=== PATIENT | female | born 1945 | race Caucasian/White ===

== ENCOUNTER 2016-10-21 10:17 | Day surgery (SDC) | payer MEDICARE, BC ==
[~2016-10-21 10:17] MED LIST: Acetaminophen TAB* 325 MG PO PRN; Buffered Lidocaine 1% SYR 3ML* 3 ML/SYR SYRINGE INTRADERM ONE
[2016-10-21] MEDS ORDERED: Midazolam* 1 MG/ML 2 ML VIAL (2 MG) ONE (13:17)
[2016-10-21 14:14] VITALS: BP 128/69
--- NOTE | 2016-10-22 04:32 | OP ---
DATE OF OPERATION: 10/21/16 - [facility] DATE OF : 43 SURGEON: Benoit Perea MD PREOPERATIVE DIAGNOSIS: Cataract, right eye. POSTOPERATIVE DIAGNOSIS: Cataract, right eye. OPERATIVE PROCEDURE: Phacoemulsification, right eye with IOL DESCRIPTION OF PROCEDURE: The patient was brought to the operating room after being given 1/2% Alcaine with epinephrine drops in the preoperative area. The eye was prepped and draped in the usual sterile fashion. Sterile drape and eyelid speculum were placed. Again, topical 1/2% Alcaine with epinephrine was given. A paracentesis incision was made at the 9 o'clock position with the No.75 blade. Clear cornea incision 2.2 x 2.2-mm was created at the 12 o'clock position starting at the anterior limbus using the 2.2-mm keratome. The anterior chamber was irrigated with 0.4 mL of 1% non-preservative intracameral lidocaine and filled with DisCoVisc. A capsulorrhexis was completed using the cystotome and the Utrata forceps. Hydrodissection was performed with balanced salt solution. The lens nucleus was removed with the Phacoemulsification handpiece without incident. Cortex was removed with the irrigation-aspiration handpiece. The capsular bag was re-inflated using DisCoVisc and an SN60WF 18.5 implant was inserted with the shooter. A Malyugin ring was used to dilate the pupil prior to capsulorrhexis and removed after insertion of the lens. Indication for complex cataract surgery, iris abnormalities requiring pupil dilation device. The irrigation-aspiration handpiece was used to remove all residual DisCoVisc. The eye was refilled with balanced salt solution and the wound checked and found to be watertight. Topical Maxitrol drops were given. [id number]/[facility] #: [id number] [facility]
[2016-10-22] MEDS ORDERED: Povidone Iodine 5% OPTH* 30 ML BTL ONE (14:30)
[2016-10-22] MEDS ORDERED: Neomycin/Polymy/Dex OPTH.SUSP* MAXITROL 0.1% 5 ML ONE (14:30)
[2016-10-22] MEDS ORDERED: Phenylephrine 2.5% OPTH.SOL* 2 ML BTL ONE (14:30)
[2016-10-22] MEDS ORDERED: Lidocaine 2% EPI 1:200000 MPF* 20 ML VIAL ONE (14:30)
[2016-10-22] MEDS ORDERED: Cyclopentolate 1% OPTH.SOL* 2 ML BTL ONE (14:30)
[2016-10-22] MEDS ORDERED: acetaZOLAMIDE TAB* 250 MG ONE (14:30)
[2016-10-22] MEDS ORDERED: Flurbiprofen 0.03% OPTH.SOL* 2.5 ML BTL ONE (14:30)
[2016-10-22] MEDS ORDERED: Proparacaine 0.5% OPHTH.SOL* 15 ML BTL ONE (14:30)
[2016-10-22] MEDS ORDERED: Lidocaine 1% MPF* 2 ML VIAL ONE (14:30)
== END 2016-10-21 14:12 | disposition home or self-care (01) ==
LOC: OREAST 10:17
PROVIDERS: ATTEND Specialist
DX: H25.811 Combined forms of age-related cataract, right eye (principal); H35.373 Puckering of macula, bilateral; M06.9 Rheumatoid arthritis, unspecified; Z79.899 Other long term (current) drug therapy; I10 Essential (primary) hypertension
CPT/HCPCS: A9270-GY; J2250; V2632

== ENCOUNTER 2016-10-28 09:38 | Day surgery (SDC) | payer MEDICARE, BC ==
[~2016-10-28 09:38] MED LIST changes: -Acetaminophen TAB* 325 MG PO PRN; +Cyclopentolate 1% OPTH.SOL* 2 ML BTL ONE; +Flurbiprofen 0.03% OPTH.SOL* 2.5 ML BTL ONE; +Lidocaine 1% MPF* 2 ML VIAL ONE; +Lidocaine 2% EPI 1:200000 MPF* 20 ML VIAL ONE; +Neomycin/Polymy/Dex OPTH.SUSP* MAXITROL 0.1% 5 ML ONE; +Phenylephrine 2.5% OPTH.SOL* 2 ML BTL ONE; +Povidone Iodine 5% OPTH* 30 ML BTL ONE; +Proparacaine 0.5% OPHTH.SOL* 15 ML BTL ONE; +acetaZOLAMIDE TAB* 250 MG ONE
[2016-10-28] MEDS ORDERED: Propofol* 10 MG/ML 20 ML BTL IV PUSH ONE (12:36)
[2016-10-28 13:25] VITALS: BP 123/78
--- NOTE | 2016-10-28 15:17 | OP ---
DATE OF OPERATION: 10/28/2016 - [facility] DATE OF : 1945. SURGEON: Benoit Perea M.D. PREOPERATIVE DIAGNOSIS: Cataract left eye. POSTOPERATIVE DIAGNOSIS: Cataract left eye. OPERATIVE PROCEDURE: Phacoemulsification left eye with IOL. DESCRIPTIO OF PROCEDURE: The patient was brought to the operating room after being given 1/2% Alcaine with epinephrine drops in the preoperative area. The eye was prepped and draped in the usual sterile fashion. Sterile drape and eyelid speculum were placed. Again, topical 1/2% Alcaine with epinephrine was given. A paracentesis incision was made at the 3 o'clock position with the No.75 blade. Clear cornea incision 2.2 x 2.2-mm was created at the 6 o'clock position starting at the anterior limbus using the 2.2-mm keratome. The anterior chamber was irrigated with 0.4 mL of 1% non-preservative intracameral lidocaine and filled with DisCoVisc. A capsulorrhexis was completed using the cystotome and the Utrata forceps. Hydrodissection was performed with balanced salt solution. The lens nucleus was removed with the Phacoemulsification handpiece without incident. Cortex was removed with the irrigation-aspiration handpiece. The capsular bag was re-inflated using DisCoVisc and an SN60WF 18 implant was inserted with the shooter. Of note, the patient's pupil dilator was only about 3 mm. A Malyugin ring was used to dilate the pupil prior to capsulorrhexis and removed after insertion of the lens. The irrigation- aspiration handpiece was used to remove all residual DisCoVisc. The eye was refilled with balanced salt solution and the wound checked and found to be watertight. Topical Maxitrol drops were given. Indication for complex cataract surgery: Iris abnormalities requiring pupil dilation device. [id number]/[facility] #: [id number] [facility]ITALMor[facility]
== END 2016-10-28 13:11 | disposition home or self-care (01) ==
LOC: OREAST 09:38
PROVIDERS: ATTEND Specialist
DX: H25.812 Combined forms of age-related cataract, left eye (principal); H35.373 Puckering of macula, bilateral; M06.9 Rheumatoid arthritis, unspecified; Z79.899 Other long term (current) drug therapy; I10 Essential (primary) hypertension; E03.9 Hypothyroidism, unspecified
CPT/HCPCS: A9270-GY; J2704; V2632

== ENCOUNTER 2018-03-07 11:45 | Emergency (ER) | payer MEDICARE, BC ==
--- NOTE | 2018-03-07 11:48 | UC ---
Back Pain HPI - HPI Summary HPI Summary: 72 yo female presents with low back pain for 5 days. She tells me that 5 days ago she went to stand up from a seated position and felt a pull in her lower back. The next day the pain was worse so she saw her PCP who gave her an injection of Toradol and rx for tylenol. She felt good that same day, but the next day her pain returned and has persisted through today. Denies fever, chills , SOB, chest pain, abdominal pain, n/v/d/c, dysuria, hematuria, numbness, tingling, saddle anesthesia, or loss of bowel/bladder control. - History of Current Complaint Stated Complaint: LOWER BACK PAIN Time Seen by Provider: 03/07/18 11:48 Hx Obtained From: Patient Onset/Duration: Sudden Onset Timing: Constant Severity Initially: Severe Severity Currently: Severe Pain Intensity: 9 Pain Scale Used: 0-10 Numeric - Allergies/Home Medications Allergies/Adverse Reactions: Allergies Allergy/AdvReac Type Severity Reaction Status Date / Time hydrocodone Allergy Itching Verified 03/07/18 12:13 Sulfa (Sulfonamide Allergy itch Verified 03/07/18 12:13 Antibiotics) tramadol Allergy itch Verified 03/07/18 12:13 iv contrast Allergy itch Uncoded 03/07/18 12:13 PMH/Surg Hx/FS Hx/Imm Hx - Additional Past Medical History Additional PMH: Rheumatoid Arthritis Endocrine History: Hypothyroidism Psychological History: Anxiety, Depression - Surgical History Surgical History: Yes Surgery Procedure, Year, and Place: HYSTERECTOMY -. BILAT hand surgery. tonsillectomy as child - Family History Known Family History: Positive: Cardiac Disease, Hypertension - Social History Occupation: Retired Lives: With Family Alcohol Use: Occasionally Alcohol Amount: qod Substance Use Type: None Smoking Status (MU): Never Smoked Tobacco Have You Smoked in the Last Year: No Review of Systems Constitutional: Negative Skin: Negative Respiratory: Negative Cardiovascular: Negative Gastrointestinal: Negative Genitourinary: Negative Neurovascular: Negative Musculoskeletal: Other: - LBP Neurological: Negative Psychological: Negative All Other Systems Reviewed And Are Negative: Yes Physical Exam - Summary Physical Exam Summary: GENERAL: NAD. WDWN. No pain distress. SKIN: No rashes, sores, lesions, or open wounds. NECK: Supple. FROM. Nontender. No lymphadenopathy. CHEST: No accessory muscle use. Breathing comfortably and in no distress. CV: Pulses intact. Brisk cap refill. MSK: TTP over L1, L2, and L3 vertebrae. Pain with flexion and extension of spine. Negative SLR b/l. Strength 5/5 and symmetric B/L LEs including dorsiflexion and plantar flexion. FROM B/L LEs. No edema. NEURO: Alert. CN II-XII grossly intact. Sensations intact B/L LEs L3-S1. PSYCH: Age appropriate behavior. Triage Information Reviewed: Yes Vital Signs: Vital Signs: Temp Pulse Resp BP Pulse Ox 98.4 F 86 16 134/75 98 03/07/18 11:53 03/07/18 11:53 03/07/18 11:53 03/07/18 11:53 03/07/18 11:53 Vital Signs Reviewed: Yes Back Pain Course/Dx - Course Course Of Treatment: XR: IMPRESSION: #. L1 predominant anterior column moderate compression fracture is new compared with the. September 30, 2015 radiographs. Acute or subacute fracture should be considered given. presence of trabecular impaction and new onset pain. #. Multilevel degenerative spondylosis and facet joint osteoarthritis without significant. interval change. #. Predisposing osteopenia documented on October 14, 2016 DEXA scan. 30mg of Toradol IM given in clinic. Rx for lidocaine patch and continue with tylenol. Referral to neurosurgery for further evaluation and treatment. - Differential Dx/Diagnosis Provider Diagnoses: L1 compression fracture Discharge - Sign-Out/Discharge Documenting (check all that apply): Patient Departure - Discharge Plan Condition: Stable Disposition: HOME Prescriptions: Lidocaine PATCH 5%* [Lidoderm 5% Patch*] 1 patch TRANSDERM DAILY PRN #1 box PRN Reason: Pain Patient Education Materials: Vertebral Compression Fracture (ED) Referrals: Annabel Garcia MD [Primary Care Provider] - Soni Cook MD [Medical Doctor] - As Soon As Possible Additional Instructions: If you develop a fever, shortness of breath, chest pain, new or worsening symptoms - please call your PCP or go to the ED. 1) May continue to take tylenol for pain 2) Please call Neurosurgery at the number below to schedule a follow up appointment as soon as possible - Billing Disposition and Condition Condition: STABLE Disposition: Home
[2018-03-07 11:55] VITALS: BP 134/75
--- OUTSIDE RECORDS SUMMARY | 2018-03-07 11:55 | XMS REPORT ---
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 Active Onset: 01/07/2012 Depressive disorder Sharri Mcdonough M.D. Active Onset: 01/07/2012 Allergic condition Sharri Mcdonough M.D. Active Onset: 12/27/2012 Hypothyroidism Annabel Garcia M.D. Active Onset: 06/17/2016 Closed fracture of surgical neck Edinson Navarrete M.D. 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 Active fracture, l shoulder, init Onset: 06/17/2016 Other specified depressive Edinson Navarrete M.D. Active episodes Onset: 06/17/2016 Essential hypertension Edinson Navarrete M.D. Active Onset: 01/07/2012 Hyperlipidemia screening Sharri Mcdonough M.D. Inactive Inactive: 06/17/2016 Onset: 12/27/2012 Headache Annabel Garcia M.D. Inactive Inactive: 06/17/2016 Onset: 12/27/2012 Insomnia Annabel Garcia M.D. Inactive Inactive: 06/17/2016 Onset: 05/01/2013 Abdominal pain Annabel Garcia M.D. 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 Inactive mood Inactive: 06/17/2016 Family History Date Family Member(s) Problem(s) Comments General No fam history DM, CAD, no lung, colon cancer. Father due to Congestive Heart () - age 78 Failure Mother due to Breast Cancer () - age 72. Number of Children None First Sister Lynne. good health. First Sister gastroparesis. Social History Type Date Description Comments Education Highest level of education completed is a master's degree in Social Work Marital Status Patient is Living Situation Lives with spouse Diet Diet is healthy and well balanced Sleep Typically sleeps 8 hours a night. 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 Cigarette Use Never Smoked Cigarettes ETOH Use Some 4-5 drinks over the week Recreational Drug Use Denies Drug Use Smoking Patient has never smoked Daily Caffeine Consumes on average 1 cup of coffee per day Exercise Type/Frequency Exercises Current regularly--strength training at the [employer]. volunteers at [employer] - very active there shuffling books around. Allergies, Adverse Reactions, Alerts Date Description Reaction Status Severity Comments 01/30/2011 Sulfa Drugs Nausea and Vomiting active 07/21/2012 Hydrocodone active Hives/Itching 07/21/2012 IV Contrast active Hives 07/21/2012 Morphine active Itching Medications Medication Date Status Form Strength Qnty SIG Indications Ordering Provider Lorazepam 03/05 Active Tablets 0.5mg 30tabs 1/2 to 1 G47.09 Ofelia /2018 by mouth Jourdan, bid prn CHARGE POSTER spasm Acetaminophen 03/05 Active Tablets 500mg 90tabs 1-2 by Ofelia Extra Strength /2017 mouth Jourdan, three CHARGE POSTER times daily as needed for pain Irbesartan 11/03 Active Tablets 150mg 180tabs 1 by mouth I10 Annabel Lanier twice Radha daily MJulienDJulien Trazodone HCL 12/27 Active Tablets 50mg 270tabs take one G47.00 Alvino T. /2012 to three Midura, tablets by Thee mouth at bedtime Synthroid 08/03 Active Tablets 50mcg 90tabs 1 by mouth Annabel Lanier every day Thee Garcia Folic Acid 10/16 Active 1mg 30units 1 qd Edinson F. Thee Navarrete Nasacort Aq 08/09 Active 3units 2 sprays q Edinson FJulien nostril qd Thee Navarrete Methotrexate 02/21 Active 2.5mg 0units 6 tabs Edinson FJulien once Rosalba weekly Thee Plaquenil 02/21 Active 200mg 60units 1 po qd Edinson F. Thee Navarrete Pristiq Active Tablets 50mg 90tabs take one F32.9 Benoit J. /0000 ER 24HR tablet by ortega Potter M.D. every day Trazodone HCL 02/12 Hx Tablets 50mg 30tabs 1-3 tablet Alvino T. at bedtime [facility], - as needed M.DJulien 02/26 for sleep /2017 Robitussin 12 12/12 Hx Suer 30mg/5ML 89ml 5mL po q R05 Ofelia Hour Cough /2016 12 hrs prn Jourdan, Relief - coughing CHARGE POSTER 02/26 Please Freeze 05/27 Hx until Annabel Lanier Membership further Radha, Of Today, - notice. M.D. 05/27/1606/17 fitness fax#[phone] Lorazepam 11/03 Hx Tablets 0.5mg 30tabs 1/2 to 1 G47.09 Annabel Lanier by mouth Radha, - at at M.D. 04/20 bedtime Irbesartan 09/19 Hx Tablets 75mg 90tabs 1 by mouth I10 Annabel Lanier every day Radha Samira Kingston 11/03 Isometheptene/ 12/27 Hx Capsules 65-325-10 60caps 1-2 po at 784.0 Annabel L. Dichloralphena 0mg beginning Radha zone/Acetamino - of M.DJulien phen 05/10 headache Bloodwork 03/31 Hx TSH Sharri Angulo on/around Sharonda, - May M.D. 12/26, 2011 Synthroid 03/30 Hx Tablets 25mcg 30tabs 1 tab po Annabel L. qam on Radha, - empty M.D. 08/03 Midrin 05/05 Hx Capsules 30caps 1-2 caps Ofelia po at juan carlos Billy, - onset of M.D. 05/10 Calcium-Vitami 12/07 Hx Tablets 500-125 120tabs 2 po qd Edinson F. n D Rosalba - M.DJulien 02/26 Trazodone HCL 10/06 Hx Tabs 50mg 6tabs take one Annabel LJulien tablet by Radha, - mouth M.DJulien 05/01 daily at bedtime Rozerom 06/24 Hx 8mg Samples 1 PO AT hs Ofelia prn juan carlos Billy - Thee 12/07 Didronel 06/23 Hx Tablets as dir [facility] 12/26 Of Ambien 06/23 Hx Tablets 10mg 30tabs 1/2 To 1 Tab po qhs juan carlos Billy, - prn sleep M.DJulien 12/07 Flunisolide, 08/01 Hx 0.025 1Can as Rizwan SJulien Nasal directed Thee Del Rosario - 03/24 Prednisone 02/21 Hx 2mg 100units 1 PO qd [facility] 05[facility]10 [facility] [place] Trazadone 02/21 Hx 50mg 30units 1 q hs Ofelia juan carlos Billy - Thee 12/07 Midrin 02/21 Hx 30units 2 at first sign of juan carlos Billy, - headache M.D. 05/05 Ketoralac 02/21 Hx 0units Family /2002 [facility] 06/23 [facility] [place] /2005 Nasalide 02/21 Hx 1units 2 sprays Rizwan S. /2002 each Thee Del Rosario - nostril 08/09 bid Prozac 02/21 Hx Caps 20mg 75caps Take 2 Ofelia /2002 Caps juan carlos Billy, - Alternatin M.D. 01/30 g 3 Caps /2010 Every Other Day Alendronate Hx Tablets 70mg 12tabs 1 po qweek Edinson F. Sodium /0000 Shallish, - M.D. 10/05 Prednisone Hx Tablets 1mg 1MG One Edinson F. /0000 Day 2MG Shallish, - The Next M.D. Ketorolac Hx Tablets 10mg 1 PO Every Unknown Tromethamine /0000 6 HRS - 04/20 Ibuprofen Hx Tablets 200mg 600 mg Edinson F. /0000 daily for Shallish, - pain M.D. 02/26 Medications Administered in Office Medication Date Status Form Strength Qnty SIG Indications Ordering Provider Injection 03/05/ Administered Injection Ofelia Subcutaneous Or 2017 Jourdan, Intramuscular CHARGE POSTER H1N1 MDCR 09/23/ Administered Injection Ofelia vaccine any 2009 christina Nolasco M.D. Immunizations CPT Code Status Date Vaccine Lot # [id number] Given 04/21/2016 High-Dose, Influenza Virus Vacccine-fluzone 65 and [id number] older [id number] Given 05/14/2015 Influenza Vac, Quadrivalent, Slit Virus, Im [id number] 83474 Given 11/05/2014 Tdap Tetanus, W Pertussis [id number] 54101 Given 11/05/2014 Pneumococcal Conjugate Vacc-13 [id number] Q2038 Given 05/01/2013 Split Influenza Medicare: Fluzone [id number] 93916 Given 05/01/2013 Pneumococcal Immunization [id number] 91017 Given 05/22/2012 DO Not Use Split Influenza Virus Vaccine [id number] Given 05/13/2011 Split Influenza Medicare: Fluzone [id number] 44019 Given 12/17/2010 Zostivax [id number] 98664 Given 05/02/2009 DO Not Use Split Influenza Virus Vaccine 45581 Given 05/02/2009 DO Not Use Split Influenza Virus Vaccine [id number] 24306 Given 06/28/2007 DO Not Use Split Influenza Virus Vaccine 85335 Given 06/29/2006 DO Not Use Split Influenza Virus Vaccine 67385 Given 07/28/2004 DO Not Use Split Influenza Virus Vaccine Vital Signs Date Vital Result Comment 03/05/2018 BP Systolic 148 mmHg BP Diastolic 66 mmHg Heart Rate 72 /min Body Temperature 97.2 F Respiratory Rate 18 /min Height 63.5 inches 5'3.50" measured 11/05/14 Weight 147.12 lb BMI (Body Mass Index) 25.7 kg/m2 12/12/2016 BP Systolic 140 mmHg BP Diastolic 82 mmHg Heart Rate 84 /min Body Temperature 100.7 F Respiratory Rate 16 /min Height 63.5 inches 5'3.50" measured 11/05/14 Weight 142.25 lb BMI (Body Mass Index) 24.8 kg/m2 10/05/2016 BP Systolic 128 mmHg BP Diastolic 80 mmHg Heart Rate 80 /min Body Temperature 97.9 F Respiratory Rate 16 /min Height 63.5 inches 5'3.50" measured 11/05/14 Weight 144.00 lb BMI (Body Mass Index) 25.1 kg/m2 06/17/2016 BP Systolic 140 mmHg BP Diastolic 70 mmHg Heart Rate 76 /min Body Temperature 98.6 F Respiratory Rate 16 /min Height 63.5 inches 5'3.50" measured 11/05/14 Weight 149.12 lb BMI (Body Mass Index) 26.0 kg/m2 04/21/2016 BP Systolic 134 mmHg BP Diastolic 74 mmHg Heart Rate 84 /min Body Temperature 100.0 F forehead, ear 99.5 Height 63.5 inches 5'3.50" measured 11/05/14 Weight 149.12 lb BMI (Body Mass Index) 26.0 kg/m2 11/04/2015 BP Systolic 140 mmHg BP Diastolic 80 mmHg Heart Rate 80 /min Body Temperature 97.9 F Respiratory Rate 16 /min Height 63.5 inches 5'3.50" measured 11/05/14 Weight 149.00 lb BMI (Body Mass Index) 26.0 kg/m2 10/08/2015 BP Systolic 130 mmHg BP Diastolic 80 mmHg Heart Rate 80 /min Body Temperature 98.1 F Respiratory Rate 18 /min Height 63.5 inches 5'3.50" measured 11/05/14 Weight 151.00 lb BMI (Body Mass Index) 26.3 kg/m2 09/19/2015 BP Systolic 130 mmHg BP Diastolic 80 mmHg Heart Rate 80 /min Body Temperature 97.8 F Respiratory Rate 18 /min Height 63.5 inches 5'3.50" measured 11/05/14 Weight 151.00 lb BMI (Body Mass Index) 26.3 kg/m2 01/18/2015 BP Systolic 188 mmHg BP Diastolic 110 mmHg Heart Rate 80 /min Body Temperature 98.1 F Height 63.5 inches 5'3.50" measured 11/05/14 Weight 148.50 lb BMI (Body Mass Index) 25.9 kg/m2 11/05/2014 BP Systolic 156 mmHg BP Diastolic 80 mmHg Heart Rate 96 /min Body Temperature 99.4 F Respiratory Rate 16 /min Height 63.5 inches 5'3.50" measured 11/05/14 Weight 144.50 lb BMI (Body Mass Index) 25.2 kg/m2 05/01/2013 BP Systolic 146 mmHg BP Diastolic 80 mmHg Heart Rate 90 /min Body Temperature 99.7 F Respiratory Rate 16 /min Height 63.25 inches 5'3.25" measured Weight 148.12 lb BMI (Body Mass Index) 26.0 kg/m2 12/27/2012 BP Systolic 130 mmHg BP Diastolic 90 mmHg Heart Rate 90 /min Body Temperature 98.6 F Height 64 inches 5'4" Measured Weight 153.00 lb BMI (Body Mass Index) 26.3 kg/m2 07/21/2012 BP Systolic 120 mmHg BP Diastolic 80 mmHg Heart Rate 88 /min Body Temperature 98.3 F Height 64 inches 5'4" Measured Weight 157.00 lb BMI (Body Mass Index) 26.9 kg/m2 01/07/2012 BP Systolic 118 mmHg BP Diastolic 76 mmHg Heart Rate 86 /min Body Temperature 99.6 F Height 64 inches 5'4" Measured Weight 156.00 lb BMI (Body Mass Index) 26.8 kg/m2 01/30/2011 BP Systolic 122 mmHg BP Diastolic 74 mmHg Heart Rate 84 /min Body Temperature 98.4 F Height 64 inches 5'4" Measured Weight 156.00 lb BMI (Body Mass Index) 26.8 kg/m2 12/07/2008 BP Systolic 122 mmHg BP Diastolic 82 mmHg Heart Rate 88 /min Height 64 inches 5'4" Measured Weight 157.00 lb BMI (Body Mass Index) 26.9 kg/m2 03/24/2007 BP Systolic 130 mmHg BP Diastolic 70 mmHg Body Temperature 99.2 F Height 64 inches 5'4" Measured Weight 150.00 lb BMI (Body Mass Index) 25.7 kg/m2 06/23/2006 BP Systolic 100 mmHg BP Diastolic 54 mmHg Heart Rate 76 /min Height 64 inches 5'4" Measured Weight 152.00 lb BMI (Body Mass Index) 26.1 kg/m2 07/23/2005 BP Systolic 124 mmHg BP Diastolic 70 mmHg Heart Rate 68 /min Height 64 inches 5'4" Measured Weight 151.00 lb BMI (Body Mass Index) 25.9 kg/m2 02/09/2005 BP Systolic 106 mmHg BP Diastolic 64 mmHg Heart Rate 72 /min Height 64 inches 5'4" Measured Weight 149.00 lb BMI (Body Mass Index) 25.6 kg/m2 10/16/2004 BP Systolic 130 mmHg BP Diastolic 88 mmHg Body Temperature 98.0 F Height 64 inches 5'4" Measured 07/28/2004 BP Systolic 104 mmHg BP Diastolic 70 mmHg Heart Rate 76 /min Body Temperature 98.3 F Height 64 inches 5'4" Measured Weight 149.00 lb BMI (Body Mass Index) 25.6 kg/m2 03/24/2004 BP Systolic 102 mmHg BP Diastolic 60 mmHg Heart Rate 68 /min Height 64 inches 5'4" Measured Weight 148.00 lb BMI (Body Mass Index) 25.4 kg/m2 11/14/2003 BP Systolic 104 mmHg BP Diastolic 66 mmHg Heart Rate 72 /min Height 64 inches 5'4" Measured Weight 149.00 lb BMI (Body Mass Index) 25.6 kg/m2 02/21/2003 BP Systolic 98 mmHg BP Diastolic 72 mmHg Heart Rate 68 /min Height 64 inches 5'4" Measured Weight 142.00 lb BMI (Body Mass Index) 24.4 kg/m2 Results Test Date Test Result H/L Range Note Comp Metabolic Panel 02/15/2018 Sodium 137 mmol/L 135-145 Potassium 4.7 mmol/L 3.5-5.0 Chloride 101 mmol/L 101-111 Co2 Carbon Dioxide 28 mmol/L 22-32 Anion Gap 8 mmol/L 2-11 Glucose 134 mg/dL High 70-100 Blood Urea Nitrogen 19 mg/dL 6-24 Creatinine 0.99 mg/dL High 0.51-0.95 BUN/Creatinine Ratio 19.2 8-20 Calcium 10.2 mg/dL 8.6-10.3 Total Protein 6.5 g/dL 6.4-8.9 Albumin 3.9 g/dL 3.2-5.2 Globulin 2.6 g/dL 2-4 Albumin/Globulin Ratio 1.5 1-3 Total Bilirubin 1.00 mg/dL 0.2-1.0 Alkaline Phosphatase 46 U/L 34-104 Alt 22 U/L 7-52 Ast 39 U/L 13-39 Egfr Non- 55.0 >60 Egfr 66.5 >60 1 Laboratory test finding 02/15/2018 C Reactive Protein 13.09 mg/L High < 8.01 2 CBC Auto Diff 02/15/2018 White Blood Count 5.2 10^3/uL 3.5-10.8 Red Blood Count 3.28 10^6/uL Low 4.00-5.40 Hemoglobin 11.9 g/dL Low 12.0-16.0 Hematocrit 35 % 35-47 Mean Corpuscular Volume 107 fL High 80-97 3 Mean Corpuscular Hemoglobin 36 pg High 27-31 Mean Corpuscular HGB Conc 34 g/dL 31-36 Red Cell Distribution Width 15 % 10.5-15 Platelet Count 279 10^3/uL 150-450 Mean Platelet Volume 7.8 um3 7.4-10.4 Abs Neutrophils 3.7 10^3/uL 1.5-7.7 Abs Lymphocytes 0.8 10^3/uL Low 1.0-4.8 Abs Monocytes 0.5 10^3/uL 0-0.8 Abs Eosinophils 0.3 10^3/uL 0-0.6 Abs Basophils 0 10^3/uL 0-0.2 Abs Nucleated RBC 0 10^3/uL Granulocyte % 70.3 % 38-83 Lymphocyte % 15.0 % Low 25-47 Monocyte % 8.8 % High 0-7 Eosinophil % 5.4 % 0-6 Basophil % 0.5 % 0-2 Nucleated Red Blood Cells % 0 Laboratory test finding 02/15/2018 Erythrocyte Sed Rate 23 mm/Hr 0-40 4 Laboratory test finding 11/17/2017 [facility] [place] Test See Attached Laboratory test finding 11/13/2017 Erythrocyte Sed Rate 18 mm/Hr 0-40 Comp Metabolic Panel 11/13/2017 Sodium 133 mmol/L 133-145 Potassium 4.5 mmol/L 3.5-5.0 Chloride 99 mmol/L Low 101-111 Co2 Carbon Dioxide 28 mmol/L 22-32 Anion Gap 6 mmol/L 2-11 Glucose 160 mg/dL High 70-100 Blood Urea Nitrogen 18 mg/dL 6-24 Creatinine 1.11 mg/dL High 0.51-0.95 BUN/Creatinine Ratio 16.2 8-20 Calcium 9.8 mg/dL 8.6-10.3 Total Protein 6.3 g/dL Low 6.4-8.9 Albumin 3.9 g/dL 3.2-5.2 Globulin 2.4 g/dL 2-4 Albumin/Globulin Ratio 1.6 1-3 Total Bilirubin 1.00 mg/dL 0.2-1.0 Alkaline Phosphatase 50 U/L 34-104 Alt 20 U/L 7-52 Ast 41 U/L High 13-39 Egfr Non- 48.2 >60 Egfr 62.0 >60 5 CBC Auto Diff 11/13/2017 White Blood Count 6.1 10^3/uL 3.5-10.8 Red Blood Count 3.28 10^6/uL Low 4.0-5.4 Hemoglobin 11.8 g/dL Low 12.0-16.0 Hematocrit 35 % 35-47 Mean Corpuscular Volume 106 fL High 80-97 6 Mean Corpuscular Hemoglobin 36 pg High 27-31 Mean Corpuscular HGB Conc 34 g/dL 31-36 Red Cell Distribution Width 14 % 10.5-15 Platelet Count 265 10^3/uL 150-450 Mean Platelet Volume 8.2 um3 7.4-10.4 Abs Neutrophils 4.5 10^3/uL 1.5-7.7 Abs Lymphocytes 1.0 10^3/uL 1.0-4.8 Abs Monocytes 0.6 10^3/uL 0-0.8 Abs Eosinophils 0 10^3/uL 0-0.6 Abs Basophils 0 10^3/uL 0-0.2 Abs Nucleated RBC 0 10^3/uL Granulocyte % 73.3 % 38-83 Lymphocyte % 15.9 % Low 25-47 Monocyte % 10.5 % High 0-7 Eosinophil % 0 % 0-6 Basophil % 0.3 % 0-2 Nucleated Red Blood Cells % 0 Laboratory test finding 11/13/2017 C Reactive Protein 7.94 mg/L High < 5.00 7 Laboratory test finding 07/13/2017 TSH (Thyroid Stim 5.27 mcIU/mL 0.34- 5.60 Horm) Free T4 (Free Thyroxine) 0.98 ng/dL 0.61-1.12 Influenza A&B-fma 12/12/2016 Influenza A neg Influenza B neg Laboratory test finding 07/29/2016 Erythrocyte Sed Rate 29 mm/Hr 0-40 8 CBC Auto Diff 07/29/2016 White Blood Count 7.1 10^3/uL 3.5-10.8 Red Blood Count 3.19 10^6/uL Low 4.0-5.4 Hemoglobin 11.2 g/dL Low 12.0-16.0 Hematocrit 34 % Low 35-47 Mean Corpuscular Volume 106 fL High 80-97 9 Mean Corpuscular Hemoglobin 35 pg High 27-31 Mean Corpuscular HGB Conc 33 g/dL 31-36 Red Cell Distribution Width 17 % High 10.5-15 Platelet Count 275 10^3/uL 150-450 Mean Platelet Volume 8 um3 7.4-10.4 Abs Neutrophils 5.0 10^3/uL 1.5-7.7 Abs Lymphocytes 1.4 10^3/uL 1.0-4.8 Abs Monocytes 0.7 10^3/uL 0-0.8 Abs Eosinophils 0 10^3/uL 0-0.6 Abs Basophils 0 10^3/uL 0-0.2 Abs Nucleated RBC 0 10^3/uL Granulocyte % 70.0 % 38-83 Lymphocyte % 19.6 % Low 25-47 Monocyte % 9.7 % High 1-9 Eosinophil % 0 % 0-6 Basophil % 0.7 % 0-2 Nucleated Red Blood Cells % 0.1 Laboratory test finding 07/29/2016 C Reactive Protein 6.12 mg/L High < 5.00 10 Vitamin D Total 25(Oh) 46.7 ng/mL 30-50 11 Comp Metabolic Panel 07/29/2016 Sodium 137 mmol/L 133-145 Potassium 4.3 mmol/L 3.5-5.0 Chloride 98 mmol/L Low 101-111 Co2 Carbon Dioxide 29 mmol/L 22-32 Anion Gap 10 mmol/L 2-11 Glucose 88 mg/dL 70-100 Blood Urea Nitrogen 13 mg/dL 6-24 Creatinine 1.00 mg/dL High 0.51-0.95 BUN/Creatinine Ratio 13.0 8-20 Calcium 9.6 mg/dL 8.6-10.3 Total Protein 6.3 g/dL Low 6.4-8.9 Albumin 3.7 g/dL 3.2-5.2 Globulin 2.6 g/dL 2-4 Albumin/Globulin Ratio 1.4 1-3 Total Bilirubin 0.50 mg/dL 0.2-1.0 Alkaline Phosphatase 55 U/L 34-104 Alt 17 U/L 7-52 Ast 33 U/L 13-39 Egfr Non- 54.5 >60 Egfr 70.1 >60 12 Laboratory test 07/27/2016 Hemoccult-Ict (a) negative finding Laboratory test 06/23/2016 Cancellous Chips 5cc SEE RESULTS [facility] 13, 14 finding <SEE NOTE> DBM Putty Orthoblast II 5cc SEE RESULTS [facility] <SEE NOTE> 13, 15 Comprehensive Metabolic Prof 06/17/2016 Sodium 138 mEq/L 134-149 Potassium 4.9 mEq/L 3.6-5.5 Chloride 97 mEq/L 94-112 Carbon Dioxide 25 mEq/L 21-32 Glucose 60 mg/dL Low 70-105 16 BUN 7 mg/dL 6-26 Creatinine 0.8 mg/dL 0.6-1.4 BUN/Creat Ratio 8.8 CALC 8.0-36.0 Calcium 9.1 mg/dL 8.6-10.2 Total Protein 6.3 g/dL Low 6.4-8.3 17 Albumin 3.8 g/dL 3.8-5.5 Globulin 2.5 g/dL 2.0-4.8 A/G Ratio 1.5 CALC 0.6-2.3 Alk. Phosphatase 65 U/L 30-110 Alt (SGPT) 39 U/L High 7-35 18 Ast (Sgot) 77 U/L High 5-34 19 Total Bilirubin 0.6 mg/dL 0.2-1.3 GFR Non- >60 ml/min/1.73m^ >=60 GFR >60 ml/min/1.73m^ >=60 CBC Electronic (Fma) 06/17/2016 WBC 7.3 3.6-9.6 RBC 3.24 Low 3.90-5.70 20 Hemoglobin (Fma/CMC/CTX) 11.3 g/dL Low 12.1 - 17.2 Hematocrit (Fma/CMC/CTX) 33.5 % Low 36.1 - 50.3 Platelets 283 10^3/ul 150-400 Lymph% 12.5 % Low 17.0-48.0 Mixed% 4.4 Neutrophils % 83.1 Mean Corpuscular Vol 103 High 82.2-97.4 Mean Corpuscular Hemoglobin 35.0 High 27.6-33.3 Mean Corpuscular Hemo Concen 33.8 32.0-36.0 RDW 15.2 High 11.6-13.7 Mean Platelet Volume 6.8 5.5-11.0 Prothrombin Time (PT) 06/17/2016 Inr 1.0 21, 22 Prothrombin Time 10.7 seconds 9.6-11.5 21 PTT, Activated 06/17/2016 aPTT 26.5 seconds 25.0-31.3 21 Laboratory test finding 04/21/2016 TSH 3.41 mIU/L 0.50-6.00 Free T4 1.01 ng/dL 0.75-1.54 Complete Blood Count 04/21/2016 WBC 6.6 x10^3/UL 3.6-9.6 RBC 3.56 x10^6/UL Low 3.90-5.70 HGB 12.6 g/dL 12.1-17.2 HCT 37 % 36-50 MCV 105.0 fL High 82.2-97.4 23 MCH 35.4 pg High 27.6-33.3 24 MCHC 33.8 g/dL 33.0-35.5 RDW 14.7 % High 11.6-13.7 PLT 300 x10^3/UL 150-400 MPV 7.0 fL Low 7.4-10.4 Gran # 5.2 x10^3/UL 1.5-7.2 Lymph# 1.0 x10^3/UL 0.7-4.9 [place]# 0.4 x10^3/UL 0.1-0.9 Gran % 78.1 % High 42.2-75.2 Lymph % 15.2 % Low 20.5-51.1 [place]% 6.7 % 1.7-9.3 Comprehensive Metabolic Prof 04/21/2016 Sodium 141 mEq/L 134-149 Potassium 5.3 mEq/L 3.6-5.5 Chloride 100 mEq/L 94-112 Carbon Dioxide 28 mEq/L 21-32 Glucose 86 mg/dL 70-105 BUN 13 mg/dL 6-26 Creatinine 0.8 mg/dL 0.6-1.4 BUN/Creat Ratio 16.3 CALC 8.0-36.0 Calcium 10.1 mg/dL 8.6-10.2 Total Protein 6.8 g/dL 6.4-8.3 Albumin 4.3 g/dL 3.8-5.5 Globulin 2.5 g/dL 2.0-4.8 A/G Ratio 1.7 CALC 0.6-2.3 Alk. Phosphatase 54 U/L 30-110 Alt (SGPT) 30 U/L 7-35 Ast (Sgot) 54 U/L High 5-34 Total Bilirubin 0.5 mg/dL 0.2-1.3 GFR Non- >60 ml/min/1.73m^ >=60 GFR >60 ml/min/1.73m^ >=60 Basic Metabolic Profile 10/08/2015 Sodium 134 mEq/L 134-149 Potassium 4.9 mEq/L 3.6-5.5 Chloride 96 mEq/L 94-112 Carbon Dioxide 29 mEq/L 21-32 Glucose 103 mg/dL 70-105 BUN 18 mg/dL 6-26 Creatinine 0.9 mg/dL 0.6-1.4 BUN/Creat Ratio 20.0 CALC 8.0-36.0 Calcium 9.9 mg/dL 8.6-10.2 GFR Non- >60 ml/min/1.73m^ >=60 GFR >60 ml/min/1.73m^ >=60 Creatinine 09/12/2015 Creatinine 0.81 mg/dL 0.51-0.95 Egfr Non- 69.7 >60 Egfr 89.6 >60 25 Laboratory test finding 09/12/2015 Albumin 4.0 g/dL 3.2-5.2 Ast 27 U/L 13-39 CBC Auto Diff 09/12/2015 White Blood Count 5.3 10^3/uL 3.5-10.8 Red Blood Count 3.86 10^6/uL Low 4.0-5.4 Hemoglobin 13.0 g/dL 12.0-16.0 Hematocrit 40 % 35-47 Mean Corpuscular Volume 104 fL High 80-97 Mean Corpuscular Hemoglobin 34 pg High 27-31 Mean Corpuscular HGB Conc 32 g/dL 31-36 Red Cell Distribution Width 15 % 10.5-15 Platelet Count 247 10^3/uL 150-450 Mean Platelet Volume 9 um3 7.4-10.4 Abs Neutrophils 3.4 10^3/uL 1.5-7.7 Abs Lymphocytes 1.1 10^3/uL 1.0-4.8 Abs Monocytes 0.7 10^3/uL 0-0.8 Abs Eosinophils 0.1 10^3/uL 0-0.6 Abs Basophils 0 10^3/uL 0-0.2 Abs Nucleated RBC 0 10^3/uL Granulocyte % 64.3 % 38-83 Lymphocyte % 21.2 % Low 25-47 Monocyte % 12.5 % High 1-9 Eosinophil % 1.3 % 0-6 Basophil % 0.7 % 0-2 Nucleated Red Blood Cells % 0.1 Laboratory test finding 09/12/2015 Erythrocyte Sed Rate 12 mm/Hr 0-40 Laboratory test finding 05/14/2015 TSH 4.16 mIU/L 0.50-6.00 Free T4 1.02 ng/dL 0.75-1.54 Creatinine 03/19/2015 Creatinine 1.01 mg/dL High 0.51-0.95 Egfr Non- 54.0 >60 Egfr 69.5 >60 26 Laboratory test finding 03/19/2015 Albumin 4.2 g/dL 3.2-5.2 Ast 29 U/L 13-39 CBC Auto Diff 03/19/2015 White Blood Count 7.8 10^3/uL 4.8-10.8 Red Blood Count 3.81 10^6/uL Low 4.0-5.4 Hemoglobin 13.0 g/dL 12.0-16.0 Hematocrit 40 % 35-47 Mean Corpuscular Volume 106 fL High 80-97 Mean Corpuscular Hemoglobin 34 pg High 27-31 Mean Corpuscular HGB Conc 32 g/dL 31-36 Red Cell Distribution Width 15 % 10.5-15 Platelet Count 274 10^3/uL 150-450 Mean Platelet Volume 9 um3 7.4-10.4 Abs Neutrophils 6.1 10^3/uL 1.5-7.7 Abs Lymphocytes 0.9 10^3/uL Low 1.0-4.8 Abs Monocytes 0.6 10^3/uL 0-0.8 Abs Eosinophils 0.1 10^3/uL 0-0.6 Abs Basophils 0.1 10^3/uL 0-0.2 Abs Nucleated RBC 0 10^3/uL Granulocyte % 77.7 % 38-83 Lymphocyte % 12.1 % Low 25-47 Monocyte % 7.4 % 1-9 Eosinophil % 0.9 % 0-6 Basophil % 1.9 % 0-2 Nucleated Red Blood Cells % 0 Laboratory test finding 03/19/2015 Erythrocyte Sed Rate 13 mm/Hr 0-40 Laboratory test finding 01/18/2015 TSH 6.63 mIU/L High 0.50-6.00 27 Ua - Non Micro ([facility]ma) 11/05/2014 Appearance clear Color yellow Glucose, Urine (Fma/CMC/CTX) - Bilirubin - Ketones - SP Grav >=1.030 Blood - PH 6.0 Protein - Urobil 0.2 Nitrite - Leukocytes (Fma/CMC/[facility]) - Comp Metabolic-[facility] 09/13/2014 Sodium 138 mmol/L 133-145 28 Potassium 3.5 mmol/L 3.5-5.0 28 Chloride 103 mmol/L 101-111 28 Co2 Carbon Dioxide 30 mmol/L 22-32 28 Anion Gap 5 mmol/L 2-11 28 Glucose 86 mg/dL 70-100 28 Blood Urea Nitrogen 14 mg/dL 6-24 28 Creatinine 0.99 mg/dL High 0.51-0.95 28 BUN/Creatinine Ratio 14.1 8-20 28 Calcium 9.3 mg/dL 8.6-10.3 28 Total Protein 6.7 g/dL 6.4-8.9 28 Albumin 3.9 g/dL 3.2-5.2 28 Globulin 2.8 g/dL 2-4 28 Albumin/Globulin Ratio 1.4 1-3 28 Total Bilirubin 0.70 mg/dL 0.2-1.0 28 Alkaline Phosphatase 52 U/L 34-104 28 Alt 13 U/L 7-52 28 Ast 21 U/L 13-39 28 Egfr Non- 55.5 >60 28 Egfr 71.3 >60 28, 29 Lipid Panel-[facility] 09/13/2014 Triglycerides 103 mg/dL 28, 30 Cholesterol 222 mg/dL 28, 31 HDL Cholesterol 105.6 mg/dL 28, 32 LDL Cholesterol 96 mg/dL 28, 33 Laboratory test finding 09/13/2014 Free T4 0.88 ng/mL 0.61-1.12 28, 34 Vitamin D, 25-Hydroxy 09/13/2014 25-Hydroxy Vitamin <4.0 ng/mL 28 (CTX,CMC D2 25-Hydroxy Vitamin D3 52 ng/mL 28 25-Hydroxy Vitamin D Total 52 ng/mL 28, 35 Laboratory test 09/13/2014 TSH (Thyroid 12.17 IU/mL High 0.34-5.60 28, 36 finding Stimulating Horm) CBC Auto Diff 09/13/2014 White Blood Count 5.0 10^3/uL 4.8-10.8 Red Blood Count 4.12 10^6/uL 4.0-5.4 Hemoglobin 13.5 g/dL 12.0-16.0 Hematocrit 42 % 35-47 Mean Corpuscular Volume 101 fL High 80-97 Mean Corpuscular Hemoglobin 33 pg High 27-31 Mean Corpuscular HGB Conc 32 g/dL 31-36 Red Cell Distribution Width 16 % High 10.5-15 Platelet Count 260 10^3/uL 150-450 Mean Platelet Volume 9 um3 7.4-10.4 Abs Neutrophils 2.8 10^3/uL 1.5-7.7 Abs Lymphocytes 1.5 10^3/uL 1.0-4.8 Abs Monocytes 0.5 10^3/uL 0-0.8 Abs Eosinophils 0.2 10^3/uL 0-0.6 Abs Basophils 0 10^3/uL 0-0.2 Abs Nucleated RBC 0.01 10^3/uL Granulocyte % 55.7 % 38-83 Lymphocyte % 29.4 % 25-47 Monocyte % 9.5 % High 1-9 Eosinophil % 4.6 % 0-6 Basophil % 0.8 % 0-2 Nucleated Red Blood Cells % 0.1 Laboratory test finding 09/13/2014 Erythrocyte Sed Rate 17 mm/Hr 0-40 Laboratory test finding 03/12/2014 Blood Urea Nitrogen 12 mg/dL 6-24 Creatinine 03/12/2014 Creatinine 0.96 mg/dL High 0.51-0.95 Egfr Non- 57.6 >60 Egfr 74.1 >60 37 Laboratory test finding 03/12/2014 Albumin 4.0 g/dL 3.2-5.2 Ast 25 U/L 13-39 CBC Auto Diff 03/12/2014 White Blood Count 7.1 10^3/uL 4.8-10.8 Red Blood Count 3.77 10^6/uL Low 4.0-5.4 Hemoglobin 13.0 g/dL 12.0-16.0 Hematocrit 38 % 35-47 Mean Corpuscular Volume 101 fL High 80-97 Mean Corpuscular Hemoglobin 34 pg High 27-31 Mean Corpuscular HGB Conc 34 g/dL 31-36 Red Cell Distribution Width 15 % 10.5-15 Platelet Count 288 10^3/uL 150-450 Mean Platelet Volume 8 um3 7.4-10.4 Abs Neutrophils 5.2 10^3/uL 1.5-7.7 Abs Lymphocytes 1.1 10^3/uL 1.0-4.8 Abs Monocytes 0.6 10^3/uL 0-0.8 Abs Eosinophils 0.1 10^3/uL 0-0.6 Abs Basophils 0 10^3/uL 0-0.2 Abs Nucleated RBC 0 10^3/uL Granulocyte % 72.9 % 38-83 Lymphocyte % 15.8 % Low 25-47 Monocyte % 8.6 % 1-9 Eosinophil % 2.1 % 0-6 Basophil % 0.6 % 0-2 Nucleated Red Blood Cells % 0 Laboratory test finding 03/12/2014 Erythrocyte Sed Rate 10 mm/Hr 0-40 Creatinine 09/26/2013 Creatinine 1.00 mg/dL 0.50-1.40 Egfr Non- 55.0 >60 Egfr 70.7 >60 38 Laboratory test finding 09/26/2013 Albumin 3.6 g/dL 3.2-5.2 Ast 25 U/L 12-42 CBC Auto Diff 09/26/2013 White Blood Count 5.4 10^3/uL 4.8-10.8 Red Blood Count 3.76 10^6/uL Low 4.0-5.4 Hemoglobin 12.6 g/dL 12.0-16.0 Hematocrit 38 % 35-47 Mean Corpuscular Volume 101 fL High 80-97 Mean Corpuscular Hemoglobin 34 pg High 27-31 Mean Corpuscular HGB Conc 33 g/dL 31-36 Red Cell Distribution Width 15 % 10.5-15 Platelet Count 280 10^3/uL 150-450 Mean Platelet Volume 8 um3 7.4-10.4 Abs Neutrophils 3.4 10^3/uL 1.5-7.7 Abs Lymphocytes 1.2 10^3/uL 1.0-4.8 Abs Monocytes 0.6 10^3/uL 0-0.8 Abs Eosinophils 0.1 10^3/uL 0-0.6 Abs Basophils 0 10^3/uL 0-0.2 Abs Nucleated RBC 0 10^3/uL Granulocyte % 64.1 % 38-83 Lymphocyte % 21.7 % Low 25-47 Monocyte % 11.6 % High 1-9 Eosinophil % 2.2 % 0-6 Basophil % 0.4 % 0-2 Nucleated Red Blood Cells % 0.1 Laboratory test finding 09/26/2013 Erythrocyte Sed Rate 14 mm/Hr 0-40 Liver Function Panel 07/19/2013 Total Protein 5.6 g/dL Low 6.2-8.1 Albumin 3.6 g/dL 3.2-5.2 Globulin 2.0 g/dL 2-4 Albumin/Globulin Ratio 1.8 1-3 Total Bilirubin 0.8 mg/dL 0.4-1.5 Direct Bilirubin 0.1 mg/dL 0.1-0.5 Indirect Bilirubin 0.7 mg/dL 0.3-1.0 Alkaline Phosphatase 57 U/L 30-110 Alt 19 U/L 14-54 Ast 30 U/L 12-42 Basic Metabolic Profile 05/01/2013 BUN 15 mg/dL 6-26 Calcium 9.9 mg/dL 8.6-10.2 Chloride 101 mEq/L 94-112 Creatinine 1.2 mg/dL 0.6-1.4 Carbon Dioxide 28 mEq/L 21-32 Glucose 134 mg/dL High 70-105 Sodium 137 mEq/L 134-149 Potassium 4.7 mEq/L 3.6-5.5 BUN/Creat Ratio 12.8 Calc 8.0-36.0 Laboratory test finding 05/01/2013 TSH 4.44 mIU/L 0.50-6.00 Celiac Disease Comp PNL 05/01/2013 Deamidated Gliadin Abs, 9 units 0-19 39 IgA Deamidated Gliadin Abs, IgG 3 units 0-19 40 t-Transglutaminase (tTG) IgA <2 U/mL 0-3 41 t-Transglutaminase (tTG) IgG <2 U/mL 0-5 42 Endomysial Antibody IgA Negative Negative Immunoglobulin A, Qn, Serum 260 mg/dL 91-414 Laboratory test finding 05/01/2013 Hemoglobin A1c ([facility] [place]CX[place] 5.3 % 4.1- 5.7 Ua - Non Micro (a) 05/01/2013 Appearance CLEAR Color YELLOW Glucose NEG Bilirubin NEG Ketones NEG SP Grav 1.020 Blood NEG PH 6.5 Protein NEG Urobil 0.2 Nitrite NEG Leukocytes (a/[facility] [place]/[facility]) NEG Liver Function Panel 03/02/2013 Total Protein 5.9 g/dL Low 6.2-8.1 Albumin 3.3 g/dL 3.2-5.2 Globulin 2.6 g/dL 2-4 Albumin/Globulin Ratio 1.3 1-3 Total Bilirubin 1.1 mg/dL 0.4-1.5 Direct Bilirubin 0.1 mg/dL 0.1-0.5 Indirect Bilirubin 1.0 mg/dL 0.3-1.0 Alkaline Phosphatase 53 U/L 30-110 Alt 20 U/L 14-54 Ast 31 U/L 12-42 Laboratory test finding 03/02/2013 Blood Urea Nitrogen 10 mg/dL 6-24 Creatinine 03/02/2013 Creatinine 1.00 mg/dL 0.50-1.40 Egfr Non- 55.1 >60 Egfr 70.9 >60 43 CBC Auto Diff 03/02/2013 White Blood Count 5.4 10^3/uL 4.8-10.8 Red Blood Count 3.62 10^6/uL Low 4.0-5.4 Hemoglobin 12.0 g/dL 12.0-16.0 Hematocrit 37 % 35-47 Mean Corpuscular Volume 103 fL High 80-97 Mean Corpuscular Hemoglobin 33 pg High 27-31 Mean Corpuscular HGB Conc 32 g/dL 31-36 Red Cell Distribution Width 16 % High 10.5-15 Platelet Count 229 10^3/uL 150-450 Mean Platelet Volume 9 um3 7.4-10.4 Abs Neutrophils 3.6 10^3/uL 1.5-7.7 Abs Lymphocytes 1.1 10^3/uL 1.0-4.8 Abs Monocytes 0.5 10^3/uL 0-0.8 Abs Eosinophils 0.1 10^3/uL 0-0.6 Abs Basophils 0 10^3/uL 0-0.2 Abs Nucleated RBC 0 10^3/uL Granulocyte % 66.7 % 38-83 Lymphocyte % 21.3 % Low 25-47 Monocyte % 9.5 % High 1-9 Eosinophil % 1.9 % 0-6 Basophil % 0.6 % 0-2 Nucleated Red Blood Cells % 0.1 Laboratory test finding 03/02/2013 Erythrocyte Sed Rate 12 mm/Hr 0-40 Laboratory test finding 12/01/2012 [facility] [place] Test ft4,tsh Laboratory test finding 08/31/2012 Albumin 3.8 g/dL 3.2-5.2 Ast 31 U/L 12-42 Creatinine 0.80 mg/dL 0.50-1.40 CBC Auto Diff 08/31/2012 White Blood Count 7.1 10^3/uL 4.8-10.8 Red Blood Count 3.70 10^6/uL Low 4.0-5.4 Hemoglobin 12.7 g/dL 12.0-16.0 Hematocrit 38 % 35-47 Mean Corpuscular Volume 103 fL High 80-97 44 Mean Corpuscular Hemoglobin 34 pg High 27-31 Mean Corpuscular HGB Conc 33 g/dL 31-36 Red Cell Distribution Width 16 % High 10.5-15 Platelet Count 277 10^3/uL 150-450 Mean Platelet Volume 9 um3 7.4-10.4 Abs Neutrophils 5.6 10^3/uL 1.5-7.7 Abs Lymphocytes 0.8 10^3/uL Low 1.0-4.8 Abs Monocytes 0.6 10^3/uL 0-0.8 Abs Eosinophils 0 10^3/uL 0-0.6 Abs Basophils 0 10^3/uL 0-0.2 Abs Nucleated RBC 0 10^3/uL Granulocyte % 79.8 % 38-83 Lymphocyte % 10.7 % Low 25-47 Monocyte % 8.6 % 1-9 Eosinophil % 0.4 % 0-6 Basophil % 0.5 % 0-2 Nucleated Red Blood Cells % 0 Laboratory test finding 08/31/2012 Erythrocyte Sed Rate 25 mm/Hr 0-40 CBC Auto Diff 07/18/2012 White Blood Count 8.0 10^3/uL 4.8-10.8 Red Blood Count 3.61 10^6/uL Low 4.0-5.4 Hemoglobin 12.1 g/dL 12.0-16.0 Hematocrit 37 % 35-47 Mean Corpuscular Volume 102 fL High 80-97 Mean Corpuscular Hemoglobin 33 pg High 27-31 Mean Corpuscular HGB Conc 33 g/dL 31-36 Red Cell Distribution Width 16 % High 10.5-15 Platelet Count 244 10^3/uL 150-450 Mean Platelet Volume 8 um3 7.4-10.4 Abs Neutrophils 6.2 10^3/uL 1.5-7.7 Abs Lymphocytes 0.9 10^3/uL Low 1.0-4.8 Abs Monocytes 0.7 10^3/uL 0-0.8 Abs Eosinophils 0 10^3/uL 0-0.6 Abs Basophils 0.2 10^3/uL 0-0.2 Abs Nucleated RBC 0 10^3/uL Granulocyte % 77.6 % 38-83 Lymphocyte % 11.5 % Low 25-47 Monocyte % 8.9 % 1-9 Eosinophil % 0 % 0-6 Basophil % 2.0 % 0-2 Nucleated Red Blood Cells % 0 Inr/Protime 07/18/2012 Inr 0.87 0.82-1.17 45 Comp Metabolic Panel 07/18/2012 Sodium 140 mmol/L 133-145 Potassium 4.0 mmol/L 3.5-5.0 Chloride 103 mmol/L 101-111 Co2 Carbon Dioxide 26.0 mmol/L 22-32 Anion Gap 11.0 mmol/L 2-11 Glucose 83 mg/dL 70-100 Blood Urea Nitrogen 9 mg/dL 6-24 Creatinine 0.60 mg/dL 0.50-1.40 BUN/Creatinine Ratio 15.0 8-20 Calcium 8.8 mg/dL 8.1-9.9 Total Protein 6.7 GM/DL 6.2-8.1 Albumin 3.7 GM/DL 3.2-5.2 Globulin 3.0 GM/DL 2-4 Albumin/Globulin Ratio 1.2 1-3 Total Bilirubin 0.7 mg/dL 0.1-1.0 46 Alkaline Phosphatase 68 U/L 30-110 Alt 20 U/L 14-54 Ast 29 U/L 12-42 Egfr Non- 99.4 >60 Egfr 127.9 >60 47 Laboratory test finding 07/18/2012 Lipase 25 U/L 22-51 48 Creatine Kinase 113 U/L 0-200 49 CKMB 07/18/2012 CKMB In NG/ML 2.4 NG/ML 0.3-4.0 CKMB % 2.0 % 0-9 50 Laboratory test finding 07/18/2012 Troponin I 0 ng/mL 0-0.06 51 Urinalysis 07/18/2012 Urine Color [place] Urine Appearance Clear Urine Specific [place] 1.023 1.010-1.030 Urine Esterase Negative Negative Urine Nitrate Negative Negative Urine Urobilinogen Negative Negative Urine Protein 1+ Negative Urine pH 6.0 5-9 Urine Blood Negative Negative Urine Ketones 1+ Negative Urine Bilirubin Negative Negative Urine Glucose Negative Negative Urine Microscopic 07/18/2012 Urine WBC 1+ (<10 /hpf) None Seen Urine RBC None Seen None Seen Urine Epithelial Cells 1+ Squamous /hpf None Seen Bacteria Urine 1+ None Seen [facility] Laboratory test finding 03/21/2012 T3 Total 0.81 NG/ML 0.5-1.7 Thyroxine Free 0.61 ng/dL 0.61-1.24 Comp Metabolic Panel 03/02/2012 Sodium 139 mmol/L 135-145 28 Potassium 4.3 mmol/L 3.5-5.0 28 Chloride 101 mmol/L 101-111 28 Co2 (Carbon Dioxide) 29.0 mmol/L 22-32 28 Anion Gap 9.0 mmol/L 2-11 28, 52 Glucose 96 mg/dL 70-100 28 BUN 11 mg/dL 6-24 28 Creatinine 0.9 mg/dL 0.50-1.40 28 One Over Creatinine 1.11 28 BUN/Creatinine Ratio 12.2 8-20 28 Calcium 9.6 mg/dL 8.1-9.9 28 Total Protein 6.1 GM/DL Low 6.2-8.1 28 Albumin 3.6 GM/DL 3.2-5.2 28 Globulin 2.5 GM/DL 2-4 28 Albumin/Globulin Ratio 1.4 1-3 28 Bilirubin Total 1.0 mg/dL 0.4-1.5 28, 53 Alkaline Phosphatase 57 U/L 30-110 28 Alt (SGPT) 21 U/L 14-54 28 Ast (Sgot) 31 U/L 12-42 28 eGFR Non- 62.5 > 60 28 eGFR 80.3 > 60 28, 54 Lipid Profile (Trig/Chol/HDL) 03/02/2012 Triglyceride 50 mg/dL 40-200 28 Cholesterol 242 mg/dL High Less Than 200 28, 55 High Density Lipoprotein 143 mg/dL High 40-60 28, 56 Cholesterol/HDL Ratio 1.69 AVERAGE 1-4.44 28 Low Density Lipoprotein 89 mg/dL Less Than 100 28, 57 Laboratory test finding 03/02/2012 TSH 14.73 MIU/ML High 0.34-5.60 28 Laboratory test finding 02/03/2011 Albumin 3.5 GM/DL 3.2-5.2 Alt (SGPT) 18 U/L 14-54 Ast (Sgot) 24 U/L 12- CBC Auto Diff 02/03/2011 White Blood Count 6.7 CUMM 4.8-10.8 Red Cell Count 3.74 CUMM Low 4.2-5.4 Hemoglobin 12.5 g/dL 12.0-16.0 Hematocrit 38 % 35-47 Mean Corpuscular Volume 102 um3 High 79-97 Mean Corpuscular Hemoglob 34 pg High 27-31 Mean Corpuscular HGB Cone 33 g/dL 32-36 Redcell Distribution WDTH 15 % 10.5-15 Platelet Count 254 CUMM 150-450 Mean Platelet Volume 8.4 um3 7.4-10.4 Gran % 75.0 % 38-83 Lymph % 15.4 % Low 25-47 Mononuclear % 9.2 % High 1-9 Eosinophil % 0 % 0-6 Basophil % 0.4 % 0-2 Abs Lymphs 1.0 1.0-4.8 Abs Mononuclear 0.6 0-0.8 Absolute Neutrophil Count 5.0 1.5-7.7 Abs Eosinophils 0 0-0.6 Abs Basophils 0 0-0.2 58 Laboratory test finding 02/03/2011 Erythrocyte Sed Rate 4 MM/HR 0-40 Laboratory test finding 08/13/2010 Ast (Sgot) 29 U/L 12- CBC With Electronic Diff 08/13/2010 White Blood Count 9.2 CUMM 4.8-10.8 Red Cell Count 4.05 CUMM Low 4.2-5.4 Hemoglobin 13.5 g/dL 12.0-16.0 Hematocrit 40 % 35-47 Mean Corpuscular Volume 98 um3 High 79-97 Mean Corpuscular Hemoglob 33 pg High 27-31 Mean Corpuscular HGB Cone 34 g/dL 32-36 Redcell Distribution WDTH 15 % 10.5-15 Platelet Count 301 CUMM 150-450 Mean Platelet Volume 6.4 um3 Low 7.4-10.4 59 Manual Differential 08/13/2010 Polysegmented Neutrophil 77 % 38-83 Band Neutrophil 2 % 0-8 Lymphocyte 11 % Low 25-47 Monocyte 4 % 0-13 Eosinophil 5 % 0-6 Basophil 1 % 0-2 Absolute Neutrophil Count 7.2 Manual Diff Comments (SEE NOTE) 60 Anisocytosis SLIGHT Laboratory test finding 08/13/2010 Erythrocyte Sed Rate 18 MM/HR 0-40 Creatinine 02/19/2009 Creatinine 0.90 mg/dL 0.50-1.40 One Over Creatinine 1.10 Laboratory test finding 02/19/2009 Albumin 3.8 GM/DL 3.2-5.2 Ast (Sgot) 27 U/L 12-42 CBC With Electronic Diff 02/19/2009 White Blood Count 6.0 CUMM 4.8-10.8 Red Cell Count 4.01 CUMM Low 4.2-5.4 Hemoglobin 13.3 g/dL 12.0-16.0 Hematocrit 40 % 35-47 Mean Corpuscular Volume 100 um3 High 79-97 Mean Corpuscular Hemoglob 33 pg High 27-31 Mean Corpuscular HGB Cone 33 g/dL 32-36 Redcell Distribution WDTH 15 % 10.5-15 Platelet Count 368 CUMM 150-450 Mean Platelet Volume 7.8 um3 7.4-10.4 Gran % 70.6 % 38-83 Lymph % 16.7 % Low 25-47 Mononuclear % 12.0 % High 1-9 Eosinophil % 0.3 % 0-6 Basophil % 0.4 % 0-2 Abs Lymphs 1.0 1.0-4.8 Abs Mononuclear 0.7 0-0.8 Absolute Neutrophil Count 4.3 1.5-7.7 Abs Eosinophils 0 0-0.6 Abs Basophils 0 0-0.2 61 Laboratory test 02/19/2009 Erythrocyte Sed Rate 21 MM/HR 0-30 finding Laboratory test 11/07/2008 Misc-[facility] ALB,AST;CREAT; See Image finding Report Creatinine 08/14/2008 Creatinine 1.00 mg/dL 0.50-1.40 One Over Creatinine 1.00 Laboratory test finding 08/14/2008 Albumin 3.8 GM/DL 3.2-5.2 Ast (Sgot) 23 U/L 12-42 CBC With Electronic Diff 08/14/2008 White Blood Count 6.5 CUMM 4.8-10.8 Red Cell Count 3.93 CUMM Low 4.2-5.4 Hemoglobin 12.9 g/dL 12.0-16.0 Hematocrit 38 % 35-47 Mean Corpuscular Volume 96 um3 79-97 Mean Corpuscular Hemoglob 33 pg High 27-31 Mean Corpuscular HGB Cone 34 g/dL 32-36 Redcell Distribution WDTH 15 % 10.5-15 Platelet Count 325 CUMM 150-450 Mean Platelet Volume 8.1 um3 7.4-10.4 Gran % 74.4 % 38-83 Lymph % 16.9 % Low 25-47 Mononuclear % 7.4 % 1-9 Eosinophil % 0.9 % 0-6 Basophil % 0.4 % 0-2 Abs Lymphs 1.1 1.0-4.8 Abs Mononuclear 0.5 0-0.8 Absolute Neutrophil Count 4.8 1.5-7.7 Abs Eosinophils 0.1 0-0.6 Abs Basophils 0 0-0.2 62 Laboratory test 08/14/2008 Erythrocyte Sed Rate 13 MM/HR 0-30 finding Laboratory test 05/14/2008 [facility] [place]B;AST;CREA;C See Image finding BC; Report Creatinine 02/10/2008 Creatinine 1.2 mg/dL 0.5-1.4 63 One Over Creatinine 0.83 63 Laboratory test finding 02/10/2008 Albumin 3.9 GM/DL 3.2-5.2 63 Ast (Sgot) 22 U/L 12-42 63 CBC With Manual Diff 02/10/2008 White Blood Count 5.8 CUMM 4.8-10.8 63 Red Cell Count 4.09 CUMM Low 4.2-5.4 63 Hemoglobin 13.4 g/dL 12.0-16.0 63 Hematocrit 39 % 35-47 63 Mean Corpuscular Volume 96 um3 79-97 63 Mean Corpuscular Hemoglob 33 pg High 27-31 63 Mean Corpuscular HGB Cone 34 g/dL 32-36 63 Redcell Distribution WDTH 14 % 10.5-15 63 Platelet Count 327 CUMM 150-450 63 Mean Platelet Volume 8.7 um3 7.4-10.4 63 Polysegmented Neutrophil 69 % 38-83 63 Band Neutrophil 4 % 0-8 63 Lymphocyte 14 % 5-47 63 Monocyte 10 % 0-13 63 Eosenophil 3 % 0-6 63 Absolute Neutrophil Count 4.2 63 Anisocytosis SLIGHT 63 Laboratory test 02/10/2008 Erythrocyte Sed Rate 7 MM/HR 0-30 63 finding Laboratory test 11/07/2007 Misc ALB;AST;CREAT; See Image finding ESR; Report Ua - Micro (a) 03/24/2007 Appearance CLEAR Color YELLOW Glucose NEG Bilirubin NEG Ketones TRACE SP Grav >=1.030 Blood NEG PH 5.0 Protein SSA NEG Urobil 0.2 Nitrite NEG Leukocytes (Fma/CMC/[facility]) NEG Hyaline - /Lpf Granular - /Lpf WBC (Fma,[facility]) 3-5 RBC 0-1 Mucus MOD AMT /Lpf Epith FEW /Lpf Bacteria TR /Hpf Amorphous - /Lpf Crystals, Fluid (Fma/CMC/CTX) - Z#Comments - Laboratory test finding 08/26/2006 [facility] [place] CLOTEST See Image Report Comp Stat 08/25/2006 One Over Creatinine 1.11 64 Anion Gap 10.0 mmol/L 2-11 64, 65 Albumin/Globulin Ratio 1.5 1-3 64 Albumin 3.9 GM/DL 3.2-5.2 64 Alkaline Phosphatase 60 U/L 30-110 64 Alt (SGPT) 17 U/L 14-54 64 Ast (Sgot) 30 U/L 12-42 64 BUN 12 mg/dL 6-24 64 Calcium 9.4 mg/dL 8.7-10.2 64 Chloride 100 mmol/L Low 101-111 64 Co2 (Carbon Dioxide) 27.0 mmol/L 22-32 64 Globulin 2.6 GM/DL 2-4 64 Glucose 107 mg/dL High 70-105 64 Potassium 3.5 mmol/L 3.5-5.0 64 Sodium 137 mmol/L 135-145 64 Bilirubin Total 0.9 mg/dL 0.4-1.5 64 Total Protein 6.5 GM/DL 6.2-8.1 64 BUN/Creatinine Ratio 13.3 8-20 64 Creatinine 0.9 mg/dL 0.5-1.4 64 Urinalysis Stat 08/25/2006 Ua Color YELLOW 64 Appearance-Urine CLEAR 64 Bilirubin-Ur NEGATIVE Negative 64 Blood-Urine NEGATIVE Negative 64 Esterase-Urine NEGATIVE Negative 64 Glucose-Urine NEGATIVE Negative 64 Ketones-Urine 1+ Negative 64 Nitrite NEGATIVE Negative 64 PH-Urine 6.5 5-9 64 Protein-Urine NEGATIVE Negative 64 [id number] NEGATIVE Negative 64 Specific [place]-Ur 1.015 1.010-1.030 64 CBC With Manual Diff Stat 08/25/2006 White Blood Count 8.2 CUMM 4.8-10.8 64 Absolute Neutrophil Count 7.1 64 Anisocytosis 1+ 64 Band Neutrophil 10 % High 0-8 64 Hematocrit 40 % 35-47 64 Hemoglobin 13.4 g/dL 12.0-16.0 64 Eosenophil 3 % 0-6 64 Lymphocyte 8 % 5-47 64 Mean Corpuscular HGB Cone 34 g/dL 32-36 64 Mean Corpuscular Hemoglob 32 pg High 27-31 64 Mean Corpuscular Volume 96 um3 79-97 64 Monocyte 2 % 0-13 64 Mean Platelet Volume 8.1 um3 7.4-10.4 64 Ovalocytes 1+ 64 Platelet Count 291 CUMM 150-450 64 Polychromasia 1+ 64 Polysegmented Neutrophil 77 % 38-83 64 Red Cell Count 4.14 CUMM Low 4.2-5.4 64 Redcell Distribution WDTH 15 % 10.5-15 64 Stomatocytes FEW 64 Laboratory test finding 08/25/2006 Lipase 27 U/L 22-51 64 Blood Culture NG5 64, 66 Comp Metabolic Panel 08/10/2006 One Over Creatinine 1.11 67 Anion Gap 4.0 mmol/L 2-11 67, 68 Albumin/Globulin Ratio 1.7 1-3 67 Albumin 3.7 GM/DL 3.2-5.2 67 Alkaline Phosphatase 52 U/L 30-110 67 Alt (SGPT) 15 U/L 14-54 67 Ast (Sgot) 22 U/L 12-42 67 BUN 12 mg/dL 6-24 67 Calcium 9.7 mg/dL 8.7-10.2 67 Chloride 107 mmol/L 101-111 67 Co2 (Carbon Dioxide) 30.0 mmol/L 22-32 67 Globulin 2.2 GM/DL 2-4 67 Glucose 93 mg/dL 70-105 67 Potassium 4.5 mmol/L 3.5-5.0 67 Sodium 141 mmol/L 135-145 67 Bilirubin Total 0.6 mg/dL 0.4-1.5 67 Total Protein 5.9 GM/DL Low 6.2-8.1 67 BUN/Creatinine Ratio 13.3 8-20 67 Creatinine 0.9 mg/dL 0.5-1.4 67 CBC With Manual Diff 08/10/2006 White Blood Count 4.8 CUMM 4.8-10.8 67 Absolute Neutrophil Count 3.5 67 Anisocytosis 1+ 67 Band Neutrophil 2 % 0-8 67 Hematocrit 38 % 35-47 67 Hemoglobin 12.5 g/dL 12.0-16.0 67 Eosenophil 3 % 0-6 67 Lymphocyte 18 % 5-47 67 Macrocytosis SLIGHT 67 Mean Corpuscular HGB Cone 33 g/dL 32-36 67 Mean Corpuscular Hemoglob 33 pg High 27-31 67 Mean Corpuscular Volume 99 um3 High 79-97 67 Monocyte 6 % 0-13 67 Mean Platelet Volume 8.2 um3 7.4-10.4 67 Platelet Count 282 CUMM 150-450 67 Polysegmented Neutrophil 71 % 38-83 67 Red Cell Count 3.80 CUMM Low 4.2-5.4 67 Redcell Distribution WDTH 15 % 10.5-15 67 Lipid Profile 08/10/2006 Cholesterol/HDL Ratio 2.14 AVERAGE 1-4.44 67 (Trig/Chol/HDL) Cholesterol 220 mg/dL High Less Than 200 67, 69 Triglyceride 62 mg/dL 40-200 67 High Density Lipoprotein 103 mg/dL High 40-60 67, 70 Low Density Lipoprotein 105 mg/dL High Less Than 100 67, 71 Laboratory test 08/10/2006 TSH 6.10 MIU/ML High 0.34-5.60 67 finding Laboratory test 08/10/2006 Erythrocyte Sed 7 MM/HR 0-30 67 finding Rate Laboratory test 05/03/2006 [facility] [place] CBC;ALB;AST;C See Image Report finding RE;ESR Laboratory test 11/02/2005 [facility] [place] CBC;ESR See Image Report finding ALB;AST;CRE CBC Electronic 07/23/2005 WBC 5.5 3.6-9.6 (Fma) Lymphocytes 18.1 % Low 20.5 - 51.1 Monocytes 8.7 % 1.7-9.3 Granulocytes 73.2 % 42.2 - 75.2 Lymphocytes 1.0 10^3/uL 0.7 - 4.9 Monocytes 0.5 10^3/uL 0.1 - 0.9 Granulocytes 4.0 10^3/uL 1.5 - 7.2 RBC 3.77 Low 3.90-5.70 Hemoglobin (Fma/CMC/CTX) 12.4 g/dL 12.1 - 17.2 Hematocrit (Fma/CMC/CTX) 36.1 % 36.1 - 50.3 Mean Corpuscular Vol 95.8 82.2-97.4 Mean Corpuscular Hemaglobin 32.9 27.6-33.3 Mean Corpuscular Hemo Concen 34.3 33.0-36.0 RDW 13.7 11.6-13.7 Platelets 263. 10^3/ul 150-400 Mean Platelet Volume 8.4 7.4-10.4 Laboratory test finding 07/23/2005 Sed Rate (a/CMC/[facility]) 8mm Ua - Non Micro (a New) 07/23/2005 Appearance CLEAR Color LT YELLOW Glucose NEG Bilirubin NEG Ketones NEG SP Grav 1.020 Blood NEG PH 6.0 Protein NEG Urobil 0.2 Nitrite NEG Leukocytes NEG Comp Metabolic (a) 07/23/2005 Glucose, Serum (a/CMC/CTX) 93 mg/dL 70- 105 Female BUN (a/CMC/[facility]) 16 mg/dL 6-26 Creatinine, Serum 1.0 mg/dL 0.6-1.4 BUN/Creatinin Ratio 17.1 8.0-36 Sodium 144 134-149 Potassium 4.4 3.6-5.5 Chloride 105 mEq/L 94-112 Co2 28 21-32 Calcium (Fma/CMC/[facility]rex) 9.6 mg/dL 8.6-10.2 Total Protein 6.6 g/dL 6.3-8.1 Albumin (a/CMCC/Centrex) 4.1 3.8-5.5 Globulin 2.5 2.0-4.8 A/G Ratio (A/G Ratio) 1.7 0.6-2.2 Alkaline Phosphatase (F/C/CTX) 69 U/L 30-110 Alt (Sgot) Female (Fma,CX,CMC) 12 7-35 Ast Sgot 16 U/L 5-34 Bilirubin, Total 0.4 mg/dL 0.2-1.3 Laboratory test 05/04/2005 [facility] [place] CBC;ALB;AST;CREAT See Image Report finding Laboratory test 02/09/2005 Sed Rate 17 MM finding (Fma/CMC/Centr ex) CBC Electronic (a) 02/09/2005 WBC 6.1 3.6-9.6 Lymphocytes 36.1 % 20.5 - 51.1 Monocytes 9.2 % 1.7-9.3 Granulocytes 54.7 % 42.2 - 75.2 Lymphocytes 2.2 10^3/uL 0.7 - 4.9 Monocytes 0.6 10^3/uL 0.1 - 0.9 Granulocytes 3.3 10^3/uL 1.5 - 7.2 RBC 3.81 Low 3.90-5.70 Hemoglobin (Fma/CMC/CTX) 12.2 g/dL 12.1 - 17.2 Hematocrit (Fma/CMC/CTX) 37.0 % 36.1 - 50.3 Mean Corpuscular Vol 97.1 82.2-97.4 Mean Corpuscular Hemaglobin 32.1 27.6-33.3 Mean Corpuscular Hemo Concen 33.1 33.0-36.0 RDW 14.0 High 11.6-13.7 Platelets 262. 10^3/ul 150-400 Mean Platelet Volume 7.6 7.4-10.4 Comp Metabolic (a) 02/09/2005 Glucose, Serum 137 mg/dL High 70-105 Female (Fma/CMC/CTX) BUN (Fma/CMC/Centrex) 14 mg/dL 6-26 Creatinine, Serum 0.9 mg/dL 0.6-1.4 BUN/Creatinin Ratio 16.3 8.0-36 Sodium 140 134-149 Potassium 4.5 3.6-5.5 Chloride 100 mEq/L 94-112 Co2 28 21-32 Calcium (Fma/CMC/[facility]) 9.7 mg/dL 8.6-10.2 Total Protein 6.6 g/dL 6.3-8.1 Albumin (Fma/CMCC/[facility]) 4.1 3.8-5.5 Globulin 2.5 2.0-4.8 A/G Ratio (A/G Ratio) 1.7 0.6-2.2 Alkaline Phosphatase (F/C/CTX) 79 U/L 22-95 Alt (SGPT) ([facility] [place] 22 7-35 Ast (Sgot) ([facility] [place]) 19 U/mL 5-34 Bilirubin, Total 0.6 mg/dL 0.2-1.3 Laboratory test finding 10/16/2004 Throat Culture NEGATIVE @ 48HRS Ua - Non Micro ([facility]) 07/28/2004 Appearance CLEAR Color YELLOW Glucose NEG Bilirubin NEG Ketones NEG SP Grav >=1.030 Blood NEG PH 5.5 Protein SSA NEG Urobil 0.2 Nitrite NEG Leukocytes NEG Comp Metabolic ([facility]) 07/28/2004 Glucose, Serum ([facility] [place]CTX) 82 mg/dL 70- 118 Female BUN ([facility] [place]) 10 mg/dL 6-26 Creatinine, Serum 0.9 mg/dL 0.6-1.4 BUN/Creatinin Ratio 10.4 8.0-36 Sodium 140 134-149 Potassium 4.5 3.6-5.5 Chloride 100 mEq/L 94-112 Co2 30 21-32 Calcium ([facility] [place]) 9.5 mg/dL 8.6-10.2 Total Protein 6.6 g/dL 6.3-8.1 Albumin ([facility] [place]) 4.0 3.8-5.5 Globulin 2.6 2.0-4.8 A/G Ratio (A/G Ratio) 1.6 0.6-2.2 Alkaline Phosphatase (F/C/CTX) 75 U/L 30-110 Alt (SGPT) 14 7-35 Ast (Sgot) ([facility] [place]) 18 U/mL 5-34 Bilirubin, Total 0.5 mg/dL 0.2-1.3 CBC Electronic ([facility]) 07/28/2004 WBC 6.5 3.6-9.6 Lymphocytes 23.1 % 20.5 - 51.1 Monocytes 4.5 % 1.7-9.3 Granulocytes 72.4 % 42.2 - 75.2 Lymphocytes 1.5 10^3/uL 0.7 - 4.9 Monocytes 0.3 10^3/uL 0.1 - 0.9 Granulocytes 4.7 10^3/uL 1.5 - 7.2 RBC 4.11 3.90-5.70 Hemoglobin (Fma/CMC/CTX) 13.3 g/dL 12.1 - 17.2 Hematocrit (Fma/CMC/CTX) 39.4 % 36.1 - 50.3 Mean Corpuscular Vol 95.8 82.2-97.4 Mean Corpuscular Hemaglobin 32.3 27.6-33.3 Mean Corpuscular Hemo Concen 33.7 33.0-35.5 RDW 14.3 High 11.6-13.7 Platelets 316. 10^3/ul 150-400 Mean Platelet Volume 7.4 7.4-10.4 Laboratory test finding 07/28/2004 Sed Rate (a/CMC/[facility]) 15MM CBC Electronic ([facility] [place] 04/21/2004 WBC 5.2 CUMM 4.8-10.8 RBC 3.98 CUMM Low 4.2-5.4 Hemoglobin (Fma/CMC/CTX) 13.0 g/dL 12.0-16.0 Hematocrit (Fma/CMC/CTX) 39 % 35-47 Mean Corpuscular Vol 97 UM3 79-97 Mean Corpuscular Hemaglobin 33 pg High 27-31 Mean Corpuscular Hemo Concen 34 g/dL 32-36 RDW 14 10.5-15 Platelets 307 CUMM 150-450 Mean Platelet Volume 7.7 7.4-10.4 Granulocytes 67.2 % 38-83 Lymphocytes 20.3 % 20-45 Monocytes 12.0 % High 1-9 Eosinophil 0.3 0-6 Basophil% 0.2 0-2 Abs Lymphs 1.0 1.0-4.8 Abs Mononuclear 0.6 0-0.8 Abs Grans 3.5 1.5-7.7 Abs Eosinophils 0 0-0.6 Abs Basophils 0 0-0.2 Laboratory test 10/22/2003 Comments CBC;ESR;ALBUMIN; Ast;Creatinine finding Comp Metabolic ([facility]) 07/31/2003 Glucose, Serum 103 mg/dL 70-118 (Fma/CMC/CTX) BUN (a/[facility]) 14 mg/dL 6-26 Creatinine (a/[facility]) 0.7 mg/dL 0.6-1.4 BUN/Creatinin Ratio 20.5 8.0-36 Sodium 146 134-149 Potassium 4.7 3.6-5.5 Chloride 110 mEq/L 94-112 Co2 32 21-32 Calcium (a/[facility]) 9.7 mg/dL 8.6-10.0 Total Protein 6.3 g/dL 6.3-8.1 Albumin (a/[facility]) 4.0 3.8-5.5 Globulin 2.3 2.0-4.8 A/G Ratio (a/[facility]) 1.7 0.6-2.2 Alkaline Phosphatase (F/C/CTX) 64 U/L 30-110 Alt (SGPT) (a/[facility]) 14 10-40 Ast (Sgot) (a/[facility]) 20 U/mL 5-34 Bilirubin, Total 0.5 mg/dL 0.2-1.3 Lipid Profile ([facility]) 07/31/2003 Cholesterol ([facility]) 202 mg/dL High 120-200 72 Triglyceride 68 mg/dL 30-200 73 HDL-Chol 116 High 30-85 LDL, Calculated ([facility]) 72 CALC 0-129 VLDL 14 0-50 HDL Risk Factor ([facility]) 1.7 CALC Low 4.2-7.0 Laboratory test finding 07/31/2003 TSH ([facility]) 5.98 uIU/ml 0.5- 6.0 CBC W/ Manual Dif ([facility]) 07/31/2003 WBC 4.8 3.6-9.6 RBC 4.06 3.90-5.70 Hemoglobin (a/[facility]) 13.0 g/dL 12.1 - 17.2 Hematocrit (a/[facility]) 39.3 % 36.1 - 50.3 Mean Corpuscular Vol 96.8 82.2-97.4 Mean Corpuscular Hemaglobin 32.0 27.6-33.3 Mean Corpuscular Hemo Concen 33.0 33.0-35.5 RDW 14.4 High 11.6-13.7 Platelets 263 10^3/ul 150-400 Mean Platelet Volume 7.2 Low 7.4-10.4 Neutrophils 48 Band 4 Lymph From [facility] 36 Monocytes 3 % 1.7-9.3 Eosinophils 9 Basophils -- Metamyelocytes -- Myelocytes -- Promyelocyte -- Blast -- Atypical Lymph -- NRBC -- Morphology ([facility]) -- Comments -- Laboratory test finding 07/31/2003 Sed Rate ([facility]) 6MM Ovalo FEW Anisocytosis SLT Ua - Non Micro ([facility]) 02/21/2003 Appearance CLEAR LT YELLOW Glucose NEGATIVE Bilirubin NEGATIVE Ketones NEGATIVE SP Grav >=1.030 Blood NEGATIVE PH 6.5 Protein NEGATIVE Urobil 0.2 Nitrite NEGATIVE Leukocytes NEGATIVE 1 Because ethnic data is not always readily available, this report includes an eGFR for both -Americans and non- Americans. The National Kidney Disease Education Program (NKDEP) does not endorse the use of the MDRD equation for patients that are not between the ages of 18 and 70, are , have extremes of body size, muscle mass, or nutritional status, or are non- or non-. According to the National Kidney Foundation, irrespective of diagnosis, the stage of the disease is based on the level of kidney function: Stage Description GFR(mL/min/1.73 m(2)) 1 Kidney damage with normal or decreased GFR 90 2 Kidney damage with mild decrease in GFR 60-89 3 Moderate decrease in GFR 30-59 4 Severe decrease in GFR 15-29 5 Kidney failure <15 (or dialysis) 2 Please check labs 2 days before follow up 3 Consistent with Previous Results Reported on 11/13/17 4 Please check labs 2 days before follow up 5 Because ethnic data is not always readily available, this report includes an eGFR for both -Americans and non- Americans. The National Kidney Disease Education Program (NKDEP) does not endorse the use of the MDRD equation for patients that are not between the ages of 18 and 70, are , have extremes of body size, muscle mass, or nutritional status, or are non- or non-. According to the National Kidney Foundation, irrespective of diagnosis, the stage of the disease is based on the level of kidney function: Stage Description GFR(mL/min/1.73 m(2)) 1 Kidney damage with normal or decreased GFR 90 2 Kidney damage with mild decrease in GFR 60-89 3 Moderate decrease in GFR 30-59 4 Severe decrease in GFR 15-29 5 Kidney failure <15 (or dialysis) 6 Consistent with Previous Results Reported on 08/12/17 7 Acute inflammation: >10.00 8 standing orders q 6 weeks 9 Adult MCV greater than 105 fl incubated 1/2 hr at 37c without significant change. 10 Acute inflammation: >10.00 11 standing orders q 3 mo 12 Because ethnic data is not always readily available, this report includes an eGFR for both -Americans and non- Americans. The National Kidney Disease Education Program (NKDEP) does not endorse the use of the MDRD equation for patients that are not between the ages of 18 and 70, are , have extremes of body size, muscle mass, or nutritional status, or are non- or non-. According to the National Kidney Foundation, irrespective of diagnosis, the stage of the disease is based on the level of kidney function: Stage Description GFR(mL/min/1.73 m(2)) 1 Kidney damage with normal or decreased GFR 90 2 Kidney damage with mild decrease in GFR 60-89 3 Moderate decrease in GFR 30-59 4 Severe decrease in GFR 15-29 5 Kidney failure <15 (or dialysis) 13 3-PART FRACTURE OF SURGICAL NECK OF LEFT HUMERUS, 14 SEE RESULTS BELOW [id number] CANC CHIPS 5CC TRANSFUSED 06/24/16 1222 [id number] CANC CHIPS 5CC TRANSFUSED 06/24/16 1222 [id number] CANC CHIPS 5CC TRANSFUSED 06/24/16 1222 15 SEE RESULTS BELOW [id number] DBM PUTTY 5CC TRANSFUSED 06/24/16 1222 16 RESULTS VERIFIED BY REPEAT ANALYSIS 17 consistent w/ previous results 18 RESULTS VERIFIED BY REPEAT ANALYSIS 19 RESULTS VERIFIED BY REPEAT ANALYSIS 20 results rechecked 21 2 light blue tops both YVROSE LED TO THE LINE 22 INTERNATIONAL NORMALIZED RATIO(INR) INDICATIONS INR RANGE PATIENTS NOT ON ANTICOAGULANT THERAPY * DEEP VENOUS THROMBOSIS 2.0-3.0 PULMONARY EMBOLISM 2.0-3.0 ATRIAL FIBRILLATION 2.0-3.0 PROPHYLAXIS: 2.0-3.0 HIGH-RISK SURGERY TISSUE HEART VALVES ATRIAL FIBRILLATION ACUTE MYOCARDIAL INFARCTION VALVULAR HEART DISEASE MECHANICAL PROSTHETIC VALVE 2.5-3.5 * USE OF INR VALUES SHOULD BE LIMITED TO PATIENTS WHO ARE ON STABLE ORAL ANTICOAGULANT THERAPY. AN INR ABOVE 5.0-5.5 APPEARS TO BE ASSOCIATED WITH AN UNACCEPTABLY HIGH RISK OF BLEEDING. 23 RESULTS VERIFIED BY REPEAT ANALYSIS 24 RESULTS VERIFIED BY REPEAT ANALYSIS 25 Because ethnic data is not always readily available, this report includes an eGFR for both -Americans and non- Americans. The National Kidney Disease Education Program (NKDEP) does not endorse the use of the MDRD equation for patients that are not between the ages of 18 and 70, are , have extremes of body size, muscle mass, or nutritional status, or are non- or non-. According to the National Kidney Foundation, irrespective of diagnosis, the stage of the disease is based on the level of kidney function: Stage Description GFR(mL/min/1.73 m(2)) 1 Kidney damage with normal or decreased GFR 90 2 Kidney damage with mild decrease in GFR 60-89 3 Moderate decrease in GFR 30-59 4 Severe decrease in GFR 15-29 5 Kidney failure <15 (or dialysis) 26 Because ethnic data is not always readily available, this report includes an eGFR for both -Americans and non- Americans. The National Kidney Disease Education Program (NKDEP) does not endorse the use of the MDRD equation for patients that are not between the ages of 18 and 70, are , have extremes of body size, muscle mass, or nutritional status, or are non- or non-. According to the National Kidney Foundation, irrespective of diagnosis, the stage of the disease is based on the level of kidney function: Stage Description GFR(mL/min/1.73 m(2)) 1 Kidney damage with normal or decreased GFR 90 2 Kidney damage with mild decrease in GFR 60-89 3 Moderate decrease in GFR 30-59 4 Severe decrease in GFR 15-29 5 Kidney failure <15 (or dialysis) 27 RESULTS VERIFIED BY REPEAT ANALYSIS 28 FASTING 29 Because ethnic data is not always readily available, this report includes an eGFR for both -Americans and non- Americans. The National Kidney Disease Education Program (NKDEP) does not endorse the use of the MDRD equation for patients that are not between the ages of 18 and 70, are , have extremes of body size, muscle mass, or nutritional status, or are non- or non-. According to the National Kidney Foundation, irrespective of diagnosis, the stage of the disease is based on the level of kidney function: Stage Description GFR(mL/min/1.73 m(2)) 1 Kidney damage with normal or decreased GFR 90 2 Kidney damage with mild decrease in GFR 60-89 3 Moderate decrease in GFR 30-59 4 Severe decrease in GFR 15-29 5 Kidney failure <15 (or dialysis) 30 Desirable <150 Borderline high 150-199 High 200-499 Very High >500 31 Desirable <200 Borderline high 200-239 High >239 32 Low <40 Desirable: 40-60 High: >60 33 Desirable <100 Near Optimal 100-129 Borderline high 130-159 High 160-189 Very High >189 34 FASTING 35 Interpretation: 51-80 ng/mL (increased risk of hypercalciuria) REFERENCE VALUE 25-HYDROXY D TOTAL (D2+D3) Optimum levels in the healthy population are 20-50, patients with bone disease may benefit from higher levels within this range. Test Performed by: [address] [address] Operating Table Assembler: Stevie Levy M.D. 36 FASTING 37 Because ethnic data is not always readily available, this report includes an eGFR for both -Americans and non- Americans. The National Kidney Disease Education Program (NKDEP) does not endorse the use of the MDRD equation for patients that are not between the ages of 18 and 70, are , have extremes of body size, muscle mass, or nutritional status, or are non- or non-. According to the National Kidney Foundation, irrespective of diagnosis, the stage of the disease is based on the level of kidney function: Stage Description GFR(mL/min/1.73 m(2)) 1 Kidney damage with normal or decreased GFR 90 2 Kidney damage with mild decrease in GFR 60-89 3 Moderate decrease in GFR 30-59 4 Severe decrease in GFR 15-29 5 Kidney failure <15 (or dialysis) 38 Because ethnic data is not always readily available, this report includes an eGFR for both -Americans and non- Americans. The National Kidney Disease Education Program (NKDEP) does not endorse the use of the MDRD equation for patients that are not between the ages of 18 and 70, are , have extremes of body size, muscle mass, or nutritional status, or are non- or non-. According to the National Kidney Foundation, irrespective of diagnosis, the stage of the disease is based on the level of kidney function: Stage Description GFR(mL/min/1.73 m(2)) 1 Kidney damage with normal or decreased GFR 90 2 Kidney damage with mild decrease in GFR 60-89 3 Moderate decrease in GFR 30-59 4 Severe decrease in GFR 15-29 5 Kidney failure <15 (or dialysis) 39 Negative 0 - 19 Weak Positive 20 - 30 Moderate to Strong Positive >30 40 Negative 0 - 19 Weak Positive 20 - 30 Moderate to Strong Positive >30 41 Negative 0 - 3 Weak Positive 4 - 10 Positive >10 Tissue Transglutaminase (tTG) has been identified as the endomysial antigen. Studies have demonstr- ated that endomysial IgA antibodies have over 99% specificity for gluten sensitive enteropathy. 42 Negative 0 - 5 Weak Positive 6 - 9 Positive >9 43 Because ethnic data is not always readily available, this report includes an eGFR for both -Americans and non- Americans. The National Kidney Disease Education Program (NKDEP) does not endorse the use of the MDRD equation for patients that are not between the ages of 18 and 70, are , have extremes of body size, muscle mass, or nutritional status, or are non- or non-. According to the National Kidney Foundation, irrespective of diagnosis, the stage of the disease is based on the level of kidney function: Stage Description GFR(mL/min/1.73 m(2)) 1 Kidney damage with normal or decreased GFR 90 2 Kidney damage with mild decrease in GFR 60-89 3 Moderate decrease in GFR 30-59 4 Severe decrease in GFR 15-29 5 Kidney failure <15 (or dialysis) 44 Consistent with previous results. 45 The INR(International Normalized Ratio) was adopted by the World Health Organization (WHO) in 1983 as a standardized system of reporting PT (Prothrombin Time). The Centers for Disease Control (CDC) states that reporting of PT results in INR only is the preferred method. Recommended INR for Patients on Oral Anticoagulants Prophylaxis 2.0 - 3.0 Treatment of thrombosis 2.0 - 3.0 Prevention of embolism 2.0 - 3.0 Prevention of embolism from prosthetic heart valves 2.5 - 3.5 46 A metabolite of Naproxen, O-desmethylnaproxen, has been shown to interfere with the Jendrassik-Brook[place] method for measuring total bilirubin. Samples from patients who have taken Naproxen have shown spurious elevation in total bilirubin levels. 47 Because ethnic data is not always readily available, this report includes an eGFR for both -Americans and non- Americans. The National Kidney Disease Education Program (NKDEP) does not endorse the use of the MDRD equation for patients that are not between the ages of 18 and 70, are , have extremes of body size, muscle mass, or nutritional status, or are non- or non-. According to the National Kidney Foundation, irrespective of diagnosis, the stage of the disease is based on the level of kidney function: Stage Description GFR(mL/min/1.73 m(2)) 1 Kidney damage with normal or decreased GFR 90 2 Kidney damage with mild decrease in GFR 60-89 3 Moderate decrease in GFR 30-59 4 Severe decrease in GFR 15-29 5 Kidney failure <15 (or dialysis) 48 Comment: b Comment: d Comment: c Comment: s 49 Comment: b Comment: d Comment: c Comment: s 50 Interpretation %CK-MB; < 5% Not supportive of diagnosis of CT 5 - <10% Indeterminate; suggest serial studies 10% or > Consistent with diagnosis of CT 51 Reference Range and Interpretation: TnI (ng/ml) Interpretation Less Than 0.06 ng/mL Not supportive of diagnosis of CT 0.06 - 0.50 ng/ml Indeterminate: suggest serial studies if clinically indicated. Greater than 0.5 ng/mL Consistent with diagnosis of CT 52 Anion gap measurement may be of limited value in the presence of any alkalosis, especially in a combined acid base disorder. . 53 A metabolite of Naproxen, O-desmethylnaproxen, has been shown to interfere with the Jendrassik-Janice method for measuring total bilirubin. Samples from patients who have taken Naproxen have shown spurious elevation in total bilirubin levels. 54 Because ethnic data is not always readily available, this report includes an eGFR for both -Americans and non- Americans. The National Kidney Disease Education Program (NKDEP) does not endorse the use of the MDRD equation for patients that are not between the ages of 18 and 70, are , have extremes of body size, muscle mass, or nutritional status, or are non- or non-. According to the National Kidney Foundation, irrespective of diagnosis, the stage of the disease is based on the level of kidney function: Stage Description GFR(mL/min/1.73 m(2)) 1 Kidney damage with normal or decreased GFR 90 2 Kidney damage with mild decrease in GFR 60-89 3 Moderate decrease in GFR 30-59 4 Severe decrease in GFR 15-29 5 Kidney failure <15 (or dialysis) 55 CHOLESTEROL INTERPRETATION: Desirable: Less than 200 MG/DL Borderline-High Risk: 200-239 MG/DL High-Risk: 240 MG/DL and over 56 HDL INTERPRETATION: Undesirable: High Risk: Less than 40 MG/DL Desirable: Low Risk: Greater than 60 MG/DL 57 LDL INTERPRETATION: Low Risk Optimal Level: LDL Less than 100 MG/DL Near or Above Optimal: LDL 100-129 MG/DL Borderline High Risk: LDL 130-159 MG/DL High Risk: LDL 160-189 MG/DL Very High Risk: LDL Greater than 189 MG/DL 58 Lymphopenia % 59 Neutrophilia % Lymphopenia % 60 OCCASIONAL PLATELET CLUMP 61 Lymphopenia % 62 Lymphopenia % 63 FAX RESULTS TO NICOLLE HARPER AT FAX NUMBER [phone] 64 IS PATIENT A DIABETIC? N COMMENTS? RIGHT A/C VEIN IS PATIENT A DIABETIC? N IS PATIENT A DIABETIC? N COMMENTS? RIGHT A/C VEIN IS PATIENT A DIABETIC? N IS PATIENT A DIABETIC? N COMMENTS? RIGHT A/C VEIN IS PATIENT A DIABETIC? N IS PATIENT A DIABETIC? N COMMENTS? RIGHT A/C VEIN IS PATIENT A DIABETIC? N 65 Anion gap measurement may be of limited value in the presence of any alkalosis, especially in a combined acid base disorder. . 66 NO GROWTH AFTER 5 DAYS 67 FASTING 68 Anion gap measurement may be of limited value in the presence of any alkalosis, especially in a combined acid base disorder. . 69 Classification: Borderline High . 70 Classification: High . 71 CALCULATED LDL APPROXIMATES THE VALUE OF A DIRECT LDL MEASUREMENT. Classification: Near or above optimal . 72 RESULT VERIFIED BY REPEAT ANALYSIS 73 RESULT VERIFIED BY REPEAT ANALYSIS Procedures Date CPT Code Description Status Comment 03/05/2018 [id number] Injection Subcutaneous Or Completed Intramuscular 12/14/2017 Mammogram Completed 12/11/2016 Mammogram Completed 06/17/2016 [id number] Electrocardiogram Complete Completed 11/13/2015 Mammogram Completed 01/21/2015 Bone Mineral Density Test Completed Osteoporosis 10/29/2014 Mammogram Completed 10/27/2013 Mammogram Completed 04/21/[address] Gerry lindsey study 07/13/2012 Mammogram Completed 06/17/2011 Mammogram Completed 05/15/2010 Mammogram Completed 03/29/2009 Mammogram Completed 03/15/2008 Mammogram Completed 03/11/2007 Mammogram Completed 02/11/2006 Mammogram Completed 04/09/2003 Colonoscopy Completed 02/21/2003 55584 Electrocardiogram Complete Completed Encounters Type Date Location Provider CPT E/M Dx Office Visit 12/12/2016 12:00p Main Office JULIENNE Bucio 42553 J06.9 R05 R50.9 R11.10 Office Visit 06/17/2016 1:40p [facility] Office Edinson Navarrete M.D. 27855 E03.9 M05.79 I10 F32.89 M80.012A S42.232A Office Visit 04/21/2016 2:00p [facility] Annabel Garcia M.D. 68808 Z00.00 I10 E03.9 F43.21 M05.79 Z23 Office Visit 11/04/2015 3:20p Main Office Annabel Garcia M.D. 20766 I10 G47.09 Office Visit 10/08/2015 1:45p [facility] JULIENNE Bucio 12131 M54.5 I10 Office Visit 09/19/2015 10:40a [facility] Annabel Garcia M.D. 84482 I10 Z12.31 Office Visit 01/18/2015 11:20a Main Office Annabel Garcia M.D. 08729 796.2 244.9 Office Visit 11/05/2014 5:00p [facility] Office Annabel Garcia M.D. 72658 V70.0 714.0 244.9 796.2 V06.1 v06.5 v03.82 v70.0 Office Visit 05/10/2014 11:15a [facility] STEPHON AllenP 42985 780.52 311 Office Visit 05/01/2013 5:00p Main Office Annabel Garcia M.D. 77909 V70.0 780.52 311 714.0 244.9 789.00 v04.81 v03.82 V58.69 Office Visit 12/27/2012 3:40p Main Office Annabel Garcia M.D. 07661 244.9 784.0 780.52 Office Visit 07/21/2012 10:50a [facility] Annabel Garcia M.D. 97489 807.01 V70.0 Office Visit 01/07/2012 2:40p Main Office Sharri Mcdonough M.D. 34428 714.0 311 995.3 V77.91 Office Visit 01/30/2011 1:00p [facility] Ofelia Nolasco, 68481 995.3 M.D. 714.0 Office Visit 12/07/2008 3:20p [facility] Ofelia Nolasco, 69260 714.0 M.D. 311 Office Visit 03/24/2007 9:00a [facility] Office Ofelia Nolasco, 57329 789.09 M.D. Office Visit 06/23/2006 4:20p [facility] Ofelia Nolasco, 50596 780.79 M.D. 714.0 311 Office Visit 07/23/2005 3:20p [facility] Ofelia Nolasco, 60742 V70.0 M.D. 714.0 V58.69 Office Visit 10/16/2004 9:30a [facility] STEPHON AllenP 24664 465.9 462 Office Visit 07/28/2004 3:20p [facility] Ofelia Nolasco, 43160 714.0 M.D. 311 V58.69 V70.0 V04.81 Office Visit 03/24/2004 4:20p [facility] Office Ofelia Nolasco, 94530 784.0 M.D. 714.0 Office Visit 11/14/2003 4:20p [facility] Office Rizwan Del Rosairo M.D. 63082 733.00 311 714.0 Office Visit 02/21/2003 3:20p [facility] Office Rizwan Del Rosario M.D. 51359 714.0 784.0 733.00 V17.4 Plan of Care Future Appointment(s):03/23/2018 2:00 pm - Annabel Garcia M.D. 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 Yes No Are there Barriers to Adherence? Yes No Has the patient been asked about herbal supplements and therapies, and OTC meds? Yes No
--- OUTSIDE RECORDS SUMMARY | 2018-03-07 11:55 | XMS REPORT ---
:1945 External Reference #:[id number] Author Organization [employer] Address [address] [place] [address] [place] [address] Phone [phone] Care Team Providers Name Role Phone Annabel Garcia MD Primary Care Physician Unavailable Payers Type Date Identification Numbers Payment Provider Subscriber Medicare Primary Effective: Policy Number: [id number] Medicare Deidra Fink 2009 PayID: [id number] [address] [place] [address] [facility] Part B Effective: 2014 Policy Number: [id number] BS [employer]ets Deidra Fink PayID: [id number] [address] [address] [place] [address] Problems Description No Information Family History Date Family Member(s) Problem(s) Comments General Arthritis General M had osteoporosis and arthritis General Cancer Social History Type Date Description Comments Lives With Occupation Retired Cigarette Use Never Smoked Cigarettes ETOH Use Denies alcohol use Smoking Patient has never smoked Recreational Drug Use Denies Drug Use Daily Caffeine Consumes on average 1 cup of regular coffee per day Exercise Type/Frequency Exercises regularly Allergies, Adverse Reactions, Alerts Date Description Reaction Status Severity Comments 12/17/2015 Oxycodone itching active 12/17/2015 Morphine itching active 12/17/2015 Contrast Dye Urticaria active Moderate to Severe 12/17/2015 Sulfa Antibiotics gi upset active Medications Medication Date Status Form Strength Qnty SIG Indications Ordering Provider Methotrexate 06/16/20 Active Tablets 2.5mg 72tabs 6 tbs by Z79.899 Zsofia 16 mouth 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 DISH every week M05.79 Ibuprofen 06/11/2016 Active Tablets 600mg 60tabs 1 tab by S42.232A Kaleb mouth every F 8 hours as Melania, needed for MD pain Thumb 12/17/2015 Active Misc 1units use nightly M05.79 Benoit Splint/Right to help with Josue Preciado M.D. on Hydroxychloroqui Active Tablets 200mg 180tabs Take one M05.79 Benoit ne Sulfate capsule/tabl Ozzy et daily by Thee mouth Z79.899 Folic Acid Active Tablets 1mg 90tabs 1 by mouth Benoit every day Thee Preciado Pristiq Active Tablets ER 50mg 1 by mouth Unknown 24HR every morning Nasacort Allergy Active Aerosol 55mcg/ 1 spray both Unknown 24HR Act nares once daily Trazodone HCL Active Tablets 50mg 3 tablets at Unknown bedtime as needed Levothyroxine Active Tablets 50mcg 1 by mouth Unknown Sodium every day Irbesartan Active Tablets 75mg take 2 tablet Unknown every morning Viactiv Active Chewtabs once a day Unknown Multi-Vitamin Prednisone 04/05/2017 - Hx Tablets 10mg 42tabs take 4 tabs by Benoit 05/13/2017 mouth daily Ozzy, for 2 days M.DJulien then 3 tabs daily for 2 days then 2 tabs for 2 days then 1 tab for 2 days then d/c Prednisone 09/18/2016 - Hx Tablets 2.5mg 1 tab by mouth M0 Zsofia 12/04/2016 every other 5. 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 [employer] alternating by 2 tabs Reduce dose as discussed Z79.52 Dilaudid 06/26/2016 - Hx Tablets 2mg 60tabs 1-2 tabs by Kaleb Meek 09/18/2016 mouth every MD Melania 4 hours as needed Hydrocodone-Buck 06/24/2016 - Hx Tablets 5-325mg 60tabs 1 tab by Kaleb Meek taminophen 08/14/2017 mouth four MD Melania times a day as needed pain Aspirin 06/24/2016 - Hx Tablets 325mg 14tabs take 1 by Kaleb Meek 09/18/2016 mouth once MD Melania a day for two weeks Keflex 06/24/2016 - Hx Capsules 500mg 28caps 1 by mouth Kaleb Meek 09/18/2016 4 times a MD Melania day for 7 days Ibuprofen 06/11/2016 - Hx Tablets 600mg 60tabs 1 tab po Kaleb Meek 09/18/2016 every 8 MD Melania hours as needed for pain Prednisone - Hx Tablets 1mg 180tabs 1 by mouth M05. Zsofia 09/18/2016 twice a day 78 JULIENNE Moser Z79.52 Methotrexate - Hx Tablets 2.5mg 3tabs 4 tbs by Zsofia 06/16/2016 mouth JULIENNE Moser every week Alendronate - Hx Tablets 70mg 12tabs 1 by mouth M81. Benoit Sodium 07/20/2016 weekly 0 Thee Preciado Calcium + D3 - Hx Tablets 600-200mg 1 by mouth Unknown 09/18/2016 -Unit every day Vitamin D3 - Hx Capsules 2000Unit 1 by mouth Unknown 04/17/2017 every day Immunizations CPT Code Status Date Vaccine Reaction Lot # 63385 Given 05/18/2017 Influenza Virus Vaccine, no immeidate reaction [id number] Quadrivalent, Split, noted Preservative Free 75091 Given 11/05/2014 Pneumococcal Conjugate Vaccine 13 Valent For Intramuscular Use 82554 Given 05/01/2013 Pneumonia Vaccine 07120 Given 12/17/2010 Zoster (Zostavax) Vital Signs Date Vital Result Comment 02/17/2018 Height 64.25 inches 5'4.25" Weight 140.00 lb Heart Rate 90 /min BP Systolic Sitting 121 mmHg BP Diastolic Sitting 71 mmHg Respiratory Rate 14 /min Pain Level 1 BMI (Body Mass Index) 23.8 kg/m2 11/17/2017 Height 64.25 inches 5'4.25" Weight 142.12 lb Heart Rate 84 /min BP Systolic Sitting 148 mmHg BP Diastolic Sitting 78 mmHg Respiratory Rate 14 /min Body Temperature 98.8 F Pain Level 1 BMI (Body Mass Index) 24.2 kg/m2 08/18/2017 Height 64.25 inches 5'4.25" Weight 141.12 lb Heart Rate 84 /min BP Systolic Sitting 130 mmHg BP Diastolic Sitting 80 mmHg Respiratory Rate 14 /min Pain Level 1 BMI (Body Mass Index) 24.0 kg/m2 05/18/2017 Height 64.25 inches 5'4.25" Weight 142.00 lb w/ shoes Heart Rate 96 /min reg BP Systolic Sitting 116 mmHg Rue, reg cuff BP Diastolic Sitting 64 mmHg Rue, reg cuff Respiratory Rate 16 /min Pain Level 0 BMI (Body Mass Index) 24.2 kg/m2 04/06/2017 Height 64.25 inches 5'4.25" Weight 140.38 lb Heart Rate 80 /min BP Systolic Sitting 130 mmHg BP Diastolic Sitting 70 mmHg Respiratory Rate 14 /min Pain Level 4 BMI (Body Mass Index) 23.9 kg/m2 03/04/2017 Height 64.25 inches 5'4.25" Weight 140.00 lb Heart Rate 106 /min BP Systolic Sitting 135 mmHg BP Diastolic Sitting 70 mmHg Body Temperature 98.0 F Pain Level 1 BMI (Body Mass Index) 23.8 kg/m2 03/03/2017 Height 64.25 inches 5'4.25" Weight 142.00 lb Heart Rate 101 /min Respiratory Rate 15 /min Pain Level 2 BMI (Body Mass Index) 24.2 kg/m2 12/04/2016 Height 64.25 inches 5'4.25" Weight 142.25 lb Heart Rate 97 /min BP Systolic Sitting 146 mmHg BP Diastolic Sitting 81 mmHg Respiratory Rate 14 /min Pain Level 1 BMI (Body Mass Index) 24.2 kg/m2 10/15/2016 Height 64.25 inches 5'4.25" Weight 144.00 lb Heart Rate 96 /min BP Systolic 125 mmHg BP Diastolic 77 mmHg Pain Level 1 BMI (Body Mass Index) 24.5 kg/m2 09/18/2016 Height 64.25 inches 5'4.25" Weight 144.00 lb Heart Rate 84 /min BP Systolic Sitting 130 mmHg BP Diastolic Sitting 80 mmHg Respiratory Rate 14 /min Pain Level 1 BMI (Body Mass Index) 24.5 kg/m2 09/01/2016 Height 64.25 inches 5'4.25" Weight 148.00 lb Respiratory Rate 17 /min Pain Level 0 BMI (Body Mass Index) 25.2 kg/m2 08/04/2016 Height 64.25 inches 5'4.25" Weight 148.00 lb Respiratory Rate 18 /min Pain Level 2 BMI (Body Mass Index) 25.2 kg/m2 07/21/2016 Height 64.25 inches 5'4.25" Weight 148.00 lb Pain Level 1 BMI (Body Mass Index) 25.2 kg/m2 07/07/2016 Height 64.25 inches 5'4.25" Weight 148.00 lb Pain Level 2 BMI (Body Mass Index) 25.2 kg/m2 06/16/2016 Height 64.25 inches 5'4.25" Patient stated Weight 148.00 lb Patient stated Heart Rate 104 /min BP Systolic Sitting 120 mmHg BP Diastolic Sitting 70 mmHg Body Temperature 98.2 F Pain Level 2 BMI (Body Mass Index) 25.2 kg/m2 06/11/2016 Height 64.25 inches 5'4.25" Weight 152.00 lb Pain Level 3 BMI (Body Mass Index) 25.9 kg/m2 06/04/2016 Height 64.25 inches 5'4.25" Weight 152.00 lb Pain Level 6 BMI (Body Mass Index) 25.9 kg/m2 05/28/2016 Height 64.25 inches 5'4.25" Weight 152.00 lb Pain Level 10 BMI (Body Mass Index) 25.9 kg/m2 03/17/2016 Height 63.5 inches 5'3.50" Weight 150.12 lb Heart Rate 90 /min BP Systolic Sitting 110 mmHg BP Diastolic Sitting 64 mmHg Respiratory Rate 14 /min Body Temperature 99.0 F Pain Level 1 BMI (Body Mass Index) 26.2 kg/m2 12/17/2015 Height 63.5 inches 5'3.50" Weight 149.00 lb Heart Rate 80 /min BP Systolic Sitting 148 mmHg BP Diastolic Sitting 80 mmHg Pain Level 2 BMI (Body Mass Index) 26.0 kg/m2 Results Test Date Test Result H/L Range Note Laboratory test finding 02/15/2018 Erythrocyte Sed Rate 23 mm/Hr 0-40 1 C Reactive Protein 13.09 mg/L High <8.01 2 CBC Auto Diff 02/15/2018 White Blood [...] 0-2 Nucleated Red Blood Cells % 0 Comp Metabolic Panel 02/15/2018 Sodium 137 mmol/L [...] Egfr Non- 55.0 >60 Egfr 66.5 >60 4 Laboratory test finding 02/15/2018 Erythrocyte Sed Rate 23 mm/Hr 0-40 5 C Reactive Protein 13.09 mg/L High <8.01 6 CBC Auto Diff 02/15/2018 White Blood Count 5.2 10^3/uL 3.5-10.8 Red Blood Count 3.28 10^6/uL Low 4.00-5.40 Hemoglobin 11.9 g/dL Low 12.0-16.0 Hematocrit 35 % 35-47 Mean Corpuscular Volume 107 fL High 80-97 7 Mean Corpuscular Hemoglobin 36 pg High 27-31 [...] 0-2 Nucleated Red Blood Cells % 0 Comp Metabolic Panel 02/15/2018 Sodium 137 mmol/L [...] Egfr Non- 55.0 >60 Egfr 66.5 >60 8 Laboratory test finding 11/13/2017 Erythrocyte Sed Rate 18 mm/Hr 0-40 C Reactive Protein 7.94 mg/L High < 5.00 9 CBC Auto Diff 11/13/2017 White Blood Count 6.1 10^3/uL 3.5-10.8 Red Blood Count 3.28 10^6/uL Low 4.0-5.4 Hemoglobin 11.8 g/dL Low 12.0-16.0 Hematocrit 35 % 35-47 Mean Corpuscular Volume 106 fL High 80-97 10 Mean Corpuscular Hemoglobin 36 pg High 27-31 [...] 0-2 Nucleated Red Blood Cells % 0 Comp Metabolic Panel 11/13/2017 Sodium 133 mmol/L [...] Egfr Non- 48.2 >60 Egfr 62.0 >60 11 Laboratory test finding 08/12/2017 Vitamin D, 1,25 Dihydroxy 21 pg/mL 18- 78 12 Comp Metabolic Panel 08/12/2017 Sodium 134 mmol/L 133-145 Potassium 5.0 mmol/L 3.5-5.0 Chloride 99 mmol/L Low 101-111 Co2 Carbon Dioxide 29 mmol/L 22-32 Anion Gap 6 mmol/L 2-11 Glucose 89 mg/dL 70-100 Blood Urea Nitrogen 20 mg/dL 6-24 Creatinine 1.02 mg/dL High 0.51-0.95 BUN/Creatinine Ratio 19.6 8-20 Calcium 9.9 mg/dL 8.6-10.3 Total Protein 6.7 g/dL 6.4-8.9 Albumin 4.0 g/dL 3.2-5.2 Globulin 2.7 g/dL 2-4 Albumin/Globulin Ratio 1.5 1-3 Total Bilirubin 0.80 mg/dL 0.2-1.0 Alkaline Phosphatase 57 U/L 34-104 Alt 20 U/L 7-52 Ast 36 U/L 13-39 Egfr Non- 53.1 >60 Egfr 68.3 >60 13 CBC Auto Diff 08/12/2017 White Blood Count 6.5 10^3/uL 3.5-10.8 Red Blood Count 3.26 10^6/uL Low 4.0-5.4 Hemoglobin 11.8 g/dL Low 12.0-16.0 Hematocrit 35 % 35-47 Mean Corpuscular Volume 106 fL High 80-97 14 Mean Corpuscular Hemoglobin 36 pg High 27-31 Mean Corpuscular HGB Conc 34 g/dL 31-36 Red Cell Distribution Width 15 % 10.5-15 Platelet Count 275 10^3/uL 150-450 Mean Platelet Volume 9 um3 7.4-10.4 Abs Neutrophils 4.8 10^3/uL 1.5-7.7 Abs Lymphocytes 1.2 10^3/uL 1.0-4.8 Abs Monocytes 0.5 10^3/uL 0-0.8 Abs Eosinophils 0 10^3/uL 0-0.6 Abs Basophils 0 10^3/uL 0-0.2 Abs Nucleated RBC 0 10^3/uL Granulocyte % 74.1 % 38-83 Lymphocyte % 17.9 % Low 25-47 Monocyte % 7.6 % 1-9 Eosinophil % 0 % 0-6 Basophil % 0.4 % 0-2 Nucleated Red Blood Cells % 0 Laboratory test finding 08/12/2017 Erythrocyte Sed Rate 29 mm/Hr 0-40 C Reactive Protein 20.03 mg/L High < 5.00 15 CMP Panel 05/15/2017 Sodium 135 mmol/L 133-145 Potassium 4.8 mmol/L 3.5-5.0 Chloride 101 mmol/L 101-111 Co2 Carbon Dioxide 28 mmol/L 22-32 Anion Gap 6 mmol/L 2-11 Glucose 141 mg/dL High 70-100 Blood Urea Nitrogen 15 mg/dL 6-24 Creatinine 1.00 mg/dL High 0.51-0.95 BUN/Creatinine Ratio 15.0 8-20 Calcium 9.9 mg/dL 8.6-10.3 Total Protein 6.3 g/dL Low 6.4-8.9 Albumin 3.6 g/dL 3.2-5.2 Globulin 2.7 g/dL 2-4 Albumin/Globulin Ratio 1.3 1-3 Total Bilirubin 0.70 mg/dL 0.2-1.0 Alkaline Phosphatase 52 U/L 34-104 Alt 14 U/L 7-52 Ast 29 U/L 13-39 Egfr Non- 54.3 >60 Egfr 69.9 >60 16 Laboratory test finding 05/15/2017 C Reactive Protein 10.76 mg/L High < 5.00 17 CBC W/Auto Diff 05/15/2017 White Blood Count 5.7 10^3/uL 3.5-10.8 Red Blood Count 3.28 10^6/uL Low 4.0-5.4 Hemoglobin 11.5 g/dL Low 12.0-16.0 Hematocrit 34 % Low 35-47 Mean Corpuscular Volume 105 fL High 80-97 Mean Corpuscular Hemoglobin 35 pg High 27-31 Mean Corpuscular HGB Conc 34 g/dL 31-36 Red Cell Distribution Width 15 % 10.5-15 Platelet Count 268 10^3/uL 150-450 Mean Platelet Volume 9 um3 7.4-10.4 Abs Neutrophils 3.9 10^3/uL 1.5-7.7 Abs Lymphocytes 1.1 10^3/uL 1.0-4.8 Abs Monocytes 0.6 10^3/uL 0-0.8 Abs Eosinophils 0 10^3/uL 0-0.6 Abs Basophils 0 10^3/uL 0-0.2 Abs Nucleated RBC 0 10^3/uL Granulocyte % 69.7 % 38-83 Lymphocyte % 18.9 % Low 25-47 Monocyte % 11.0 % High 1-9 Eosinophil % 0 % 0-6 Basophil % 0.4 % 0-2 Nucleated Red Blood Cells % 0 Laboratory test finding 05/15/2017 Erythrocyte Sed Rate 29 mm/Hr 0-40 Quantiferon Gold TB 05/15/2017 M tuberculosis by Negative Negative 18 Quantiferon TB Ag minus Nil Result 0.01 IU/mL TB Mitogen minus Nil Result > 10.00 IU/mL TB Nil Result 0.02 IU/mL 19 CBC W/Auto Diff 02/26/2017 White Blood Count 5.7 10^3/uL 3.5-10.8 Red Blood Count 3.21 10^6/uL Low 4.0-5.4 Hemoglobin 11.5 g/dL Low 12.0-16.0 Hematocrit 34 % Low 35-47 Mean Corpuscular Volume 107 fL High 80-97 Mean Corpuscular Hemoglobin 36 pg High 27-31 Mean Corpuscular HGB Conc 34 g/dL 31-36 Red Cell Distribution Width 16 % High 10.5-15 Platelet Count 222 10^3/uL 150-450 Mean Platelet Volume 9 um3 7.4-10.4 Abs Neutrophils 3.9 10^3/uL 1.5-7.7 Abs Lymphocytes 0.9 10^3/uL Low 1.0-4.8 Abs Monocytes 0.8 10^3/uL 0-0.8 Abs Eosinophils 0 10^3/uL 0-0.6 Abs Basophils 0 10^3/uL 0-0.2 Abs Nucleated RBC 0 10^3/uL Granulocyte % 69.1 % 38-83 Lymphocyte % 16.6 % Low 25-47 Monocyte % 13.8 % High 1-9 Eosinophil % 0 % 0-6 Basophil % 0.5 % 0-2 Nucleated Red Blood Cells % 0.1 CMP Panel 02/26/2017 Sodium 137 mmol/L 133-145 Potassium 5.1 mmol/L High 3.5-5.0 Chloride 101 mmol/L 101-111 Co2 Carbon Dioxide 28 mmol/L 22-32 Anion Gap 8 mmol/L 2-11 Glucose 102 mg/dL High 70-100 Blood Urea Nitrogen 20 mg/dL 6-24 Creatinine 1.11 mg/dL High 0.51-0.95 BUN/Creatinine Ratio 18.0 8-20 Calcium 10.2 mg/dL 8.6-10.3 Total Protein 6.5 g/dL 6.4-8.9 Albumin 3.8 g/dL 3.2-5.2 Globulin 2.7 g/dL 2-4 Albumin/Globulin Ratio 1.4 1-3 Total Bilirubin 0.90 mg/dL 0.2-1.0 Alkaline Phosphatase 47 U/L 34-104 Alt 19 U/L 7-52 Ast 39 U/L 13-39 Egfr Non- 48.3 >60 Egfr 62.1 >60 20 Laboratory test finding 02/26/2017 Erythrocyte Sed Rate 30 mm/Hr 0-40 C Reactive Protein 12.15 mg/L High < 5.00 21 Laboratory test finding 02/26/2017 Vitamin D Total 25(Oh) 63.0 ng/mL High 30-50 Laboratory test finding 12/01/2016 Vitamin D Total 25(Oh) 66.3 ng/mL High 30-50 CBC Auto Diff 12/01/2016 White Blood Count 5.3 10^3/uL 3.5-10.8 Red Blood Count 3.28 10^6/uL Low 4.0-5.4 Hemoglobin 11.2 g/dL Low 12.0-16.0 Hematocrit 34 % Low 35-47 Mean Corpuscular Volume 103 fL High 80-97 Mean Corpuscular Hemoglobin 34 pg High 27-31 Mean Corpuscular HGB Conc 33 g/dL 31-36 Red Cell Distribution Width 15 % 10.5-15 Platelet Count 219 10^3/uL 150-450 Mean Platelet Volume 9 um3 7.4-10.4 Abs Neutrophils 4.0 10^3/uL 1.5-7.7 Abs Lymphocytes 0.9 10^3/uL Low 1.0-4.8 Abs Monocytes 0.4 10^3/uL 0-0.8 Abs Eosinophils 0 10^3/uL 0-0.6 Abs Basophils 0 10^3/uL 0-0.2 Abs Nucleated RBC 0 10^3/uL Granulocyte % 75.3 % 38-83 Lymphocyte % 17.0 % Low 25-47 Monocyte % 7.2 % 1-9 Eosinophil % 0 % 0-6 Basophil % 0.5 % 0-2 Nucleated Red Blood Cells % 0 Laboratory test finding 12/01/2016 Erythrocyte Sed Rate 28 mm/Hr 0-40 Comp Metabolic Panel 12/01/2016 Sodium 136 mmol/L 133-145 Potassium 4.3 mmol/L 3.5-5.0 Chloride 100 mmol/L Low 101-111 Co2 Carbon Dioxide 28 mmol/L 22-32 Anion Gap 8 mmol/L 2-11 Glucose 112 mg/dL High 70-100 Blood Urea Nitrogen 15 mg/dL 6-24 Creatinine 0.92 mg/dL 0.51-0.95 BUN/Creatinine Ratio 16.3 8-20 Calcium 9.8 mg/dL 8.6-10.3 Total Protein 6.3 g/dL Low 6.4-8.9 Albumin 3.7 g/dL 3.2-5.2 Globulin 2.6 g/dL 2-4 Albumin/Globulin Ratio 1.4 1-3 Total Bilirubin 0.70 mg/dL 0.2-1.0 Alkaline Phosphatase 51 U/L 34-104 Alt 23 U/L 7-52 Ast 53 U/L High 13-39 Egfr Non- 60.0 >60 Egfr 77.2 >60 22 Laboratory test finding 12/01/2016 C Reactive Protein 5.87 mg/L High < 5.00 23 Comp Metabolic Panel 09/16/2016 Sodium 136 mmol/L 133-145 Potassium 5.6 mmol/L High 3.5-5.0 Chloride 101 mmol/L 101-111 Co2 Carbon Dioxide 30 mmol/L 22-32 Anion Gap 5 mmol/L 2-11 Glucose 129 mg/dL High 70-100 Blood Urea Nitrogen 16 mg/dL 6-24 Creatinine 1.03 mg/dL High 0.51-0.95 BUN/Creatinine Ratio 15.5 8-20 Calcium 9.9 mg/dL 8.6-10.3 Total Protein 6.5 g/dL 6.4-8.9 Albumin 3.8 g/dL 3.2-5.2 Globulin 2.7 g/dL 2-4 Albumin/Globulin Ratio 1.4 1-3 Total Bilirubin 0.60 mg/dL 0.2-1.0 Alkaline Phosphatase 53 U/L 34-104 Alt 16 U/L 7-52 Ast 32 U/L 13-39 Egfr Non- 52.7 >60 Egfr 67.7 >60 24 Laboratory test finding 09/16/2016 C Reactive Protein 5.64 mg/L High < 5.00 25 CBC Auto Diff 09/16/2016 White Blood Count 7.8 10^3/uL 3.5-10.8 Red Blood Count 3.50 10^6/uL Low 4.0-5.4 Hemoglobin 12.1 g/dL 12.0-16.0 Hematocrit 37 % 35-47 Mean Corpuscular Volume 105 fL High 80-97 26 Mean Corpuscular Hemoglobin 35 pg High 27-31 Mean Corpuscular HGB Conc 33 g/dL 31-36 Red Cell Distribution Width 15 % 10.5-15 Platelet Count 236 10^3/uL 150-450 Mean Platelet Volume 8 um3 7.4-10.4 Abs Neutrophils 6.1 10^3/uL 1.5-7.7 Abs Lymphocytes 0.9 10^3/uL Low 1.0-4.8 Abs Monocytes 0.8 10^3/uL 0-0.8 Abs Eosinophils 0 10^3/uL 0-0.6 Abs Basophils 0 10^3/uL 0-0.2 Abs Nucleated RBC 0 10^3/uL Granulocyte % 77.8 % 38-83 Lymphocyte % 11.6 % Low 25-47 Monocyte % 10.1 % High 1-9 Eosinophil % 0 % 0-6 Basophil % 0.5 % 0-2 Nucleated Red Blood Cells % 0 Laboratory test finding 09/16/2016 Erythrocyte Sed Rate 21 mm/Hr 0-40 Vitamin D Total 25(Oh) 57.1 ng/mL High 30-50 Laboratory test finding 07/29/2016 Vitamin D Total 25(Oh) 46.7 ng/mL 30- 50 27 CBC Auto Diff 07/29/2016 White Blood Count 7.1 10^3/uL 3.5-10.8 Red Blood Count 3.19 10^6/uL Low 4.0-5.4 Hemoglobin 11.2 g/dL Low 12.0-16.0 Hematocrit 34 % Low 35-47 Mean Corpuscular Volume 106 fL High 80-97 28 Mean Corpuscular Hemoglobin 35 pg High 27-31 [...] Cells % 0.1 Laboratory test finding 07/29/2016 Erythrocyte Sed Rate 29 mm/Hr 0-40 29 CBC Auto Diff 07/29/2016 White Blood Count 7.1 10^3/uL 3.5-10.8 Red Blood Count 3.19 10^6/uL Low 4.0-5.4 Hemoglobin 11.2 g/dL Low 12.0-16.0 Hematocrit 34 % Low 35-47 Mean Corpuscular Volume 106 fL High 80-97 30 Mean Corpuscular Hemoglobin 35 pg High 27-31 [...] 0-2 Nucleated Red Blood Cells % 0.1 Comp Metabolic Panel 07/29/2016 Sodium 137 mmol/L [...] Egfr Non- 54.5 >60 Egfr 70.1 >60 31 Laboratory test finding 07/29/2016 C Reactive Protein 6.12 mg/L High < 5.00 32 Erythrocyte Sed Rate 29 mm/Hr 0-40 33 Vitamin D Total 25(Oh) 46.7 ng/mL 30-50 34 Laboratory test finding 06/23/2016 Cancellous Chips 5cc SEE RESULTS [facility] 35, 36 <SEE NOTE> DBM Putty Orthoblast II 5cc SEE RESULTS [facility] <SEE NOTE> 35, 37 Laboratory test finding 06/11/2016 C Reactive Protein 11.86 mg/L High < 5.00 38 Erythrocyte Sed Rate 20 mm/Hr 0-40 39 CBC Auto Diff 06/11/2016 White Blood Count 6.5 10^3/uL 3.5-10.8 Red Blood Count 3.16 10^6/uL Low 4.0-5.4 Hemoglobin 11.0 g/dL Low 12.0-16.0 Hematocrit 33 % Low 35-47 Mean Corpuscular Volume 104 fL High 80-97 Mean Corpuscular Hemoglobin 35 pg High 27-31 Mean Corpuscular HGB Conc 33 g/dL 31-36 Red Cell Distribution Width 15 % 10.5-15 Platelet Count 315 10^3/uL 150-450 Mean Platelet Volume 8 um3 7.4-10.4 Abs Neutrophils 5.1 10^3/uL 1.5-7.7 Abs Lymphocytes 0.8 10^3/uL Low 1.0-4.8 Abs Monocytes 0.5 10^3/uL 0-0.8 Abs Eosinophils 0 10^3/uL 0-0.6 Abs Basophils 0 10^3/uL 0-0.2 Abs Nucleated RBC 0 10^3/uL Granulocyte % 79.0 % 38-83 Lymphocyte % 12.9 % Low 25-47 Monocyte % 7.5 % 1-9 Eosinophil % 0 % 0-6 Basophil % 0.6 % 0-2 Nucleated Red Blood Cells % 0 Comp Metabolic Panel 06/11/2016 Sodium 139 mmol/L 133-145 Potassium 4.3 mmol/L 3.5-5.0 Chloride 102 mmol/L 101-111 Co2 Carbon Dioxide 29 mmol/L 22-32 Anion Gap 8 mmol/L 2-11 Glucose 119 mg/dL High 70-100 Blood Urea Nitrogen 9 mg/dL 6-24 Creatinine 0.87 mg/dL 0.51-0.95 BUN/Creatinine Ratio 10.3 8-20 Calcium 9.7 mg/dL 8.6-10.3 Total Protein 6.0 g/dL Low 6.4-8.9 Albumin 3.7 g/dL 3.2-5.2 Globulin 2.3 g/dL 2-4 Albumin/Globulin Ratio 1.6 1-3 Total Bilirubin 0.40 mg/dL 0.2-1.0 Alkaline Phosphatase 54 U/L 34-104 Alt 26 U/L 7-52 Ast 38 U/L 13-39 Egfr Non- 64.0 >60 Egfr 82.3 >60 40 Comp Metabolic Panel 03/12/2016 Sodium 137 mmol/L 133-145 Potassium 4.4 mmol/L 3.5-5.0 Chloride 100 mmol/L Low 101-111 Co2 Carbon Dioxide 30 mmol/L 22-32 Anion Gap 7 mmol/L 2-11 Glucose 146 mg/dL High 70-100 Blood Urea Nitrogen 15 mg/dL 6-24 Creatinine 0.90 mg/dL 0.51-0.95 BUN/Creatinine Ratio 16.7 8-20 Calcium 9.5 mg/dL 8.6-10.3 Total Protein 6.1 g/dL Low 6.4-8.9 Albumin 3.7 g/dL 3.2-5.2 Globulin 2.4 g/dL 2-4 Albumin/Globulin Ratio 1.5 1-3 Total Bilirubin 0.80 mg/dL 0.2-1.0 Alkaline Phosphatase 51 U/L 34-104 Alt 27 U/L 7-52 Ast 39 U/L 13-39 Egfr Non- 61.7 >60 Egfr 79.4 >60 41 Laboratory test finding 03/12/2016 C Reactive Protein 9.40 mg/L High < 5.00 42 CBC Auto Diff 03/12/2016 White Blood Count 6.2 10^3/uL 3.5-10.8 Red Blood Count 3.66 10^6/uL Low 4.0-5.4 Hemoglobin 12.5 g/dL 12.0-16.0 Hematocrit 38 % 35-47 Mean Corpuscular Volume 104 fL High 80-97 Mean Corpuscular Hemoglobin 34 pg High 27-31 Mean Corpuscular HGB Conc 33 g/dL 31-36 Red Cell Distribution Width 15 % 10.5-15 Platelet Count 264 10^3/uL 150-450 Mean Platelet Volume 8 um3 7.4-10.4 Abs Neutrophils 4.3 10^3/uL 1.5-7.7 Abs Lymphocytes 1.3 10^3/uL 1.0-4.8 Abs Monocytes 0.5 10^3/uL 0-0.8 Abs Eosinophils 0.1 10^3/uL 0-0.6 Abs Basophils 0 10^3/uL 0-0.2 Abs Nucleated RBC 0 10^3/uL Granulocyte % 69.3 % 38-83 Lymphocyte % 20.4 % Low 25-47 Monocyte % 8.7 % 1-9 Eosinophil % 0.9 % 0-6 Basophil % 0.7 % 0-2 Nucleated Red Blood Cells % 0.1 Laboratory test finding 03/12/2016 Erythrocyte Sed Rate 16 mm/Hr 0-40 Laboratory test finding 12/19/2015 C Reactive Protein 8.80 mg/L High < 5.00 43 Erythrocyte Sed Rate 17 mm/Hr 0-40 44 CBC Auto Diff 12/19/2015 White Blood Count 5.5 10^3/uL 3.5-10.8 Red Blood Count 3.66 10^6/uL Low 4.0-5.4 Hemoglobin 12.5 g/dL 12.0-16.0 Hematocrit 38 % 35-47 Mean Corpuscular Volume 103 fL High 80-97 Mean Corpuscular Hemoglobin 34 pg High 27-31 Mean Corpuscular HGB Conc 33 g/dL 31-36 Red Cell Distribution Width 15 % 10.5-15 Platelet Count 255 10^3/uL 150-450 Mean Platelet Volume 9 um3 7.4-10.4 Abs Neutrophils 3.5 10^3/uL 1.5-7.7 Abs Lymphocytes 1.2 10^3/uL 1.0-4.8 Abs Monocytes 0.7 10^3/uL 0-0.8 Abs Eosinophils 0.1 10^3/uL 0-0.6 Abs Basophils 0 10^3/uL 0-0.2 Abs Nucleated RBC 0.01 10^3/uL Granulocyte % 64.3 % 38-83 Lymphocyte % 21.5 % Low 25-47 Monocyte % 12.1 % High 1-9 Eosinophil % 1.3 % 0-6 Basophil % 0.8 % 0-2 Nucleated Red Blood Cells % 0.1 Comp Metabolic Panel 12/19/2015 Sodium 133 mmol/L 133-145 Potassium 4.6 mmol/L 3.5-5.0 Chloride 97 mmol/L Low 101-111 Co2 Carbon Dioxide 28 mmol/L 22-32 Anion Gap 8 mmol/L 2-11 Glucose 133 mg/dL High 70-100 Blood Urea Nitrogen 13 mg/dL 6-24 Creatinine 0.98 mg/dL High 0.51-0.95 BUN/Creatinine Ratio 13.3 8-20 Calcium 9.8 mg/dL 8.6-10.3 Total Protein 6.7 g/dL 6.4-8.9 Albumin 4.0 g/dL 3.2-5.2 Globulin 2.7 g/dL 2-4 Albumin/Globulin Ratio 1.5 1-3 Total Bilirubin 0.90 mg/dL 0.2-1.0 Alkaline Phosphatase 59 U/L 34-104 Alt 18 U/L 7-52 Ast 25 U/L 13-39 Egfr Non- 55.9 >60 Egfr 71.9 >60 45 1 Please check labs 2 days before follow up 2 Please check labs 2 days before follow up 3 Consistent with Previous Results Reported on 11/13/17 4 Because ethnic data is not always readily [...] 15-29 5 Kidney failure <15 (or dialysis) 5 Please check labs 2 days before follow up 6 Please check labs 2 days before follow up 7 Consistent with Previous Results Reported on 11/13/17 8 Because ethnic data is not always readily [...] 15-29 5 Kidney failure <15 (or dialysis) 9 Acute inflammation: >10.00 10 Consistent with Previous Results Reported on 08/12/17 11 Because ethnic data is not always readily [...] 15-29 5 Kidney failure <15 (or dialysis) 12 ADDITIONAL INFORMATION This test was developed and its performance characteristics determined by [facility] in a manner consistent with CLIA requirements. This test has not been cleared or approved by the [place] Food and Drug Administration. Test Performed by: [facility] [address] [place] [address] 13 Because ethnic data is not always readily [...] 15-29 5 Kidney failure <15 (or dialysis) 14 Consistent with previous results on 05/15/17. 15 Acute inflammation: >10.00 16 Because ethnic data is not always readily [...] 15-29 5 Kidney failure <15 (or dialysis) 17 Acute inflammation: >10.00 18 No interferon-gamma response to M. tuberculosis antigens was detected. Infection with M. tuberculosis is unlikely. A negative result alone does not exclude infection with M. tuberculosis. For detailed information regarding test interpretation see: [email or web address]/test-catalog/ Clinical+and+Interpretive/94507 19 Test Performed by: [facility] - [address] [address] 20 Because ethnic data is not always readily [...] 15-29 5 Kidney failure <15 (or dialysis) 21 Acute inflammation: >10.00 22 Because ethnic data is not always readily [...] 15-29 5 Kidney failure <15 (or dialysis) 23 Acute inflammation: >10.00 24 Because ethnic data is not always readily [...] 15-29 5 Kidney failure <15 (or dialysis) 25 Acute inflammation: >10.00 26 Consistent with previous results on 07/29/16. 27 standing orders q 3 mo 28 Adult MCV greater than 105 fl incubated 1/2 hr at 37c without significant change. 29 standing orders q 6 weeks 30 Adult MCV greater than 105 fl incubated 1/2 hr at 37c without significant change. 31 Because ethnic data is not always readily [...] 15-29 5 Kidney failure <15 (or dialysis) 32 Acute inflammation: >10.00 33 standing orders q 6 weeks 34 standing orders q 3 mo 35 3-PART FRACTURE OF SURGICAL NECK OF LEFT HUMERUS, 36 SEE RESULTS BELOW [id number] CANC CHIPS 5CC TRANSFUSED 06/24/16 1222 [id number] CANC CHIPS 5CC TRANSFUSED 06/24/16 1222 [id number] CANC CHIPS 5CC TRANSFUSED 06/24/16 1222 37 SEE RESULTS BELOW [id number] DBM PUTTY 5CC TRANSFUSED 06/24/16 1222 38 Acute inflammation: >10.00 39 Please check labs 2 or 3 days before her next visit 40 Because ethnic data is not always readily [...] 15-29 5 Kidney failure <15 (or dialysis) 41 Because ethnic data is not always readily [...] 15-29 5 Kidney failure <15 (or dialysis) 42 Acute inflammation: >10.00 43 Acute inflammation: >10.00 44 Please check today and also 2 days prior to her next appointment 45 Because ethnic data is not always readily [...] 15-29 5 Kidney failure <15 (or dialysis) Procedures Date CPT Code Description Status Comment 03/10/2017 67476 ECHO Transthoracic, Real-Time Completed 2D With Doppler And Color Flow 10/14/2016 Bone Mineral Density Test Completed 09/23/2016 Diabetic Retinal Eye Exam Completed Document: 09/23/16 - Consult Ophthalmology-[place] 06/24/2016 52491 Open TX Proximal Humeral FX Completed Incl Fixation When Performed 06/24/2016 69159 Open TX Proximal Humeral FX Completed Incl Fixation When Performed 05/28/2016 48377 Closed trtmt prox humeral fx Completed 01/29/2015 Bone Mineral Density Test Completed Encounters Type Date Location Provider CPT E/M Dx Office Visit 11/17/2017 [facility] Benoit Preciado M.D. 74791 M05.79 1:40p Of Jing M85.89 Z79.899 E67.3 Office Visit 08/18/2017 1:20p [facility] Benoit Preciado 90866 M05.79 Of Jing M.DJulien M85.89 Z79.899 E67.3 Office Visit 05/18/2017 1:40p [facility] Benoit Preciado 74848 M05.79 Of Jing Garcia.DJulien M85.89 Z79.899 Z23 Office Visit 04/06/2017 2:00p [facility] Benoit Preciado 20461 M05.79 Of Jing Garcia.DJulien M85.89 Z79.899 E67.3 Office Visit 03/04/2017 2:00p [facility] Benoit Preciado 64028 M05.79 Of Jing [place] M85.89 Z79.899 E67.3 R01.1 Office Visit 03/03/2017 2:00p [facility] Of Kaleb Meek 62191 S42.232D Ryland Velázquez MD Office Visit 12/04/2016 2:00p [facility] Polly Moser [address] [facility] MANAGER DISH M85.89 E67.3 R79.89 Z79.899 Office Visit 10/15/2016 1:15p [facility] Kaleb Meek 74229 S42.232D Of Ryland Velázquez MD S42.232K Office Visit 09/18/2016 1:00p Rhe[facility]ology Services JULIENNE Hudson [address] [facility] M85.9 Z79.52 Z79.899 S42.232D Office Visit 06/16/2016 2:00p [facility] Services JULIENNE Hudson [address] [facility] S42.232A M81.0 Z79.899 Z79.52 Office Visit 03/17/2016 3:00p [facility] Services Benoit Preciado [address] [facility] M.D. Z79.899 M81.0 Office Visit 12/17/2015 3:00p [facility] Benoit Preciado [address] [facility] M.D. Z79.899 M81.0 M65.4 Plan of Care Future Appointment(s):05/24/2018 1:00 pm - Benoit Preciado M.D. at [facility]02/17/2018 - Benoit Preciado M.D.M05.79 Rheu arthritis w rheu factor mult site w/o org/sys arzaykT52.89 Oth disrd of bone density and structure, multiple qoaynT30.899 Other mcc (current) drug therapyFollow up :Follow up in 3 months or sooner if needed with Zsofia or me
[2018-03-07] MEDS ORDERED: Ketorolac INJ* 30 MG/ML 1 ML VIAL IM ONE (12:10)
--- NOTE | 2018-03-07 13:07 | RAD ---
Indication: 5 days low back pain. Degenerative disc disease. Comparison: July 18, 2012 CT and September 30, 2015 radiographs. Technique: AP, lateral, and oblique views lumbar sacral spine. Report: Predominant anterior column compression fracture at L1 with approximate 50% loss of height at the anterior margin. Associated trabecular impaction. No additional lumbar sacral spine fractures evident. Negative for spondylolysis at any level. Minimal degenerative grade 1 L2-L3 retrolisthesis. Multilevel degenerative spondylosis and facet joint osteoarthritis. Severe L2-L3, moderate L4-L5, and moderate L5-S1 disc space narrowing. Associated reactive endplate sclerosis at L2-L3. Facet joint osteoarthritis is most prominent at L2-L3. Unremarkable paraspinal soft tissue contours. IMPRESSION: #. L1 predominant anterior column moderate compression fracture is new compared with the September 30, 2015 radiographs. Acute or subacute fracture should be considered given presence of trabecular impaction and new onset pain. #. Multilevel degenerative spondylosis and facet joint osteoarthritis without significant interval change. #. Predisposing osteopenia documented on October 14, 2016 DEXA scan.
== END 2018-03-07 13:30 | disposition home or self-care (01) ==
LOC: UCEAST 11:45
DX: S32.010A Wedge compression fracture of first lumbar vertebra, initial encounter for closed fracture (principal); X58.XXXA Exposure to other specified factors, initial encounter; Y93.89 Activity, other specified; Y92.9 Unspecified place or not applicable; M06.9 Rheumatoid arthritis, unspecified; E03.9 Hypothyroidism, unspecified; F41.9 Anxiety disorder, unspecified; F32.9 Major depressive disorder, single episode, unspecified; Z90.710 Acquired absence of both cervix and uterus; Z88.5 Allergy status to narcotic agent; Z88.2 Allergy status to sulfonamides; Z91.041 Radiographic dye allergy status; Z82.49 Family history of ischemic heart disease and other diseases of the circulatory system
CPT/HCPCS: 72110; 81003; 96372; 99212; G0463; J1885

== ENCOUNTER 2018-03-09 11:30 | Emergency (ER) | payer MEDICARE, BC ==
--- OUTSIDE RECORDS SUMMARY | 2018-03-09 12:07 | XMS REPORT ---
:1945 External Reference #:[id number] Author Organization [employer] Address [address] [address] [place] [address] Phone [phone] Care Team Providers Name Role Phone Annabel Garcia MD Primary Care Physician Unavailable Payers Type Date Identification Numbers Payment Provider Subscriber Medicare Primary Effective: Policy Number: [id number] Medicare Deidra Fink 2009 PayID: [id number] [address] [place] [address] [facility] Part B Effective: 2014 Policy Number: [id number] BS Facets Deidra Fink PayID: [id number] [address] [address] [place] [address] Problems Description No Information Family History Date [...] tbs by Z79.899 Zsofia 16 mouth Ehsan, [employer] SAL[employer] every week M05.79 Ibuprofen 06/11/2016 Active Tablets 600mg 60tabs 1 tab by S42.232A Kaleb mouth every F 8 hours as Melania, needed for MD pain Thumb 12/17/2015 Active Misc 1units use nightly M05.79 Benoit Splint/Right to help with Josue Preciado immobilghazala [place] on Hydroxychloroqui Active Tablets 200mg 180tabs Take [...] Active Chewtabs once a day Unknown Multi-Vitamin Lidocaine Active Patches 5% Apply 1 Patch Unknown To The Affected Area Once Daily as Needed For Pain,... Lorazepam Active Tablets 0.5mg take 1/2-1 Unknown tablet by mouth twice a day as Needed For Spasm maximum ninoska Ra Acetaminophen Active Tablets 500mg take 1-2 Unknown Extra Strength tablets by mouth three times a day as Needed For Pain Prednisone 04/05/2017 - Hx Tablets 10mg 42tabs take 4 tabs by Benoit 05/13/2017 mouth daily Ozzy, for 2 days M.D. then 3 tabs daily for 2 days then 2 tabs for 2 days then 1 tab for 2 days then d/c Prednisone 09/18/2016 - Hx Tablets 2.5mg 1 tab by mouth M0 Zsofia 12/04/2016 every other 5. Ehsan, [employer] alternating by 2 tabs Reduce dose as [...] Code Status Date Vaccine Reaction Lot # 11040 Given 05/18/2017 Influenza Virus Vaccine, no immeidate reaction [id number] Quadrivalent, Split, noted Preservative Free 03745 Given 11/05/2014 Pneumococcal Conjugate Vaccine 13 Valent For Intramuscular Use 64010 Given 05/01/2013 Pneumonia Vaccine 48270 Given 12/17/2010 Zoster (Zostavax) Vital Signs Date Vital Result Comment 03/08/2018 Height 64.25 inches 5'4.25" Weight 140.00 lb BP Systolic Sitting 160 mmHg BP Diastolic Sitting 80 mmHg Pain Level 9 BMI (Body Mass Index) 23.8 kg/m2 02/17/2018 Height 64.25 inches 5'4.25" Weight 140.00 [...] Protein 20.03 mg/L High < 5.00 15 Laboratory test finding 05/15/2017 Erythrocyte Sed Rate 29 mm/Hr 0-40 Quantiferon Gold TB 05/15/2017 M tuberculosis by Negative Negative 16 Quantiferon TB Ag minus Nil Result 0.01 IU/mL TB Mitogen minus Nil Result > 10.00 IU/mL TB Nil Result 0.02 IU/mL 17 CBC W/Auto Diff 05/15/2017 White Blood [...] Cells % 0 Laboratory test finding 05/15/2017 C Reactive Protein 10.76 mg/L High < 5.00 18 CMP Panel 05/15/2017 Sodium 135 mmol/L 133-145 [...] Egfr Non- 54.3 >60 Egfr 69.9 >60 19 CBC W/Auto Diff 02/26/2017 White Blood [...] finding 06/23/2016 Cancellous Chips 5cc SEE RESULTS [facility] 35, 36 <SEE NOTE> DBM Putty Orthoblast II 5cc SEE RESULTS [facility] <SEE NOTE> 35, 37 Laboratory test finding [...] 3 Consistent with Previous Results Reported on 3/24/18 4 Because ethnic data is not always [...] developed and its performance characteristics determined by [facility] in a manner consistent with CLIA requirements. This test has not been cleared or approved by the U.S. Food and Drug Administration. Test Performed by: [facility] OMsignal [facility] [address] [place] [address] 13 Because ethnic data is not always [...] on 05/15/17. 15 Acute inflammation: >10.00 16 No interferon-gamma response to M. tuberculosis antigens was detected. Infection with M. tuberculosis is unlikely. A negative result alone does not exclude infection with M. tuberculosis. For detailed information regarding test interpretation see: [email or web address]/test-catalog/ Clinical+and+Interpretive/16503 17 Test Performed by: [address] [address] 18 Acute inflammation: >10.00 19 Because ethnic data is not always readily [...] 15-29 5 Kidney failure <15 (or dialysis) 20 Because ethnic data is not always [...] OF LEFT HUMERUS, 36 SEE RESULTS BELOW [id number] CANC CHIPS 5CC TRANSFUSED 06/24/16 1222 [id number] CANC CHIPS 5CC TRANSFUSED 06/24/16 1222 [id number] CANC CHIPS 5CC TRANSFUSED 06/24/16 1222 37 SEE RESULTS BELOW [id number] DBM PUTTY 5CC TRANSFUSED 06/24/16 1222 38 [...] Date CPT Code Description Status Comment 03/10/2017 84795 ECHO Transthoracic, Real-Time Completed 2D With Doppler And Color Flow 10/14/2016 Bone Mineral Density Test Completed 09/23/2016 Diabetic Retinal Eye Exam Completed Document: 09/23/16 [facility] 14486 Open TX Proximal Humeral FX Completed Incl Fixation When Performed 06/24/2016 78661 Open TX Proximal Humeral FX Completed Incl Fixation When Performed 05/28/2016 42959 Closed trtmt prox humeral fx Completed 01/29/2015 Bone Mineral Density Test Completed Encounters Type Date Location Provider CPT E/M Dx Office Visit 02/17/2018 [facility] Benoit Preciado M.D. 92277 M05.79 2:00p Of Jing M85.89 Z79.899 Office Visit 11/17/2017 1:40p [facility] Benoit Preciado 46202 M05.79 Of Jing [place] M85.89 Z79.899 E67.3 Office Visit 08/18/2017 1:20p [facility] Benoit Preciado 20519 M05.79 Of Jing [place] M85.89 Z79.899 E67.3 Office Visit 05/18/2017 1:40p [facility] Benoit Preciado 01279 M05.79 Of Electrical Superintendent M.D. M85.89 Z79.899 Z23 Office Visit 04/06/2017 2:00p [facility] Benoit Preciado 97577 M05.79 Of Electrical Superintendent M.D. M85.89 Z79.899 E67.3 Office Visit 03/04/2017 2:00p [facility] Benoit Preciado 91205 M05.79 Of Electrical Superintendent M.D. M85.89 Z79.899 E67.3 R01.1 Office Visit 03/03/2017 2:00p [facility] 94979 S42.232D Ryland Velázquez MD Office Visit 12/04/2016 2:00p [facility]ology Services Polly Moser 28680 M05.79 Of Electrical Superintendent [employer] SAL[employer] M85.89 E67.3 R79.89 Z79.899 Office Visit 10/15/2016 1:15p [facility] Meek 16997 S42.232D Of Ryland Velázquez MD S42.232K Office Visit 09/18/2016 1:00p Rheumatology Services JULIENNE Hudson 69111 M05.79 Of Electrical Superintendent M85.9 Z79.52 Z79.899 S42.232D Office Visit 06/16/2016 2:00p [facility]ology Services JULIENNE Hudson 55535 M05.79 Of Electrical Superintendent S42.232A M81.0 Z79.899 Z79.52 Office Visit 03/17/2016 3:00p [facility] Services Benoit Preciado 11364 M05.79 Of Electrical Superintendent M.D. Z79.899 M81.0 Office Visit 12/17/2015 3:00p [facility] Benoit Preciado 28876 M05.79 Of Electrical Superintendent M.D. Z79.899 M81.0 M65.4 Plan of Care Future Appointment(s):04/04/2018 3:30 pm - Soni Cook MD at [facility]05/24/2018 1:00 pm - Benoit Preciado M.D. at [facility]03/09/2018 - AMARILIS Felton80.88xA Oth osteopor w current path fracture, vertebra(e), initNew Xrays:SP Lumbarsacral 4+ VWSFollow up:RV in 3-4 weeks
--- OUTSIDE RECORDS SUMMARY | 2018-03-09 12:08 | XMS REPORT ---
:1945 External Reference #:[id number] Author Organization [employer] Address [address] [place] [address] [place] [address] Phone [phone] Care Team Providers Name Role Phone Annabel Garcia MD Primary Care Physician Unavailable Payers Type Date Identification Numbers Payment Provider Subscriber Medicare Primary Effective: Policy Number: [id number] Medicare Deidra Fink 2009 PayID: [id number] [address] [place] [address] [facility] Part B Effective: 2014 Policy Number: [id number] BS Facets Deidra Fink PayID: [id number] [address] [address] [place] [address] Problems Description No Information Family History Date [...] tbs by Z79.899 Zsofia 16 mouth Ehsan, [employer] B[employer] MECHANIC every week M05.79 Ibuprofen 06/11/2016 Active Tablets [...] M0 Zsofia 12/04/2016 every other 5. Ehsan, [employer] MECHANIC alternating by 2 tabs Reduce dose as [...] Code Status Date Vaccine Reaction Lot # 73092 Given 05/18/2017 Influenza Virus Vaccine, no immeidate reaction [id number] Quadrivalent, Split, noted Preservative Free 27574 Given 11/05/2014 Pneumococcal Conjugate Vaccine 13 Valent For Intramuscular Use 33181 Given 05/01/2013 Pneumonia Vaccine 25249 Given 12/17/2010 Zoster (Zostavax) Vital Signs Date [...] Protein 20.03 mg/L High < 5.00 15 CBC W/Auto Diff 05/15/2017 White Blood Count [...] IU/mL TB Nil Result 0.02 IU/mL 17 Laboratory test finding 05/15/2017 C Reactive Protein [...] finding 06/23/2016 Cancellous Chips 5cc SEE RESULTS [facility] 35, 36 <SEE NOTE> DBM Putty Orthoblast II 5cc SEE RESULTS [facility] <SEE NOTE> 35, 37 Comp Metabolic Panel 06/11/2016 Sodium 139 mmol/L [...] Egfr Non- 64.0 >60 Egfr 82.3 >60 38 CBC Auto Diff 06/11/2016 White Blood Count [...] Blood Cells % 0 Laboratory test finding 06/11/2016 C Reactive Protein 11.86 mg/L High < 5.00 39 Erythrocyte Sed Rate 20 mm/Hr 0-40 40 Comp Metabolic Panel 03/12/2016 Sodium 137 [...] 03/12/2016 Erythrocyte Sed Rate 16 mm/Hr 0-40 Comp Metabolic Panel 12/19/2015 Sodium 133 mmol/L [...] Egfr Non- 55.9 >60 Egfr 71.9 >60 43 CBC Auto Diff 12/19/2015 White Blood Count [...] Blood Cells % 0.1 Laboratory test finding 12/19/2015 C Reactive Protein 8.80 mg/L High < 5.00 44 Erythrocyte Sed Rate 17 mm/Hr 0-40 45 1 Please check labs 2 days [...] developed and its performance characteristics determined by [facility] in a manner consistent with CLIA requirements. This test has not been cleared or approved by the U.S. Food and Drug Administration. Test Performed by: [facility] [address] [place] [address] 13 Because ethnic data is not always [...] For detailed information regarding test interpretation see: [email or web address]/test-[email or web address]/ Clinical+and+Interpretive/99791 17 Test Performed by: [address] [address] 18 Acute inflammation: >10.00 19 Because ethnic [...] OF LEFT HUMERUS, 36 SEE RESULTS BELOW [id number] CANC CHIPS 5CC TRANSFUSED 06/24/16 1222 [id number] CANC CHIPS 5CC TRANSFUSED 06/24/16 1222 [id number] CANC CHIPS 5CC TRANSFUSED 06/24/16 1222 37 SEE RESULTS BELOW [id number] DBM PUTTY 5CC TRANSFUSED 06/24/16 1222 38 Because ethnic data is not always [...] 5 Kidney failure <15 (or dialysis) 39 Acute inflammation: >10.00 40 Please check labs 2 or 3 days before her next visit 41 Because ethnic data is not always [...] (or dialysis) 42 Acute inflammation: >10.00 43 Because ethnic data is not always [...] 5 Kidney failure <15 (or dialysis) 44 Acute inflammation: >10.00 45 Please check today and also 2 days prior to her next appointment Procedures Date CPT Code Description Status Comment 03/10/2017 75267 ECHO Transthoracic, Real-Time Completed 2D With Doppler And Color Flow 10/14/2016 Bone Mineral Density Test Completed 09/23/2016 Diabetic Retinal Eye Exam Completed Document: 09/23/16 [facility] 60172 Open TX Proximal Humeral FX Completed Incl Fixation When Performed 06/24/2016 50477 Open TX Proximal Humeral FX Completed Incl Fixation When Performed 05/28/2016 42804 Closed trtmt prox humeral fx Completed 01/29/2015 Bone Mineral Density Test Completed Encounters Type Date Location Provider CPT E/M Dx Office Visit 02/17/2018 [facility] Services Benoit Preciado M.D. 06141 M05.79 2:00p Of Jing M85.89 Z79.899 Office Visit 11/17/2017 1:40p [facility] Benoit Preciado 88051 M05.79 Of Jing [place] M85.89 Z79.899 E67.3 Office Visit 08/18/2017 1:20p [facility] Benoit Preciado 43996 M05.79 Of Jing [place] M85.89 Z79.899 E67.3 Office Visit 05/18/2017 1:40p [facility] Services Benoit Preciado 58193 M05.79 Of Abrasive Worker M.D. M85.89 Z79.899 Z23 Office Visit 04/06/2017 2:00p [facility] Services Benoit Preciado 00243 M05.79 Of Abrasive Worker M.D. M85.89 Z79.899 E67.3 Office Visit 03/04/2017 2:00p [facility] Services Benoit Preciado 86913 M05.79 Of Abrasive Worker M.D. 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 Z79.899 M81.0 Office Visit 12/17/2015 3:00p [facility] Services Benoit Preciado 86101 M05.79 Of Abrasive Worker M.D. Z79.899 M81.0 M65.4 Plan of Care Future Appointment(s):03/09/2018 11:15 am - Soni Cook MD at [facility]05/24/2018 1:00 pm - Benoit Preciado M.D. at [facility]03/08/2018 - AMARILIS Felton05.79 Rheu arthritis w rheu factor mult site w/o org/sys involvFollow up:Rv in one day. TLSO brace. Patient may have letter to [employer] for membership [id number] Oth osteopor w current path fracture, vertebra(e), initNew Xrays:CT Spine Lumbar W/OSpine Thoracolumbar Standing
--- OUTSIDE RECORDS SUMMARY | 2018-03-09 12:08 | XMS REPORT ---
:1945 External Reference #:[id number] Author Organization [facility] Address [address] [place] [address] [place] [address] Phone [phone] Care Team Providers Name Role Phone Annabel Garcia MD Primary Care Physician Unavailable Payers Type Date Identification Numbers Payment Provider Subscriber Medicare Primary Effective: Policy Number: [id number] Medicare Deidra Fink 2009 PayID: [id number] [address] [place] [address] [facility] Part B Effective: 2014 Policy Number: [id number] BS Facets Deidra Fink PayID: [id number] [address] [address] [place] [address] Problems Description No Information Family History Date [...] tbs by Z79.899 Zsofia 16 mouth Ehsan, BARBER every week M05.79 Ibuprofen 06/11/2016 Active Tablets [...] M0 Zsofia 12/04/2016 every other 5. Ehsan, BARBER alternating by 2 tabs Reduce dose as [...] Code Status Date Vaccine Reaction Lot # 12610 Given 05/18/2017 Influenza Virus Vaccine, no immeidate reaction [id number] Quadrivalent, Split, noted Preservative Free 42157 Given 11/05/2014 Pneumococcal Conjugate Vaccine 13 Valent For Intramuscular Use 95684 Given 05/01/2013 Pneumonia Vaccine 73708 Given 12/17/2010 Zoster (Zostavax) Vital Signs Date [...] finding 06/23/2016 Cancellous Chips 5cc SEE RESULTS [facility] 35, 36 <SEE NOTE> DBM Putty Orthoblast II 5cc SEE RESULTS [facility] <SEE NOTE> 35, 37 Comp Metabolic [...] developed and its performance characteristics determined by [facility] in a manner consistent with CLIA requirements. This test has not been cleared or approved by the U.S. Food and Drug Administration. Test Performed by: [facility] [address] [place] [id number] 13 Because ethnic data is not always [...] For detailed information regarding test interpretation see: [email or web address] 17 Test Performed by: [address] [address] 18 Acute inflammation: >10.00 19 Because ethnic [...] OF LEFT HUMERUS, 36 SEE RESULTS BELOW [id number] CANC CHIPS 5CC TRANSFUSED 06/24/16 1222 [id number] CANC CHIPS 5CC TRANSFUSED 06/24/16 1222 [id number] CANC CHIPS 5CC TRANSFUSED 06/24/16 1222 37 SEE RESULTS BELOW [id number] DBM PUTTY 5CC TRANSFUSED 06/24/16 1222 38 [...] Date CPT Code Description Status Comment 03/10/2017 87573 ECHO Transthoracic, Real-Time Completed 2D With Doppler And Color Flow 10/14/2016 Bone Mineral Density Test Completed 09/23/2016 Diabetic Retinal Eye Exam Completed Document: 09/23/16 [facility] 06/24/2016 41269 Open TX Proximal Humeral FX Completed Incl Fixation When Performed 06/24/2016 61408 Open TX Proximal Humeral FX Completed Incl Fixation When Performed 05/28/2016 56411 Closed trtmt prox humeral fx Completed 01/29/2015 Bone Mineral Density Test Completed Encounters Type Date Location Provider CPT E/M Dx Office Visit 02/17/2018 [facility] Benoit Preciado M.D. 69215 M05.79 2:00p Of Jing M85.89 Z79.899 Office Visit 11/17/2017 1:40p [facility] Benoit Preciado 02117 M05.79 Of Jing [place] M85.89 Z79.899 E67.3 Office Visit 08/18/2017 1:20p [facility] Benoit Preciado 65389 M05.79 Of Jing [place] M85.89 Z79.899 E67.3 Office Visit 05/18/2017 1:40p [facility] Benoit Preciado 53292 M05.79 Of Pawn Shop Keeper M.D. M85.89 Z79.899 Z23 Office Visit 04/06/2017 2:00p [facility] Benoit Preciado 60153 M05.79 Of [employer] M.D. M85.89 Z79.899 E67.3 Office Visit 03/04/2017 2:00p [facility] Benoit Preciado 59678 M05.79 Of [employer]wn [employer] Keeper M.D. M85.89 Z79.899 E67.3 R01.1 Office Visit 03/03/2017 2:00p [facility] Of Kaleb Meek 21830 S42.232D Ryland Velázquez MD Office Visit 12/04/2016 2:00p [facility] Polly Moser 80228 M05.79 Of [employer]wn [employer]eeper BARBER M85.89 E67.3 R79.89 Z79.899 Office Visit 10/15/2016 1:15p [facility] Kaleb Meek 91165 S42.232D Of Ryland Velázquez MD S42.232K Office Visit 09/18/2016 1:00p [facility] JULIENNE Hudson 92918 M05.79 Of [employer]wn [employer]eeper M85.9 Z79.52 Z79.899 S42.232D Office Visit 06/16/2016 2:00p [facility] JULIENNE [place] 09839 M05.79 Of [employer]wn [employer] S42.232A M81.0 Z79.899 Z79.52 Office Visit 03/17/2016 3:00p [facility] Benoit Preciado 17718 M05.79 Of [employer]wn [employer]eeper M.D. Z79.899 M81.0 Office Visit 12/17/2015 3:00p [facility] Benoit Preciado 45153 M05.79 Of Pawn Shop Keeper M.D. Z79.899 M81.0 M65.4 Plan of Care Future Appointment(s):03/09/2018 11:15 am - Soni Cook MD at [facility]05/24/2018 1:00 pm - Benoit Preciado M.D. at [facility]03/08/2018 - AMARILIS Felton05.79 Rheu arthritis w rheu factor mult site w/o org/sys involvFollow up:Rv in one day. TLSO brace. Patient may have letter to [employer] for membership [id number] Oth osteopor w current path fracture, vertebra(e), initNew Xrays:CT Spine Lumbar W/OSpine Thoracolumbar Standing
[2018-03-09] MEDS ORDERED: HYDROcodone/ACETAMIN 5-325 MG* 1 TAB PO ONE (12:18)
[2018-03-09] MEDS ORDERED: diPHENhydraMINE PO* 25 MG PO ONE (12:19)
--- NOTE | 2018-03-09 12:34 | ED ---
Back Pain - HPI Summary HPI Summary: This patient is a 72 year old F [facility] by with a chief complaint of back pain since 6 days ago. Pt fell on the way to the bathroom, but does not know why she fell, and the fall was unwitnessed. PMHx Rheumatoid arthritis. She denies any pain radiation. Pt taking extra strength Tylenol and lidocaine patch. Pt can ambulate, but very slowly. Pt had CT at 0900 this AM, pt sent here by dr. Talamantes. PMHx broken back. PMHx broken shoulder. Allergic/adverse reaction to opiates, where pt gets pruritic. Pt would rather itch and get pain under control than stay away from narcotics. Pt denies breathing problems from allergic reaction. Pt refused a CT scan, all lab work this visit. - History of Current Complaint Chief Complaint: EDBackInjuryPain Stated Complaint: SEVERE LOWER BACK PAIN Time Seen by Provider: 03/09/18 12:07 Hx Obtained From: Patient Onset/Duration: Sudden Onset, Lasting Days, Still Present Onset/Duration: Started Days Ago Timing: Constant, Lasting Days Back Pain Location: Is Discrete @ - LOEWR BACK Severity Initially: Severe Severity Currently: Severe Pain Intensity: 8 Pain Scale Used: 0-10 Numeric Aggravating Symptom(s): Movement, Lifting, Bending, Walking Alleviating Symptom(s): Rest Associated Signs And Symptoms: Positive: Pain with Weight Bearing - Allergies/Home Medications Allergies/Adverse Reactions: Allergies Allergy/AdvReac Type Severity Reaction Status Date / Time hydrocodone Allergy Itching Verified 03/09/18 11:39 Sulfa (Sulfonamide Allergy itch Verified 03/09/18 11:39 Antibiotics) tramadol Allergy itch Verified 03/09/18 11:39 iv contrast Allergy itch Uncoded 03/09/18 11:39 PMH/Surg Hx/FS Hx/Imm Hx Endocrine/Hematology History: Reports: Hx Thyroid Disease - hypothyroid Denies: Hx Diabetes Cardiovascular History: Reports: Hx Hypertension Respiratory History: Denies: Hx Asthma, Hx Chronic Obstructive Pulmonary Disease (COPD) GI History: Denies: Hx Ulcer Musculoskeletal History: Reports: Hx Arthritis - RA, Hx Rheumatoid Arthritis, Other Musculoskeletal History - 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 BILAT hand surgery. tonsillectomy as child Hx Anesthesia Reactions: No Infectious Disease History: No Infectious Disease History: Denies: Hx Hepatitis, Hx Human Immunodeficiency Virus (HIV), Traveled Outside the US in Last 30 Days - Family History Known Family History: Positive: Cardiac Disease, Hypertension - Social History Alcohol Use: Occasionally Alcohol Amount: qod Substance Use Type: Reports: None Smoking Status (MU): Never Smoked Tobacco Have You Smoked in the Last Year: No Review of Systems Negative: Fever Positive: Arthralgia, Myalgia, Decreased ROM All Other Systems Reviewed And Are Negative: Yes Physical Exam - Summary Physical Exam Summary: Appearance: Well appearing, no pain distress Skin: warm, dry, reflects adequate perfusion Head/face: normal Eyes: EOMI, MAYI ENT: normal Neck: supple, non-tender Respiratory: CTA, breath sounds present Cardiovascular: RRR, pulses symmetrical Abdomen: non-tender, soft Bowel: present Musculoskeletal: normal, strength/ROM intact, spasm of the L-spine Neuro: normal, sensory motor intact, A&Ox3 Triage Information Reviewed: Yes Vital Signs On Initial Exam: Initial Vitals Temp Pulse Resp BP Pulse Ox 98.3 F 73 16 142/66 99 03/09/18 11:37 03/09/18 11:37 03/09/18 11:37 03/09/18 11:37 03/09/18 11:37 Vital Signs Reviewed: Yes Diagnostics - Vital Signs Vital Signs Temp Pulse Resp BP Pulse Ox 03/09/18 11:37 98.3 F 73 16 142/66 99 - Laboratory Lab Statement: Any lab studies that have been ordered have been reviewed, and results considered in the medical decision making process. Re-Evaluation - Re-Evaluation First Eval Re-Evaluation Time: 13:10 Change: Unchanged Comment: Pt wanted to be discharged as opposed to admitted, as her pain was not intense enough. Back Pain Course/Dx - Course Course Of Treatment: A 72-year-old F presents to the ED with a CC of back pain for 6 days. (+) broken back, fall (doesn't know why, unwitnessed), slow ambulation. (-) radiation. In the ED course, pt was given hydrocodone and benadryl. - Diagnoses Differential Diagnosis/HQI/PQRI: Positive: Fracture, Strain, Sprain Provider Diagnoses: Back pain, Fracture of first lumbar vertebra, Fracture of fourth lumbar vertebra Discharge - Sign-Out/Discharge Documenting (check all that apply): Patient Departure - discharge - Discharge Plan Condition: Stable Disposition: HOME Prescriptions: diphenhydrAMINE HCl [Benadryl Allergy 25 MG CAP] 25 mg PO TID #20 cap MDD 3 HYDROcodone/ACETAMIN 5-325 MG* [[place] 5-325 TAB*] 1 tab PO Q8H PRN #15 tab MDD 3 PRN Reason: Pain Ondansetron ODT TAB* [Zofran 4 MG Odt TAB*] 4 mg PO Q8H PRN #15 tab.odt MDD 3 PRN Reason: Nausea Patient Education Materials: Thoracolumbar Fracture (ED), Back Pain (ED) Referrals: Annabel Garcia MD [Primary Care Provider] - 3 Days Soni Cook MD [Medical Doctor] - 3 Days Additional Instructions: RETURN TO EMERGENCY DEPARTMENT FOR ANY NEW OR WORSENING SYMPTOMS. - Billing Disposition and Condition Condition: STABLE Disposition: Home
[2018-03-09] MEDS ORDERED: Ondansetron ODT TAB* 4 MG PO ONE (13:44)
[2018-03-09] MEDS ORDERED: Ondansetron ODT TAB* 4 MG ONE (13:46)
[2018-03-09 13:57] VITALS: BP 134/68
== END 2018-03-09 13:55 | disposition home or self-care (01) ==
LOC: ED 11:30
DX: M54.5 Low back pain (principal); S32.019A Unspecified fracture of first lumbar vertebra, initial encounter for closed fracture; S32.049A Unspecified fracture of fourth lumbar vertebra, initial encounter for closed fracture; W18.30XA Fall on same level, unspecified, initial encounter; Y93.89 Activity, other specified; Y92.009 Unspecified place in unspecified non-institutional (private) residence as the place of occurrence of the external cause; E03.9 Hypothyroidism, unspecified; I10 Essential (primary) hypertension; M06.9 Rheumatoid arthritis, unspecified; F32.9 Major depressive disorder, single episode, unspecified; Z90.710 Acquired absence of both cervix and uterus; Z88.5 Allergy status to narcotic agent; Z88.2 Allergy status to sulfonamides; Z91.041 Radiographic dye allergy status; Z82.49 Family history of ischemic heart disease and other diseases of the circulatory system; M80.88XA Other osteoporosis with current pathological fracture, vertebra(e), initial encounter for fracture; S32.018A Other fracture of first lumbar vertebra, initial encounter for closed fracture; S32.048A Other fracture of fourth lumbar vertebra, initial encounter for closed fracture; M85.88 Other specified disorders of bone density and structure, other site; M51.36 Other intervertebral disc degeneration, lumbar region; M47.896 Other spondylosis, lumbar region; X58.XXXA Exposure to other specified factors, initial encounter; Y92.9 Unspecified place or not applicable
CPT/HCPCS: 99282; A9270-GY

== ENCOUNTER 2018-05-01 08:25 | Observation (INO) | payer MEDICARE, BC ==
[2018-05-01] MEDS ORDERED: NS 0.9% 1000 ML* 1,000 ML IV ONE (08:55)
--- NOTE | 2018-05-01 08:56 | ED ---
Upper Extremity Pain - HPI Summary HPI Summary: Pt. is a 73y.o female who presents to the ER for for a left shoulder injury after a fall that occurred around 0100 today. Past medical history of hypertension, rheumatoid arthritis, depression, hypothyroidism. Patient's notes that patient has been having frequent falls over the last 2 years resulting in a compression fracture as well as a left shoulder fracture that required ORIF. Patient states she has issues with urinary incontinence and got up last night to go to the bathroom and fell. Patient is not sure why or how she fell. Pt. denies head injury or LOC. She denies having any chest pain, shortness breath, lightheadedness, dizziness. She denies recent illness, abdominal pain, urinary symptoms, vomiting, diarrhea, numbness, tingling, weakness. Patient was unable to get off the floor and laid on the floor until this morning when ambulance was called. Symptoms are moderate in severity. Pt. 's only complaint is left shoulder pain which is worse with moving. Patient takes hydrocodone at home for chronic pain which she took prior to arrival. - History of Current Complaint Chief Complaint: EDExtremityUpper Stated Complaint: FALL Time Seen by Provider: 05/01/18 08:46 Hx Obtained From: Patient, Family/Weed Cooking Operator - Allergies/Home Medications Allergies/Adverse Reactions: Allergies Allergy/AdvReac Type Severity Reaction Status Date / Time hydrocodone Allergy Itching Verified 05/01/18 11:54 Sulfa (Sulfonamide Allergy itch Verified 05/01/18 11:54 Antibiotics) tramadol Allergy itch Verified 05/01/18 11:54 iv contrast Allergy itch Uncoded 05/01/18 11:54 PMH/Surg Hx/FS Hx/Imm Hx Previously Healthy: Yes Endocrine/Hematology History: Reports: Hx Thyroid Disease - hypothyroid Denies: Hx Diabetes Cardiovascular History: Reports: Hx Hypertension Respiratory History: Denies: Hx Asthma, Hx Chronic Obstructive Pulmonary Disease (COPD) GI History: Denies: Hx Ulcer Musculoskeletal History: Reports: Hx Arthritis - RA, Hx Rheumatoid Arthritis, Other Musculoskeletal History - 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 BILAT hand surgery. tonsillectomy as child Hx Anesthesia Reactions: No Infectious Disease History: No Infectious Disease History: Denies: Hx Hepatitis, Hx Human Immunodeficiency Virus (HIV), Traveled Outside the [place] in Last 30 Days - Family History Known Family History: Positive: Cardiac Disease, Hypertension - Social History Occupation: Retired Lives: With Family Alcohol Use: Occasionally Alcohol Amount: qod Substance Use Type: Reports: None Smoking Status (MU): Never Smoked Tobacco Have You Smoked in the Last Year: No Review of Systems Constitutional: Negative Negative: Fever, Chills Eyes: Negative ENT: Negative Cardiovascular: Negative Negative: Palpitations, Chest Pain Respiratory: Negative Negative: Shortness Of Breath, Cough Gastrointestinal: Negative Negative: Abdominal Pain, Vomiting, Diarrhea, Nausea Genitourinary: Negative Negative: dysuria Positive: Other - left shoulder painL Skin: Negative Neurological: Negative Negative: Headache, Weakness, Paresthesia, Numbness, Syncope All Other Systems Reviewed And Are Negative: Yes Physical Exam Triage Information Reviewed: Yes Vital Signs On Initial Exam: Initial Vitals Temp Pulse Resp BP Pulse Ox 98.0 F 78 16 95/58 98 05/01/18 08:29 05/01/18 08:29 05/01/18 08:29 05/01/18 08:29 05/01/18 08:29 Vital Signs Reviewed: Yes Appearance: Positive: Well-Appearing - Pt. lying on bed, appearing in pain but nontoxic. present. Skin: Positive: Warm, Dry Head/Face: Positive: Normal Head/Face Inspection Eyes: Positive: Normal, EOMI Neck: Positive: Supple, Nontender Respiratory/Lung Sounds: Positive: Clear to Auscultation, Breath Sounds Present Cardiovascular: Positive: Normal, RRR Abdomen Description: Positive: Nontender, Soft Musculoskeletal: Positive: Other - No pain. 5/5 strength in bilateral upper and lower extremities. Obvious deformity noted to the left shoulder. Good palpable radial pulse. No breaks in the skin. Neurological: Positive: Normal, Alert, Oriented to Person Place, Time, CN Intact II-III, Unable to Assess Gait, Facial Symmetry, Speech Normal. Negative : Facial Droop, Slurred Speech, Pronator Drift Present Psychiatric: Positive: Affect/Mood Appropriate - Cameron Coma Scale Best Eye Response: 4 - Spontaneous Best Motor Response: 6 - Obeys Commands Best Verbal Response: 5 - Oriented Coma Scale Total: 15 Diagnostics - Vital Signs Vital Signs Temp Pulse Resp BP Pulse Ox 05/01/18 08:29 98.0 F 78 16 95/58 98 - Laboratory Result Diagrams: 05/01/18 09:21 05/01/18 09:21 Lab Statement: Any lab studies that have been ordered have been reviewed, and results considered in the medical decision making process. Course/Dx - Course Course Of Treatment: Patient presenting with left shoulder injury after a fall that occurred early this morning. He shouldn't is unsure why she fell. In the ER she denies chest pain, shortness of breath, headache. She has no other injuries or complaints other than left shoulder pain. Will obtain labs, urine, x-ray, EKG. Patient took hydrocodone prior to arrival for pain. Patient states that she usually takes Benadryl with hydrocodone because it makes her slightly itchy. Patient states she did not take it today and is requesting Benadryl. ECG done at 0908 shows a sinus rhythm of 72 bpm, right bundle branch block, no ST elevation or depression. EKG is change from prior tracing. CBC is unremarkable. CMP is unremarkable other than elevated troponin at 0.15. Patient denies chest pain. Shoulder xray per radiology: IMPRESSION: Comminuted fracture of the proximal diaphysis of the humerus with overriding. of the fracture fragments. There is lateral displacement approximately 1 shafts width. Chest x-ray is negative for acute findings, reading per radiology. She was given a full dose of aspirin. I spoke with on-call orthopedic surgery, Dr. Meek, who eyelid patient in the emergency department. He feels fracture can be managed conservatively with a breen brace. Hospitalist was consulted, Dr. Aleman, who has accepted patient for admission. Results discussed with patient and . - Diagnoses Differential Diagnosis/HQI/PQRI: Positive: Fracture (Closed), Laceration, Strain , Sprain Provider Diagnoses: Fall, Humeral fracture, Elevated troponin Discharge - Sign-Out/Discharge Documenting (check all that apply): Patient Departure - Discharge Plan Condition: Stable Disposition: ADMITTED TO [facility] - Billing Disposition and Condition Condition: STABLE Disposition: Admitted to [facility]
--- OUTSIDE RECORDS SUMMARY | 2018-05-01 09:24 | XMS REPORT ---
:1945 External Reference #:[id number] Author Organization [employer] Address [address] [facility] [place] [address] [place] [address] Phone [phone] Care Team Providers Name Role Phone Annabel Garcia MD Primary Care Physician Unavailable Payers Type Date Identification Numbers Payment Provider Subscriber Medicare Primary Effective: Policy Number: [id number] Medicare Deidra Fink 2009 PayID: [id number] [address] [place] [address] [facility] Part B Effective: 2014 Policy Number: [id number] [employer] Facets Deidra Fink PayID: [id number] [address] [address] [place] [address] Problems Description No Information Family History Date [...] Tablets 2.5mg 72tabs 6 tbs by Z79.899 Benoit Preciado M.D. every week M05.79 Ibuprofen 06/11/2016 Active Tablets [...] times a day as Needed For Pain Hydrocodone-Acet Active Tablets 5-325m take 1 tablet Unknown aminophen g by mouth three times a day maximum daily dose of 3 Prednisone 04/05/2017 - Hx Tablets 10mg 42tabs take 4 tabs by Benoit 05/13/2017 mouth daily Ozzy, for 2 days M.DJulien then 3 tabs daily for 2 days then 2 tabs for 2 days then 1 tab for 2 days then d/c Prednisone 09/18/2016 - Hx Tablets 2.5mg 1 tab by mouth M0 Zsofia 12/04/2016 every other 5. Ehsan, SUSTAINABILITY MANAGER alternating by 2 tabs Reduce dose as [...] Capsules 500mg 28caps 1 by mouth Kaleb 09/18/2016 4 times a MD Melania day for 7 days Ibuprofen 06/11/2016 - Hx Tablets 600mg 60tabs 1 tab po [facility] 09/18/2016 every 8 MD Melania hours as [...] Code Status Date Vaccine Reaction Lot # [id number] Given 05/18/2017 Influenza Virus Vaccine, no immeidate reaction [id number] Quadrivalent, Split, noted Preservative Free 61259 Given 11/05/2014 Pneumococcal Conjugate Vaccine 13 Valent For Intramuscular Use 82832 Given 05/01/2013 Pneumonia Vaccine 31130 Given 12/17/2010 Zoster (Zostavax) Vital Signs Date Vital Result Comment 04/11/2018 Height 64.25 inches 5'4.25" Weight 140.00 lb BP Systolic Sitting 158 mmHg BP Diastolic Sitting 68 mmHg Pain Level 6 BMI (Body Mass Index) 23.8 kg/m2 03/08/2018 Height 64.25 inches 5'4.25" Weight 140.00 [...] Non- 55.0 >60 Egfr 66.5 >60 1 CBC Auto Diff 02/15/2018 White Blood Count 5.2 10^3/uL 3.5-10.8 Red Blood Count 3.28 10^6/uL Low 4.00-5.40 Hemoglobin 11.9 g/dL Low 12.0-16.0 Hematocrit 35 % 35-47 Mean Corpuscular Volume 107 fL High 80-97 2 Mean Corpuscular Hemoglobin 36 pg High 27-31 [...] 02/15/2018 Erythrocyte Sed Rate 23 mm/Hr 0-40 3 C Reactive Protein 13.09 mg/L High <8.01 4 Comp Metabolic Panel 02/15/2018 Sodium 137 mmol/L [...] Egfr Non- 55.0 >60 Egfr 66.5 >60 5 CBC Auto Diff 02/15/2018 White Blood Count 5.2 10^3/uL 3.5-10.8 Red Blood Count 3.28 10^6/uL Low 4.00-5.40 Hemoglobin 11.9 g/dL Low 12.0-16.0 Hematocrit 35 % 35-47 Mean Corpuscular Volume 107 fL High 80-97 6 Mean Corpuscular Hemoglobin [...] 02/15/2018 Erythrocyte Sed Rate 23 mm/Hr 0-40 7 C Reactive Protein 13.09 mg/L High <8.01 8 Laboratory test finding 11/13/2017 Erythrocyte Sed [...] Protein 20.03 mg/L High < 5.00 15 Quantiferon Gold TB 05/15/2017 M tuberculosis by Quantiferon Negative Negative 16 TB Ag minus Nil Result 0.01 IU/mL TB Mitogen minus Nil Result > 10.00 IU/mL TB Nil Result 0.02 IU/mL 17 Laboratory test finding 05/15/2017 Erythrocyte Sed Rate 29 mm/Hr 0-40 CBC W/Auto Diff 05/15/2017 White Blood Count [...] finding 06/23/2016 Cancellous Chips 5cc SEE RESULTS BELO 35, 36 <SEE NOTE> DBM Putty Orthoblast II 5cc SEE RESULTS BELO <SEE NOTE> 35, 37 Laboratory test finding 06/11/2016 C Reactive Protein 11.86 mg/L High < 5.00 38 Erythrocyte Sed Rate 20 mm/Hr 0-40 39 Comp Metabolic Panel 06/11/2016 Sodium 139 mmol/L [...] Non- 64.0 >60 Egfr 82.3 >60 40 CBC Auto Diff 06/11/2016 White Blood Count [...] Blood Cells % 0 Laboratory test finding 03/12/2016 Erythrocyte Sed Rate 16 mm/Hr 0-40 CBC Auto Diff 03/12/2016 White Blood Count [...] Cells % 0.1 Laboratory test finding 03/12/2016 C Reactive Protein 9.40 mg/L High < 5.00 41 Comp Metabolic Panel 03/12/2016 Sodium 137 mmol/L [...] Egfr Non- 61.7 >60 Egfr 79.4 >60 42 Comp Metabolic Panel 12/19/2015 Sodium 133 mmol/L [...] Sed Rate 17 mm/Hr 0-40 45 1 Because ethnic data is not always [...] 5 Kidney failure <15 (or dialysis) 2 Consistent with Previous Results Reported on 11/13/17 3 Please check labs 2 days before follow up 4 Please check labs 2 days before [...] 6 Consistent with Previous Results Reported on 11/13/17 7 Please check labs 2 days before follow up 8 Please check labs 2 days before follow up 9 Acute inflammation: >10.00 10 Consistent with [...] developed and its performance characteristics determined by [facility] in a manner consistent with CLIA requirements. This test has not been cleared or approved by the U.S. Food and Drug Administration. Test Performed by: [facility] [address] [place] [address] 13 Because ethnic data is not always [...] For detailed information regarding test interpretation see: [email or web address] 17 Test Performed by: [address] [address] 18 Acute inflammation: >10.00 19 Because ethnic [...] OF LEFT HUMERUS, 36 SEE RESULTS BELOW [id number] CANC CHIPS 5CC TRANSFUSED 06/24/16 1222 [id number] CANC CHIPS 5CC TRANSFUSED 06/24/16 1222 [id number] CANC CHIPS 5CC TRANSFUSED 06/24/16 1222 37 SEE RESULTS BELOW [id number] DBM PUTTY 5CC TRANSFUSED 06/24/16 1222 38 [...] 5 Kidney failure <15 (or dialysis) 41 Acute inflammation: >10.00 42 Because ethnic data is not always readily [...] 15-29 5 Kidney failure <15 (or dialysis) 43 Because ethnic data is not always [...] Date CPT Code Description Status Comment 03/10/2017 54376 ECHO Transthoracic, Real-Time Completed 2D With Doppler And Color Flow 10/14/2016 Bone Mineral Density Test Completed 09/23/2016 Diabetic Retinal Eye Exam Completed Document: 09/23[facility]16 [facility] 42993 Open TX Proximal Humeral FX Completed Incl Fixation When Performed 06/24/2016 62606 Open TX Proximal Humeral FX Completed Incl Fixation When Performed 05/28/2016 44326 Closed trtmt prox humeral fx Completed 01/29/2015 Bone Mineral Density Test Completed Encounters Type Date Location Provider CPT E/M Dx Office Visit 03/09/2018 [facility] [address]87 M84.48xA 11:15a Of Jing Cook MD Office Visit 03/08/2018 [facility] 58959 M05.79 1:00p Of Jing Cook MD M84.48xA Office Visit 02/17/2018 2:00p [facility] Benoit Preciado 95990 M05.79 Of Shredding Specialist M.D. M85.89 Z79.899 Office Visit 11/17/2017 1:40p [facility] Benoit Preciado 95423 M05.79 Of Shredding Specialist M.D. M85.89 Z79.899 E67.3 Office Visit 08/18/2017 1:20p [facility] Benoit Preciado 14039 M05.79 Of Shredding Specialist M.D. M85.89 Z79.899 E67.3 Office Visit 05/18/2017 1:40p [facility] Benoit Preciado 27453 M05.79 Of Shredding Specialist M.D. M85.89 Z79.899 Z23 Office Visit 04/06/2017 2:00p [facility] Benoit Preciado 10825 M05.79 Of Shredding Specialist M.D. M85.89 Z79.899 E67.3 Office Visit 03/04/2017 2:00p [facility] Benoit Preciado 74653 M05.79 Of Shredding Specialist M.D. M85.89 Z79.899 E67.3 R01.1 Office Visit 03/03/2017 2:00p [facility] Of Kaleb Meek 17354 S42.232D Ryland Velázquez MD Office Visit 12/04/2016 2:00p [facility] Polly Moser 80604 M05.79 Of Shredding Specialist SUSTAINABILITY MANAGER M85.89 E67.3 R79.89 Z79.899 Office Visit 10/15/2016 1:15p [facility] Kaleb Meek 74769 S42.232D Of Ryland Velázquez MD S42.232K Office Visit 09/18/2016 1:00p [facility] JULIENNE Hudson 46640 M05.79 Of Shredding Specialist M85.9 Z79.52 Z79.899 S42.232D Office Visit 06/16/2016 2:00p [facility] JULIENNE [place] 03522 M05.79 Of Shredding Specialist S42.232A M81.0 Z79.899 Z79.52 Office Visit 03/17/2016 3:00p [facility] Benoit Preciado, 43081 M05.79 Of [facility] Thee Z79.899 M81.0 Office Visit 12/17/2015 3:00p [facility] Benoit Preciado, 51550 M05.79 Of [facility] Thee Z79.899 M81.0 M65.4 Plan of Care Future Appointment(s):06/13/2018 3:00 pm - Soni Cook MD at [facility]05/24/2018 1:00 pm - Benoit Preciado M.D. at [facility]04/11/2018 - Soni Cook, MDM84.48xA Pathological fracture, other site, init encntr for fractureFollow up:RV in 2 cuqdinX99.79 Rheu arthritis w rheu factor mult site w/o org/sys involv
[2018-05-01] MEDS ORDERED: diPHENhydraMINE IV* 50 MG/ML 1 ml VIAL (BENADRYL) ONE (09:38)
[2018-05-01] MEDS ORDERED: diPHENhydraMINE IV* 50 MG/ML 1 ml VIAL (BENADRYL) IV ONE (09:39)
[2018-05-01 09:46] LABS: ABS Basophils 0 10^3/ul (0-0.2); ABS Eosinophils 0 10^3/ul (0-0.6); ABS Lymphocytes 0.6 10^3/ul (1.0-4.8); ABS Monocytes 0.6 10^3/ul (0-0.8); ABS Neutrophils 10.1 10^3/ul (1.5-7.7); ABS Nucleated RBC 0 10^3/ul; Eosinophil % 0.1 % (0-6); Hematocrit 33 % (35-47); Hemoglobin 11.2 g/dl (12.0-16.0); Lymphocyte % 5.4 % (25-47); Mean Corpuscular HGB Conc 34 g/dl (31-36); Mean Corpuscular Hemoglobin 36 pg (27-31); Mean Corpuscular Volume 104 fL (80-97); Mean Platelet Volume 7.5 um3 (7.4-10.4); Nucleated Red Blood Cells % 0; Platelet Count 310 10^3/ul (150-450); Red Blood Count 3.15 10^6/ul (4.00-5.40); Red Cell Distribution Width 14 % (10.5-15); White Blood Count 11.4 10^3/ul (3.5-10.8)
[2018-05-01 09:58] LABS: EGFR Non-African American 58.9 (>60)
[2018-05-01] MEDS ORDERED: Aspirin 81 mg CHEW TAB* 81 MG TAB.CHEW PO ONE (10:16)
--- NOTE | 2018-05-01 10:30 | RAD ---
Indication: Fall, chest pain. Single frontal view of the chest performed at 0945 hours was reviewed. Comparison is made with previous exam dated July 18, 2012. No mediastinal shift is noted. Heart is of normal size and configuration. Lung marrufo appear clear. IMPRESSION: NO ACTIVE CARDIOPULMONARY DISEASE IS NOTED.
--- NOTE | 2018-05-01 10:31 | RAD ---
Indication: Left shoulder pain. 3 views of left shoulder demonstrates a comminuted fracture of the proximal humerus consistent with stress riser fracture. There is angulation and displacement noted.. IMPRESSION: Comminuted fracture of the proximal diaphysis of the humerus with overriding of the fracture fragments. There is lateral displacement approximately 1 shafts width.
[2018-05-01] MEDS ORDERED: HYDROcodone/ACETAMIN 5-325 MG* 1 TAB PO PRN (11:46)
--- NOTE | 2018-05-01 13:07 | CONSULT ---
Consult Consult: CC: Left arm HPI: Mrs. Mejía is a 73 yo female who is right hand dominant. She has undergone an ORIF of a left proximal humerus fracture with Dr. Velázquez in Jun 2016. She had done well, despite her osteoporosis and rheumatoid arthritis. Unfortunately, she has been having more falls and she did fall overnight, injuring the left arm. She is unsure if there was a loss of consciousness with the episode as well. X-ray taken revel a comminuted fx of the left humerus below the level of the proximal humerus plate. PE: Left arm: skin over the shoulder is intact with a well healed scar. SHe has swelling, but no echymosis (yet) or erythemia. Sensation laterally over the area corresponding to the axillary nerve is intact. Distally she has good sensation over the thenar eminance, FDWS and ular border of the hand. She has the RA deformity with windswept fingers ulnarly on the hand. She can fle and extend the fingers and can extend the wrist. X-rays: 4 views of the shoulder were obtained. t can be seen the proximal humerus fracture has healed well. She has fractured the humerus, beginning approx 2.5 cm proximal to the distal end of the plate with a long oblique displaced fracture which has some comminution. A: Left humerus fx P: Considering her osteoporosis and RA, conservative treatment to see if this can heal would be quite reasonable. Mrs. Fink also would like to avoid surgery if possible. She know there may be bone healing issues, but considering the fx is not transverse, this may heal in a Callejas brace. I am unsure if one can be obtained in the hospital, so a sling will be used for now. Tomorrow when OT and social work are in, an order will be placed and if the brace can be placed here in the hospital that would be great, but if not, an order will be sent to the flight attendant ramp so she can be fit with a brace on the way home from the hospital.
[2018-05-01] MEDS: HYDROcodone/ACETAMIN 5-325 MG* 1 TAB PO PRN (14:47)
[2018-05-01] MEDS: Heparin VIAL(*) 5000 UNITS/ML VIAL (FIVE THOUSAND) SUBCUT SCH ×2 (14:47→23:05)
[2018-05-01] MEDS: diPHENhydraMINE PO* 25 MG PO PRN (14:47)
[2018-05-01] MEDS: Metoprolol Tartrate TAB* 25 MG PO SCH ×2 (16:24→23:05)
--- NOTE | 2018-05-01 16:43 | HP ---
CC: Dr. Garcia * [facility] MEDICINE HISTORY AND PHYSICAL: DATE OF ADMISSION: 05/01/18 PRIMARY CARE PHYSICIAN: Dr. Garcia. ATTENDING PHYSICIAN: Dr. Danae Aleman * (dictation provided by Charlotte Luque NP) . CHIEF COMPLAINT: Left arm and back pain. HISTORY OF PRESENT ILLNESS: Ms. Fink is a 73-year-old female with a past medical history of left shoulder fracture with ORIF in 2016, rheumatoid arthritis, and recent falls when getting up in the middle of the night to use the bathroom to urinate, who presents today to the hospital after falling again in the bathroom. The patient states that she has fallen back in February under similar circumstances while using the bathroom in the middle of the night. At that time, she sustained compression fractures to her back. She also has a history of a left shoulder fracture related to a fall and underwent ORIF with Dr. Velázquez in 2015. Last night around 1 a.m., she got up to go to the bathroom when she fell onto the ground onto her left side. She had immediate pain in her left arm and back and called out to her . She requested a pillow and blanket as she wanted to allow her to sleep until 0730am when emergency medical services could be called to be brought to the hospital. The patient denies any loss of consciousness. She describes a purely mechanical fall. She has no other recent health complaints. She denies fever, chest pain, shortness of breath, cough, nausea, vomiting, diarrhea, abdominal pain. She denies any chest pain or shortness of breath during the time of her fall immediately preceding or thereafter. She has been less active since her compression fractures in February. She denies any pain or swelling in her calves. In the emergency room, Ms. Fink had a shoulder x-ray, which confirmed that she had indeed fractured the humerus of the left shoulder. Her workup was otherwise remarkable for an elevated troponin at 0.15 and new EKG changes showing right bundle branch block, left anterior fascicular block, and some T- wave inversions in V2 and V3. She continued to deny chest pain or shortness of breath. Her vitals were stable. PAST MEDICAL HISTORY: 1. Left shoulder fracture with ORIF [place] [address] Velázquez. 2. Rheumatoid arthritis, managed by Dr. Preciado. 3. Hypothyroidism. 4. Hypertension. 5. Cataract surgery. 6. History of macular pucker bilaterally, managed by Dr. Perea. 7. History of tonsillectomy. 8. History of bilateral hand surgeries. 9. History of total hysterectomy for uterine fibroids. 10. Osteopenia, previously on Fosamax. MEDICATIONS: 1. Desvenlafaxine 50 mg p.o. daily. 2. Hydrocodone/acetaminophen 5/325 one tab p.o. q.8 hours p.r.n. 3. Triamcinolone 2 sprays nasally daily. 4. Benadryl 25 mg p.o. t.i.d. for itching with hydrocodone. 5. Folic acid 1 mg p.o. daily. 6. Plaquenil 200 mg p.o. daily. 7. Irbesartan 150 mg p.o. daily. 8. Levothyroxine 50 mcg p.o. daily. 9. Methotrexate 2.5 mg 6 tabs p.o. weekly on Sundays. 10. Trazodone 50 mg p.o. at bedtime. ALLERGIES: SULFA, TRAMADOL, and IV CONTRAST, which all caused itching. FAMILY HISTORY: The patient reports her mother related to breast cancer at 71 and father of CHF at 79. SOCIAL HISTORY: No report of tobacco or drug use. She drinks 2 to 3 glasses of wine per week. She lives with her , Aldo, who is her healthcare proxy. REVIEW OF SYSTEMS: A 14-point review of systems was completed with Ms. Fink and all those not mentioned above were negative. PHYSICAL EXAMINATION GENERAL: Ms. Fink is lying in the bed. She is in no acute distress, with her , Aldo, at the bedside. VITAL SIGNS: Temperature 98.0, pulse rate 78, respiratory rate 16, O2 saturation 98% on room air, and blood pressure 95/58. LUNGS: Clear to auscultation bilaterally with no accessory muscle use and good aeration. HEART: S1, S2. No murmur, rub, or gallop and regular. ABDOMEN: Soft, nontender with bowel sounds positive x4. EXTREMITIES: No cyanosis or edema. The patient's left arm is in a sling that she put on today after her fall that she had from her fracture in 2016 on the same side. NEUROLOGIC: She is alert. She is oriented x3. She moves all extremities equally. There is no facial asymmetry or focal weakness. Extraocular movements are intact. SKIN: Intact. DIAGNOSTIC STUDIES/LAB DATA: WBC 11.4, hemoglobin 11.2, hematocrit 33, platelet count 310. Sodium 135, potassium 3.8, chloride 100, serum bicarbonate 22, BUN 20, creatinine 0.93, glucose 97. Troponin 0.15. Total creatine kinase 691. The chest x-ray is as follows: "No active cardiopulmonary disease is noted." EKG shows a heart rate of 70 with a new right bundle branch and left anterior fascicular block. There are also T-wave inversions in V2, V3 and these changes are new as compared to previous EKG from 2012. Shoulder x-ray shows a comminuted fracture of the proximal diaphysis of the humerus, which is displaced laterally. ASSESSMENT AND PLAN: Ms. Fink is a 73-year-old female with a past medical history of left shoulder fracture in 2016 with open reduction and internal fixation with Dr. Velázquez, as well as rheumatoid arthritis, hypothyroidism, and osteoporosis, who presents today to the hospital after falling again at home when getting up to urinate in the middle of the night, now with a second displaced humerus fracture on the left. In addition, the patient has new EKG changes and an elevated troponin. Our plans are for observation in the hospital for the followin. Elevated troponin with EKG changes. The patient states she has no chest pain or shortness of breath during the events of overnight or with her normal activity levels. She thinks that she had a transthoracic echocardiogram for suspicion of a heart murmur at the request of Dr. Preciado. The echo report from February 2017 shows an intact EF without significant wall motion or valvular abnormalities. The patient has no murmur on examination today. Plans will be for repeat troponins x2. She will have telemetry monitoring. She will continue with aspirin. She will have a transthoracic echocardiogram. Dr. King has also been consulted for cardiological evaluation in the event that the patient needs operative intervention for her shoulder. Other explanations for her abnormal EKG and troponin include a pulmonary embolism, though she is not tachycardic, hypoxic or otherwise symptomatic. Plan for d-dimer and if positive will check CTA chest. 2. Left shoulder fracture. Appreciate the consultation from Dr. Meek. At this point, he is hopeful that a Callejas brace will be able to heal the fracture without the need for surgical intervention. Physical Therapy may be able to provide that in-house or the patient will need to obtain that outpatient from [facility]. The patient will continue on hydrocodone at increased dose of 1 to 2 tabs p.o. q.4 hours for fracture and physical therapy has been ordered. 3. Rheumatoid arthritis. Plan to continue methotrexate, Plaquenil. The patient will continue to follow with Dr. Preciado. 4. Hypothyroidism. Continue levothyroxine. 5. Hypertension. Continue irbesartan. 6. Code status is full code. 7. DVT prophylaxis: Heparin subcu. 8. Disposition will be to the telemetry floor due to elevated troponin. Anticipate the patient will be discharged to home when medically stable. TIME SPENT: Approximately 60 minutes were spent on the admission of this patient, more than half the time spent with the patient at the bedside reviewing the events leading up to this hospitalization, performing the physical examination, and reviewing the plan of care. CHARLOTTE LUQUE NP [id number]/[facility] #: [id number] JOSH
[2018-05-01] MEDS: NS 0.9% 1000 ML* 1,000 ML IV SCH (18:09)
[2018-05-01 18:28] LABS: Urine Appearance Clear; Urine Blood Negative (Negative); Urine Color Yellow; Urine Ketones Negative (Negative); Urine Protein 1+(30 mg/dL) (Negative); Urine Red Blood Cell Absent (Absent); Urine Specific Gravity 1.023 (1.010-1.030); Urine Urobilinogen Negative (Negative); Urine White Blood Cell Absent (Absent)
--- NOTE | 2018-05-01 19:34 | CONS ---
CC: Dr. Annabel Garcia; Dr. Preciado * CARDIOLOGY CONSULTATION: DATE OF CONSULT: 05/01/18 REASON FOR CONSULT: Elevated troponins. CHIEF COMPLAINT: Fall and left shoulder pain. HISTORY OF PRESENT ILLNESS: Deidra Fink is a 73-year-old woman with no prior cardiac history. She does have a history of rheumatoid arthritis and hypothyroid disease. The patient was diagnosed with a compression fracture earlier this summer (L1 on 03/03/18) and she states that since that time, she has not been able to be active at all. Last night, the patient got up at 1:00 in the morning to go to the bathroom and fell and injured her shoulder. Initially, there were thoughts of surgical repair, but currently, the plan is nonsurgical. The patient is unsure why she fell. She denies losing consciousness, but also has no memory of what happened that led to the fall. The patient denies any preceding shoulder pain, chest, arm, neck or jaw pain. She denies orthopnea or PND. Currently, the patient's only complaint what she thinks is of her musculoskeletal and bony pain from the shoulder injury. PAST MEDICAL HISTORY: The patient has a past medical history of: 1. Rheumatoid arthritis, on steroids for many years, but off prednisone for 3 years. 2. Hypertension. 3. Hypothyroid. 4. Alcohol addiction, currently controlled. 5. Depression. 6. Compression fractures, lumbar spine as above. PAST SURGICAL HISTORY: Includes: 1. Hysterectomy. 2. Tonsillectomy in childhood. 3. Hand surgery for subluxation. MEDICATIONS: Current inpatient medications include: 1. Aspirin 81 mg a day. 2. Diphenhydramine p.r.n. 3. Folic acid 1 mg a day. 4. Subcutaneous heparin. 5. Tylenol with Codeine p.r.n. 6. Hydrochloroquine 200 mg a day. 7. Irbesartan 150 mg a day. 8. Levothyroxine 50 mcg a day. 9. Methotrexate 15 mg weekly. 10. Trazodone 50 mg q.h.s. ALLERGIES: Include HYDROCODONE, SULFA, TRAMADOL, and IV CONTRAST, all itching. FAMILY HISTORY: Significant in that father has a history of arthritis. Mother has a a history degenerative arthritis and cancer. SOCIAL HISTORY: The patient is retired, never smoked. Currently, no alcohol use. No recreational drug use. REVIEW OF SYSTEMS: As above. Denies any recent fevers, chills, sweats. No recent dizziness. She has fallen before. Recent inactivity due to her compression fracture. She denies swelling of the legs or pain in the legs. Her appetite has been okay. She denies hematuria or dysuria or change in bowel habits. Again, the patient denies orthopnea, PND, or anginal symptoms as above. All other 14-point review of systems is negative. PHYSICAL EXAM: The patient is 5 feet 2-1/2 inches, weighs 138 pounds with a BMI of 25. Blood pressure currently 95/58, pulse is 78 and regular, respiratory rate 16, she is afebrile, and oxygen saturation 98% on room air. General Appearance: Petite, elderly woman, lying on 2 pillows with the shoulder brace on, appears comfortable at rest, but does appear to have mild pain with any movement in the gurney. HEENT: Mucous membranes were moist. Neck: Without appreciable increasing JVP. Good carotid pulses without audible bruits. Breath sounds in the right lung were clear. I did not do this on the left lung to prevent pain. Coronary: S1 and S2 regular, 1 to 2/6 early peaking systolic murmur with respiratory variation in Erb's point. Abdomen: Active bowel sounds. Soft, nontender. No hepatosplenomegaly or masses. Lower extremities were free of edema and warm. She has marked subluxation of the hands consistent with rheumatoid arthritis. DIAGNOSTIC STUDIES/LAB DATA: Sodium 135, potassium 3.8, chloride 100, bicarb 22 , BUN 20, creatinine 0.93. AST 42, ALT 17. CPK #1 of 691, CPK #2 of 697. Troponin #1 of 0.15, troponin #2 of 0.16. Lipids from 05/01/18 showed total cholesterol 158, triglycerides 51, HDL cholesterol 76, and LDL cholesterol 72. White count 11.4, hemoglobin 11.2, hematocrit 33, mean cell volume 104, platelets 310. Chest x-ray from today showed no acute disease. Echocardiogram from 03/10/17 (obtained for a murmur) showed left mild left ventricular hypertrophy with an ejection fraction of 60% to 65%. Normal diastolic filling. Normal right ventricular function. Structurally normal valves with trace mitral, trace tricuspid, and trace pulmonic insufficiency. A 12-lead ECG today shows normal sinus rhythm at 72 beats per minute, with a right bundle branch block, and left anterior fascicular block. She has biphasic and inverted T-waves in the precordial leads V1 through V4, possible left ventricular hypertrophy. No EKGs are in Dr. Preciado's chart, but when this EKG is compared to an EKG at [facility] from June 2012, the right bundle branch block and left anterior fascicular block are new and she did meet criteria for left ventricular hypertrophy in 2012. The inverted T-waves are new as well. Shoulder x-rays today shows comminuted fracture of the proximal diaphysis of the humerus with overriding fracture fragments and lateral displacements. IMPRESSION AND PLAN: Mrs. Fink is a 73-year-old woman, who presented with a fall going to the bathroom at 1:00 in the morning and fractured her left shoulder. Mrs. Fink has elevated troponins and an EKG showing right bundle branch block and left anterior fascicular block that are new from 2012. She has abnormal T- waves that are new. Regarding the elevated troponins and elevation in CPKs, this could certainly be ischemic, but I think it is worth getting MB fractions on the CPKs as the muscle injury could be from the fracture as well and not cardiac. I think there is a differential of the troponins being elevated from a pulmonary embolus as she has been inactive with a compression fracture and would consider D- dimer or imaging studies to follow up on this possibility. Atherosclerotic risks would include many years using prednisone, the rheumatoid arthritis itself with chronic inflammation and her history of hypertension. For now, I would treat her as if she has a non-Q-wave myocardial infarction. Because she is on methotrexate with mildly elevated LFTs, I would not start high - dose statins, but you may want to consider starting low-dose Crestor 5 mg Wednesday, Wednesday, Wednesday. If her blood pressure improves, I would consider starting a low dose metoprolol, long-acting 25 mg a day. I concur with the heparin and a load of aspirin 81 mg a day could be started. I have added thyroid function studies to the blood in the labs to ensure that a hyperthyroid state is not contributing to the elevation in troponins. For her elevated white count and fall going to the bathroom, I would check a UA C and S, as with her age she could have an underlying tract infection. I would place her on telemetry as with her right bundle branch block and left anterior fascicular block, it is possible she is having intermittent higher degree blocks leading to her fall and I would consider an outpatient event monitor if there is nothing revealing while she in the hospital. I would consider decreasing her irbesartan to allow blood pressure room for initiation of a beta-tara and I get a followup echo to look at wall motion in the setting of mild elevation in troponins. In terms of imaging with her elevated troponins, this is going to be difficult as she has absolutely no angina, unless she has a new wall motion abnormality on an echo I do not recommend a cardiac catheterization, fortunately her troponins are stable and MB fractions will also help us to determine if she is having significant acute event. A chemical stress test would be in order, but with her acute shoulder fracture, this may not be possible either with nuclear imaging or dobutamine stress echo acutely and therefore, empiric medical management may be the most appropriate approach. If the patient has no new wall motion abnormalities and her troponins are mildly elevated, but stable, one could consider cross-reacting proteins as she has an autoimmune disorder, but I have a low suspicion of this as in 2012 her troponins was 0.00. Thank you for allowing me to assist in this nice woman's care. [id number]/[facility] #: [id number] JOSH
[2018-05-01] MEDS ORDERED: predniSONE TAB* 50 MG PO ONE (20:00)
[2018-05-01] MEDS ORDERED: traZODone TAB* 50 MG TAB PO SCH (21:00)
[2018-05-02] MEDS ORDERED: predniSONE TAB* 50 MG PO ONE ×2 (02:00→08:00)
[2018-05-02] MEDS: Heparin VIAL(*) 5000 UNITS/ML VIAL (FIVE THOUSAND) SUBCUT SCH ×2 (05:47→14:03)
[2018-05-02] MEDS ORDERED: Levothyroxine TAB* 50 MCG TAB PO SCH (06:00)
[2018-05-02] MEDS: NS 0.9% 1000 ML* 1,000 ML IV SCH (06:35)
[2018-05-02] MEDS ORDERED: diPHENhydraMINE PO* 50 MG PO ONE (08:00)
--- NOTE | 2018-05-02 08:44 | PN ---
Subjective Date of Service: 05/02/18 Interval History: Ms. Fink reports feeling ok today. She denies significant pain to her left arm and feels that her pain medication regimen is appropriate. She denies chest pain, SOB, nausea, or abdominal pain. She has had no dizziness or lightheadedness with ambulation. Objective Active Medications: Hydrocodone Bitart/Acetaminophen ([place] 5-325 Tab*) 1 tab PO Q4H PRN Hydrocodone Bitart/Acetaminophen ([place] 5-325 Tab*) 2 tab PO Q4H PRN Aspirin (Aspirin 81 Mg Chew Tab*) 81 mg PO DAILY MICHAEL Diphenhydramine HCl (Benadryl Po*) 25 mg PO TID PRN Folic Acid (Folvite Tab*) 1 mg PO DAILY [facility] Heparin Sodium (Porcine) (Heparin Vial(*)) 5,000 units SUBCUT Q8HR [facility] Hydroxychloroquine Sulfate (Plaquenil Tab*) 200 mg PO DAILY [facility] Sodium Chloride (Ns 0.9% 1000 Ml*) 1,000 mls @ 100 mls/hr IV PER RATE [facility] Influenza Virus Vaccine (Fluarix *Quad* 2018-*) 0.5 ml IM .ONCE ONE Irbesartan (Avapro (Nf)) 150 mg PO DAILY [facility] Levothyroxine Sodium (Synthroid Tab*) 50 mcg PO DAILY@0600 [facility] Methotrexate (Methotrexate Tab*) 15 mg PO Tu@0900 [facility] Metoprolol Tartrate (Lopressor Tab*) 25 mg PO BID [facility] Trazodone HCl (Desyrel Tab*) 50 mg PO BEDTIME [facility] Vital Signs: Temp Pulse Resp BP Pulse Ox 97.9 F 78 18 134/71 97 05/02/18 07:25 05/02/18 07:25 05/02/18 07:25 05/02/18 07:25 05/02/18 07:25 Oxygen Devices in Use Now: None Appearance: Female lying in bed in NAD Eyes: No Scleral Icterus Ears/Nose/Mouth/Throat: Mucous Membranes Moist Neck: Trachea Midline Respiratory: Symmetrical Chest Expansion and Respiratory Effort, Clear to Auscultation Cardiovascular: NL Sounds; No Murmurs; No JVD, No Edema Abdominal: NL Sounds; No Tenderness; No Distention Lymphatic: No Cervical Adenopathy Extremities: No Edema Skin: No Rash or Ulcers Neurological: Alert and Oriented x 3, NL Muscle Strength and Tone Nutrition: Taking PO's Result Diagrams: 05/01/18 09:21 05/01/18 09:21 Assess/Plan/Problems-Billing Assessment: Ms. Fink is a 73 yo F who was admitted on 05/01/18 after a mechanical fall at home with a left humerus fracture and elevated troponin. - Patient Problems (1) Left humeral fracture Comment: - Appreciate ortho consultation. - Patient not a good surgical candidate given previous fracture and osteoporosis. Plan for breen brace and follow up with ortho outpatient. - Pain meds prn. (2) Elevated troponin Comment: - Trops peaked at 0.23. EKG with no RBBB and LAFB. - Patient denies chest pain or SOB. - CTA chest negative for PE. - Appreciate cardiology consult, plan for outpatient follow up with Dr. King for possible stress testing and holter monitoring. - Patient denies syncope but has had multiple falls over the past two years resulting in several fractures. (3) DVT prophylaxis Comment: - Heparin SQ. (4) Full code status Comment: Status and Disposition: OBV. Discharge to home.
[2018-05-02] MEDS ORDERED: Iodixanol* (CONTRAST) 320 MG/ML 100 ML SDV IV ONE (08:59)
[2018-05-02] MEDS ORDERED: Hydroxychloroquine TAB* 200 MG PO SCH (09:00)
[2018-05-02] MEDS ORDERED: IRBESARTAN 150 MG PO SCH (09:00)
[2018-05-02] MEDS ORDERED: Aspirin 81 mg CHEW TAB* 81 MG TAB.CHEW PO SCH (09:00)
[2018-05-02] MEDS ORDERED: Folic Acid TAB* 1 MG PO SCH (09:00)
[2018-05-02] MEDS: Metoprolol Tartrate TAB* 25 MG PO SCH (09:01)
[2018-05-02] MEDS ORDERED: Perflutren Lipid Microsphere* 3 ML VIAL ONE (09:54)
[2018-05-02] MEDS: HYDROcodone/ACETAMIN 5-325 MG* 1 TAB PO PRN (10:26)
--- NOTE | 2018-05-02 11:20 | ECHO ---
Amended Report Patient: KRYSTYNA ROGERS [facility] Rec#: [id number] : 1945 Date: 05/02/2018 Age: 73y Height: 159 cm / 62.6 in Weight: 62.6 kg / 138.0 lbs Sex: F BSA: 1.64 Room#: 443 Admit Date#: 05/01/2018 Type: Inpatient Referring: Danae Aleman Reading: Timmy Ahn MD Special Client Bus Driver: Esmer Levine RDCS CC: CARY SINGH Transthoracic Echocardiogram Indication: Elevated Troponin BP: 136/76 HR: 82 Rhythm: NSR Findings History: Fell prior to admissio fracturing left shoulder,rheumatoid arthritis,HTN,hypothyroid,ETOH addiction,depression. Technical Comments: The study is technically difficult. The study was technically limited due to the patient's inability to lay in the left lateral decubitus position. Due to patient's fractured left shoulder. Left Ventricle: The left ventricular chamber size is normal. Mild to moderate concentric left ventricular hypertrophy is observed. Global left ventricular wall motion and contractility are within normal limits. There is normal left ventricular systolic function. The estimated ejection fraction is 60-65%. There is no consistent Doppler evidence of clinically significant diastolic dysfunction. Left Atrium: The left atrial chamber size is normal. Right Ventricle: The right ventricular cavity size is normal. The right ventricular global systolic function is normal. Right Atrium: The right atrial cavity size is normal. Aortic Valve: The aortic valve is trileaflet. There is no evidence of aortic valve thickening. There is no evidence of aortic regurgitation. There is no evidence of aortic stenosis. Mitral Valve: The mitral valve leaflets are mildly thickened. There is no evidence of mitral regurgitation. There is no evidence of mitral stenosis. Tricuspid Valve: The tricuspid valve leaflets are normal. There is trace tricuspid regurgitation. Unable to estimate the right ventricular systolic pressure. There is no tricuspid stenosis. Pulmonic Valve: The pulmonic valve appears normal. There is no evidence of pulmonic regurgitation. There is no pulmonic stenosis. Pericardium: A pericardial fat pad is visualized. Aorta: There is no dilatation of the ascending aorta. There is no dilatation of the aortic arch. There is no dilation of the aortic root. Pulmonary Artery: The main pulmonary artery appears normal. Venous: The inferior vena cava appears normal in size. There is a greater than 50% respiratory change in the inferior vena cava dimension. Contrast: Definity was used to optimize study. 3 ml Intravenous contrast was used to enhance endocardial border definition. Summary: There are no significant changes when compared to the previous study done on 03/10/17 Conclusions Mild to moderate concentric left ventricular hypertrophy is observed. Global left ventricular wall motion and contractility are within normal limits. There is normal left ventricular systolic function. The estimated ejection fraction is 60-65%. There is no evidence of aortic stenosis. There is no evidence of mitral regurgitation. There is trace tricuspid regurgitation. Unable to estimate the right ventricular systolic pressure. Measurements Name Value Normal Range RVIDd (AP) 2D 2.4 cm (0.9 - 2.6) RVDdMajor (2D) 2.5 cm (2.2 - 4.4) RAd ISD 4CH 4.9 cm (3.4 - 4.9) RA (A4C)W 4.2 cm (2.9 - 4.6) IVSd (2D) 1.3 cm (0.6 - 1) LVPWd (2D) 1.2 cm (0.6 - 1) LVIDd (2D) 3.6 cm (3.6 - 5.4) LVIDs (2D) 1.7 cm - LV FS (2D) 53 % (25 - 45) Aortic Annulus 2.5 cm (1.4 - 2.6) Ao root diameter (2D) 3.4 cm (2.1 - 3.5) Ascending Ao 3.1 cm (2.1 - 3.4) Aortic arch 2.6 cm (1.8 - 3.4) Descending Ao 0.7 cm - LA dimension (AP) 2D 2.3 cm (2.3 - 3.8) LAd ISD 4CH 4.8 cm (2.9 - 5.3) LA ISD 4CH W 3.5 cm (2.5 - 4.5) Name Value Normal Range MV E-wave Vmax 0.9 m/sec - MV deceleration time 176 msec - MV A-wave Vmax 0.9 m/sec - MV E:A ratio 1 ratio - LV septal e' Vmax 0.08 m/sec - LV lateral e' Vmax 0.09 m/sec - LV E:e' septal ratio 11.25 ratio - LV E:e' lateral ratio 10 ratio - Name Value Normal Range AV Vmax 1.4 m/sec - AV VTI 26.7 cm - AV peak gradient 8 mmHg - AV mean gradient 4 mmHg - LVOT Vmax 1.2 m/sec - LVOT VTI 22.3 cm - LVOT peak gradient 5 mmHg - LVOT mean gradient 3 mmHg - Name Value Normal Range IVC diameter 1.9 cm - Name Value Normal Range PV Vmax 1 m/sec - PV peak gradient 4 mmHg -
--- NOTE | 2018-05-02 11:43 | RAD ---
Indication: Elevated troponin. Contrast: Administered 66.0 ml of VISIPAQUE 320 mg/ml CTA of the chest performed after IV contrast administration. Coronal and sagittal reconstructed images were obtained. No evidence of pulmonary embolus is noted. The pulmonary arterial tree is well opacified. Aorta demonstrates no aortic dissection. No pericardial effusion is noted. Trachea and major bronchi appear patent. Lung marrufo demonstrate some atelectasis bilaterally. No evidence of alveolar consolidation is noted. There is no mediastinal or hilar adenopathy. The heart demonstrates no pericardial effusion. The axilla demonstrates no evidence of adenopathy. The bony structures demonstrate sclerotic areas in the ribs in the left lower ribs which may represent healing fractures. Clinical correlation is suggested. The visualized abdominal organs are unremarkable. IMPRESSION: No evidence of pulmonary embolus is noted. Likely healing rib fractures on the left. Bibasilar atelectasis with no evidence of alveolar consolidation.
--- NOTE | 2018-05-02 12:58 | PN ---
Progress Note - Progress Note Date of Service: 05/02/18 SOAP: Subjective: []Patient seen at bedside. Her left arm is comfortable in her sling at this time. She denies any numbness, tingling, worsening pain of her LUE. Objective: [] General: Well appearing, NAD LUE: Skin intact. Ecchymosis over the proximal humerus. Upper arm and forearm compressible. Sensation intact to light touch throughout LUE. Able to flex and extend all digits and wrist. Ulnar deviation of digits at baseline, similar to contralateral hand. Assessment: []Left humerus fracture Plan: [] Sling at all times until [place] brace is available. Brace ordered from [facility]. This can either be delivered and fit if she remains in house or she can pick it up outpatient at [facility]. NWB LUE Vital Signs Temp 97.9 F 05/02/18 07:25 Pulse 78 05/02/18 07:25 Resp 16 05/02/18 10:26 BP 134/71 05/02/18 07:25 Pulse Ox 97 05/02/18 07:25 Intake & Output 05/01/18 05/02/18 05/02/18 18:59 06:59 18:59 Intake Total 1000 580 Output Total 900 Balance 1000 -320 Weight 135 lb 135 lb Intake: IV Fluids 1000 Oral 580 Output: Urine 900 Other: # Bowel Movements 0 Laboratory Last Values WBC 11.4 10^3/ul (3.5-10.8) H 05/01/18 09:21 RBC 3.15 10^6/ul (4.00-5.40) L 05/01/18 09:21 Hgb 11.2 g/dl (12.0-16.0) L 05/01/18 09:21 Hct 33 % (35-47) L 05/01/18 09:21 MCV 104 fL (80-97) H 05/01/18 09:21 MCH 36 pg (27-31) H 05/01/18 09:21 MCHC 34 g/dl (31-36) 05/01/18 09:21 RDW 14 % (10.5-15) 05/01/18 09:21 Plt Count 310 10^3/ul (150-450) 05/01/18 09:21 MPV 7.5 um3 (7.4-10.4) 05/01/18 09:21 Neut % (Auto) 88.9 % (38-83) H 05/01/18 09:21 Lymph % (Auto) 5.4 % (25-47) L 05/01/18 09:21 [place] % (Auto) 5.5 % (0-7) 05/01/18 09:21 Eos % (Auto) 0.1 % (0-6) 05/01/18 09:21 Baso % (Auto) 0.1 % (0-2) 05/01/18 09:21 Absolute Neuts (auto) 10.1 10^3/ul (1.5-7.7) H 05/01/18 09:21 Absolute Lymphs (auto) 0.6 10^3/ul (1.0-4.8) L 05/01/18 09:21 Absolute Monos (auto) 0.6 10^3/ul (0-0.8) 05/01/18 09:21 Absolute Eos (auto) 0 10^3/ul (0-0.6) 05/01/18 09:21 Absolute Basos (auto) 0 10^3/ul (0-0.2) 05/01/18 09:21 Absolute Nucleated RBC 0 10^3/ul 05/01/18 09:21 Nucleated RBC % 0 05/01/18 09:21 D-Dimer, Quantitative > 1050 ng/mL (Less Than 230) H 05/01/18 15:50 Sodium 135 mmol/L (135-145) 05/01/18 09:21 Potassium 3.8 mmol/L (3.5-5.0) 05/01/18 09:21 Chloride 100 mmol/L (101-111) L 05/01/18 09:21 Carbon Dioxide 22 mmol/L (22-32) 05/01/18 09:21 Anion Gap 13 mmol/L (2-11) H 05/01/18 09:21 BUN 20 mg/dL (6-24) 05/01/18 09:21 Creatinine 0.93 mg/dL (0.51-0.95) 05/01/18 09:21 Est GFR ( Amer) 71.3 (>60) 05/01/18 09:21 Est GFR (Non-Af Amer) 58.9 (>60) 05/01/18 09:21 BUN/Creatinine Ratio 21.5 (8-20) H 05/01/18 09:21 Glucose 97 mg/dL (70-100) 05/01/18 09:21 Calcium 9.4 mg/dL (8.6-10.3) 05/01/18 09:21 Total Bilirubin 0.40 mg/dL (0.2-1.0) 05/01/18 09:21 AST 42 U/L (13-39) H 05/01/18 09:21 ALT 17 U/L (7-52) 05/01/18 09:21 Alkaline Phosphatase 47 U/L (34-104) 05/01/18 09:21 Total Creatine Kinase 697 U/L (10-223) H 05/01/18 12:25 CK-MB (CK-2) 24.8 ng/mL (0.6-6.3) H 05/01/18 12:25 Troponin I 0.23 ng/mL (<0.04) H* 05/01/18 22:54 Total Protein 6.1 g/dL (6.4-8.9) L 05/01/18 09:21 Albumin 3.8 g/dL (3.2-5.2) 05/01/18 09:21 Globulin 2.3 g/dL (2-4) 05/01/18 09:21 Albumin/Globulin Ratio 1.7 (1-3) 05/01/18 09:21 Triglycerides 51 mg/dL 05/01/18 12:25 Cholesterol 158 mg/dL 05/01/18 12:25 LDL Cholesterol 72 mg/dL 05/01/18 12:25 HDL Cholesterol 76.2 mg/dL 05/01/18 12:25 TSH 5.00 mcIU/mL (0.34-5.60) 05/01/18 09:21 Free T4 1.00 ng/dL (0.61-1.12) 05/01/18 09:21 Urine Color Yellow 05/01/18 18:05 Urine Appearance Clear 05/01/18 18:05 Urine pH 5.0 (5-9) 05/01/18 18:05 Ur Specific [place] 1.023 (1.010-1.030) 05/01/18 18:05 Urine Protein 1+(30 mg/dl) (Negative) A 05/01/18 18:05 Urine Ketones Negative (Negative) 05/01/18 18:05 Urine Blood Negative (Negative) 05/01/18 18:05 Urine Nitrate Negative (Negative) 05/01/18 18:05 Urine Bilirubin Negative (Negative) 05/01/18 18:05 Urine Urobilinogen Negative (Negative) 05/01/18 18:05 Ur Leukocyte Esterase Negative (Negative) 05/01/18 18:05 Urine WBC (Auto) Absent (Absent) 05/01/18 18:05 Urine RBC (Auto) Absent (Absent) 05/01/18 18:05 Urine Bacteria Absent (Absent) 05/01/18 18:05 Hyaline Casts Present (Absent) A 05/01/18 18:05 Urine Glucose Negative (Negative) 05/01/18 18:05
[2018-05-02] MEDS: diPHENhydraMINE PO* 25 MG PO PRN (13:59)
[2018-05-02 16:57] VITALS: BP 134/69
[2018-05-03] MEDS ORDERED: Methotrexate TAB* 2.5 MG PO SCH (09:00)
--- NOTE | 2018-05-03 23:25 | DS ---
CC: Dr. Garcia * [facility] MEDICINE DISCHARGE SUMMARY: DATE OF ADMISSION: 05/01/18 DATE OF DISCHARGE: 05/02/18 PRIMARY CARE PHYSICIAN: Dr. Garcia. ATTENDING PHYSICIAN: Dr. Chris Anderson * (dictation provided by Charlotte Luque NP). PRIMARY DIAGNOSES: 1. Elevated troponin. 2. New right bundle branch and left anterior fascicular block. 3. Left shoulder fracture. SECONDARY DIAGNOSES: 1. Rheumatoid arthritis, follows with Dr. Preciado. 2. History of left shoulder fracture with ORIF [place] [address] Velázquez. 3. Hypothyroidism. 4. Hypertension. 5. Cataract surgery. 6. History of macular pucker bilaterally, managed by Dr. Perea. 7. History of tonsillectomy. 8. History of bilateral hand surgeries. 9. History of total hysterectomy for uterine fibroids. 10. Osteopenia, previously on Fosamax. MEDICATIONS: 1. Desvenlafaxine 50 mg p.o. daily. 2. Methotrexate 2.5 mg 6 tabs p.o. weekly. 3. Levothyroxine 50 mcg p.o. daily. 4. Irbesartan 150 mg p.o. daily. 5. Hydroxychloroquine 200 mg p.o. daily. 6. Hydrocodone with acetaminophen 5/325 one tab p.o. q.8 hours p.r.n. 7. Folic acid 1 mg p.o. daily. 8. Trazodone 50 mg p.o. at bedtime. 9. Benadryl 25 mg p.o. t.i.d. 10. Triamcinolone cream 2 sprays nasally daily. 11. Metoprolol tartrate 25 mg p.o. b.i.d. 12. Aspirin 81 mg p.o. daily. HOSPITAL COURSE: Ms. Fink is a 73-year-old female, who presented to the hospital on 05/01/18 with concern for mechanical fall at home. Please see the dictated H and P from myself for complete details. In brief, the patient states she has had approximately 3 falls in the past 2 years. She states that these falls are always in the middle of the night when she gets up to go to the bathroom. She does not feel that she lost consciousness and that these were purely mechanical falls. However, I will note that she is not able to clearly identify and describe the fall in detail. Regardless, the patient states she was up to urinate in the middle of the night when she fell in the bathroom. She fell onto her left side and had immediate severe pain in the left arm. She asked her to bring in a pillow and blanket so that she could sleep through the night on the floor in the bathroom and then was brought to the emergency room when EMS was called in the a.m. She denies any other recent health complaints. She has been less active prior to this fall due to previous fall that resulted in some compression fractures and pain. In the ED, the patient had a shoulder x-ray, which confirmed she had a fractured humerus on the left shoulder. Her labs showed an elevated troponin at 0.15 and she had new EKG changes with a right bundle branch and left anterior fascicular block. The patient denied any chest pain or shortness of breath either in the emergency room or prior to arrival. Her vitals were stable. Ms. Fink was admitted to the hospital. Her workup included a chest x-ray that showed the following: "No active cardiopulmonary disease is noted." She had a transthoracic echocardiogram, which showed "[id number] concentric left ventricular hypertrophy is observed. Global left ventricular wall motion and contractility are within normal limits. There is normal left ventricular systolic function and the estimated ejection fraction is 60% to 65%. There is no evidence of aortic stenosis. There is no evidence of mitral regurgitation. There is trace tricuspid regurgitation. Unable to estimate the right ventricular systolic pressure." The patient had repeat troponins, which continued to rise through the evening and peaked at 0.23. Throughout this, the patient was completely asymptomatic and denied chest pain or shortness of breath. Lipid profile was checked, which is showing triglycerides of 51, cholesterol 158, LDL 72, and HDL 76.2. For the EKG changes and her elevated troponin, the patient was seen in consultation by Dr. King from Cardiology and I refer you to her notes for complete details. In brief, she questioned whether or not possibly the patient could have a pulmonary embolism. A D-dimer was checked, which was positive and therefore she went on for a CTA of the chest to rule out PE after she was premedicated for a history of IV CONTRAST DYE allergy. CTA chest showed no pulmonary embolism or other abnormality. She recommended starting low-dose metoprolol, which has been added. She will continue on aspirin 81 mg daily. The patient was followed on by Dr. Ahn the following day and he concurred that the patient was stable for discharge to home. He recommends that she could benefit from outpatient stress testing and long-term cardiac rhythm monitoring given her falls at home of unclear circumstances clear and a new right bundle branch and left anterior fascicular block. For her shoulder fracture, the patient was seen in consultation by Dr. Meek and his team. He notes that the patient has a previous fracture with plating there on the left humerus and has severe osteoporosis. He recommends and is hopeful that a Callejas brace will be able to correct the fracture. The Callejas brace has been ordered and the patient can obtain that from the [facility] and she will also be following up closely with Dr. Meek if she has any trouble with the brace and for continued management of this fracture. Ms. Fink is medically stable for discharge to home. She will have to follow up with Dr. Meek regarding the shoulder fracture and Dr. King regarding any further cardiac testing. The patient again has remained completely asymptomatic during the hospitalization. DISPOSITION: Home. DIET: Low-fat, low-salt. ACTIVITY: As tolerated. The patient is to have a sling for the left arm with the Callejas brace. FOLLOWUP PLANS: 1. Please follow up with Dr. King within the next month. 2. Please follow up with Dr. Meek within the next week. 3. Please follow up with your primary care physician, Dr. Garcia, within the next week. 4. Please follow up with Dr. Preciado per routine. TIME SPENT: Approximately 60 minutes were spent on the discharge of this patient, more than half the time was spent with the patient at the bedside reviewing the events leading up to and during this hospitalization, performing the physical examination, and reviewing my plan of care. CHARLOTTE LUQUE NP [id number]/CPS #: [id number] MTDMorris
[2018-05-08] MEDS ORDERED: Methotrexate TAB* 2.5 MG PO SCH (09:00)
== END 2018-05-02 17:25 | disposition home or self-care (01) ==
LOC: ED 08:25 → MEDTELE 12:27
PROVIDERS: ADMIT Pediatrics; ATTEND Student in an Organized Health Care Education/Training Program
DX: R79.89 Other specified abnormal findings of blood chemistry (principal); I45.10 Unspecified right bundle-branch block; I44.7 Left bundle-branch block, unspecified; S42.292A Other displaced fracture of upper end of left humerus, initial encounter for closed fracture; W19.XXXA Unspecified fall, initial encounter; Y92.9 Unspecified place or not applicable; M06.9 Rheumatoid arthritis, unspecified; E03.9 Hypothyroidism, unspecified; I10 Essential (primary) hypertension; M54.9 Dorsalgia, unspecified; Z90.710 Acquired absence of both cervix and uterus; Z87.42 Personal history of other diseases of the female genital tract
CPT/HCPCS: 36415; 71045; 71275; 80053; 80061; 81003; 81015; 82550; 82553; 84439; 84443; 84484; 85025; 85379; 90471; 90686; 93005; 93306; 96372; 96374; 96375; 99284; A9270-GY; C8929; G0378; G8978-GP-CJ; G8979-GP-CI; J1200; J1644; J7512; Q9967

== ENCOUNTER 2018-09-26 13:58 | Emergency (ER) | payer MEDICARE, BC ==
--- NOTE | 2018-09-26 15:44 | ED ---
Shortness of Breath - HPI Summary HPI Summary: A 73 y/o female presents to the ED c/o SOB. According to the patient, she has been on a beta tara since April 2018. She stated that this medication gives her SOB. She tried taking half dose to subside the SOB, but it still would not budge. She stated that she wanted to and tried to stick with it, but last Wednesday she could not handle it no more and quit completely. She was given a new medication as a substitute but she is still experiencing the SOB. She stated that she cannot go 10-15 steps without being SOB. She denies any CP, dizziness, or palpitations, but does have a dry cough. She noted that she came from for her SOB and they did breathing treatments and evaluated her but nothing was found, so she was referred to [facility] ED. No PMHx of asthma or COPD. Patient will be signed out to Dr. Olivia Redman via Dr. Agustín Richards, pending [place] Lung Perfusion Scan and disposition, upon shift change on Wednesday, September 26, 2018 at 1900. - History of Current Complaint Chief Complaint: EDShortnessOfBreath Time Seen by Provider: 09/26/18 15:40 Hx Obtained From: Patient Onset/Duration: Sudden Onset, Lasting Weeks, Still Present, Worse Since Timing: Constant Current Severity: None Dyspnea At: Rest Aggrevating Factors: Nothing Alleviating Factors: Nothing Associated Signs & Symptoms: Cough (Nonproductive) - Allergy/Home Medications Allergies/Adverse Reactions: Allergies Allergy/AdvReac Type Severity Reaction Status Date / Time hydrocodone Allergy Itching Verified 09/26/18 11:23 Iodinated Contrast- Oral and Allergy Itching Verified 09/26/18 11:23 IV Dye Sulfa (Sulfonamide Allergy itch Verified 09/26/18 11:23 Antibiotics) tramadol Allergy itch Verified 09/26/18 11:23 iv contrast Allergy itch Uncoded 09/26/18 11:23 PMH/Surg Hx/FS Hx/Imm Hx Endocrine/Hematology History: Reports: Hx Thyroid Disease Denies: Hx Diabetes Cardiovascular History: Reports: Hx Hypercholesterolemia, Hx Hypertension Denies: Hx Angina, Hx Coronary Artery Disease Comment Only: Hx Myocardial Infarction - unknown Respiratory History: Denies: Hx Asthma, Hx Chronic Obstructive Pulmonary Disease (COPD) GI History: Denies: Hx Ulcer History: Denies: Hx Renal Disease Musculoskeletal History: Reports: Hx Arthritis - RA, Hx Rheumatoid Arthritis, Other Musculoskeletal History - 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 BILAT hand surgery. tonsillectomy as praneeth. shoulder repair Hx Anesthesia Reactions: No Infectious Disease History: No Infectious Disease History: Denies: Hx Hepatitis, Hx Human Immunodeficiency Virus (HIV), Traveled Outside the [place] in Last 30 Days - Family History Known Family History: Positive: Cardiac Disease, Hypertension - Social History Alcohol Use: Occasionally Alcohol Amount: qod Substance Use Type: Reports: None Smoking Status (MU): Never Smoked Tobacco Have You Smoked in the Last Year: No Review of Systems Negative: Fever Negative: Palpitations, Chest Pain Positive: Shortness Of Breath, Cough Neurological: Other - NEGATIVE: DIZZINESS All Other Systems Reviewed And Are Negative: Yes Physical Exam - Summary Physical Exam Summary: VITAL SIGNS: Reviewed. GENERAL: Patient is a well-developed and nourished female who is lying comfortable in the stretcher. Patient is not in any acute respiratory distress. HEAD AND FACE: No signs of trauma. No ecchymosis, hematomas or skull depressions. No sinus tenderness. EYES: PERRLA, EOMI x 2, No injected conjunctiva, no nystagmus. EARS: Hearing grossly intact. Ear canals and tympanic membranes are within normal limits. MOUTH: Oropharynx within normal limits. NECK: Supple, trachea is midline, no adenopathy, no JVD, no carotid bruit, no c- spine tenderness, neck with full ROM. CHEST: Symmetric, no tenderness at palpation LUNGS: Clear to auscultation bilaterally. No wheezing or crackles. Lungs are clear. CVS: Regular rate and rhythm, S1 and S2 present, ejection systolic murmur 2/6. ABDOMEN: Soft, non-tender. No signs of distention. No rebound no guarding, and no masses palpated. Bowel sounds are normal. EXTREMITIES: FROM in all major joints, no edema, no cyanosis or clubbing. NEURO: Alert and oriented x 3. No acute neurological deficits. Speech is normal and follows commands. SKIN: Dry and warm Triage Information Reviewed: Yes Vital Signs On Initial Exam: Initial Vitals Temp Pulse Resp BP Pulse Ox 99.9 F 112 20 132/82 95 09/26/18 14:04 09/26/18 14:04 09/26/18 14:04 09/26/18 14:04 09/26/18 14:04 Vital Signs Reviewed: Yes Diagnostics - Vital Signs Vital Signs Temp Pulse Resp BP Pulse Ox 09/26/18 14:04 99.9 F 112 20 132/82 95 - Laboratory Result Diagrams: 09/26/18 16:48 09/26/18 16:48 Lab Statement: Any lab studies that have been ordered have been reviewed, and results considered in the medical decision making process. - Radiology CXR AT Radiology Interpretation Completed By: Radiologist Summary of Radiographic Findings: NO EVIDENCE FOR ACUTE FINDING. ED PHYSICIAN REVIEWED THIS RADIOLOGY REPORT. Course/Dx - Course Assessment/Plan: A 73 y/o female presents to the ED c/o SOB. According to the patient, she has been on a beta tara since April 2018. She stated that this medication gives her SOB. She tried taking half dose to subside the SOB, but it still would not budge. She stated that she wanted to and tried to stick with it, but last Wednesday she could not handle it no more and quit completely. She was given a new medication as a substitute but she is still experiencing the SOB. She stated that she cannot go 10-15 steps without being SOB. She denies any CP, dizziness, or palpitations, but does have a dry cough. She noted that she came from for her SOB and they did breathing treatments and evaluated her but nothing was found, so she was referred to [facility] ED. No PMHx of asthma or COPD. Blood work without any significant abnormality except for d- dimer 269, chloride 99, BUN is 25, creatinine 1.12, glucose 123, calcium is 10.7 , CK-MB is 9.6, troponin is 0.14, CRP is 83.6 and BNP 161. The patient has been having multiple times increased troponins in the last visit. Therefore do not believe that the patient has an acute coronary syndrome. However the patient continues to have shortness of breath therefore I decided to do VQ scan since the patient is allergic to iodine. At this point the patient is comfortable. The patient has been given IV fluids and is awaiting for the VQ scan. Patient will be signed out to Dr. Redman at shift change. - Diagnoses Provider Diagnoses: SOB (shortness of breath) Discharge - Sign-Out/Discharge Documenting (check all that apply): Sign-Out Patient - JEANETH Signing out patient TO: Olivia Redman Receiving patient FROM: Agustín Richards Patient Received Moderate/Deep Sedation with Procedure: No - Discharge Plan Condition: Stable Disposition: HOME Prescriptions: Albuterol HFA INHALER* [Ventolin HFA Inhaler*] 2 puff INH Q6H PRN #1 mdi PRN Reason: Shortness Of Breath predniSONE TAB* [Deltasone 20 MG TAB*] 40 mg PO DAILY #10 tab Patient Education Materials: Shortness of Breath (ED) Referrals: Benoit Preciado MD [Medical Doctor] - Annabel Garcia MD [Primary Care Provider] - Additional Instructions: Please follow up with your primary care provider in 1-2 days. Also please follow up with Dr. Preciado, upper shaper, regarding Methotrexate. RETURN TO EMERGENCY DEPARTMENT FOR ANY NEW OR WORSENING SYMPTOMS. - Billing Disposition and Condition Condition: STABLE - Attestation Statements Document Initiated by Lulu: Yes Documenting Scribe: Virgilio Mcdermott Provider For Whom Lulu is Documenting (Include Credential): Agustín Richards MD Scribe Attestation: Virgilio Pritchett scribed for Agustín Richards MD on 09/27/18 at 1321. Scribe Documentation Reviewed: Yes Provider Attestation: The documentation as recorded by the Virgilio jiménez accurately reflects the service I personally performed and the decisions made by me, Agustín Richards MD Status of Scribe Document: Viewed
[2018-09-26 17:06] LABS: ABS Basophils 0 10^3/ul (0-0.2); ABS Eosinophils 0.2 10^3/ul (0-0.6); ABS Monocytes 0.9 10^3/ul (0-0.8); ABS Neutrophils 3.3 10^3/ul (1.5-7.7); ABS Nucleated RBC 0 10^3/ul; Eosinophil % 2.8 %; Hematocrit 39 % (35-47); Lymphocyte % 17.9 %; Mean Corpuscular HGB Conc 33 g/dl (31-36); Mean Corpuscular Hemoglobin 35 pg (27-31); Mean Corpuscular Volume 105 fL (80-97); Mean Platelet Volume 7.7 fL (7.4-10.4); Nucleated Red Blood Cells % 0.1; Platelet Count 319 10^3/ul (150-450); Red Blood Count 3.75 10^6/ul (4.00-5.40); Red Cell Distribution Width 14 % (10.5-15); White Blood Count 5.5 10^3/ul (3.5-10.8)
[2018-09-26 17:21] LABS: Albumin/Globulin Ratio 1.4 (1-3); BUN/Creatinine Ratio 22.3 (8-20); C Reactive Protein 83.64 mg/L (<8.01); CKMB ng/mL 9.6 ng/mL (0.6-6.3); Calcium 10.7 mg/dL (8.6-10.3); EGFR African American 57.5 (>60); EGFR Non-African American 47.6 (>60); Globulin 2.9 g/dL (2-4); Potassium 4.7 mmol/L (3.5-5.0); Total Bilirubin 0.6 mg/dL (0.2-1.0); Total Protein 6.9 g/dL (6.4-8.9); Troponin I 0.14 ng/mL (<0.04)
[2018-09-26] MEDS ORDERED: NS 0.9% 1000 ML** 1,000 ML IV ONE (17:22)
--- NOTE | 2018-09-26 19:29 | ED ---
Progress - Progress Note Progress Note: This pt was signed out by Dr. Richards at shift change, pending disposition, awaiting lung scan-VQ. Lung Scan-VQ NM, as read by radiologist IMPRESSION: Normal V/Q scan. Dr. Redman has reviewed this report. EKG at 14:08 Rate: Normal at 98 bpm Rhythm: Sinus rhythm Interpretation: RBBB Course/Dx - Course Course Of Treatment: Pt was signed out by Dr. Richards, pending disposition, awaiting labs and VQ scan. VQ scan is negative. Pt has longstanding history of rheumatoid arthritis for which she has been taking Methotrexate for so many years now. On exam lungs are clear. I did read the chest XR myself and chest XR shows hyperinflation with some interstitial changes which could be secondary to taking Methotrexate for a long time. I did discuss with the pt the need to follow up with her chief clinical officer for her rheumatoid arthritis as well as following up with her PCP. Pt will be discharged home and treated with bronchodilators and steroids. Pt has mild elevation on her troponin level, however pt has elevated troponin during all her visits in the emergency department, but this time her troponin is not as high as it used to be. She denies chest pain. Therefore pt will be discharged home with follow up from her PCP and chief clinical officer. She was instructed to return to the ED for any new or worsening symptoms. - Diagnoses Provider Diagnoses: SOB (shortness of breath) Discharge - Sign-Out/Discharge Documenting (check all that apply): Patient Departure - Discharge home, Receiving Sign-Out Receiving patient FROM: Agustín Richards Patient Received Moderate/Deep Sedation with Procedure: No - Discharge Plan Condition: Stable Disposition: HOME Prescriptions: Albuterol HFA INHALER* [Ventolin HFA Inhaler*] 2 puff INH Q6H PRN #1 mdi PRN Reason: Shortness Of Breath predniSONE TAB* [Deltasone 20 MG TAB*] 40 mg PO DAILY #10 tab Patient Education Materials: Shortness of Breath (ED) Referrals: Benoit Preciado MD [Medical Doctor] - Annabel Garcia MD [Primary Care Provider] - Additional Instructions: Please follow up with your primary care provider in 1-2 days. Also please follow up with Dr. Preciado, chief clinical officer, regarding Methotrexate. RETURN TO EMERGENCY DEPARTMENT FOR ANY NEW OR WORSENING SYMPTOMS. - Attestation Statements Document Initiated by Scribe: Yes Documenting Scribe: Kristel Estrada Provider For Whom Scribe is Documenting (Include Credential): Olivia Redman MD Scribe Attestation: IKristel, scribed for Olivia Redman MD on 09/26/18 at 2057. Status of Scribe Document: Ready
[2018-09-26 20:27] VITALS: BP 147/76
[2018-09-26 20:32] LABS: Influenza A Molecular NEGATIVE (Negative); Influenza B Molecular NEGATIVE (Negative)
[2018-09-26] MEDS ORDERED: predniSONE TAB* 20 MG PO ONE (20:44)
[2018-09-26] MEDS ORDERED: Albuterol HFA INHALER* 8 gm MDI INH ONE (20:55)
[2018-09-27] MEDS ORDERED: Albuterol HFA INHALER* 8 gm MDI INH SCH (07:00)
== END 2018-09-26 20:39 | disposition home or self-care (01) ==
LOC: ED 13:58
DX: R06.82 Tachypnea, not elsewhere classified (principal); R05 Cough; Z88.5 Allergy status to narcotic agent; Z88.2 Allergy status to sulfonamides; Z91.041 Radiographic dye allergy status; R00.0 Tachycardia, unspecified
CPT/HCPCS: 36415; 78582; 80053; 82550; 82553; 83605; 83880; 84484; 85025; 85379; 86140; 93005; 99283; A9270-GY; A9540; A9558; J7512

== ENCOUNTER 2018-11-16 07:02 | Inpatient (IN) | payer MEDICARE, BC ==
--- OUTSIDE RECORDS SUMMARY | 2018-11-16 07:10 | XMS REPORT | Continuity of Care Document ---
:1945 External Reference #:[id number] Author Name Padminikalie Dayan Care Team Providers Name Role Phone Shonna Escobar NP Care Team Information Nurses' Registry Director Unavailable Annabel Garcia MD Primary Care Physician Unavailable Payers Date Identification Numbers Payment Provider Subscriber Effective: 2009 Policy Number: [id number] Medicare Deidra Fink PayID: [id number] [address] [place] [address] Effective: 2014 Policy Number: [id number] [employer] Deidra Fink PayID: [id number] [address] [address] [place] [address] Advance Directives Description No Information Available Problems Date Description Provider Status Onset: 05/01/2018 Closed fracture of shaft of humerus Benoit Preciado M.D. Active Onset: 05/01/2018 Rheumatoid arthritis Charlotte Luque N.P. Active Onset: 05/01/2018 Essential hypertension Charlotte Luque N.P. Active Onset: 05/02/2018 High enzyme level in serum Charlotte Luque N.P. 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 Active Family History Date Family Member(s) Observation Comments General Arthritis General M had osteoporosis and arthritis General Cancer Social History Type Date Description Comments Sex Unknown Lives With Occupation Retired Tobacco Use Start: Unknown Never Smoked Cigarettes Smoking Status Reviewed: 11/15/18 Never Smoked Cigarettes ETOH Use Drinks 6 Alcoholic Beverages Per Week Tobacco Use Start: Unknown Patient has never smoked Recreational Drug Use Denies Drug Use Exercise Type/Frequency Exercises regularly pt planning going back to [employer] Allergies, Adverse Reactions, Alerts Date Description Reaction Status Severity Comments 12/17/2015 Oxycodone itching Active 12/17/2015 Morphine itching Active 12/17/2015 Contrast Dye Urticaria Active Severe 12/17/2015 Sulfa Antibiotics gi upset Active Medications Medication Date Status Form Strength Qnty SIG Indications Ordering Provider Cris JADE 09/20/19 Active Caps ER 120mg 180caps 2 tab by Keeley 19 24HR mouth [place], every M.D. day Methotrexate 06/16/20 Active Tablets 2.5mg 72tabs 6 tbs by Z79.899 Benoit 16 mouth Ozzy, every M.D. week M05.79 Hydroxychloroquine Active Tablets 200mg 90tabs take one M05.79 Benoit Sulfate capsule/tablet Ozzy, daily by mouth M.DJulien Thomas79.899 Folic Acid Active Tablets 1mg 90tabs 1 by mouth Benoit every day Thee Preciado Pristiq Active Tablets ER 50mg 1 by mouth Unknown 24HR every morning Nasacort Allergy Active Aerosol 55mcg/ 1 spray both Unknown 24HR Act nares once daily Levothyroxine Active Tablets 50mcg 1 by mouth Unknown Sodium every day Aspir-[address] 81mg 1 by mouth Unknown every day Irbesartan Active Tablets 150mg 14tabs take 1/2 Shonna tablet by GRANT Escobar mouth daily Trazodone HCL Active Tablets 100mg take 1 and Unknown 1/2 tablets by mouth at bedtime Followed By 1 Additional Tablet Later On as Necessary Ra Laxative Active Tablets DR 5mg daily as Unknown needed Viactiv Active Chewtabs 500-50 1 chews po Unknown 0-40mg every other -Unt-m daily cg Bisacodyl Ec Active Tablets DR 5mg take one Unknown tablet by mouth daily. hold for loose or frequent stools Calcium Soft Active Chewtabs 500-1- Unknown Chews 1000-4 0mg-Un t-mcg Prednisone 09/29/2018 - Hx Tablets 20mg 9tabs 2 tabs every Other 10/24/2018 day until Ordering finished (qty Provider 10) Prednisone 04/05/2017 - Hx Tablets 10mg 42tabs take 4 tabs Benoit 05/13/2017 by mouth Ozzy, daily for 2 M.D. days then 3 tabs daily for 2 days then 2 tabs for 2 days then 1 tab for 2 days then d/c Prednisone 09/18/2016 - Hx Tablets 2.5mg 1 tab by M0 Zsofia 12/04/2016 mouth every 5. Ehsan, other day 78 [employer] alternating by 2 tabs Reduce dose as discussed Z79.52 Dilaudid 06/26/2016 - Hx Tablets 2mg 60tabs 1-2 tabs by mouth [facility] 09/18/2016 every 4 hours as MD Melania needed Hydrocodone-Ac 06/24/2016 - Hx Tablets 5-325m 60tabs 1 tab by mouth [facility] etaminophen 08/14/2017 g four times a day MD Melania as needed pain Aspirin 06/24/2016 - Hx Tablets 325mg 14tabs take 1 by mouth [facility] 09/18/2016 once a day for MD Melania two weeks Keflex 06/24/2016 - Hx Capsules 500mg 28caps 1 by mouth 4 [facility] 09/18/2016 times a day for 7 MD Melania days Ibuprofen 06/11/2016 - Hx Tablets 600mg 60tabs 1 tab po every 8 [facility] 09/18/2016 hours as needed MD Melania for pain Ibuprofen 06/11/2016 - Hx Tablets 600mg 60tabs 1 tab by mouth S42 [facility] 07/27/2018 every 8 hours as .23 MD Melania needed for pain 2A Thumb 12/17/2015 - Hx Misc 1units use nightly to M05 Benoit Splint/Right 09/28/2018 help with .79 Ozzy, Medium immobilization M.D. Prednisone - Hx Tablets 1mg 180tabs 1 by mouth twice M05 Zsofia 09/18/2016 a day .79 Ehsan, JULIENNE Z79.52 Methotrexate - Hx Tablets 2.5mg 3tabs 4 tbs by Zsofia 06/16/2016 mouth every Ehsan, week [employer] Alendronate - Hx Tablets 70mg 12tabs 1 by mouth M81 Benoit Sodium 07/20/2016 weekly .0 Thee Preciado Trazodone HCL - Hx Tablets 50mg 3 tablets Unknown 07/27/2018 at bedtime as needed Calcium + D3 - Hx Tablets 600-200m 1 by mouth Unknown 09/18/2016 g-Unit every day Irbesartan - Hx Tablets 75mg take 2 Unknown 07/27/2018 tablet every morning Viactiv - Hx Chewtabs once a day Unknown Multi-Vitamin 07/27/2018 Vitamin D3 - Hx Capsules 2000Unit 1 by mouth Unknown 04/17/2017 every day Lidocaine - Hx Patches 5% Apply 1 Unknown 07/27/2018 Patch To The Affected Area Once Daily as Needed For Pain,... Lorazepam - Hx Tablets 0.5mg take 1/2-1 Unknown 07/27/2018 tablet by mouth twice a day as Needed For Spasm maximum ninoska Ra Acetaminophen - Hx Tablets 500mg take 1-2 Unknown Extra Strength 07/27/2018 tablets by mouth three times a day as Needed For Pain Hydrocodone-Aceta - Hx Tablets 5-325mg take 1 Unknown minophen 07/04/2018 tablet by mouth three times a day maximum daily dose of 3 Metoprolol - Hx Tablets ER 25mg 1 by mouth Unknown Succinate ER 07/07/2018 24HR every day Metoprolol - Hx Tablets 25mg 180tabs 1/2 tablet Keeley Tartrate 09/20/2018 twice a day Thee King Immunizations CPT Code Status Date Vaccine Reaction Lot # 94115 Given 05/18/2017 Influenza Virus Vaccine, no immeidate reaction [id number] Quadrivalent, Split, noted Preservative Free 10279 Given 11/05/2014 Pneumococcal Conjugate Vaccine 13 Valent For Intramuscular Use [id number] Given 05/01/2013 Pneumonia Vaccine [id number] Given 12/17/2010 Zoster (Zostavax) Vital Signs Date Vital Result Comment 11/15/2018 1:53pm Height 64 inches 5'4" Weight 147.50 lb Heart Rate 85 /min BP Systolic Sitting 130 mmHg large adult cuff right arm BP Diastolic Sitting 64 mmHg large adult cuff right arm O2 % BldC Oximetry 93 % at rest on room air BMI (Body Mass Index) 25.3 kg/m2 Neck Circumference in inches 13.5 10/25/2018 2:08pm Height 64 inches 5'4" Weight 146.00 lb with shoes Heart Rate 80 /min BP Systolic Sitting 138 mmHg Lue reg cuff BP Diastolic Sitting 74 mmHg Lue reg cuff BP Systolic Standing 140 mmHg Lue reg cuff BP Diastolic Standing 80 mmHg Lue reg cuff BP Systolic Recheck 133 mmHg Rue home bp monitor BP Diastolic Recheck 79 mmHg Rue home bp monitor Respiratory Rate 16 /min BMI (Body Mass Index) 25.1 kg/m2 Ejection Fraction 65-70% date 10/07/18 ECHO 10/06/2018 3:33pm Height 64 inches 5'4" Weight 141.25 lb with shoes Heart Rate 104 /min lt radial BP Systolic Sitting 130 mmHg rt arm, reg cuff, sittingl BP Diastolic Sitting 80 mmHg rt arm, reg cuff, sittingl BP Systolic Standing 110 mmHg rt arm, no dizziness standing BP Diastolic Standing 70 mmHg rt arm, no dizziness standing BMI (Body Mass Index) 24.2 kg/m2 Ejection Fraction 60-65% echo 05/02/18 09/29/2018 3:45pm Height 64 inches 5'4" Weight 142.00 lb fully clothed with shoes and sweater Heart Rate 100 /min regular easilly palpated BP Systolic Sitting 130 mmHg right arm reg cuff BP Diastolic Sitting 90 mmHg right arm reg cuff BP Systolic Standing 130 mmHg right arm reg cuff BP Diastolic Standing 80 mmHg right arm reg cuff Respiratory Rate 14 /min Pain Level 0 BMI (Body Mass Index) 24.4 kg/m2 09/05/2018 1:20pm Height 64 inches 5'4" Weight 146.00 lb BP Systolic 128 mmHg BP Diastolic 80 mmHg Body Temperature 98.6 F BMI (Body Mass Index) 25.1 kg/m2 08/29/2018 12:57pm Height 64.25 inches 5'4.25" Weight 146.00 lb Heart Rate 86 /min BP Systolic 125 mmHg Rue reg cuff BP Diastolic 80 mmHg Rue reg cuff Respiratory Rate 18 /min BMI (Body Mass Index) 24.9 kg/m2 07/28/2018 12:48pm Height 64.25 inches 5'4.25" Weight 145.31 lb with shoes BP Systolic Sitting 140 mmHg Rue reg cuff BP Diastolic Sitting 80 mmHg Rue reg cuff BP Systolic Standing 140 mmHg Rue reg cuff BP Diastolic Standing 82 mmHg Rue reg cuff BMI (Body Mass Index) 24.7 kg/m2 07/05/2018 1:15pm Height 64.25 inches 5'4.25" Weight 138.00 lb Heart Rate 72 /min BP Systolic 116 mmHg BP Diastolic 70 mmHg Respiratory Rate 12 /min Pain Level 2 BMI (Body Mass Index) 23.5 kg/m2 06/17/2018 3:41pm Height 64.25 inches 5'4.25" Weight 140.00 lb BP Systolic Sitting 126 mmHg BP Diastolic Sitting 84 mmHg Pain Level 3 BMI (Body Mass Index) 23.8 kg/m2 05/31/2018 2:14pm Height 64.25 inches 5'4.25" Weight 140.00 lb Heart Rate 64 /min BP Systolic 110 mmHg BP Diastolic 67 mmHg Body Temperature 99.2 F BMI (Body Mass Index) 23.8 kg/m2 05/24/2018 12:59pm Height 64.25 inches 5'4.25" Weight 140.12 lb Heart Rate 68 /min BP Systolic Sitting 112 mmHg BP Diastolic Sitting 68 mmHg O2 % BldC Oximetry 94 % BMI (Body Mass Index) 23.9 kg/m2 05/16/2018 1:34pm Height 64.25 inches 5'4.25" Weight 140.00 lb Heart Rate 64 /min BP Systolic Sitting 104 mmHg BP Diastolic Sitting 66 mmHg Body Temperature 99.5 F BMI (Body Mass Index) 23.8 kg/m2 04/11/2018 2:01pm Height 64.25 inches 5'4.25" Weight 140.00 lb BP Systolic Sitting 158 mmHg BP Diastolic Sitting 68 mmHg Pain Level 6 BMI (Body Mass Index) 23.8 kg/m2 03/08/2018 1:08pm Height 64.25 inches 5'4.25" Weight 140.00 lb BP Systolic Sitting 160 mmHg BP Diastolic Sitting 80 mmHg Pain Level 9 BMI (Body Mass Index) 23.8 kg/m2 02/17/2018 2:00pm Height 64.25 inches 5'4.25" Weight 140.00 lb Heart Rate 90 /min BP Systolic Sitting 121 mmHg BP Diastolic Sitting 71 mmHg Respiratory Rate 14 /min Pain Level 1 BMI (Body Mass Index) 23.8 kg/m2 11/17/2017 1:44pm Height 64.25 inches 5'4.25" Weight 142.12 lb Heart Rate 84 /min BP Systolic Sitting 148 mmHg BP Diastolic Sitting 78 mmHg Respiratory Rate 14 /min Body Temperature 98.8 F Pain Level 1 BMI (Body Mass Index) 24.2 kg/m2 08/18/2017 1:19pm Height 64.25 inches 5'4.25" Weight 141.12 lb Heart Rate 84 /min BP Systolic Sitting 130 mmHg BP Diastolic Sitting 80 mmHg Respiratory Rate 14 /min Pain Level 1 BMI (Body Mass Index) 24.0 kg/m2 05/18/2017 1:39pm Height 64.25 inches 5'4.25" Weight 142.00 lb w/ shoes Heart Rate 96 /min reg BP Systolic Sitting 116 mmHg Rue, reg cuff BP Diastolic Sitting 64 mmHg Rue, reg cuff Respiratory Rate 16 /min Pain Level 0 BMI (Body Mass Index) 24.2 kg/m2 04/06/2017 2:03pm Height 64.25 inches 5'4.25" Weight 140.38 lb Heart Rate 80 /min BP Systolic Sitting 130 mmHg BP Diastolic Sitting 70 mmHg Respiratory Rate 14 /min Pain Level 4 BMI (Body Mass Index) 23.9 kg/m2 03/04/2017 1:58pm Height 64.25 inches 5'4.25" Weight 140.00 lb Heart Rate 106 /min BP Systolic Sitting 135 mmHg BP Diastolic Sitting 70 mmHg Body Temperature 98.0 F Pain Level 1 BMI (Body Mass Index) 23.8 kg/m2 03/03/2017 2:07pm Height 64.25 inches 5'4.25" Weight 142.00 lb Heart Rate 101 /min Respiratory Rate 15 /min Pain Level 2 BMI (Body Mass Index) 24.2 kg/m2 12/04/2016 1:52pm Height 64.25 inches 5'4.25" Weight 142.25 lb Heart Rate 97 /min BP Systolic Sitting 146 mmHg BP Diastolic Sitting 81 mmHg Respiratory Rate 14 /min Pain Level 1 BMI (Body Mass Index) 24.2 kg/m2 10/15/2016 1:27pm Height 64.25 inches 5'4.25" Weight 144.00 lb Heart Rate 96 /min BP Systolic 125 mmHg BP Diastolic 77 mmHg Pain Level 1 BMI (Body Mass Index) 24.5 kg/m2 09/18/2016 12:40pm Height 64.25 inches 5'4.25" Weight 144.00 lb Heart Rate 84 /min BP Systolic Sitting 130 mmHg BP Diastolic Sitting 80 mmHg Respiratory Rate 14 /min Pain Level 1 BMI (Body Mass Index) 24.5 kg/m2 09/01/2016 1:08pm Height 64.25 inches 5'4.25" Weight 148.00 lb Respiratory Rate 17 /min Pain Level 0 BMI (Body Mass Index) 25.2 kg/m2 08/04/2016 1:29pm Height 64.25 inches 5'4.25" Weight 148.00 lb Respiratory Rate 18 /min Pain Level 2 BMI (Body Mass Index) 25.2 kg/m2 07/21/2016 1:34pm Height 64.25 inches 5'4.25" Weight 148.00 lb Pain Level 1 BMI (Body Mass Index) 25.2 kg/m2 07/07/2016 2:38pm Height 64.25 inches 5'4.25" Weight 148.00 lb Pain Level 2 BMI (Body Mass Index) 25.2 kg/m2 06/16/2016 1:57pm Height 64.25 inches 5'4.25" Patient stated Weight 148.00 lb Patient stated Heart Rate 104 /min BP Systolic Sitting 120 mmHg BP Diastolic Sitting 70 mmHg Body Temperature 98.2 F Pain Level 2 BMI (Body Mass Index) 25.2 kg/m2 06/11/2016 1:16pm Height 64.25 inches 5'4.25" Weight 152.00 lb Pain Level 3 BMI (Body Mass Index) 25.9 kg/m2 06/04/2016 1:34pm Height 64.25 inches 5'4.25" Weight 152.00 lb Pain Level 6 BMI (Body Mass Index) 25.9 kg/m2 05/28/2016 2:44pm Height 64.25 inches 5'4.25" Weight 152.00 lb Pain Level 10 BMI (Body Mass Index) 25.9 kg/m2 03/17/2016 2:50pm Height 63.5 inches 5'3.50" Weight 150.12 lb Heart Rate 90 /min BP Systolic Sitting 110 mmHg BP Diastolic Sitting 64 mmHg Respiratory Rate 14 /min Body Temperature 99.0 F Pain Level 1 BMI (Body Mass Index) 26.2 kg/m2 12/17/2015 2:54pm Height 63.5 inches 5'3.50" Weight 149.00 lb Heart Rate 80 /min BP Systolic Sitting 148 mmHg BP Diastolic Sitting 80 mmHg Pain Level 2 BMI (Body Mass Index) 26.0 kg/m2 Results Test Date Facility Test Result H/L Range Note Laboratory test 08/27/2018 [facility] Erythrocyte Sed 28 mm/Hr N 0-[address] [place] [address] [phone] C Reactive Protein 12.92 mg/L High <8.01 CBC Auto Diff 08/27/2018 [facility] White Blood 4.8 10^3/uL N 3.5-10.[address] [place] [address] [phone] Red Blood Count 3.44 10^6/uL Low 4.00-5.40 Hemoglobin 12.3 g/dL N 12.0-16.0 Hematocrit 36 % N 35-47 Mean Corpuscular Volume 106 fL High 80-97 1 Mean Corpuscular Hemoglobin 36 pg High 27-31 Mean Corpuscular HGB Conc 34 g/dL N 31-36 Red Cell Distribution Width 14 % N 10.5-15 Platelet Count 258 10^3/uL N 150-450 Mean Platelet Volume 7.7 fL N 7.4-10.4 Abs Neutrophils 2.8 10^3/uL N 1.5-7.7 Abs Lymphocytes 1.0 10^3/uL N 1.0-4.8 Abs Monocytes 0.5 10^3/uL N 0-0.8 Abs Eosinophils 0.5 10^3/uL N 0-0.6 Abs Basophils 0 10^3/uL N 0-0.2 Abs Nucleated RBC 0 10^3/uL Granulocyte % 58.8 % Lymphocyte % 20.3 % Monocyte % 10.7 % Eosinophil % 9.6 % Basophil % 0.6 % Nucleated Red Blood Cells % 0.1 Comp Metabolic Panel 08/27/2018 [facility] Sodium 134 mmol/L Low 135-[address] [place] [address] [phone] Potassium 4.7 mmol/L N 3.5-5.0 Chloride 98 mmol/L Low 101-111 Co2 Carbon Dioxide 30 mmol/L N 22-32 Anion Gap 6 mmol/L N 2-11 Glucose 151 mg/dL High 70-100 Blood Urea Nitrogen 23 mg/dL N 6-24 Creatinine 0.95 mg/dL N 0.51-0.95 BUN/Creatinine Ratio 24.2 High 8-20 Calcium 9.8 mg/dL N 8.6-10.3 Total Protein 6.5 g/dL N 6.4-8.9 Albumin 4.2 g/dL N 3.2-5.2 Globulin 2.3 g/dL N 2-4 Albumin/Globulin Ratio 1.8 N 1-3 Total Bilirubin 0.60 mg/dL N 0.2-1.0 Alkaline Phosphatase 78 U/L N 34-104 Alt 17 U/L N 7-52 Ast 26 U/L N 13-39 Egfr Non- 57.5 >60 Egfr 69.6 >60 2 Pthi 08/27/2018 [facility] Calcium (PTH Intact) 9.9 mg/dL N 8.6-10.3 [address] [place] [address] [phone] PTH Intact 5.4 pmol/L N 1.3-9.3 1,25 Dihydroxy 08/27/2018 [facility] Calcitriol 38 pg/mL 18- 78 3 Vitamin D [address] [place] [address] [phone] Laboratory test 05/24/2018 [facility] [place] Esr Sedimentation <pending> finding Rate CRP C-Reactive Protein <pending> CBC W/Auto Diff 05/24/2018 [facility] [place] White Blood Count <pending> RBC Red Blood Count <pending> Hemoglobin <pending> Hematocrit <pending> MCV (Corpuscular Volume) <pending> MCH (Corpuscular Hemoglobin) <pending> MCHC (Corpuscular Hemog Conc) <pending> RDW <pending> Platelet Count <pending> MPV <pending> Neutrophils <pending> Bands <pending> Lymphocytes <pending> Monocytes <pending> Eosinophils <pending> Basophils <pending> Absolute Basophil <pending> Absolute Eosinophil <pending> Absolute Lymphocyte <pending> Absolute Monocytes <pending> Absolute Neutrophils <pending> CMP Panel 05/24/2018 [facility] [place] Orders Albumin <pending> Alt - SGPT <pending> Calcium <pending> Carbon Dioxide <pending> Chloride <pending> Creatinine <pending> Glucose Serum <pending> Alkaline Phosphatase <pending> Potassium <pending> Total Protein <pending> Sodium <pending> Ast - Sgot <pending> BUN - Urea Nitrogen <pending> Laboratory test 05/24/2018 [facility] [place] Orders Vitamin D 1,25 <pending> finding Dihodroxy PTH, Intact 05/24/2018 [facility] [place] Orders Intact PTH <pending> Calcium <pending> Calcium PTH <pending> Laboratory test 05/21/2018 [facility] Erythrocyte Sed 22 mm/Hr N 0-[address] [place] [address] [phone] C Reactive Protein 6.11 mg/L N <8.01 CBC Auto Diff 05/21/2018 [facility] White Blood 5.1 10^3/uL N 3.5-10.[address] [place] [address] [phone] Red Blood Count 3.22 10^6/uL Low 4.00-5.40 Hemoglobin 11.7 g/dL Low 12.0-16.0 Hematocrit 35 % N 35-47 Mean Corpuscular Volume 107 fL High 80-97 Mean Corpuscular Hemoglobin 36 pg High 27-31 Mean Corpuscular HGB Conc 34 g/dL N 31-36 Red Cell Distribution Width 15 % N 10.5-15 Platelet Count 399 10^3/uL N 150-450 Mean Platelet Volume 7.9 um3 N 7.4-10.4 Abs Neutrophils 2.7 10^3/uL N 1.5-7.7 Abs Lymphocytes 1.3 10^3/uL N 1.0-4.8 Abs Monocytes 0.7 10^3/uL N 0-0.8 Abs Eosinophils 0.4 10^3/uL N 0-0.6 Abs Basophils 0 10^3/uL N 0-0.2 Abs Nucleated RBC 0 10^3/uL Granulocyte % 53.0 % N 38-83 Lymphocyte % 25.0 % N 25-47 Monocyte % 14.0 % High 0-7 Eosinophil % 7.2 % High 0-6 Basophil % 0.8 % N 0-2 Nucleated Red Blood Cells % 0.1 Comp Metabolic Panel 05/21/2018 [facility] Sodium 138 mmol/L N 135-[address] [place] [address] [phone] Potassium 4.8 mmol/L N 3.5-5.0 Chloride 100 mmol/L Low 101-111 Co2 Carbon Dioxide 30 mmol/L N 22-32 Anion Gap 8 mmol/L N 2-11 Glucose 116 mg/dL High 70-100 Blood Urea Nitrogen 19 mg/dL N 6-24 Creatinine 0.89 mg/dL N 0.51-0.95 BUN/Creatinine Ratio 21.3 High 8-20 Calcium 9.9 mg/dL N 8.6-10.3 Total Protein 6.3 g/dL Low 6.4-8.9 Albumin 4.1 g/dL N 3.2-5.2 Globulin 2.2 g/dL N 2-4 Albumin/Globulin Ratio 1.9 N 1-3 Total Bilirubin 0.60 mg/dL N 0.2-1.0 Alkaline Phosphatase 93 U/L N 34-104 Alt 21 U/L N 7-52 Ast 31 U/L N 13-39 Egfr Non- 62.0 >60 Egfr 75.0 >60 4 Laboratory test 05/01/2018 [facility] Creatine 697 U/L High 10 -[address] Kinase(CK) [place] [address] [phone] Troponin I 0.16 ng/mL High <0.04 5 Lipid Profile 05/01/2018 [facility] Triglycerides 51 mg/dL 6 (Trig/Chol/HDL) [address] [place] [address] [phone] Cholesterol 158 mg/dL 7 HDL Cholesterol 76.2 mg/dL 8 LDL Cholesterol 72 mg/dL 9 CKMB 05/01/2018 [facility] CKMB ng/mL 24.8 High 0.6-6.[address] ng/[place] [address] [phone] Laboratory test 02/15/2018 [facility] Erythrocyte Sed 23 mm/Hr N 0-40 [address] [place] [address] [phone] C Reactive Protein 13.09 mg/L High <8.01 11 CBC Auto Diff 02/15/2018 [facility] White Blood 5.2 10^3/uL N 3.5-10.[address] [place] [address] [phone] Red Blood Count 3.28 10^6/uL Low 4.00-5.40 Hemoglobin 11.9 g/dL Low 12.0-16.0 Hematocrit 35 % N 35-47 Mean Corpuscular Volume 107 fL High 80-97 12 Mean Corpuscular Hemoglobin 36 pg High 27-31 Mean Corpuscular HGB Conc 34 g/dL N 31-36 Red Cell Distribution Width 15 % N 10.5-15 Platelet Count 279 10^3/uL N 150-450 Mean Platelet Volume 7.8 um3 N 7.4-10.4 Abs Neutrophils 3.7 10^3/uL N 1.5-7.7 Abs Lymphocytes 0.8 10^3/uL Low 1.0-4.8 Abs Monocytes 0.5 10^3/uL N 0-0.8 Abs Eosinophils 0.3 10^3/uL N 0-0.6 Abs Basophils 0 10^3/uL N 0-0.2 Abs Nucleated RBC 0 10^3/uL Granulocyte % 70.3 % N 38-83 Lymphocyte % 15.0 % Low 25-47 Monocyte % 8.8 % High 0-7 Eosinophil % 5.4 % N 0-6 Basophil % 0.5 % N 0-2 Nucleated Red Blood Cells % 0 Comp Metabolic Panel 02/15/2018 [facility] Sodium 137 mmol/L N 135-145 [address] [place] [address] [phone] Potassium 4.7 mmol/L N 3.5-5.0 Chloride 101 mmol/L N 101-111 Co2 Carbon Dioxide 28 mmol/L N 22-32 Anion Gap 8 mmol/L N 2-11 Glucose 134 mg/dL High 70-100 Blood Urea Nitrogen 19 mg/dL N 6-24 Creatinine 0.99 mg/dL High 0.51-0.95 BUN/Creatinine Ratio 19.2 N 8-20 Calcium 10.2 mg/dL N 8.6-10.3 Total Protein 6.5 g/dL N 6.4-8.9 Albumin 3.9 g/dL N 3.2-5.2 Globulin 2.6 g/dL N 2-4 Albumin/Globulin Ratio 1.5 N 1-3 Total Bilirubin 1.00 mg/dL N 0.2-1.0 Alkaline Phosphatase 46 U/L N 34-104 Alt 22 U/L N 7-52 Ast 39 U/L N 13-39 Egfr Non- 55.0 >60 Egfr 66.5 >60 13 Laboratory test 02/15/2018 [facility] Erythrocyte Sed 23 mm/Hr N 0-40 [address] [place] [address] [phone] C Reactive Protein 13.09 mg/L High <8.01 15 CBC Auto Diff 02/15/2018 [facility] White Blood 5.2 10^3/uL N 3.5-10.[address] [place] [address] [phone] Red Blood Count 3.28 10^6/uL Low 4.00-5.40 Hemoglobin 11.9 g/dL Low 12.0-16.0 Hematocrit 35 % N 35-47 Mean Corpuscular Volume 107 fL High 80-97 16 Mean Corpuscular Hemoglobin 36 pg High 27-31 Mean Corpuscular HGB Conc 34 g/dL N 31-36 Red Cell Distribution Width 15 % N 10.5-15 Platelet Count 279 10^3/uL N 150-450 Mean Platelet Volume 7.8 um3 N 7.4-10.4 Abs Neutrophils 3.7 10^3/uL N 1.5-7.7 Abs Lymphocytes 0.8 10^3/uL Low 1.0-4.8 Abs Monocytes 0.5 10^3/uL N 0-0.8 Abs Eosinophils 0.3 10^3/uL N 0-0.6 Abs Basophils 0 10^3/uL N 0-0.2 Abs Nucleated RBC 0 10^3/uL Granulocyte % 70.3 % N 38-83 Lymphocyte % 15.0 % Low 25-47 Monocyte % 8.8 % High 0-7 Eosinophil % 5.4 % N 0-6 Basophil % 0.5 % N 0-2 Nucleated Red Blood Cells % 0 Comp Metabolic Panel 02/15/2018 [facility] Sodium 137 mmol/L N 135-[address] [place] [address] [phone] Potassium 4.7 mmol/L N 3.5-5.0 Chloride 101 mmol/L N 101-111 Co2 Carbon Dioxide 28 mmol/L N 22-32 Anion Gap 8 mmol/L N 2-11 Glucose 134 mg/dL High 70-100 Blood Urea Nitrogen 19 mg/dL N 6-24 Creatinine 0.99 mg/dL High 0.51-0.95 BUN/Creatinine Ratio 19.2 N 8-20 Calcium 10.2 mg/dL N 8.6-10.3 Total Protein 6.5 g/dL N 6.4-8.9 Albumin 3.9 g/dL N 3.2-5.2 Globulin 2.6 g/dL N 2-4 Albumin/Globulin Ratio 1.5 N 1-3 Total Bilirubin 1.00 mg/dL N 0.2-1.0 Alkaline Phosphatase 46 U/L N 34-104 Alt 22 U/L N 7-52 Ast 39 U/L N 13-39 Egfr Non- 55.0 >60 Egfr 66.5 >60 17 Laboratory test 11/13/2017 [facility] Erythrocyte Sed 18 mm/Hr N 0-[address] [place] [address] [phone] C Reactive Protein 7.94 mg/L High < 5.00 18 CBC Auto Diff 11/13/2017 [facility] White Blood 6.1 10^3/uL N 3.5-10.[address] [place] [address] [phone] Red Blood Count 3.28 10^6/uL Low 4.0-5.4 Hemoglobin 11.8 g/dL Low 12.0-16.0 Hematocrit 35 % N 35-47 Mean Corpuscular Volume 106 fL High 80-97 19 Mean Corpuscular Hemoglobin 36 pg High 27-31 Mean Corpuscular HGB Conc 34 g/dL N 31-36 Red Cell Distribution Width 14 % N 10.5-15 Platelet Count 265 10^3/uL N 150-450 Mean Platelet Volume 8.2 um3 N 7.4-10.4 Abs Neutrophils 4.5 10^3/uL N 1.5-7.7 Abs Lymphocytes 1.0 10^3/uL N 1.0-4.8 Abs Monocytes 0.6 10^3/uL N 0-0.8 Abs Eosinophils 0 10^3/uL N 0-0.6 Abs Basophils 0 10^3/uL N 0-0.2 Abs Nucleated RBC 0 10^3/uL Granulocyte % 73.3 % N 38-83 Lymphocyte % 15.9 % Low 25-47 Monocyte % 10.5 % High 0-7 Eosinophil % 0 % N 0-6 Basophil % 0.3 % N 0-2 Nucleated Red Blood Cells % 0 Comp Metabolic Panel 11/13/2017 [facility] Sodium 133 mmol/L N 133-[address] [place] [address] [phone] Potassium 4.5 mmol/L N 3.5-5.0 Chloride 99 mmol/L Low 101-111 Co2 Carbon Dioxide 28 mmol/L N 22-32 Anion Gap 6 mmol/L N 2-11 Glucose 160 mg/dL High 70-100 Blood Urea Nitrogen 18 mg/dL N 6-24 Creatinine 1.11 mg/dL High 0.51-0.95 BUN/Creatinine Ratio 16.2 N 8-20 Calcium 9.8 mg/dL N 8.6-10.3 Total Protein 6.3 g/dL Low 6.4-8.9 Albumin 3.9 g/dL N 3.2-5.2 Globulin 2.4 g/dL N 2-4 Albumin/Globulin Ratio 1.6 N 1-3 Total Bilirubin 1.00 mg/dL N 0.2-1.0 Alkaline Phosphatase 50 U/L N 34-104 Alt 20 U/L N 7-52 Ast 41 U/L High 13-39 Egfr Non- 48.2 >60 Egfr 62.0 >60 20 Laboratory test 08/12/2017 [facility] Erythrocyte Sed 29 mm/Hr N 0-[address] [place] [address] [phone] C Reactive Protein 20.03 mg/L High < 5.00 21 CBC Auto Diff 08/12/2017 [facility] White Blood 6.5 10^3/uL N 3.5-10.[address] [place] [address] [phone] Red Blood Count 3.26 10^6/uL Low 4.0-5.4 Hemoglobin 11.8 g/dL Low 12.0-16.0 Hematocrit 35 % N 35-47 Mean Corpuscular Volume 106 fL High 80-97 22 Mean Corpuscular Hemoglobin 36 pg High 27-31 Mean Corpuscular HGB Conc 34 g/dL N 31-36 Red Cell Distribution Width 15 % N 10.5-15 Platelet Count 275 10^3/uL N 150-450 Mean Platelet Volume 9 um3 N 7.4-10.4 Abs Neutrophils 4.8 10^3/uL N 1.5-7.7 Abs Lymphocytes 1.2 10^3/uL N 1.0-4.8 Abs Monocytes 0.5 10^3/uL N 0-0.8 Abs Eosinophils 0 10^3/uL N 0-0.6 Abs Basophils 0 10^3/uL N 0-0.2 Abs Nucleated RBC 0 10^3/uL Granulocyte % 74.1 % N 38-83 Lymphocyte % 17.9 % Low 25-47 Monocyte % 7.6 % N 1-9 Eosinophil % 0 % N 0-6 Basophil % 0.4 % N 0-2 Nucleated Red Blood Cells % 0 Comp Metabolic Panel 08/12/2017 [facility] Sodium 134 mmol/L N 133-[address] [place] [address] [phone] Potassium 5.0 mmol/L N 3.5-5.0 Chloride 99 mmol/L Low 101-111 Co2 Carbon Dioxide 29 mmol/L N 22-32 Anion Gap 6 mmol/L N 2-11 Glucose 89 mg/dL N 70-100 Blood Urea Nitrogen 20 mg/dL N 6-24 Creatinine 1.02 mg/dL High 0.51-0.95 BUN/Creatinine Ratio 19.6 N 8-20 Calcium 9.9 mg/dL N 8.6-10.3 Total Protein 6.7 g/dL N 6.4-8.9 Albumin 4.0 g/dL N 3.2-5.2 Globulin 2.7 g/dL N 2-4 Albumin/Globulin Ratio 1.5 N 1-3 Total Bilirubin 0.80 mg/dL N 0.2-1.0 Alkaline Phosphatase 57 U/L N 34-104 Alt 20 U/L N 7-52 Ast 36 U/L N 13-39 Egfr Non- 53.1 >60 Egfr 68.3 >60 23 Laboratory test 08/12/2017 [facility] Vitamin D, 1,25 21 pg/mL 18-78 [address] [place] [address] [phone] CMP Panel 05/15/2017 [facility] Sodium 135 mmol/L N 133-[address] [place] [address] [phone] Potassium 4.8 mmol/L N 3.5-5.0 Chloride 101 mmol/L N 101-111 Co2 Carbon Dioxide 28 mmol/L N 22-32 Anion Gap 6 mmol/L N 2-11 Glucose 141 mg/dL High 70-100 Blood Urea Nitrogen 15 mg/dL N 6-24 Creatinine 1.00 mg/dL High 0.51-0.95 BUN/Creatinine Ratio 15.0 N 8-20 Calcium 9.9 mg/dL N 8.6-10.3 Total Protein 6.3 g/dL Low 6.4-8.9 Albumin 3.6 g/dL N 3.2-5.2 Globulin 2.7 g/dL N 2-4 Albumin/Globulin Ratio 1.3 N 1-3 Total Bilirubin 0.70 mg/dL N 0.2-1.0 Alkaline Phosphatase 52 U/L N 34-104 Alt 14 U/L N 7-52 Ast 29 U/L N 13-39 Egfr Non- 54.3 N >60 Egfr 69.9 N >60 25 Quantiferon Gold 05/15/2017 [facility] M tuberculosis Negative N Negative [address] [place] [address] [phone] TB Ag minus Nil Result 0.01 IU/mL N TB Mitogen minus Nil Result > 10.00 IU/mL N TB Nil Result 0.02 IU/mL N 27 Laboratory test 05/15/2017 [facility] Erythrocyte Sed 29 mm/Hr N 0-[address] [place] [address] [phone] CBC W/Auto Diff 05/15/2017 [facility] White Blood 5.7 N 3.5- 10.[address] Count 10^3/[place] [address] [phone] Red Blood Count 3.28 10^6/uL Low 4.0-5.4 Hemoglobin 11.5 g/dL Low 12.0-16.0 Hematocrit 34 % Low 35-47 Mean Corpuscular Volume 105 fL High 80-97 Mean Corpuscular Hemoglobin 35 pg High 27-31 Mean Corpuscular HGB Conc 34 g/dL N 31-36 Red Cell Distribution Width 15 % N 10.5-15 Platelet Count 268 10^3/uL N 150-450 Mean Platelet Volume 9 um3 N 7.4-10.4 Abs Neutrophils 3.9 10^3/uL N 1.5-7.7 Abs Lymphocytes 1.1 10^3/uL N 1.0-4.8 Abs Monocytes 0.6 10^3/uL N 0-0.8 Abs Eosinophils 0 10^3/uL N 0-0.6 Abs Basophils 0 10^3/uL N 0-0.2 Abs Nucleated RBC 0 10^3/uL N Granulocyte % 69.7 % N 38-83 Lymphocyte % 18.9 % Low 25-47 Monocyte % 11.0 % High 1-9 Eosinophil % 0 % N 0-6 Basophil % 0.4 % N 0-2 Nucleated Red Blood Cells % 0 N Laboratory test 05/15/2017 [facility] C Reactive 10.76 mg/L High < 5.00 [address] [place] [address] [phone] CBC W/Auto Diff 02/26/2017 [facility] White Blood 5.7 N 3.5- 10.[address] Count 10^3/[place] [address] [phone] Red Blood Count 3.21 10^6/uL Low 4.0-5.4 Hemoglobin 11.5 g/dL Low 12.0-16.0 Hematocrit 34 % Low 35-47 Mean Corpuscular Volume 107 fL High 80-97 Mean Corpuscular Hemoglobin 36 pg High 27-31 Mean Corpuscular HGB Conc 34 g/dL N 31-36 Red Cell Distribution Width 16 % High 10.5-15 Platelet Count 222 10^3/uL N 150-450 Mean Platelet Volume 9 um3 N 7.4-10.4 Abs Neutrophils 3.9 10^3/uL N 1.5-7.7 Abs Lymphocytes 0.9 10^3/uL Low 1.0-4.8 Abs Monocytes 0.8 10^3/uL N 0-0.8 Abs Eosinophils 0 10^3/uL N 0-0.6 Abs Basophils 0 10^3/uL N 0-0.2 Abs Nucleated RBC 0 10^3/uL N Granulocyte % 69.1 % N 38-83 Lymphocyte % 16.6 % Low 25-47 Monocyte % 13.8 % High 1-9 Eosinophil % 0 % N 0-6 Basophil % 0.5 % N 0-2 Nucleated Red Blood Cells % 0.1 N CMP Panel 02/26/2017 [facility] Sodium 137 mmol/L N 133-[address] [place] [address] [phone] Potassium 5.1 mmol/L High 3.5-5.0 Chloride 101 mmol/L N 101-111 Co2 Carbon Dioxide 28 mmol/L N 22-32 Anion Gap 8 mmol/L N 2-11 Glucose 102 mg/dL High 70-100 Blood Urea Nitrogen 20 mg/dL N 6-24 Creatinine 1.11 mg/dL High 0.51-0.95 BUN/Creatinine Ratio 18.0 N 8-20 Calcium 10.2 mg/dL N 8.6-10.3 Total Protein 6.5 g/dL N 6.4-8.9 Albumin 3.8 g/dL N 3.2-5.2 Globulin 2.7 g/dL N 2-4 Albumin/Globulin Ratio 1.4 N 1-3 Total Bilirubin 0.90 mg/dL N 0.2-1.0 Alkaline Phosphatase 47 U/L N 34-104 Alt 19 U/L N 7-52 Ast 39 U/L N 13-39 Egfr Non- 48.3 N >60 Egfr 62.1 N >60 29 Laboratory test 02/26/2017 [facility] Erythrocyte Sed 30 mm/Hr N 0-[address] [place] [address] [phone] C Reactive Protein 12.15 mg/L High < 5.00 30 Laboratory test 02/26/2017 [facility] Vitamin D 63.0 ng/mL High 30-[address] Total 25(Oh) [place] [address] [phone] Laboratory test 12/01/2016 [facility] Vitamin D 66.3 ng/mL High 30-[address] Total 25(Oh) [place] [address] [phone] CBC Auto Diff 12/01/2016 [facility] White Blood 5.3 N 3.5- 10.[address] Count 10^3/[place] [address] [phone] Red Blood Count 3.28 10^6/uL Low 4.0-5.4 Hemoglobin 11.2 g/dL Low 12.0-16.0 Hematocrit 34 % Low 35-47 Mean Corpuscular Volume 103 fL High 80-97 Mean Corpuscular Hemoglobin 34 pg High 27-31 Mean Corpuscular HGB Conc 33 g/dL N 31-36 Red Cell Distribution Width 15 % N 10.5-15 Platelet Count 219 10^3/uL N 150-450 Mean Platelet Volume 9 um3 N 7.4-10.4 Abs Neutrophils 4.0 10^3/uL N 1.5-7.7 Abs Lymphocytes 0.9 10^3/uL Low 1.0-4.8 Abs Monocytes 0.4 10^3/uL N 0-0.8 Abs Eosinophils 0 10^3/uL N 0-0.6 Abs Basophils 0 10^3/uL N 0-0.2 Abs Nucleated RBC 0 10^3/uL N Granulocyte % 75.3 % N 38-83 Lymphocyte % 17.0 % Low 25-47 Monocyte % 7.2 % N 1-9 Eosinophil % 0 % N 0-6 Basophil % 0.5 % N 0-2 Nucleated Red Blood Cells % 0 N Laboratory test 12/01/2016 [facility] Erythrocyte Sed 28 mm/Hr N 0-[address] [place] [address] [phone] Comp Metabolic 12/01/2016 [facility] Sodium 136 mmol/L N 133- [address] [place] [address] [phone] Potassium 4.3 mmol/L N 3.5-5.0 Chloride 100 mmol/L Low 101-111 Co2 Carbon Dioxide 28 mmol/L N 22-32 Anion Gap 8 mmol/L N 2-11 Glucose 112 mg/dL High 70-100 Blood Urea Nitrogen 15 mg/dL N 6-24 Creatinine 0.92 mg/dL N 0.51-0.95 BUN/Creatinine Ratio 16.3 N 8-20 Calcium 9.8 mg/dL N 8.6-10.3 Total Protein 6.3 g/dL Low 6.4-8.9 Albumin 3.7 g/dL N 3.2-5.2 Globulin 2.6 g/dL N 2-4 Albumin/Globulin Ratio 1.4 N 1-3 Total Bilirubin 0.70 mg/dL N 0.2-1.0 Alkaline Phosphatase 51 U/L N 34-104 Alt 23 U/L N 7-52 Ast 53 U/L High 13-39 Egfr Non- 60.0 N >60 Egfr 77.2 N >60 31 Laboratory test 12/01/2016 [facility] C Reactive 5.87 mg/L High < 5.00 [address] [place] [address] [phone] Comp Metabolic 09/16/2016 [facility] Sodium 136 N 133-[address] mmol/[place] [address] [phone] Potassium 5.6 mmol/L High 3.5-5.0 Chloride 101 mmol/L N 101-111 Co2 Carbon Dioxide 30 mmol/L N 22-32 Anion Gap 5 mmol/L N 2-11 Glucose 129 mg/dL High 70-100 Blood Urea Nitrogen 16 mg/dL N 6-24 Creatinine 1.03 mg/dL High 0.51-0.95 BUN/Creatinine Ratio 15.5 N 8-20 Calcium 9.9 mg/dL N 8.6-10.3 Total Protein 6.5 g/dL N 6.4-8.9 Albumin 3.8 g/dL N 3.2-5.2 Globulin 2.7 g/dL N 2-4 Albumin/Globulin Ratio 1.4 N 1-3 Total Bilirubin 0.60 mg/dL N 0.2-1.0 Alkaline Phosphatase 53 U/L N 34-104 Alt 16 U/L N 7-52 Ast 32 U/L N 13-39 Egfr Non- 52.7 N >60 Egfr 67.7 N >60 33 Laboratory test 09/16/2016 [facility] C Reactive 5.64 mg/L High < 5.00 [address] [place] [address] [phone] CBC Auto Diff 09/16/2016 [facility] White Blood 7.8 N 3.5- 10.[address] Count 10^3/[place] [address] [phone] Red Blood Count 3.50 10^6/uL Low 4.0-5.4 Hemoglobin 12.1 g/dL N 12.0-16.0 Hematocrit 37 % N 35-47 Mean Corpuscular Volume 105 fL High 80-97 35 Mean Corpuscular Hemoglobin 35 pg High 27-31 Mean Corpuscular HGB Conc 33 g/dL N 31-36 Red Cell Distribution Width 15 % N 10.5-15 Platelet Count 236 10^3/uL N 150-450 Mean Platelet Volume 8 um3 N 7.4-10.4 Abs Neutrophils 6.1 10^3/uL N 1.5-7.7 Abs Lymphocytes 0.9 10^3/uL Low 1.0-4.8 Abs Monocytes 0.8 10^3/uL N 0-0.8 Abs Eosinophils 0 10^3/uL N 0-0.6 Abs Basophils 0 10^3/uL N 0-0.2 Abs Nucleated RBC 0 10^3/uL N Granulocyte % 77.8 % N 38-83 Lymphocyte % 11.6 % Low 25-47 Monocyte % 10.1 % High 1-9 Eosinophil % 0 % N 0-6 Basophil % 0.5 % N 0-2 Nucleated Red Blood Cells % 0 N Laboratory test 09/16/2016 [facility] Erythrocyte Sed 21 mm/Hr N 0-[address] [place] [address] [phone] Vitamin D Total 25(Oh) 57.1 ng/mL High 30-50 CBC Auto Diff 07/29/2016 [facility] White Blood 7.1 10^3/uL N 3.5-10.[address] Count [place], [place] [id number] [phone] Red Blood Count 3.19 10^6/uL Low 4.0-5.4 Hemoglobin 11.2 g/dL Low 12.0-16.0 Hematocrit 34 % Low 35-47 Mean Corpuscular Volume 106 fL High 80-97 36 Mean Corpuscular Hemoglobin 35 pg High 27-31 Mean Corpuscular HGB Conc 33 g/dL N 31-36 Red Cell Distribution Width 17 % High 10.5-15 Platelet Count 275 10^3/uL N 150-450 Mean Platelet Volume 8 um3 N 7.4-10.4 Abs Neutrophils 5.0 10^3/uL N 1.5-7.7 Abs Lymphocytes 1.4 10^3/uL N 1.0-4.8 Abs Monocytes 0.7 10^3/uL N 0-0.8 Abs Eosinophils 0 10^3/uL N 0-0.6 Abs Basophils 0 10^3/uL N 0-0.2 Abs Nucleated RBC 0 10^3/uL N Granulocyte % 70.0 % N 38-83 Lymphocyte % 19.6 % Low 25-47 Monocyte % 9.7 % High 1-9 Eosinophil % 0 % N 0-6 Basophil % 0.7 % N 0-2 Nucleated Red Blood Cells % 0.1 N Laboratory test 07/29/2016 [facility] Erythrocyte Sed 29 mm/Hr N 0-40 [address] [place] [address] [phone] CBC Auto Diff 07/29/2016 [facility] White Blood 7.1 N 3.5- 10.[address] Count 10^3/[place] [address] [phone] Red Blood Count 3.19 10^6/uL Low 4.0-5.4 Hemoglobin 11.2 g/dL Low 12.0-16.0 Hematocrit 34 % Low 35-47 Mean Corpuscular Volume 106 fL High 80-97 38 Mean Corpuscular Hemoglobin 35 pg High 27-31 Mean Corpuscular HGB Conc 33 g/dL N 31-36 Red Cell Distribution Width 17 % High 10.5-15 Platelet Count 275 10^3/uL N 150-450 Mean Platelet Volume 8 um3 N 7.4-10.4 Abs Neutrophils 5.0 10^3/uL N 1.5-7.7 Abs Lymphocytes 1.4 10^3/uL N 1.0-4.8 Abs Monocytes 0.7 10^3/uL N 0-0.8 Abs Eosinophils 0 10^3/uL N 0-0.6 Abs Basophils 0 10^3/uL N 0-0.2 Abs Nucleated RBC 0 10^3/uL N Granulocyte % 70.0 % N 38-83 Lymphocyte % 19.6 % Low 25-47 Monocyte % 9.7 % High 1-9 Eosinophil % 0 % N 0-6 Basophil % 0.7 % N 0-2 Nucleated Red Blood Cells % 0.1 N Comp Metabolic Panel 07/29/2016 [facility] Sodium 137 mmol/L N 133-[address] [place] [address] [phone] Potassium 4.3 mmol/L N 3.5-5.0 Chloride 98 mmol/L Low 101-111 Co2 Carbon Dioxide 29 mmol/L N 22-32 Anion Gap 10 mmol/L N 2-11 Glucose 88 mg/dL N 70-100 Blood Urea Nitrogen 13 mg/dL N 6-24 Creatinine 1.00 mg/dL High 0.51-0.95 BUN/Creatinine Ratio 13.0 N 8-20 Calcium 9.6 mg/dL N 8.6-10.3 Total Protein 6.3 g/dL Low 6.4-8.9 Albumin 3.7 g/dL N 3.2-5.2 Globulin 2.6 g/dL N 2-4 Albumin/Globulin Ratio 1.4 N 1-3 Total Bilirubin 0.50 mg/dL N 0.2-1.0 Alkaline Phosphatase 55 U/L N 34-104 Alt 17 U/L N 7-52 Ast 33 U/L N 13-39 Egfr Non- 54.5 N >60 Egfr 70.1 N >60 39 Laboratory test 07/29/2016 [facility] C Reactive 6.12 mg/L High < 5.00 [address] [place] [address] [phone] Erythrocyte Sed Rate 29 mm/Hr N 0-40 41 Vitamin D Total 25(Oh) 46.7 ng/mL N 30-50 42 Laboratory test 07/29/2016 [facility] Vitamin D Total 46.7 ng/ mL N 30-50 [address] 25(Oh) [place] [address] [phone] Laboratory test 06/23/2016 [facility] Cancellous SEE RESULTS 44, [address] Chips 5cc [place]O <[place] [address] NOTE> [phone] DBM Putty Orthoblast II 5cc SEE RESULTS BELO <SEE NOTE> 46 Comp Metabolic Panel 06/11/2016 [facility] Sodium 139 mmol/L N 133-[address] [place] [address] [phone] Potassium 4.3 mmol/L N 3.5-5.0 Chloride 102 mmol/L N 101-111 Co2 Carbon Dioxide 29 mmol/L N 22-32 Anion Gap 8 mmol/L N 2-11 Glucose 119 mg/dL High 70-100 Blood Urea Nitrogen 9 mg/dL N 6-24 Creatinine 0.87 mg/dL N 0.51-0.95 BUN/Creatinine Ratio 10.3 N 8-20 Calcium 9.7 mg/dL N 8.6-10.3 Total Protein 6.0 g/dL Low 6.4-8.9 Albumin 3.7 g/dL N 3.2-5.2 Globulin 2.3 g/dL N 2-4 Albumin/Globulin Ratio 1.6 N 1-3 Total Bilirubin 0.40 mg/dL N 0.2-1.0 Alkaline Phosphatase 54 U/L N 34-104 Alt 26 U/L N 7-52 Ast 38 U/L N 13-39 Egfr Non- 64.0 N >60 Egfr 82.3 N >60 47 CBC Auto Diff 06/11/2016 [facility] White Blood 6.5 10^3/uL N 3.5-10.[address] [place] [address] [phone] Red Blood Count 3.16 10^6/uL Low 4.0-5.4 Hemoglobin 11.0 g/dL Low 12.0-16.0 Hematocrit 33 % Low 35-47 Mean Corpuscular Volume 104 fL High 80-97 Mean Corpuscular Hemoglobin 35 pg High 27-31 Mean Corpuscular HGB Conc 33 g/dL N 31-36 Red Cell Distribution Width 15 % N 10.5-15 Platelet Count 315 10^3/uL N 150-450 Mean Platelet Volume 8 um3 N 7.4-10.4 Abs Neutrophils 5.1 10^3/uL N 1.5-7.7 Abs Lymphocytes 0.8 10^3/uL Low 1.0-4.8 Abs Monocytes 0.5 10^3/uL N 0-0.8 Abs Eosinophils 0 10^3/uL N 0-0.6 Abs Basophils 0 10^3/uL N 0-0.2 Abs Nucleated RBC 0 10^3/uL N Granulocyte % 79.0 % N 38-83 Lymphocyte % 12.9 % Low 25-47 Monocyte % 7.5 % N 1-9 Eosinophil % 0 % N 0-6 Basophil % 0.6 % N 0-2 Nucleated Red Blood Cells % 0 N Laboratory test 06/11/2016 [facility] C Reactive 11.86 mg/L High < 5.00 [address] [place] [address] [phone] Erythrocyte Sed Rate 20 mm/Hr N 0-40 49 CBC Auto Diff 03/12/2016 [facility] White Blood 6.2 10^3/uL N 3.5-10.[address] [place] [address] [phone] Red Blood Count 3.66 10^6/uL Low 4.0-5.4 Hemoglobin 12.5 g/dL N 12.0-16.0 Hematocrit 38 % N 35-47 Mean Corpuscular Volume 104 fL High 80-97 Mean Corpuscular Hemoglobin 34 pg High 27-31 Mean Corpuscular HGB Conc 33 g/dL N 31-36 Red Cell Distribution Width 15 % N 10.5-15 Platelet Count 264 10^3/uL N 150-450 Mean Platelet Volume 8 um3 N 7.4-10.4 Abs Neutrophils 4.3 10^3/uL N 1.5-7.7 Abs Lymphocytes 1.3 10^3/uL N 1.0-4.8 Abs Monocytes 0.5 10^3/uL N 0-0.8 Abs Eosinophils 0.1 10^3/uL N 0-0.6 Abs Basophils 0 10^3/uL N 0-0.2 Abs Nucleated RBC 0 10^3/uL N Granulocyte % 69.3 % N 38-83 Lymphocyte % 20.4 % Low 25-47 Monocyte % 8.7 % N 1-9 Eosinophil % 0.9 % N 0-6 Basophil % 0.7 % N 0-2 Nucleated Red Blood Cells % 0.1 N Laboratory test 03/12/2016 [facility] C Reactive 9.40 High < 5.00 [address] Protein mg/[place] [address] [phone] Laboratory test 03/12/2016 [facility] Erythrocyte Sed 16 mm/Hr N 0-[address] [place] [address] [phone] Comp Metabolic 03/12/2016 [facility] Sodium 137 N 133-[address] mmol/[place] [address] [phone] Potassium 4.4 mmol/L N 3.5-5.0 Chloride 100 mmol/L Low 101-111 Co2 Carbon Dioxide 30 mmol/L N 22-32 Anion Gap 7 mmol/L N 2-11 Glucose 146 mg/dL High 70-100 Blood Urea Nitrogen 15 mg/dL N 6-24 Creatinine 0.90 mg/dL N 0.51-0.95 BUN/Creatinine Ratio 16.7 N 8-20 Calcium 9.5 mg/dL N 8.6-10.3 Total Protein 6.1 g/dL Low 6.4-8.9 Albumin 3.7 g/dL N 3.2-5.2 Globulin 2.4 g/dL N 2-4 Albumin/Globulin Ratio 1.5 N 1-3 Total Bilirubin 0.80 mg/dL N 0.2-1.0 Alkaline Phosphatase 51 U/L N 34-104 Alt 27 U/L N 7-52 Ast 39 U/L N 13-39 Egfr Non- 61.7 N >60 Egfr 79.4 N >60 51 Laboratory test 12/19/2015 [facility] C Reactive 8.80 mg/L High < 5.00 [address] [place] [address] [phone] Erythrocyte Sed Rate 17 mm/Hr N 0-40 53 CBC Auto Diff 12/19/2015 [facility] White Blood 5.5 10^3/uL N 3.5-10.[address] [place] [address] [phone] Red Blood Count 3.66 10^6/uL Low 4.0-5.4 Hemoglobin 12.5 g/dL N 12.0-16.0 Hematocrit 38 % N 35-47 Mean Corpuscular Volume 103 fL High 80-97 Mean Corpuscular Hemoglobin 34 pg High 27-31 Mean Corpuscular HGB Conc 33 g/dL N 31-36 Red Cell Distribution Width 15 % N 10.5-15 Platelet Count 255 10^3/uL N 150-450 Mean Platelet Volume 9 um3 N 7.4-10.4 Abs Neutrophils 3.5 10^3/uL N 1.5-7.7 Abs Lymphocytes 1.2 10^3/uL N 1.0-4.8 Abs Monocytes 0.7 10^3/uL N 0-0.8 Abs Eosinophils 0.1 10^3/uL N 0-0.6 Abs Basophils 0 10^3/uL N 0-0.2 Abs Nucleated RBC 0.01 10^3/uL N Granulocyte % 64.3 % N 38-83 Lymphocyte % 21.5 % Low 25-47 Monocyte % 12.1 % High 1-9 Eosinophil % 1.3 % N 0-6 Basophil % 0.8 % N 0-2 Nucleated Red Blood Cells % 0.1 N Comp Metabolic Panel 12/19/2015 [facility] Sodium 133 mmol/L N 133-[address] [place] [address] [phone] Potassium 4.6 mmol/L N 3.5-5.0 Chloride 97 mmol/L Low 101-111 Co2 Carbon Dioxide 28 mmol/L N 22-32 Anion Gap 8 mmol/L N 2-11 Glucose 133 mg/dL High 70-100 Blood Urea Nitrogen 13 mg/dL N 6-24 Creatinine 0.98 mg/dL High 0.51-0.95 BUN/Creatinine Ratio 13.3 N 8-20 Calcium 9.8 mg/dL N 8.6-10.3 Total Protein 6.7 g/dL N 6.4-8.9 Albumin 4.0 g/dL N 3.2-5.2 Globulin 2.7 g/dL N 2-4 Albumin/Globulin Ratio 1.5 N 1-3 Total Bilirubin 0.90 mg/dL N 0.2-1.0 Alkaline Phosphatase 59 U/L N 34-104 Alt 18 U/L N 7-52 Ast 25 U/L N 13-39 Egfr Non- 55.9 N >60 Egfr 71.9 N >60 54 1 Consistent with Previous Results Reported on 05/21/18 2 Because ethnic data is not always readily [...] 15-29 5 Kidney failure <15 (or dialysis) 3 ADDITIONAL INFORMATION This test was developed and its performance characteristics determined by [facility] in a manner consistent with CLIA requirements. This test has not been cleared or approved by the [place].S. Food and Drug Administration. Test Performed by: [facility] [address] [place] [address] 4 Because ethnic data is not always [...] 5 Kidney failure <15 (or dialysis) 5 Result TnIDx:0.16 Called to [id number] at: 12:51:47 by:[id number] Read back by: [id number] Desirable: <150 Borderline High: 150-199 High: 200-499 Very High: >500 7 Desirable: <200 Borderline High: 200-239 High: >239 8 Low: <40 Desirable: 40-60 High: >60 9 Desirable: <100 Near Optimal: 100-129 Borderline High: 130-159 High: 160-189 Very High: >189 10 Please check labs 2 days before follow up 11 Please check labs 2 days before follow up 12 Consistent with Previous Results Reported on 11/13/17 13 Because ethnic data is not always [...] 5 Kidney failure <15 (or dialysis) 14 Please check labs 2 days before follow up 15 Please check labs 2 days before follow up 16 Consistent with Previous Results Reported on 11/13/17 17 Because ethnic data is not always readily [...] 15-29 5 Kidney failure <15 (or dialysis) 18 Acute inflammation: >10.00 19 Consistent with Previous Results Reported on 08/12/17 20 Because ethnic data is not always [...] (or dialysis) 21 Acute inflammation: >10.00 22 Consistent with previous results on 05/15/17. 23 Because ethnic data is not always readily [...] 15-29 5 Kidney failure <15 (or dialysis) 24 ADDITIONAL INFORMATION This test was developed and its performance characteristics determined by [facility] in a manner consistent with CLIA requirements. This test has not been cleared or approved by the [place].S. Food and Drug Administration. Test Performed by: [facility] [address] [place] [address] 25 Because ethnic data is not always [...] 5 Kidney failure <15 (or dialysis) 26 No interferon-gamma response to M. tuberculosis antigens was detected. Infection with M. tuberculosis is unlikely. A negative result alone does not exclude infection with M. tuberculosis. For detailed information regarding test interpretation see: [email or web address] 27 Test Performed by: [address] [address] 28 Acute inflammation: >10.00 29 Because ethnic data is not always [...] 5 Kidney failure <15 (or dialysis) 30 Acute inflammation: >10.00 31 Because ethnic data is not always [...] (or dialysis) 32 Acute inflammation: >10.00 33 Because ethnic data is not always readily [...] 15-29 5 Kidney failure <15 (or dialysis) 34 Acute inflammation: >10.00 35 Consistent with previous results on 07/29/16. 36 Adult MCV greater than 105 fl incubated 1/2 hr at 37c without significant change. 37 standing orders q 6 weeks 38 Adult MCV greater than 105 fl incubated 1/2 hr at 37c without significant change. 39 Because ethnic data is not always readily [...] 15-29 5 Kidney failure <15 (or dialysis) 40 Acute inflammation: >10.00 41 standing orders q 6 weeks 42 standing orders q 3 mo 43 standing orders q 3 mo 44 3-PART FRACTURE OF SURGICAL NECK OF LEFT HUMERUS, 45 SEE RESULTS BELOW [id number] CANC CHIPS 5CC TRANSFUSED 06/24/16 1222 [id number] CANC CHIPS 5CC TRANSFUSED 06/24/16 1222 [id number] CANC CHIPS 5CC TRANSFUSED 06/24/16 1222 46 SEE RESULTS BELOW [id number] DBM PUTTY 5CC TRANSFUSED 06/24/16 1222 47 Because ethnic data is not always [...] 5 Kidney failure <15 (or dialysis) 48 Acute inflammation: >10.00 49 Please check labs 2 or 3 days before her next visit 50 Acute inflammation: >10.00 51 Because ethnic data is not always readily [...] 15-29 5 Kidney failure <15 (or dialysis) 52 Acute inflammation: >10.00 53 Please check today and also 2 days prior to her next appointment 54 Because ethnic data is not always [...] Kidney failure <15 (or dialysis) Procedures Date Code Description Status 10/27/2018 [id number] Holter Monitor Review (24 hr)dr review & interp only Completed 10/25/2018 19461 ECG Monitor/Recording W/Visual Superimposition Completed Scanning 10/07/2018 [id number] ECHO Transthoracic, Real-Time 2D With Doppler And Completed Color Flow 10/07/2018 [id number] ECHO Transthoracic, Real-Time 2D With Doppler And Completed Color Flow 10/06/2018 [id number] EKG Tracing & Interpretation Completed 08/12/2018 [id number] Diabetic Retinal Eye Exam Completed 07/28/2018 36117 EKG Tracing & Interpretation Completed 05/26/2018 59477 Treadmill Interp/Report Only Completed 05/26/2018 89361 Treadmill Interp/Report Only Completed 05/26/2018 21291 Stress Test Supervsn W/Out I/R Completed 05/26/2018 78898 Stress Test Supervsn W/Out I/R Completed 05/13/2018 [id number] Diabetic Retinal Eye Exam Completed 05/02/2018 53891 EKG, Interpretation Only Completed 05/02/2018 42440 ECHO Transthorasic Realtime 2D W Doppler & Color Flow Completed Hosp 03/10/2017 08936 ECHO Transthoracic, Real-Time 2D With Doppler And Completed Color Flow 10/14/2016 [id number] Bone Mineral Density Test Completed 09/23/2016 [id number] Diabetic Retinal Eye Exam Completed 06/24/2016 11123 Open TX Proximal Humeral FX Incl Fixation When Completed Performed 06/24/2016 70897 Open TX Proximal Humeral FX Incl Fixation When Completed Performed 05/28/2016 86561 Closed trtmt prox humeral fx Completed 01/29/2015 [id number] Bone Mineral Density Test Completed Encounters Type Date Location Provider Dx Diagnosis Office Visit 10/25/2018 [facility], I34.0 Nonrheumatic mitral 2:00p Of [facility] SALES SUPERINTENDENT (valve) insufficiency I10 Essential (primary) hypertension R06.02 Shortness of breath Office Visit 10/06/2018 3:30p [facility], R06.02 Shortness of SALES SUPERINTENDENT breath I10 Essential (primary) hypertension Z95.1 Presence of aortocoronary bypass graft I34.0 Nonrheumatic mitral (valve) insufficiency Office Visit 09/29/2018 3:30p [facility] Nurse Visit I10 Essential (primary) Of [facility] IC hypertension R06.02 Shortness of breath Office Visit 09/05/2018 1:15p Orthopedic Kaleb Meek M06.9 Rheumatoid Services Of MD eMlania arthritis, C.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 unspecified S42.302D Unsp fx shaft of humerus, left arm, subs for fx w routn heal Office Visit 08/29/2018 1:30p [facility], I10 Essential (primary) Of [facility] SALES SUPERINTENDENT hypertension I45.2 Bifascicular block Office Visit 07/28/2018 1:10p [facility] Keeley King, I44.4 Left anterior Of [facility] M.D. fascicular block I45.10 Unspecified right bundle-branch block R79.89 Other specified abnormal findings of blood chemistry R06.02 Shortness of breath Office Visit 07/05/2018 Orthopedic Kaleb Meek S42.302D Unsp fx shaft of 1:15p Services Of MD Melania humerus, left C.M.A. 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 humerus, left arm, init S42.302D Unsp fx shaft of humerus, left arm, subs for fx w alessandropratibha heal Office Visit 05/02/2018 11:56a Orthopedic Services Mattie S42.302A Unsp fracture Of MILTON Carney of shaft of humerus, left arm, init Office Visit 05/02/2018 9:55a [facility] Charlotte Luque, S42.302A Unsp fracture [facility] 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 humerus, left arm, init Office Visit 04/11/2018 Neurosurgery Vassilios M84.48xD Pathological 2:00p Services Of Jing Cook MD fracture, oth site, subs for fx w routn heal M05.79 Rheu arthritis w rheu factor mult site w/o org/sys involv Office 03/09/2018 Neurosurgery Vassilios M84.48xA Pathological Visit 11:15a Services Of Jing Cook MD fracture, other site, init encntr for fracture Office 03/08/2018 Neurosurgery Vassilios M05.79 Rheu arthritis w Visit 1:00p Services Of Jing Cook MD rheu factor mult site w/o org/sys involv M84.48xA Pathological fracture, other site, init encntr for fracture Office Visit 02/17/2018 2:00p Rheumatology Benoit Preciado M05.79 Rheu arthritis Services Of [place] w rheu factor mult site w/o org/sys involv 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, multiple sites Z79.899 Other emt intermediate (current) drug therapy Office Visit 11/17/2017 1:40p Rheumatology Benoit Preciado M05.Rj Rheu arthritis Services Of Jing [place] w rheu factor mult site w/o org/sys involv 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, multiple sites Z79.899 Other senior living (current) drug therapy E67.3 Hypervitaminosis D Office Visit 08/18/2017 1:20p Rheumatology Benoit Preciado M05.79 Rheu arthritis Services Of Jing [place] w rheu factor mult site w/o org/sys involv 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, multiple sites Z79.899 Other senior living (current) drug therapy E67.3 Hypervitaminosis D Office Visit 05/18/2017 1:40p Rheumatology Benoit Preciado M05.79 Rheu arthritis Services Of iJng [place] w rheu factor mult site w/o org/sys involv 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, multiple sites Z79.899 Other emt intermediate (current) drug therapy Z23 Encounter for immunization Office Visit 04/06/2017 2:00p Rheumatology Benoit Preciado M05.79 Rheu arthritis Services Of [facility] Radha.D. w rheu factor mult site w/o org/sys involv 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, multiple sites Z79.899 Other emt intermediate (current) drug therapy E67.3 Hypervitaminosis D Office Visit 03/04/2017 2:00p Rheumatology Benoit Preciado M05.79 Rheu arthritis Services Of [facility] Radha.DJulien w rheu factor mult site w/o org/sys involv 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, multiple sites Z79.899 Other emt intermediate (current) drug therapy E67.3 Hypervitaminosis D R01.1 Cardiac murmur, unspecified Office Visit 03/03/2017 Orthopedic Kaleb Meek S42.232D 3-part fx surg 2:00p Services Of Ryland Velázquez MD neck of l humerus, subs for fx w routn heal Office Visit 12/04/2016 Rheumatology Polly Moser M05.79 Rheu arthritis 2:00p Services Of [facility] rheu factor mult site w/o org/sys involv 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, multiple sites E67.3 Hypervitaminosis D R79.89 Other specified abnormal findings of blood chemistry Z79.899 Other emt intermediate (current) drug therapy Office Visit 10/15/2016 1:15p Orthopedic Kaleb Meek S42.232D 3-part fx surg Services Of MD Melania neck of l C.M.A. humerus, subs for fx w routn heal S42.232K 3-part fx surgical neck of l humerus, subs for fx w nonunion Office Visit 09/18/2016 1:00p Rheumatology Polly Moser M05.79 Rheu arthritis Services Of [facility] w rheu factor mult site w/o org/sys involv M85.9 Disorder of bone density and structure, unspecified Z79.52 emt intermediate (current) use of systemic steroids Z79.899 Other senior living (current) drug therapy S42.232D 3-part fx surg neck of l humerus, subs for fx w routn heal Office Visit 06/16/2016 2:00p Rheumatology Polly Moser, M05.79 Rheu arthritis Services Of [facility] [employer] w rheu factor mult site w/o org/sys involv S42.232A 3-part fracture of surgical neck of left humerus, init M81.0 Age-related osteoporosis w/o current pathological fracture Z79.899 Other emt intermediate (current) drug therapy Z79.52 senior living (current) use of systemic steroids Office Visit 03/17/2016 3:00p Rheumatology Benoit Preciado, M05.79 Rheu arthritis Services Of [facility].DJulien w rheu factor mult site w/o org/sys involv Z79.899 Other senior living (current) drug therapy M81.0 Age-related osteoporosis w/o current pathological fracture Office Visit 12/17/2015 3:00p Rheumatology Benoit Preciado, M05.79 Rheu arthritis Services Of [facility].DJulien w rheu factor mult site w/o org/sys involv Z79.899 Other senior living (current) drug therapy M81.0 Age-related osteoporosis w/o current pathological fracture M65.4 Radial styloid tenosynovitis [de Quervain] Plan of Treatment Future Appointment(s):12/26/2018 1:30 pm - Keeley King M.D. at [facility] Of [facility]01/03/2019 1:00 pm - Kaleb Velázquez MD at Orthopedic Services Of [facility]11/22/2018 1:00 pm - Benoit Preciado M.D. at Rheumatology Services Of [facility]11/15/2018 - Eleazar Syed, MDR06.00 Dyspnea, unspecifiedComments: no further workup warranted. If she has any further respiratory symptoms rtc as needed.Follow up:as needed.
--- OUTSIDE RECORDS SUMMARY | 2018-11-16 07:10 | XMS REPORT | Continuity of Care Document ---
:1945 External Reference #:[id number] Author Name JakobJessica lucio Care Team Providers Name Role Phone Shonna Escobar NP Care Team Information Java Application Engineer Unavailable Annabel Garcia MD Primary Care Physician Unavailable Payers Date Identification Numbers Payment Provider Subscriber Effective: 2009 Policy Number: [id number] Medicare Deidra Fink PayID: [id number] [address] [place] [address] Effective: 2014 Policy Number: [id number] [employer] Deidra Fink PayID: [id number] [address] [address] [place] [address] Advance Directives Description No Information Available Problems [...] Unknown Never Smoked Cigarettes Smoking Status Reviewed: 10/25/18 Never Smoked Cigarettes ETOH Use Occasionally consumes alcohol Tobacco Use Start: Unknown Patient has never smoked Recreational Drug Use Denies Drug Use Exercise Type/Frequency Exercises regularly pt planning going back to [employer] Allergies, Adverse Reactions, Alerts Date Description Reaction Status Severity Comments 12/17/2015 Oxycodone itching Active 12/17/2015 Morphine itching Active 12/17/2015 Contrast Dye Urticaria Active Severe 12/17/2015 Sulfa Antibiotics gi upset Active Medications Medication Date Status Form Strength Qnty SIG Indications Ordering Provider Cris JADE 09/20/19 Active Caps ER 120mg 180caps 2 tab by Keeley 19 24HR mouth Otoe, every M.D. day Methotrexate 06/16/20 Active Tablets 2.5mg 72tabs 6 tbs by [id number] Benoit 16 mouth Ozzy, every M.D. week M05.79 Hydroxychloroquine Active Tablets 200mg 90tabs take one M05.79 Benoit Sulfate capsule/tablet Ozzy, daily by mouth M.DJulien [id number] Folic Acid Active Tablets 1mg 90tabs 1 [...] Unknown 0-40mg every other -Unt-m daily cg Prednisone 09/29/2018 - Hx Tablets 20mg 9tabs [...] mouth every 5. Ehsan, other day 78 RADIOLOGY PRACTITIONER ASSISTANT alternating by 2 tabs Reduce dose as discussed Z79.52 Dilaudid 06/26/2016 - Hx Tablets 2mg 60tabs 1-2 tabs by mouth [facility] 09/18/2016 every 4 hours as MD Melania needed Hydrocodone-Ac 06/24/2016 - Hx Tablets 5-325m 60tabs 1 tab by mouth [facility] etaminophen 08/14/2017 g four times a day MD Melania as needed pain Aspirin 06/24/2016 - Hx Tablets 325mg 14tabs take 1 by mouth [facility] 09/18/2016 once a day for MD Melania two weeks Keflex 06/24/2016 - Hx Capsules 500mg 28caps 1 by mouth 4 [facility] 09/18/2016 times a day for 7 MD Melania days Ibuprofen 06/11/2016 - Hx Tablets 600mg 60tabs 1 tab po every 8 [facility] 09/18/2016 hours as needed MD Melania for pain Ibuprofen 06/11/2016 - Hx Tablets 600mg 60tabs 1 tab by mouth S42 [facility] 07/27/2018 every 8 hours as .23 MD Melania needed for pain 2A Thumb 12/17/2015 - Hx Misc 1units use nightly to M05 Benoit Splint/Right 09/28/2018 help with .79 Josue Preciado M.D. Prednisone - Hx Tablets 1mg 180tabs 1 by mouth twice M05 Zsofia 09/18/2016 a day .79 Ehsan, RADIOLOGY PRACTITIONER ASSISTANT Z79.52 Methotrexate - Hx Tablets 2.5mg 3tabs 4 tbs by Zsofia 06/16/2016 mouth every Ehsan, week RADIOLOGY PRACTITIONER ASSISTANT Alendronate - Hx Tablets 70mg 12tabs 1 [...] Code Status Date Vaccine Reaction Lot # 40135 Given 05/18/2017 Influenza Virus Vaccine, no immeidate reaction [id number] Quadrivalent, Split, noted Preservative Free 07665 Given 11/05/2014 Pneumococcal Conjugate Vaccine 13 Valent For Intramuscular Use 02022 Given 05/01/2013 Pneumonia Vaccine 82364 Given 12/17/2010 Zoster (Zostavax) Vital Signs Date Vital Result Comment 10/25/2018 2:08pm Height 64 inches 5'4" Weight [...] Result H/L Range Note Laboratory test 08/27/2018 [facility] Erythrocyte Sed 28 mm/Hr N 0-[address] [place] [address] [phone] C Reactive Protein 12.92 mg/L High <8.01 CBC Auto Diff 08/27/2018 [facility] White Blood 4.8 10^3/uL N 3.5-10.[address] Count [place], [place] [id number] [phone] Red Blood Count 3.44 10^6/uL Low 4.00-5.40 [...] Cells % 0.1 Comp Metabolic Panel 08/27/2018 [facility] Sodium 134 mmol/L Low 135-[address] [place] [address] [phone] Potassium 4.7 mmol/L N 3.5-5.0 Chloride 98 [...] >60 Egfr 69.6 >60 2 Pthi 08/27/2018 [facility] Calcium (PTH Intact) 9.9 mg/dL N 8.6-10.[address] [place] [address] [phone] PTH Intact 5.4 pmol/L N 1.3-9.3 1,25 Dihydroxy 08/27/2018 [facility] Calcitriol 38 pg/mL 18- 78 3 Vitamin D [address] [place] [address] [phone] Laboratory test 05/24/2018 [facility] [place] Esr Sedimentation <pending> finding Rate CRP C-Reactive Protein <pending> CBC W/Auto Diff 05/24/2018 [facility] [place] White Blood Count <pending> RBC [...] <pending> Absolute Neutrophils <pending> CMP Panel 05/24/2018 [facility] [place] Albumin <pending> Alt - SGPT <pending> Calcium <pending> Carbon Dioxide <pending> Chloride <pending> Creatinine <pending> Glucose Serum <pending> Alkaline Phosphatase <pending> Potassium <pending> Total Protein <pending> Sodium <pending> Ast - Sgot <pending> BUN - Urea Nitrogen <pending> Laboratory test 05/24/2018 [facility] [place] Vitamin D 1,25 <pending> finding Dihodroxy PTH, Intact 05/24/2018 [facility] [place] Intact PTH <pending> Calcium <pending> Calcium PTH <pending> Laboratory test 05/21/2018 [facility] Erythrocyte Sed 22 mm/Hr N 0-[address] [place] [address] [phone] C Reactive Protein 6.11 mg/L N <8.01 CBC Auto Diff 05/21/2018 [facility] White Blood 5.1 10^3/uL N 3.5-10.[address] [place] [address] [phone] Red Blood Count 3.22 10^6/uL Low 4.00-5.40 [...] Cells % 0.1 Comp Metabolic Panel 05/21/2018 [facility] Sodium 138 mmol/L N 135-[address] [place] [address] [phone] Potassium 4.8 mmol/L N 3.5-5.0 Chloride 100 [...] Egfr 75.0 >60 4 Laboratory test 05/01/2018 [facility] Creatine 697 U/L High 10 -[address] Kinase(CK) [place] [address] [phone] Troponin I 0.16 ng/mL High <0.04 5 Lipid Profile 05/01/2018 [facility] Triglycerides 51 mg/dL 6 (Trig/Chol/HDL) [address] [place] [address] [phone] Cholesterol 158 mg/dL 7 HDL Cholesterol 76.2 mg/dL 8 LDL Cholesterol 72 mg/dL 9 CKMB 05/01/2018 [facility] CKMB ng/mL 24.8 High 0.6-6.[address] ng/[place] [address] [phone] Laboratory test 02/15/2018 [facility] Erythrocyte Sed 23 mm/Hr N 0-40 [address] [place] [address] [phone] C Reactive Protein 13.09 mg/L High <8.01 11 CBC Auto Diff 02/15/2018 [facility] White Blood 5.2 10^3/uL N 3.5-10.[address] [place] [address] [phone] Red Blood Count 3.28 10^6/uL Low 4.00-5.40 [...] Cells % 0 Comp Metabolic Panel 02/15/2018 [facility] Sodium 137 mmol/L N 135-[address] [place] [address] [phone] Potassium 4.7 mmol/L N 3.5-5.0 Chloride 101 [...] Egfr 66.5 >60 13 Laboratory test 02/15/2018 [facility] Erythrocyte Sed 23 mm/Hr N 0-40 [address] [place] [address] [phone] C Reactive Protein 13.09 mg/L High <8.01 15 CBC Auto Diff 02/15/2018 [facility] White Blood 5.2 10^3/uL N 3.5-10.[address] [place] [address] [phone] Red Blood Count 3.28 10^6/uL Low 4.00-5.40 [...] Cells % 0 Comp Metabolic Panel 02/15/2018 [facility] Sodium 137 mmol/L N 135-145 [address] [place] [address] [phone] Potassium 4.7 mmol/L N 3.5-5.0 Chloride 101 [...] Egfr 66.5 >60 17 Laboratory test 11/13/2017 [facility] Erythrocyte Sed 18 mm/Hr N 0-[address] [place] [address] [phone] C Reactive Protein 7.94 mg/L High < 5.00 18 CBC Auto Diff 11/13/2017 [facility] White Blood 6.1 10^3/uL N 3.5-10.[address] [place] [address] [phone] Red Blood Count 3.28 10^6/uL Low 4.0-5.4 [...] Cells % 0 Comp Metabolic Panel 11/13/2017 [facility] Sodium 133 mmol/L N 133-[address] [place] [address] [phone] Potassium 4.5 mmol/L N 3.5-5.0 Chloride 99 [...] Egfr 62.0 >60 20 Laboratory test 08/12/2017 [facility] Erythrocyte Sed 29 mm/Hr N 0-[address] [place] [address] [phone] C Reactive Protein 20.03 mg/L High < 5.00 21 CBC Auto Diff 08/12/2017 [facility] White Blood 6.5 10^3/uL N 3.5-10.[address] [place] [address] [phone] Red Blood Count 3.26 10^6/uL Low 4.0-5.4 [...] Cells % 0 Comp Metabolic Panel 08/12/2017 [facility] Sodium 134 mmol/L N 133-145 [address] [place] [address] [phone] Potassium 5.0 mmol/L N 3.5-5.0 Chloride 99 [...] Egfr 68.3 >60 23 Laboratory test 08/12/2017 [facility] Vitamin D, 1,25 21 pg/mL 18-78 24 finding [address] [place] [address] [phone] CMP Panel 05/15/2017 [facility] Sodium 135 mmol/L N 133-145 [address] [place] [address] [phone] Potassium 4.8 mmol/L N 3.5-5.0 Chloride 101 [...] 69.9 N >60 25 Quantiferon Gold 05/15/2017 [facility] M tuberculosis Negative N Negative [address] [place] [address] [phone] TB Ag minus Nil Result 0.01 IU/mL N TB Mitogen minus Nil Result > 10.00 IU/mL N TB Nil Result 0.02 IU/mL N 27 Laboratory test 05/15/2017 [facility] Erythrocyte Sed 29 mm/Hr N 0-[address] [place] [address] [phone] CBC W/Auto Diff 05/15/2017 [facility] White Blood 5.7 N 3.5- 10.[address] Count 10^3/[place] [address] [phone] Red Blood Count 3.28 10^6/uL Low 4.0-5.4 [...] Cells % 0 N Laboratory test 05/15/2017 [facility] C Reactive 10.76 mg/L High < 5.00 [address] [place] [address] [phone] CBC W/Auto Diff 02/26/2017 [facility] White Blood 5.7 N 3.5- 10.[address] Count 10^3/[place] [address] [phone] Red Blood Count 3.21 10^6/uL Low 4.0-5.4 [...] Cells % 0.1 N CMP Panel 02/26/2017 [facility] Sodium 137 mmol/L N 133-[address] [place] [address] [phone] Potassium 5.1 mmol/L High 3.5-5.0 Chloride 101 [...] 62.1 N >60 29 Laboratory test 02/26/2017 [facility] Erythrocyte Sed 30 mm/Hr N 0-[address] [place] [address] [phone] C Reactive Protein 12.15 mg/L High < 5.00 30 Laboratory test 02/26/2017 [facility] Vitamin D 63.0 ng/mL High 30-[address] Total 25(Oh) [place] [address] [phone] Laboratory test 12/01/2016 [facility] Vitamin D 66.3 ng/mL High 30-[address] Total 25(Oh) [place] [address] [phone] CBC Auto Diff 12/01/2016 [facility] White Blood 5.3 N 3.5- 10.[address] Count 10^3/[place] [address] [phone] Red Blood Count 3.28 10^6/uL Low 4.0-5.4 [...] Cells % 0 N Laboratory test 12/01/2016 [facility] Erythrocyte Sed 28 mm/Hr N 0-[address] [place] [address] [phone] Comp Metabolic 12/01/2016 [facility] Sodium 136 mmol/L N 133- [address] [place] [address] [phone] Potassium 4.3 mmol/L N 3.5-5.0 Chloride 100 [...] 77.2 N >60 31 Laboratory test 12/01/2016 [facility] C Reactive 5.87 mg/L High < 5.00 [address] [place] [address] [phone] Comp Metabolic 09/16/2016 [facility] Sodium 136 N 133-[address] mmol/[place] [address] [phone] Potassium 5.6 mmol/L High 3.5-5.0 Chloride 101 [...] 67.7 N >60 33 Laboratory test 09/16/2016 [facility] C Reactive 5.64 mg/L High < 5.00 [address] [place] [address] [phone] CBC Auto Diff 09/16/2016 [facility] White Blood 7.8 N 3.5- 10.[address] Count 10^3/[place] [address] [phone] Red Blood Count 3.50 10^6/uL Low 4.0-5.4 [...] Cells % 0 N Laboratory test 09/16/2016 [facility] Erythrocyte Sed 21 mm/Hr N 0-[address] [place] [address] [phone] Vitamin D Total 25(Oh) 57.1 ng/mL High 30-50 CBC Auto Diff 07/29/2016 [facility] White Blood 7.1 10^3/uL N 3.5-10.[address] [place] [address] [phone] Red Blood Count 3.19 10^6/uL Low 4.0-5.4 [...] Cells % 0.1 N Laboratory test 07/29/2016 [facility] Erythrocyte Sed 29 mm/Hr N 0-40 [address] [place] [address] [phone] CBC Auto Diff 07/29/2016 [facility] White Blood 7.1 N 3.5- 10.[address] Count 10^3/[place] [address] [phone] Red Blood Count 3.19 10^6/uL Low 4.0-5.4 [...] % 0.1 N Comp Metabolic Panel 07/29/2016 [facility] Sodium 137 mmol/L N 133-[address] [place] [address] [phone] Potassium 4.3 mmol/L N 3.5-5.0 Chloride 98 [...] 70.1 N >60 39 Laboratory test 07/29/2016 [facility] C Reactive 6.12 mg/L High < 5.00 [address] [place] [address] [phone] Erythrocyte Sed Rate 29 mm/Hr N 0-40 41 Vitamin D Total 25(Oh) 46.7 ng/mL N 30-50 42 Laboratory test 07/29/2016 [facility] Vitamin D Total 46.7 ng/ mL N 30-50 [address] 25(Oh) [place] [address] [phone] Laboratory test 06/23/2016 [facility] Cancellous SEE RESULTS 44, [address] Chips 5cc BELO <[place] [address] NOTE> [phone] DBM Putty Orthoblast II 5cc SEE RESULTS BELO <SEE NOTE> 46 Comp Metabolic Panel 06/11/2016 [facility] Sodium 139 mmol/L N 133-[address] [place] [address] [phone] Potassium 4.3 mmol/L N 3.5-5.0 Chloride 102 [...] N >60 47 CBC Auto Diff 06/11/2016 [facility] White Blood 6.5 10^3/uL N 3.5-10.[address] [place] [address] [phone] Red Blood Count 3.16 10^6/uL Low 4.0-5.4 [...] Cells % 0 N Laboratory test 06/11/2016 [facility] C Reactive 11.86 mg/L High < 5.00 [address] [place] [address] [phone] Erythrocyte Sed Rate 20 mm/Hr N 0-40 49 CBC Auto Diff 03/12/2016 [facility] White Blood 6.2 10^3/uL N 3.5-10.[address] [place] [address] [phone] Red Blood Count 3.66 10^6/uL Low 4.0-5.4 [...] Cells % 0.1 N Laboratory test 03/12/2016 [facility] C Reactive 9.40 High < 5.00 [address] Protein mg/[place] [address] [phone] Laboratory test 03/12/2016 [facility] Erythrocyte Sed 16 mm/Hr N 0-[address] [place] [address] [phone] Comp Metabolic 03/12/2016 [facility] Sodium 137 N 133-[address] mmol/[place] [address] [phone] Potassium 4.4 mmol/L N 3.5-5.0 Chloride 100 [...] 79.4 N >60 51 Laboratory test 12/19/2015 [facility] C Reactive 8.80 mg/L High < 5.00 [address] [place] [address] [phone] Erythrocyte Sed Rate 17 mm/Hr N 0-40 53 CBC Auto Diff 12/19/2015 [facility] White Blood 5.5 10^3/uL N 3.5-10.[address] [place] [address] [phone] Red Blood Count 3.66 10^6/uL Low 4.0-5.4 [...] % 0.1 N Comp Metabolic Panel 12/19/2015 [facility] Sodium 133 mmol/L N 133-[address] [place] [address] [phone] Potassium 4.6 mmol/L N 3.5-5.0 Chloride 97 [...] developed and its performance characteristics determined by [facility] in a manner consistent with CLIA requirements. This test has not been cleared or approved by the U.S. Food and Drug Administration. Test Performed by: [facility] [address] [place] [address] 4 Because ethnic data is not always [...] (or dialysis) 5 Result TnIDx:0.16 Called to [id number] at: 12:51:47 by:[id number] Read back by: [id number] Desirable: <150 Borderline High: 150-199 High: [...] developed and its performance characteristics determined by [facility] in a manner consistent with CLIA requirements. This test has not been cleared or approved by the U.S. Food and Drug Administration. Test Performed by: [facility] Recite Me [facility] [address] [place] [address] 25 Because ethnic data is not always [...] For detailed information regarding test interpretation see: [email or web address] 27 Test Performed by: [address] [address] 28 Acute inflammation: >10.00 29 Because ethnic [...] OF LEFT HUMERUS, 45 SEE RESULTS BELOW [id number] CANC CHIPS 5CC TRANSFUSED 06/24/16 1222 [id number] CANC CHIPS 5CC TRANSFUSED 06/24/16 1222 [id number] CANC CHIPS 5CC TRANSFUSED 06/24/16 1222 46 SEE RESULTS BELOW [id number] DBM PUTTY 5CC TRANSFUSED 06/24/16 1222 47 [...] dialysis) Procedures Date Code Description Status 10/27/2018 67786 Holter Monitor Review (24 hr)dr review & interp only Completed 10/25/2018 66651 ECG Monitor/Recording W/Visual Superimposition Completed Scanning 10/07/2018 51021 ECHO Transthoracic, Real-Time 2D With Doppler And Completed Color Flow 10/07/2018 40169 ECHO Transthoracic, Real-Time 2D With Doppler And Completed Color Flow 10/06/2018 93976 EKG Tracing & Interpretation Completed 08/12/2018 [id number] Diabetic Retinal Eye Exam Completed 07/28/2018 75096 EKG Tracing & Interpretation Completed 05/26/2018 67589 Treadmill Interp/Report Only Completed 05/26/2018 78178 Treadmill Interp/Report Only Completed 05/26/2018 65909 Stress Test Supervsn W/Out I/R Completed 05/26/2018 37807 Stress Test Supervsn W/Out I/R Completed 05/13/2018 [id number] Diabetic Retinal Eye Exam Completed 05/02/2018 48964 EKG, Interpretation Only Completed 05/02/2018 59756 ECHO Transthorasic Realtime 2D W Doppler & Color Flow Completed Hosp 03/10/2017 39998 ECHO Transthoracic, Real-Time 2D With Doppler And Completed Color Flow 10/14/2016 [id number] Bone Mineral Density Test Completed 09/23/2016 [id number] Diabetic Retinal Eye Exam Completed 06/24/2016 15122 Open TX Proximal Humeral FX Incl Fixation When Completed Performed 06/24/2016 58810 Open TX Proximal Humeral FX Incl Fixation When Completed Performed 05/28/2016 07736 Closed trtmt prox humeral fx Completed 01/29/2015 [id number] Bone Mineral Density Test Completed Encounters Type Date Location Provider Dx Diagnosis Office Visit 10/25/2018 [facility] Shonna Escobar, I34.0 Nonrheumatic mitral 2:00p Of Full Stack Python Developer MOBILE BATTERY TECHNICIAN (valve) insufficiency I10 Essential (primary) hypertension R06.02 Shortness of breath Office Visit 10/06/2018 3:30p [facility] Shonna Escobar, R06.02 Shortness of MOBILE BATTERY TECHNICIAN breath I10 Essential (primary) hypertension Z95.1 Presence of aortocoronary bypass graft I34.0 Nonrheumatic mitral (valve) insufficiency Office Visit 09/29/2018 3:30p [facility] Nurse Visit I10 Essential (primary) Of [facility] IC hypertension R06.02 Shortness of breath Office Visit 09/05/2018 1:15p Orthopedic Kaleb Meek M06.9 Rheumatoid Services Of MD Melania arthritis, C.M.A. unspecified S42.302D Unsp fx shaft of humerus, left arm, subs for fx w routn heal Office Visit 08/29/2018 1:30p [facility] Shonna Thuman, I10 Essential (primary) Of [facility] MOBILE BATTERY TECHNICIAN hypertension I45.2 Bifascicular block Office Visit 07/28/2018 1:10p [facility] Keeley King, I44.4 Left anterior Of Full Stack Python Developer M.DJulien fascicular block I45.10 Unspecified right bundle-branch block [...] org/sys involv Office Visit 05/31/2018 Orthopedic Kaleb Meek S42.302D Unsp fx shaft of 1:30p Services Of Ryland Velázquez MD humerus, left arm, subs for fx w routn heal Office Visit 05/24/2018 Rheumatology Benoit Preciado, M06.9 Rheumatoid 1:00p Services Of [place] arthritis, unspecified Z79.899 Other retirement (current) drug therapy 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 humerus, left arm, init S42.302D Unsp fx shaft of humerus, left arm, subs for fx w routn heal Office Visit 05/02/2018 11:56a Orthopedic Services Mattie S42.302A Unsp fracture Of C.M.A. MILTON Marte of shaft of humerus, left arm, init [facility] S42.302A Unsp fracture Assoc,pc N.P. 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, S42.302A Unsp fracture Assoc,pc N.P. of [...] Preciado M05.79 Rheu arthritis Services Of Jing RadhaJulienMorrisJulien w rheu factor mult site w/o org/sys involv 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, multiple sites Z79.899 Other retirement (current) drug therapy Office Visit 11/17/2017 1:40p Rheumatology Benoit Preciado M05.79 Rheu arthritis Services Of Jing RadhaZee w rheu factor mult site w/o org/sys involv 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, multiple sites Z79.899 Other retirement (current) drug therapy E67.3 Hypervitaminosis D Office Visit 08/18/2017 1:20p Rheumatology Benoit Preciado M05.79 Rheu arthritis Services Of Jing RadhaJulienMorrisJulien w rheu factor mult site w/o org/sys involv 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, multiple sites Z79.899 Other retirement (current) drug therapy E67.3 Hypervitaminosis D Office Visit 05/18/2017 1:40p Rheumatology Benoit Preciado M05.79 Rheu arthritis Services Of Jing RadhaZee w rheu factor mult site w/o org/sys involv 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, multiple sites Z79.899 Other retirement (current) drug therapy Z23 Encounter for immunization Office Visit 04/06/2017 2:00p Rheumatology Benoit Preciado M05.79 Rheu arthritis Services Of Jing RadhaZee w rheu factor mult site w/o org/sys involv 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, multiple sites Z79.899 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 E67.3 Hypervitaminosis D Office Visit 03/04/2017 2:00p Rheumatology Benoit Preciado M05.79 Rheu arthritis Services Of Jing RadhaZee rheu factor mult site w/o org/sys involv 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, multiple sites Z79.899 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 E67.3 Hypervitaminosis D R01.1 Cardiac murmur, unspecified Office Visit 03/03/2017 Orthopedic Kaleb F S42.232D 3-part fx surg 2:00p Services Of Ryland Velázquez MD neck of l humerus, subs for fx w routn heal Office Visit 12/04/2016 Rheumatology Polly Moser M05.79 Rheu arthritis 2:00p Services Of [facility] w rheu factor mult site w/o org/sys involv 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, multiple sites E67.3 Hypervitaminosis D R79.89 Other specified abnormal findings of blood chemistry Z79.899 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 S42.232D 3-part fx surg neck of l humerus, subs for fx w routn heal Office Visit 06/16/2016 2:00p Rheumatology Polly Moser M05.79 Rheu arthritis Services Of [facility] rheu factor mult site w/o org/sys involv S42.232A 3-part fracture of surgical neck of left humerus, init M81.0 Age-related osteoporosis w/o current pathological fracture Z79.899 Other retirement (current) drug therapy Z79.52 USP (current) use of systemic steroids Office Visit 03/17/2016 3:00p Rheumatology Benoit Preciado M05.79 Rheu arthritis Services Of [facility] w rheu factor mult site w/o org/sys involv Z79.899 Other retirement (current) drug therapy M81.0 Age-related osteoporosis w/o current pathological fracture Office Visit 12/17/2015 3:00p Rheumatology Benoit Preciado, M05.79 Rheu arthritis Services Of [facility]. 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 at [facility]01/03/2019 1:00 pm - Kaleb Velázquez MD at [facility]22/2018 1:00 pm - Benoit Preciado M.D. at [facility]10/25/2018 - Shonna Escobar, NPI34.0 Nonrheumatic mitral (valve) insufficiencyFollow up:f/u with Dr. King in 2-3 months.Recommendations: Please inquire with [facility] if there is a size difference in regards to Cartia 120mg capsule [id number] capsule or 360mg capsule.I10 Essential (primary) werzzxjphxiaG22.02 Shortness of breath
--- OUTSIDE RECORDS SUMMARY | 2018-11-16 07:11 | XMS REPORT | Continuity of Care Document ---
:1945 External Reference #:[id number] Author Name Daryl Anh Care Team Providers Name Role Phone Shonna Escobar NP Care Team Information Mica Washer Gluer Unavailable Annabel Garcia MD Primary Care Physician Unavailable Payers Date Identification Numbers Payment Provider Subscriber Effective: 2009 Policy Number: [id number] Medicare Deidra Fink PayID: [id number] [address] [place] [address] Effective: 2014 Policy Number: [id number] [employer] Deidra Fink PayID: [id number] [address] [address] [place] [address] Advance Directives Description No Information Available Problems [...] Exercises regularly pt planning going back to [employer] Allergies, Adverse Reactions, Alerts Date Description Reaction Status Severity Comments 12/17/2015 Oxycodone itching Active 12/17/2015 Morphine itching Active 12/17/2015 Contrast Dye Urticaria Active Severe 12/17/2015 Sulfa Antibiotics gi upset Active Medications Medication Date Status Form Strength Qnty SIG Indications Ordering Provider Cris JADE 09/20/19 Active Caps ER 120mg 30caps 2 tab by Shonna 19 24HR mouth GRANT Escobar every day Methotrexate 06/16/20 Active Tablets 2.5mg 72tabs 6 tbs by Z79.899 Benoit 16 mouth Ozzy, every M.D. week M05.79 Hydroxychloroquine Active Tablets 200mg 180tabs Take one M05.79 Benoit Sulfate capsule/tablet Ozzy, daily [...] mouth every 5. Ehsan, other day 78 ADMISSIONS SPECIALIST alternating by 2 tabs Reduce dose as discussed Z79.52 Dilaudid 06/26/2016 - Hx Tablets 2mg 60tabs 1-2 tabs by mouth [facility] 09/18/2016 every 4 hours as MD Melania needed Hydrocodone-Ac 06/24/2016 - Hx Tablets 5-325m 60tabs 1 tab by mouth [facility] etaminophen 08/14/2017 g four times a day MD Melania as needed pain Aspirin 06/24/2016 - Hx Tablets 325mg 14tabs take 1 by mouth [facility] 09/18/2016 once a day for MD Melania two weeks Keflex 06/24/2016 - Hx Capsules 500mg 28caps 1 by mouth 4 [facility] 09/18/2016 times a day for 7 MD Melania days Ibuprofen 06/11/2016 - Hx Tablets 600mg 60tabs 1 tab po every 8 [facility] 09/18/2016 hours as needed MD Melania for pain Ibuprofen 06/11/2016 - Hx Tablets 600mg 60tabs 1 tab by mouth S42 [facility] 07/27/2018 every 8 hours as .23 MD [...] by Zsofia 06/16/2016 mouth every Ehsan, week ADMISSIONS SPECIALIST Alendronate - Hx Tablets 70mg 12tabs 1 [...] Code Status Date Vaccine Reaction Lot # 62587 Given 05/18/2017 Influenza Virus Vaccine, no immeidate reaction [id number] Quadrivalent, Split, noted Preservative Free 05857 Given 11/05/2014 Pneumococcal Conjugate Vaccine 13 Valent For Intramuscular Use 42072 Given 05/01/2013 Pneumonia Vaccine 09887 Given 12/17/2010 Zoster (Zostavax) Vital Signs Date [...] Result H/L Range Note Laboratory test 08/27/2018 [facility] Erythrocyte Sed 28 mm/Hr N 0-[address] [place] [address] [phone] C Reactive Protein 12.92 mg/L High <8.01 CBC Auto Diff 08/27/2018 [facility] White Blood 4.8 10^3/uL N 3.5-10.[address] [place], [place] [id number] [phone] Red Blood Count 3.44 10^6/uL Low 4.00-5.40 [...] Cells % 0.1 Comp Metabolic Panel 08/27/2018 [facility] Sodium 134 mmol/L Low 135-[address] [place] [address] [phone] Potassium 4.7 mmol/L N 3.5-5.0 Chloride 98 [...] >60 Egfr 69.6 >60 2 Pthi 08/27/2018 [facility] Calcium (PTH Intact) 9.9 mg/dL N 8.6-10.[address] [place] [address] [phone] PTH Intact 5.4 pmol/L N 1.3-9.3 1,25 Dihydroxy 08/27/2018 [facility] Calcitriol 38 pg/mL 18- 78 3 Vitamin D [address] [place] [address] [phone] Laboratory test 05/24/2018 [facility] Standing Orders Esr Sedimentation <pending> finding Rate CRP C-Reactive Protein <pending> CBC W/Auto Diff 05/24/2018 [facility] Standing Orders White Blood Count <pending> RBC [...] <pending> Absolute Neutrophils <pending> CMP Panel 05/24/2018 [facility] Standing Orders Albumin <pending> Alt - SGPT <pending> Calcium <pending> Carbon Dioxide <pending> Chloride <pending> Creatinine <pending> Glucose Serum <pending> Alkaline Phosphatase <pending> Potassium <pending> Total Protein <pending> Sodium <pending> Ast - Sgot <pending> BUN - Urea Nitrogen <pending> Laboratory test 05/24/2018 [facility] Standing Orders Vitamin D 1,25 <pending> finding Dihodroxy PTH, Intact 05/24/2018 [facility] Standing Orders Intact PTH <pending> Calcium <pending> Calcium PTH <pending> Laboratory test 05/21/2018 [facility] Erythrocyte Sed 22 mm/Hr N 0-[address] [place] [address] [phone] C Reactive Protein 6.11 mg/L N <8.01 CBC Auto Diff 05/21/2018 [facility] White Blood 5.1 10^3/uL N 3.5-10.[address] [place] [address] [phone] Red Blood Count 3.22 10^6/uL Low 4.00-5.40 [...] Cells % 0.1 Comp Metabolic Panel 05/21/2018 [facility] Sodium 138 mmol/L N 135-[address] [place] [address] [phone] Potassium 4.8 mmol/L N 3.5-5.0 Chloride 100 [...] Egfr 75.0 >60 4 Laboratory test 05/01/2018 [facility] Creatine 697 U/L High 10 -[address] Kinase(CK) [place] [address] [phone] Troponin I 0.16 ng/mL High <0.04 5 Lipid Profile 05/01/2018 [facility] Triglycerides 51 mg/dL 6 (Trig/Chol/HDL) [address] [place] [address] [phone] Cholesterol 158 mg/dL 7 HDL Cholesterol 76.2 mg/dL 8 LDL Cholesterol 72 mg/dL 9 CKMB 05/01/2018 [facility] CKMB ng/mL 24.8 High 0.6-6.[address] ng/[place] [address] [phone] Laboratory test 02/15/2018 [facility] Erythrocyte Sed 23 mm/Hr N 0-40 [address] [place] [address] [phone] C Reactive Protein 13.09 mg/L High <8.01 11 CBC Auto Diff 02/15/2018 [facility] White Blood 5.2 10^3/uL N 3.5-10.[address] [place] [address] [phone] Red Blood Count 3.28 10^6/uL Low 4.00-5.40 [...] Cells % 0 Comp Metabolic Panel 02/15/2018 [facility] Sodium 137 mmol/L N 135-[address] [place] [address] [phone] Potassium 4.7 mmol/L N 3.5-5.0 Chloride 101 [...] Egfr 66.5 >60 13 Laboratory test 02/15/2018 [facility] Erythrocyte Sed 23 mm/Hr N 0-40 [address] [place] [address] [phone] C Reactive Protein 13.09 mg/L High <8.01 15 CBC Auto Diff 02/15/2018 [facility] White Blood 5.2 10^3/uL N 3.5-10.[address] [place] [address] [phone] Red Blood Count 3.28 10^6/uL Low 4.00-5.40 [...] Cells % 0 Comp Metabolic Panel 02/15/2018 [facility] Sodium 137 mmol/L N 135-145 [address] [place] [address] [phone] Potassium 4.7 mmol/L N 3.5-5.0 Chloride 101 [...] Egfr 66.5 >60 17 Laboratory test 11/13/2017 [facility] Erythrocyte Sed 18 mm/Hr N 0-[address] [place] [address] [phone] C Reactive Protein 7.94 mg/L High < 5.00 18 CBC Auto Diff 11/13/2017 [facility] White Blood 6.1 10^3/uL N 3.5-10.[address] [place] [address] [phone] Red Blood Count 3.28 10^6/uL Low 4.0-5.4 [...] Cells % 0 Comp Metabolic Panel 11/13/2017 [facility] Sodium 133 mmol/L N 133-[address] [place] [address] [phone] Potassium 4.5 mmol/L N 3.5-5.0 Chloride 99 [...] Egfr 62.0 >60 20 Laboratory test 08/12/2017 [facility] Erythrocyte Sed 29 mm/Hr N 0-[address] [place] [address] [phone] C Reactive Protein 20.03 mg/L High < 5.00 21 CBC Auto Diff 08/12/2017 [facility] White Blood 6.5 10^3/uL N 3.5-10.[address] [place] [address] [phone] Red Blood Count 3.26 10^6/uL Low 4.0-5.4 [...] Cells % 0 Comp Metabolic Panel 08/12/2017 [facility] Sodium 134 mmol/L N 133-145 [address] [place] [address] [phone] Potassium 5.0 mmol/L N 3.5-5.0 Chloride 99 [...] Egfr 68.3 >60 23 Laboratory test 08/12/2017 [facility] Vitamin D, 1,25 21 pg/mL 18-[address] [place] [address] [phone] CMP Panel 05/15/2017 [facility] Sodium 135 mmol/L N 133-145 [address] [place] [address] [phone] Potassium 4.8 mmol/L N 3.5-5.0 Chloride 101 [...] N >60 Egfr 69.9 N >60 25 Laboratory test 05/15/2017 [facility] C Reactive 10.76 mg/L High < 5.00 [address] [place] [address] [phone] CBC W/Auto Diff 05/15/2017 [facility] White Blood 5.7 N 3.5- 10.[address] Count 10^3/[place] [address] [phone] Red Blood Count 3.28 10^6/uL Low 4.0-5.4 [...] Cells % 0 N Laboratory test 05/15/2017 [facility] Erythrocyte Sed 29 mm/Hr N 0-[address] [place] [address] [phone] Quantiferon Gold 05/15/2017 [facility] M tuberculosis Negative N Negative [address] [place] [address] [phone] TB Ag minus Nil Result 0.01 IU/mL N TB Mitogen minus Nil Result > 10.00 IU/mL N TB Nil Result 0.02 IU/mL N 28 CBC W/Auto 02/26/2017 [facility] White Blood 5.7 10^3/uL N 3.5 -10.[address] [place] [address] [phone] Red Blood Count 3.21 10^6/uL Low 4.0-5.4 [...] Cells % 0.1 N CMP Panel 02/26/2017 [facility] Sodium 137 mmol/L N 133-[address] [place] [address] [phone] Potassium 5.1 mmol/L High 3.5-5.0 Chloride 101 [...] 62.1 N >60 29 Laboratory test 02/26/2017 [facility] Erythrocyte Sed 30 mm/Hr N 0-[address] [place] [address] [phone] C Reactive Protein 12.15 mg/L High < 5.00 30 Laboratory test 02/26/2017 [facility] Vitamin D 63.0 ng/mL High 30-[address] Total 25(Oh) [place] [address] [phone] Laboratory test 12/01/2016 [facility] Vitamin D 66.3 ng/mL High 30-[address] Total 25(Oh) [place] [address] [phone] CBC Auto Diff 12/01/2016 [facility] White Blood 5.3 N 3.5- 10.[address] Count 10^3/[place] [address] [phone] Red Blood Count 3.28 10^6/uL Low 4.0-5.4 [...] Cells % 0 N Laboratory test 12/01/2016 [facility] Erythrocyte Sed 28 mm/Hr N 0-[address] [place] [address] [phone] Comp Metabolic 12/01/2016 [facility] Sodium 136 mmol/L N 133- [address] [place] [address] [phone] Potassium 4.3 mmol/L N 3.5-5.0 Chloride 100 [...] 77.2 N >60 31 Laboratory test 12/01/2016 [facility] C Reactive 5.87 mg/L High < 5.00 [address] [place] [address] [phone] Comp Metabolic 09/16/2016 [facility] Sodium 136 N 133-[address] mmol/[place] [address] [phone] Potassium 5.6 mmol/L High 3.5-5.0 Chloride 101 [...] 67.7 N >60 33 Laboratory test 09/16/2016 [facility] C Reactive 5.64 mg/L High < 5.00 [address] [place] [address] [phone] CBC Auto Diff 09/16/2016 [facility] White Blood 7.8 N 3.5- 10.[address] Count 10^3/[place] [address] [phone] Red Blood Count 3.50 10^6/uL Low 4.0-5.4 [...] Cells % 0 N Laboratory test 09/16/2016 [facility] Erythrocyte Sed 21 mm/Hr N 0-[address] [place] [address] [phone] Vitamin D Total 25(Oh) 57.1 ng/mL High 30-50 Laboratory test 07/29/2016 [facility] Vitamin D 46.7 ng/mL N 30-50 [address] Total 25(Oh) [place] [address] [phone] CBC Auto Diff 07/29/2016 [facility] White Blood 7.1 10^3/uL N 3.5-10.[address] [place] [address] [phone] Red Blood Count 3.19 10^6/uL Low 4.0-5.4 Hemoglobin 11.2 g/dL Low 12.0-16.0 Hematocrit 34 % Low 35-47 Mean Corpuscular Volume 106 fL High 80-97 37 Mean Corpuscular Hemoglobin 35 pg High 27-31 [...] Cells % 0.1 N Laboratory test 07/29/2016 [facility] Erythrocyte Sed 29 mm/Hr N 0-40 [address] [place] [address] [phone] CBC Auto Diff 07/29/2016 [facility] White Blood 7.1 N 3.5- 10.[address] Count 10^3/[place] [address] [phone] Red Blood Count 3.19 10^6/uL Low 4.0-5.4 Hemoglobin 11.2 g/dL Low 12.0-16.0 Hematocrit 34 % Low 35-47 Mean Corpuscular Volume 106 fL High 80-97 39 Mean Corpuscular Hemoglobin 35 pg High 27-31 [...] % 0.1 N Comp Metabolic Panel 07/29/2016 [facility] Sodium 137 mmol/L N 133-[address] [place] [address] [phone] Potassium 4.3 mmol/L N 3.5-5.0 Chloride 98 [...] 54.5 N >60 Egfr 70.1 N >60 40 Laboratory test 07/29/2016 [facility] C Reactive 6.12 mg/L High < 5.00 [address] [place] [address] [phone] Erythrocyte Sed Rate 29 mm/Hr N 0-40 42 Vitamin D Total 25(Oh) 46.7 ng/mL N 30-50 43 Laboratory test 06/23/2016 [facility] Cancellous SEE RESULTS 44, [address] Chips 5cc [place] <[place] [address] NOTE> [phone] DBM Putty Orthoblast II 5cc SEE RESULTS BELO <SEE NOTE> 46 Laboratory test 06/11/2016 [facility] C Reactive 11.86 mg/L High < 5.00 [address] [place] [address] [phone] Erythrocyte Sed Rate 20 mm/Hr N 0-40 48 CBC Auto Diff 06/11/2016 [facility] White Blood 6.5 10^3/uL N 3.5-10.[address] [place] [address] [phone] Red Blood Count 3.16 10^6/uL Low 4.0-5.4 [...] Nucleated Red Blood Cells % 0 N Comp Metabolic Panel 06/11/2016 [facility] Sodium 139 mmol/L N 133-[address] [place] [address] [phone] Potassium 4.3 mmol/L N 3.5-5.0 Chloride 102 [...] 64.0 N >60 Egfr 82.3 N >60 49 CBC Auto Diff 03/12/2016 [facility] White Blood 6.2 10^3/uL N 3.5-10.[address] [place] [address] [phone] Red Blood Count 3.66 10^6/uL Low 4.0-5.4 [...] Cells % 0.1 N Laboratory test 03/12/2016 [facility] Erythrocyte Sed 16 mm/Hr N 0-[address] [place] [address] [phone] Laboratory test 03/12/2016 [facility] C Reactive 9.40 mg/L High < 5.00 [address] [place] [address] [phone] Comp Metabolic 03/12/2016 [facility] Sodium 137 N 133-[address] mmol/[place] [address] [phone] Potassium 4.4 mmol/L N 3.5-5.0 Chloride 100 [...] 79.4 N >60 51 Laboratory test 12/19/2015 [facility] C Reactive 8.80 mg/L High < 5.00 [address] [place] [address] [phone] Erythrocyte Sed Rate 17 mm/Hr N 0-40 53 CBC Auto Diff 12/19/2015 [facility] White Blood 5.5 10^3/uL N 3.5-10.[address] [place] [address] [phone] Red Blood Count 3.66 10^6/uL Low 4.0-5.4 [...] % 0.1 N Comp Metabolic Panel 12/19/2015 [facility] Sodium 133 mmol/L N 133-[address] [place] [address] [phone] Potassium 4.6 mmol/L N 3.5-5.0 Chloride 97 [...] its performance characteristics determined by [facility] in a manner consistent with CLIA requirements. This test has not been cleared or approved by the U.S. Food and Drug Administration. Test Performed by: [facility] [address] [place] [address] 4 Because ethnic data is not always [...] (or dialysis) 5 Result TnIDx:0.16 Called to [id number] at: 12:51:47 by:[id number] Read back by: [id number] Desirable: <150 Borderline High: 150-199 High: [...] its performance characteristics determined by [facility] in a manner consistent with CLIA requirements. This test has not been cleared or approved by the U.S. Food and Drug Administration. Test Performed by: [address] [address] 25 Because ethnic data is not always [...] 5 Kidney failure <15 (or dialysis) 26 Acute inflammation: >10.00 27 No interferon-gamma response to M. tuberculosis antigens was detected. Infection with M. tuberculosis is unlikely. A negative result alone does not exclude infection with M. tuberculosis. For detailed information regarding test interpretation see: [email or web address] 28 Test Performed by: [address] [address] 29 Because ethnic data is not always [...] Consistent with previous results on 07/29/16. 36 standing orders q 3 mo 37 Adult MCV greater than 105 fl incubated 1/2 hr at 37c without significant change. 38 standing orders q 6 weeks 39 Adult MCV greater than 105 fl incubated 1/2 hr at 37c without significant change. 40 Because ethnic data is not always [...] (or dialysis) 41 Acute inflammation: >10.00 42 standing orders q 6 weeks 43 standing orders q 3 mo 44 3-PART FRACTURE OF SURGICAL NECK OF LEFT HUMERUS, 45 SEE RESULTS BELOW [id number] CANC CHIPS 5CC TRANSFUSED 06/24/16 1222 [id number] CANC CHIPS 5CC TRANSFUSED 06/24/16 1222 [id number] CANC CHIPS 5CC TRANSFUSED 06/24/16 1222 46 SEE RESULTS BELOW [id number] DBM PUTTY 5CC TRANSFUSED 06/24/16 1222 47 Acute inflammation: >10.00 48 Please check labs 2 or 3 days before her next visit 49 Because ethnic data is not always readily [...] 15-29 5 Kidney failure <15 (or dialysis) 50 Acute inflammation: >10.00 51 Because ethnic [...] (or dialysis) Procedures Date Code Description Status 10/07/2018 66778 ECHO Transthoracic, Real-Time 2D With Doppler And Completed Color Flow 10/07/2018 05264 ECHO Transthoracic, Real-Time 2D With Doppler And Completed Color Flow 10/06/2018 97310 EKG Tracing & Interpretation Completed 08/12/2018 [id number] Diabetic Retinal Eye Exam Completed 07/28/2018 34862 EKG Tracing & Interpretation Completed 05/26/2018 44899 Treadmill Interp/Report Only Completed 05/26/2018 07350 Treadmill Interp/Report Only Completed 05/26/2018 36858 Stress Test Supervsn W/Out I/R Completed 05/26/2018 86630 Stress Test Supervsn W/Out I/R Completed 05/13/2018 [id number] Diabetic Retinal Eye Exam Completed 05/02/2018 51767 EKG, Interpretation Only Completed 05/02/2018 42072 ECHO Transthorasic Realtime 2D W Doppler & Color Flow Completed Hosp 03/10/2017 82357 ECHO Transthoracic, Real-Time 2D With Doppler And Completed Color Flow 10/14/2016 [id number] Bone Mineral Density Test Completed 09/23/2016 [id number] Diabetic Retinal Eye Exam Completed 06/24/2016 13182 Open TX Proximal Humeral FX Incl Fixation When Completed Performed 06/24/2016 82028 Open TX Proximal Humeral FX Incl Fixation When Completed Performed 05/28/2016 02394 Closed trtmt prox humeral fx Completed 01/29/2015 [id number] Bone Mineral Density Test Completed Encounters Type Date Location Provider Dx Diagnosis Office Visit 10/06/2018 [facility] Shonna Escobar NP R06.02 Shortness of 3:30p breath I10 Essential (primary) hypertension Z95.1 Presence of aortocoronary bypass graft I34.0 Nonrheumatic mitral (valve) insufficiency Office Visit 09/29/2018 3:30p [facility] Nurse Visit I10 Essential (primary) Of [employer] IC hypertension R06.02 Shortness of breath Office Visit 09/05/2018 1:15p Orthopedic Kaleb F M06.9 Rheumatoid Services Of MD Melania arthritis, C.M.A. unspecified S42.302D Unsp fx shaft of humerus, left arm, subs for fx w routn heal Office Visit 08/29/2018 1:30p [facility] Shonna Thuman, I10 Essential (primary) Of [facility] [employer]ORY TE[employer]ER hypertension I45.2 Bifascicular block Office Visit 07/28/2018 1:10p [facility] Keeley King, I44.4 Left anterior Of [place] fascicular block I45.10 Unspecified right bundle-branch block [...] Of [place] arthritis, unspecified Z79.899 Other mcfp (current) drug therapy 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 humerus, left arm, init S42.302D Unsp fx shaft of humerus, left arm, subs for fx w routn heal Office Visit 05/02/2018 3:01p [facility] Timmy Angulo I45.10 Unspecified right Cardiology Of Thee Ahn bundle-branch block [facility] R79.89 Other specified abnormal findings of blood chemistry Office Visit 05/02/2018 11:56a Orthopedic Services Mattie S42.302A Unsp fracture Of C.M.A. MILTON Marte of shaft of humerus, left arm, init Office Visit 05/02/2018 9:55a [facility] Rebel, S42.302A Unsp fracture [facility] 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 I45.10 Unspecified right bundle-branch block Office Visit 05/01/2018 2:39p [facility] Keeley King, R79.89 Other specified Of [place] abnormal findings of blood chemistry R94.31 Abnormal electrocardiogram [ECG] [EKG] Office Visit 05/01/2018 9:47a [facility] Charlotte Luque, S42.302A Unsp fracture [...] fracture Office Visit 02/17/2018 2:00p Rheumatology Benoit Preciado, M05.79 Rheu arthritis Services Of [place] w rheu factor mult site w/o org/sys involv 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, multiple sites Z79.899 Other mcfp (current) drug therapy Office Visit 11/17/2017 1:40p Rheumatology Benoit Preciado M05.79 Rheu arthritis Services Of [facility] Thee rheu factor mult site w/o org/sys involv 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, multiple sites Z79.899 Other mcfp (current) drug therapy E67.3 Hypervitaminosis D Office Visit 08/18/2017 1:20p Rheumatology Benoit Preciado M05.79 Rheu arthritis Services Of [facility] Thee rheu factor mult site w/o org/sys involv 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, multiple sites Z79.899 Other consumer lender (current) drug therapy E67.3 Hypervitaminosis D Office Visit 05/18/2017 1:40p Rheumatology Benoit Preciado M05.79 Rheu arthritis Services Of [facility] Thee rheu factor mult site w/o org/sys involv 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, multiple sites Z79.899 Other mcfp (current) drug therapy Z23 Encounter for immunization Office Visit 04/06/2017 2:00p Rheumatology Benoit Preciado M05.79 Rheu arthritis Services Of [facility] Thee rheu factor mult site w/o org/sys involv 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, multiple sites Z79.899 Other mcfp (current) drug therapy E67.3 Hypervitaminosis D Office Visit 03/04/2017 2:00p Rheumatology Benoit Preciado M05.79 Rheu arthritis Services Of [facility] rheu factor mult site w/o org/sys involv 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, multiple sites Z79.899 Other consumer lender (current) drug therapy E67.3 Hypervitaminosis D R01.1 Cardiac murmur, unspecified Office Visit 03/03/2017 Orthopedic Kaleb Meek S42.232D 3-part fx surg 2:00p Services Of Ryland Velázquez MD neck of l humerus, subs for fx w routn heal Office Visit 12/04/2016 Rheumatology Polly Moser, M05.79 Rheu arthritis 2:00p Services Of [facility] w rheu factor mult site w/o org/sys involv 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, multiple sites E67.3 Hypervitaminosis D R79.89 Other specified abnormal findings of blood chemistry Z79.899 Other consumer lender (current) drug therapy Office Visit 10/15/2016 1:15p Orthopedic Kaleb F S42.232D 3-part fx surg Services Of MD Melania neck of l C.M.A. humerus, subs for fx w routn heal S42.232K 3-part fx surgical neck of l humerus, subs for fx w nonunion Office Visit 09/18/2016 1:00p Rheumatology Polly Moser M05.79 Rheu arthritis Services Of [facility] w rheu factor mult site w/o org/sys involv M85.9 Disorder of bone density and structure, unspecified Z79.52 senior care (current) use of systemic steroids Z79.899 Other mcfp (current) drug therapy S42.232D 3-part fx surg neck of l humerus, subs for fx w routn heal Office Visit 06/16/2016 2:00p Rheumatology Polly Moser M05.79 Rheu arthritis Services Of [facility] w rheu factor mult site w/o org/sys involv S42.232A 3-part fracture of surgical neck of left humerus, init M81.0 Age-related osteoporosis w/o current pathological fracture Z79.899 Other consumer lender (current) drug therapy Z79.52 senior care (current) use of systemic steroids Office Visit 03/17/2016 3:00p Rheumatology Benoit Preciado M05.79 [facility] Thee w rheu factor mult site w/o org/sys involv Z79.899 Other m[facility]p (current) drug therapy M81.0 Age-related osteoporosis w/o current pathological fracture Office Visit 12/17/2015 3:00p Rheumatology Benoit Preciado M05.79 [facility] Thee w rheu factor mult site w/o org/sys involv Z79.899 Other mcfp (current) drug therapy M81.0 Age-related osteoporosis w/o current pathological fracture M65.4 Radial styloid tenosynovitis [de Quervain] Plan of Treatment Future Appointment(s):12/26/2018 1:30 pm - Keeley King M.D. at [facility]10/26/2018 2:30 pm - Nurse Visit IC at [facility]01/03/2019 1:00 pm - [facility] 1:00 pm - Benoit Preciado M.D. at [facility]10/25/2018 - Shonna Escobar, GRANTI34.0 Nonrheumatic mitral (valve) insufficiencyNew Orders:Holter Monitor, Ordered: 10/25/18Follow up:f/u with Dr. King in 2-3 months.Recommendations:Please inquire with [facility] if there is a size difference in regards to Cartia 120mg capsule [id number] capsule or 360mg capsule.I10 Essential (primary) hypertensionNew Orders:Holter Monitor, Ordered: 10/25/18R06.02 Shortness of breathNew Orders:Holter Monitor, Ordered: 10/25/18
--- NOTE | 2018-11-16 07:24 | ED ---
Nausea/Vomiting/Diarrhea HPI - HPI Summary HPI Summary: Patient is a 73-year-old female with history of hypertension and tachycardia presenting to the ED with nausea and vomiting since last evening. Approximately 3 hours ago, she states she developed epigastric pain which is nonradiating. She endorses 10+ episodes vomiting since last evening. She called the ambulance and she arrives by EMS. EMS gave her 4 baby aspirin and 4 Zofran with good relief of her nausea. She endorses some epigastric tenderness at this time, which is not worse with palpation and does not radiate. She denies any abdominal tenderness, nausea, diarrhea or constipation at this time. She states she had soup last night for dinner and immediately following that began to have emesis. She does state she walked very long way yesterday which is not normal for her. She continues to take her blood pressure medications at home as prescribed and denies any history of [place], CHF or CAD. Symptoms are not aggravated with positioning or rest. She is unsure if she has been around sick contacts. She denies any travel. She denies any shortness of breath or chest pain otherwise at this time. Denies any back pain, urinary symptoms, headache, visual changes. Vital signs on arrival are 149/76, 97.9, heart rate 84, respirations 16 and 92% on room air. - History of Current Complaint Chief Complaint: EDChestPainROMI Stated Complaint: "CHEST PAIN" PER EMS Time Seen by Provider: 11/16/18 07:05 Hx Obtained From: Patient ?: No Onset/Duration: Sudden Onset Timing: Constant Severity Initially: Mild Severity Currently: Mild Pain Intensity: 7 Pain Scale Used: 0-10 Numeric Location: Epigastric Character: Burning Aggravating Factor(s): Nothing Alleviating Factor(s): Nothing Nausea/Vomiting Presence: None Vomiting Frequency: Every 15-60 minutes Nausea/Vomiting Duration: 0-12 hours Vomiting Characteristics: Retching Diarrhea Presence: No - Allergies/Home Medications Allergies/Adverse Reactions: Allergies Allergy/AdvReac Type Severity Reaction Status Date / Time hydrocodone Allergy Itching Verified 11/16/18 07:40 Iodinated Contrast- Oral and Allergy Itching Verified 11/16/18 07:40 IV Dye Sulfa (Sulfonamide Allergy itch Verified 11/16/18 07:40 Antibiotics) tramadol Allergy itch Verified 11/16/18 07:40 iv contrast Allergy itch Uncoded 11/16/18 07:40 Home Medications: Home Medications dilTIAZem HCl [Diltiazem 24Hr ER] 360 mg PO DAILY 11/16/18 [History Confirmed ] PMH/Surg Hx/FS Hx/Imm Hx Previously Healthy: Yes Endocrine/Hematology History: Reports: Hx Thyroid Disease Denies: Hx Diabetes Cardiovascular History: Reports: Hx Hypercholesterolemia, Hx Hypertension Denies: Hx Angina, Hx Coronary Artery Disease Comment Only: Hx Myocardial Infarction - unknown Respiratory History: Denies: Hx Asthma, Hx Chronic Obstructive Pulmonary Disease (COPD) GI History: Denies: Hx Ulcer History: Denies: Hx Renal Disease Musculoskeletal History: Reports: Hx Arthritis - RA, Hx Rheumatoid Arthritis, Other Musculoskeletal History - 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 BILAT hand surgery. tonsillectomy as praneeth. shoulder repair Hx Anesthesia Reactions: No - Immunization History Hx Pertussis Vaccination: No Immunizations Up to Date: Yes Infectious Disease History: No Infectious Disease History: Denies: Hx Hepatitis, Hx Human Immunodeficiency Virus (HIV), Traveled Outside the [place] in Last 30 Days - Family History Known Family History: Positive: Cardiac Disease, Hypertension - Social History Occupation: Unemployed Lives: With Family Alcohol Use: Occasionally Alcohol Amount: qod Hx Substance Use: No Substance Use Type: Reports: None Smoking Status (MU): Never Smoked Tobacco Have You Smoked in the Last Year: No Review of Systems Constitutional: Negative Negative: Fever, Chills, Fatigue, Skin Diaphoresis Negative: Dental Pain, Sore Throat Positive: Chest Pain. Negative: Palpitations Negative: Shortness Of Breath Positive: Abdominal Pain - epigastric pain, Vomiting, Nausea. Negative: Diarrhea Genitourinary: Negative Positive: no symptoms reported, see HPI Negative: Arthralgia, Myalgia Skin: Negative All Other Systems Reviewed And Are Negative: Yes Physical Exam Triage Information Reviewed: Yes Vital Signs On Initial Exam: Initial Vitals Temp Pulse Resp BP Pulse Ox 97.9 F 84 16 149/76 92 11/16/18 07:06 11/16/18 07:06 11/16/18 07:06 11/16/18 07:06 11/16/18 07:06 Vital Signs Reviewed: Yes Appearance: Positive: Well-Appearing, Well-Nourished Skin: Positive: Warm, Pale Head/Face: Positive: Normal Head/Face Inspection Eyes: Positive: EOMI, Conjunctiva Clear Neck: Positive: Supple, No Lymphadenopathy Respiratory/Lung Sounds: Positive: Clear to Auscultation, Breath Sounds Present Cardiovascular: Positive: RRR, Pulses are Symmetrical in both Upper and Lower Extremities Musculoskeletal: Positive: Normal, Strength/ROM Intact Neurological: Positive: Speech Normal Psychiatric: Positive: Normal, Affect/Mood Appropriate Diagnostics - Vital Signs Vital Signs Temp Pulse Resp BP Pulse Ox 11/16/18 07:06 97.9 F 84 16 149/76 92 - Laboratory Result Diagrams: 11/16/18 07:39 11/16/18 07:39 Lab Statement: Any lab studies that have been ordered have been reviewed, and results considered in the medical decision making process. Naus/Vom/Diarrhea Course/Dx - Course Course Of Treatment: On physical examination, patient appears well and offers no complaints at this time. She denies any nausea, chest pain, SOB or epigastric tenderness she had previously. She states the medications they gave her by way of EMS improved her symptoms. EMS gave her 4 baby aspirin and 4 Zofran. She appears well, nontoxic appearing, nondiaphoretic on arrival and vital signs are stable. On arrival, EKG obtained which shows a normal sinus rhythm with a right bundle branch block and a probable left ventricular hypertrophy. Rate of 77. Chest x-ray obtained which shows no acute patholigies Labs obtained included a troponin which is elevated of 0.12. Repeat trop 0.10. This appears to be consistently elevated. Influenza swab obtained. UA and influenza negative. Patient appears improved and states she would like to go home. Ambulated patient and sat dropped from 89% (at rest) to 86% walking. This is not normal for her per her and . This occurred twice. She also c/o worsening pain with ambulation. I have asked hospitalist team to consult regarding her persistent CP (epigastric) and SOB while ambulating. I have asked the hospitalist team to consult and admit for further anginal and SOB workup. During her course of treatment, she was given 1 L fluids and to 4 mg Zofran. Upon admission to the hospital, nausea and vomiting is controlled. - Differential Dx/Diagnosis Differential Diagnoses - Female: Other - Angina, chest pain, shortness of breath Provider Diagnosis: Exertional angina, Shortness of breath, Nausea and vomiting - Physician Notification/Consults Discussed Case/Management/Disposition Of Patient With: Chris Anderson Instructed by Provider To: Admit As Inpatient Discharge - Sign-Out/Discharge Documenting (check all that apply): Patient Departure Patient Received Moderate/Deep Sedation with Procedure: No - Discharge Plan Condition: Fair Disposition: ADMITTED TO [facility] Referrals: Annabel Garcia MD [Primary Care Provider] - - Billing Disposition and Condition Condition: FAIR Disposition: Admitted to [facility]
[2018-11-16 07:48] LABS: Hematocrit 38 % (33-41); Hemoglobin 12.6 g/dL (12.0-16.0); Mean Corpuscular HGB Conc 33 g/dL (31-36); Mean Corpuscular Hemoglobin 35 pg (27-31); Mean Platelet Volume 7.9 fL (7.4-10.4); Platelet Count 262 10^3/uL (150-450); Red Blood Count 3.59 10^6 /uL (3.70-4.87); Red Cell Distribution Width 16 % (10.5-15); White Blood Count 6.3 10^3/uL (3.5-10.8)
[2018-11-16 07:48] LABS: Urine Appearance Clear; Urine Color Yellow; Urine Specific Gravity 1.025 (1.010-1.030)
[2018-11-16 07:49] LABS: Urine Bilirubin Negative (Negative); Urine Blood Negative (Negative); Urine Glucose Negative (Negative); Urine Ketones Negative (Negative); Urine Nitrite Negative (Negative); Urine Protein 1+(30 mg/dL) (Negative); Urine Urobilinogen Negative (Negative)
[2018-11-16 07:51] LABS: Urine Bacteria Absent (Absent); Urine Red Blood Cell Absent (Absent); Urine Squamous Epithelial Cell Present (Absent); Urine White Blood Cell Trace(0-5/hpf) (Absent)
[2018-11-16 07:57] LABS: INR 0.84 (0.77-1.02)
[2018-11-16 08:04] LABS: ALT 22 U/L (7-52); AST 40 U/L (13-39); Albumin/Globulin Ratio 1.5 (1-3); Alkaline Phosphatase 60 U/L (34-104); Anion Gap 10 mmol/L (2-11); BUN/Creatinine Ratio 21.4 (8-20); Blood Urea Nitrogen 18 mg/dL (6-24); CO2 Carbon Dioxide 25 mmol/L (22-32); Calcium 9.2 mg/dL (8.6-10.3); Chloride 103 mmol/L (101-111); EGFR African American 80.2 (>60); EGFR Non-African American 66.3 (>60); Globulin 2.6 g/dL (2-4); Glucose 105 mg/dL (70-100); Magnesium 1.7 mg/dL (1.9-2.7); Sodium 138 mmol/L (135-145); Total Protein 6.6 g/dL (6.4-8.9)
[2018-11-16 08:06] LABS: Influenza A Molecular NEGATIVE (Negative); Influenza B Molecular NEGATIVE (Negative)
[2018-11-16 08:22] LABS: ABS Basophils 0 10^3/ul (0-0.2); ABS Eosinophils 0.1 10^3/ul (0-0.6); ABS Monocytes 0.4 10^3/ul (0-0.8); ABS Neutrophils 4.8 10^3/ul (1.5-7.7); ABS Nucleated RBC 0 10^3/ul; Lymphocyte % 16.1 %; Mean Corpuscular Volume 106 fL (80-97); Nucleated Red Blood Cells % 0
[2018-11-16] MEDS ORDERED: Ondansetron INJ* 2 MG/ML VIAL IV ONE (08:26)
[2018-11-16 08:51] LABS: Troponin I 0.12 ng/mL (<0.04)
[2018-11-16] MEDS ORDERED: Ondansetron INJ* 2 MG/ML VIAL IV PRN (11:52)
[2018-11-16] MEDS ORDERED: Nitro 2% OINT* (Nitroglycerin) 1 INCH/PAK PAK TOPICAL ONE (11:52)
[2018-11-16] MEDS ORDERED: Acetaminophen TAB* 325 MG PO PRN (11:52)
[2018-11-16] MEDS ORDERED: Albuterol HFA INHALER* 8 gm MDI INH PRN (11:56)
[2018-11-16] MEDS ORDERED: NS 0.9% 1000 ML** 1,000 ML IV SCH (12:00)
[2018-11-16] MEDS ORDERED: Lidocaine 2% VISCOUS* 15 ML UDC PO ONE (12:04)
[2018-11-16] MEDS ORDERED: Al Hydrox/Mg Hydrox/Simet LIQ* 30 ML UDC PO ONE (12:04)
[2018-11-16] MEDS: Nitro 2% OINT* (Nitroglycerin) 1 INCH/PAK PAK TOPICAL SCH (12:09)
[2018-11-16] MEDS ORDERED: Magnesium Sulfate 2 GM IV* 2 GM/50 ML BAG IVPB ONE (12:10)
[2018-11-16 12:49] LABS: ABS Basophils 0.1 10^3/ul (0-0.2); ABS Eosinophils 0.1 10^3/ul (0-0.6); ABS Lymphocytes 1.1 10^3/ul (1.0-4.8); ABS Monocytes 0.5 10^3/ul (0-0.8); ABS Neutrophils 8.4 10^3/ul (1.5-7.7); ABS Nucleated RBC 0 10^3/ul; Eosinophil % 0.7 %; Hematocrit 37 % (33-41); Hemoglobin 12.4 g/dL (12.0-16.0); Lymphocyte % 10.9 %; Mean Corpuscular HGB Conc 34 g/dL (31-36); Mean Corpuscular Hemoglobin 36 pg (27-31); Mean Corpuscular Volume 106 fL (80-97); Mean Platelet Volume 7.2 fL (7.4-10.4); Nucleated Red Blood Cells % 0.1; Platelet Count 276 10^3/uL (150-450); Red Cell Distribution Width 16 % (10.5-15); White Blood Count 10.1 10^3/uL (3.5-10.8)
[2018-11-16 12:50] LABS: Activated Partial Thrombo Time 30.2 seconds (26.0-36.3); INR 0.87 (0.77-1.02)
[2018-11-16 12:55] LABS: EGFR African American 87.4 (>60); EGFR Non-African American 72.2 (>60)
[2018-11-16 13:22] LABS: Troponin I 0.12 ng/mL (<0.04)
[2018-11-16] MEDS: Heparin VIAL(*) 5000 UNITS/ML VIAL (FIVE THOUSAND) SUBCUT SCH ×2 (13:50→21:16)
--- NOTE | 2018-11-16 14:00 | HP ---
HISTORY AND PHYSICAL: ADDENDUM: I do note that her D-dimer was 709. My suspicion for PE is low at this point in the differential. I do note that in April she had a D-dimer greater than 1050 with a negative CTA and she had a negative VQ a month ago. She has no tachycardia. Her O2 saturations are not below 90%. She is getting chest pressure, discomfort with exertion, which makes me feel this is more cardiac in nature. I am reassured that with the higher D-dimer and a negative CTA in April that this D- dimer for her age is normal. If we do not find any obvious etiology with cardiac evaluations, then certainly we can consider repeating the VQ, but I suspect this is less likely. She has a number of reasons why the D-dimer could be high such as a rheumatoid arthritis. So, I think we will monitor her and I did discuss this point with my attending, Dr. Anderson, and he was in agreement at this point. ALMA ROSA LLANES NP [id number]/[facility] #: [id number] JOSH
--- NOTE | 2018-11-16 14:00 | CONS ---
CONSULTATION REPORT: DATE OF CONSULT: 11/16/18 ATTENDING PHYSICIAN: Dr. Keeley King* (dictated by Shonna Escobar NP). PRIMARY MEDICAL ASSISTANT SECRETARY: Historically, Dr. Keeley King. REASON FOR CONSULTATION: Complaints of chest pain with troponin elevation. HISTORY OF PRESENT ILLNESS: This is a pleasant 73-year-old female patient who follows Dr. Keeley King of our practice due to notable history of dynamic outflow tract obstruction, hypertension, troponinemia, moderate left ventricular hypertrophy and rheumatoid arthritis. Deidra states that yesterday evening after eating stew, she developed nausea and vomiting. She states she has otherwise been in her usual state of health, in fact, she has been working out at [employer] with no exertional complaints of chest pain or shortness of breath. She denies recent hospitalization. She recently saw me in the office on 10/06/18 and was actually doing quite well. Cartia was increased to 360 mg a day and she was compensated on physical examination at that time. Apparently at 3 o'clock this morning, she woke up from her sleep with epigastric discomfort described as pressure like in quality. She was able to go back to bed and then she woke up again at 6 o'clock in the morning with recurrent epigastric discomfort. Subsequently, she had her , Aldo, call 911. En route to [facility], she was given 324 mg of aspirin and IV Zofran with no improvement of chest pain, nausea or vomiting. Her last episode of emesis was at 0800. She still states that she feels nauseous, however. Currently, she rates her epigastric discomfort 3/ 10 and states that its worse with ambulation. I spoke to the emergency room provider who states that he had the patient ambulate in the halls and the patient did have in fact exacerbation of her chest discomfort. Subsequently, we were asked to evaluate the patient in consultation. Upon further review of medical records, it appears that the patient has had chronic troponin elevation since her April 2019 admission due to fall with subsequent shoulder injury. She was risk stratified with a stress test on 05/26/18, which revealed negative ECG portion and normal perfusion; however, there was a concern for inferior wall motion abnormality. Echocardiogram in April 2018 revealed LVEF of 60% to 65%, trace tricuspid regurgitation, mild to moderate LVH. She historically was taken off of Lopressor therapy due to shortness of breath, which apparently did improve once she was transitioned to Cartia therapy. In August, I had auscultated dynamic outflow tract obstruction murmur, which was confirmed via echocardiogram. Thus, Cartia has been uptitrated and she is currently on 360 mg a day and again she states that she has otherwise been doing quite well. She denies dizziness, syncope, palpitations, sensation of heart racing, fever, chills, coughing, lower extremity edema, orthopnea. Last echocardiogram in September 2018 demonstrate a LVEF of 65% to 70% with moderate LVH and positive left ventricular outflow tract obstruction, 1.9 m/s and MAC. Last ischemic evaluation as mentioned before, the Lexiscan stress test 05/26/18. PAST MEDICAL HISTORY: Includes: 1. Hypertension. 2. Rheumatoid arthritis. 3. Depression. 4. Prior alcoholism, under control. 5. Dynamic outflow tract obstruction. 6. Diastolic heart failure. 7. Hypothyroidism. PAST SURGICAL HISTORY: Includes: 1. Hysterectomy. 2. Bilateral hand surgery. 3. Tonsillectomy. HOME MEDICATIONS: Include: 1. Cartia 360 mg a day. 2. Methotrexate 2.5 mg tablets 6 tablets every week. 3. Hydroxychloroquine sulfate 200 mg daily. 4. Folic acid 1 mg a day. 5. Pristiq 50 mg a day. 6. Levothyroxine 50 mcg a day. 7. Irbesartan 75 mg p.o. b.i.d. 8. Trazodone 150 mg p.o. q.h.s. p.r.n. ALLERGIES: Includes CONTRAST DYE which the patient reports causes hives, HYDROCODONE, MORPHINE which causes itching, SULFA ANTIBIOTICS which apparently cause GI upset. FAMILY HISTORY: Noncontributory. SOCIAL HISTORY: The patient is , lives at home with her , Aldo. She is not employed. Denies tobacco use. Former alcoholic as listed in medical record. Denies drug use. REVIEW OF SYSTEMS: All systems have been reviewed and otherwise negative except what is above mentioned in the HPI. PHYSICAL EXAMINATION: The patient was examined in the emergency department. She is in no apparent distress. She is cooperative with exam, appears well nourished. HEENT: Head is atraumatic, normocephalic. Oral mucosa is moist. Tongue is midline. Neck is supple. Trachea midline. No JVD. No carotid bruit. Cardiac: Normal S1, S2. Regular rate and rhythm. There is a positive murmur noted with respiratory variant. No gallop or rub. Lungs: Auscultated posteriorly, clear throughout. No evidence of retractions. /GI: Abdomen is soft, nontender, nondistended. Normal bowel sounds auscultated in all 4 quadrants. Extremities: No clubbing, no cyanosis, no edema. Peripheral Vascular: 2+ brachial and dorsalis pedal pulses palpated bilaterally and symmetrically. Skin: Intact. No evidence of jaundice, rashes, or ecchymosis appreciated. DIAGNOSTIC STUDIES/LAB DATA: White count 10.1, hemoglobin 12.4, hematocrit 37, platelets 276. INR is 0.87. D-dimer 707. Sodium 138, potassium 4, chloride 103, carbon dioxide 25, creatinine 0.84. Troponin #1 0.12, troponin #2 0.10. BNP was elevated at 130. EKG reviewed demonstrates normal sinus rhythm, rate 77, with known left anterior fascicular block and incomplete right bundle-branch block with known anterior T- wave abnormalities. Chest x-ray per Radiology report demonstrated no evidence of active cardiopulmonary disease. ASSESSMENT AND PLAN: 1. Ongoing complaints of intermittent epigastric discomfort described as pressure like in quality, worse with exacerbation with associated nausea and vomiting; the patient has known troponinemia dating back to April 2018, thus we will continue to cycle cardiac enzymes. There are no acute ECG changes appreciated. Would recommend continuing cardiac medications given known history of left ventricular outflow tract. Tentative plan depending upon isoenzyme trend would be repeat ischemic evaluation via stress test tomorrow, . D-dimer is noted at 707. Historically, she had a low probability V/Q scan in September 2018 and in April 2018, she had CTA of chest that was negative for pulmonary embolism. She historically had an elevated D-dimer in both April and in September, thus this is not new. At this current time, there is no need for IV heparin therapy to treat acute coronary syndrome; however, depending upon isoenzyme trend, we will reevaluate. 2. History of dynamic outflow tract obstruction. Recommend continuing Cartia 360 mg a day. The patient is compensated on physical examination. If we proceed with stress test tomorrow, would recommend doing so on medications. 3. Complaints of nausea, vomiting. Last episode of emesis was at 0800. We will defer to hospitalist to ensure that gastrointestinal illness has been ruled out. Influenza A and B negative. 4. History of hypertension. Blood pressure currently controlled. Would recommend continuing irbesartan and cardiotherapy. 5. Disposition: Pending course. The patient is full code. The patient was seen and examined by Dr. Keeley King who agrees with the above assessment and plan. Please do not hesitate to contact our service with any questions or concerns. SHONNA ESCOBAR, SENIOR BUSINESS ARCHITECT [id number]/[facility] #: [id number] JOSH
--- NOTE | 2018-11-16 14:43 | HP ---
CC: Dr. Garcia; Dr. King; Shonna Escobar NP* HISTORY AND PHYSICAL: DATE OF ADMISSION: 11/16/18. PRIMARY CARE PROVIDER: Dr. Garcia. PRIMARY MANAGER FIELD SERVICE AND PHYSICAL SCIENCE TECHNICIAN MANAGER FIELD SERVICE: Dr. King and Shonna Escobar NP. ATTENDING PHYSICIAN WHILE IN THE HOSPITAL: Dr. Chris Anderson* ( report being dictated by Juan Watts NP). CHIEF COMPLAINT: 1. Epigastric discomfort. 2. Nausea and vomiting. HISTORY OF PRESENT ILLNESS: Ms. Fink is a 73-year-old female patient who has a history of rheumatoid arthritis, hypothyroidism, hypertension, macular puckering , osteopenia, history of shoulder fracture and compression fracture. She has a history of LVOT, who comes into the ED today. She has been having issues with shortness of breath, and being worked up outpatient and it was felt secondary to be related to beta-blockers. She saw a 8th grade teacher yesterday. The 8th grade teacher agreed with this assessment. She has improved after having been off the beta- tara. She unfortunately though, last night she was eating dinner she vomited every time after she ate, and then twice in the middle of the night she started having epigastric pressure, discomfort that got worse throughout the night, and in fact it woke her up in the middle of the night. She came into the ED because of this and then was noted here that she vomited twice. She was given Zofran, she felt better; however, when they went to ambulate her she started walking around the unit, when she got nursing home through walking, she became really short of breath. She had chest discomfort, pressure , and heaviness. Her oxygen saturation were right around 90%, according to Nursing. There was concern because of this and we were asked to evaluate for admission. She stated that she has never had this discomfort before. She denies having any shortness of breath currently. She does admit to having a 3/ 10 chest discomfort currently. She denies having any abdominal discomfort. She denies any fevers or chills. Her has not been sick as well. She denied having any diarrhea associated with it. There was concern because of this discomfort and we were asked to evaluate for admission. She denies having any calf pain, leg pain, no swelling. She again denies feeling short of breath at this point. It was noted that her O2 saturation have been 93% to 94%. In the 8th grade teacher's office, they were right around 93% as well. PAST MEDICAL HISTORY: Significant for: 1. Osteoarthritis. 2. Hypothyroidism. 3. Hypertension. 4. Macular puckering. 5. Osteopenia. 6. Shoulder fracture. 7. Compression fracture. 8. 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 PAST SURGICAL HISTORY: 1. Left shoulder ORIF. 2. Cataract. 3. Lumpectomy. 4. Bilateral hand surgeries. 5. Total abdominal hysterectomy. HOME MEDICATIONS: According to list provided includes: 1. Aspirin 81 mg daily. 2. Bisacodyl 5 mg take 1 tablet daily. 3. Calcium soft chews 1 tablet daily. 4. Cardizem CD 360 mg a day that was changed by her clinical laboratory assistant recently. 5. Folic acid 1 tablet by mouth daily. 6. Plaquenil 200 mg daily. 7. Irbesartan 75 mg daily. 8. Synthroid 50 mcg daily. 9. Methotrexate 2.5 mg 6 tablets by mouth every week. 10. Nasacort 1 spray both nares daily. 11. Pristiq 50 mg p.o. daily. 12. Trazodone 150 mg daily. ALLERGIES TO MEDICATIONS: Include SULFA, HYDROCODONE, IV DYE. FAMILY HISTORY: Mother had history of breast cancer. Father had history of CHF. SOCIAL HISTORY: She does not smoke. She does drink 2 to 3 glasses of wine a week. Surrogate decision maker is her . REVIEW OF SYSTEMS: There is no documented fever. She denied having any significant weight change. There is no double vision. She denies having any ear discharge. There was no rhinorrhea. There was no sore throat or thyroid enlargement. There was chest discomfort from her HPI. They was dyspnea particularly with exertion. There was no abdominal pain. There was nausea. There was vomiting. There was no dysuria. There was epigastric discomfort. No to frequency, no seizure, no loss of consciousness, no pruritus, no skin ulcerations. Review of 14 systems completed and all others negative. PHYSICAL EXAMINATION GENERAL: At this time, Ms. Fink is a 73-year-old female patient. She is sitting in the ED stretcher. She does not appear to be in any acute distress. She appears to be well-nourished and well developed. VITAL SIGNS: Blood pressure 125/64, pulse 96, respirations 18, O2 sat 93%. HEENT: Head: Atraumatic, normocephalic. Eyes: EOMs are intact. Sclerae anicteric and not pale. NECK: Supple. Throat: Oral mucosa appears to be moist. No oropharyngeal erythema. HEART: Sounds S1, S2. She had a regular rate and rhythm. She had a grade 2 to 3 systolic murmur heard. ABDOMEN: Soft, flat, and nontender. Bowel sounds are present. EXTREMITIES: Pulses were 2+ throughout. She is moving all 4 extremities with 5 /5 strength. NEUROLOGIC: She is awake, she is alert. She is oriented x3. Her speech is clear. Tongue midline. She has no gross focal deficits. SKIN: Intact. DIAGNOSTIC STUDIES/LAB DATA: Labs revealed a WBC of 6.3, RBC of 3.59, hemoglobin 12.6, hematocrit 38, platelet count of 262. INR 0.84. Sodium 138, potassium 4, chloride 103, bicarb 25, BUN 18, creatinine 0.84, glucose 105, lactic 1.3, calcium 9.2, iron 1.7. Total bili 0.3, AST 40, ALT 20, alk phos 60. Troponin 0.12, repeat troponin was 0.10. BNP 130, albumin of 4. Urine showed 1+protein, present squamous epithelial cell, present hyaline casts. Serology was negative for flu. She had a chest x-ray obtained today which showed no evidence of active cardiopulmonary disease. She did have an EKG which showed a normal sinus rhythm with a right bundle branch block and left anterior fascicular block with a rate of 77. She had no ST elevation. She did have inverted T-waves in V1 and V2, and we looked back previously that is similar. No acute changes were noted. She did have a stress test in May of this year which showed no evidence of infarct or ischemia. She had a V/Q scan last month which showed again on evidence of PE. Old medical records reviewed. ASSESSMENT AND PLAN: Ms. Fink is a complex 73-year-old female patient coming into the ER today with complaints of initially vomiting and epigastric discomfort but while in the ER walking did have evidence of chest discomfort. She will be admitted under observation status for: 1. Chest pain. In addition to this nausea and vomiting, this is a complicated patient in the sense that nausea and vomiting could be certainly due to the fact that she did have stew last night, which the said that may have been rancid. However, I am concerned that when she was walking in the ER she had chest pain and symptoms and she has elevated troponin. That being said, I did touch base with Dr. King who will be consulting on the patient along with Shonna Escobar, her nurse practitioner. At this point, I am not going to start a beta-tara because she did not tolerate this previously. She is on 360 mg of Cardizem. I will continue aspirin therapy. I will continue with the diltiazem and I have ordered nitro to the chest as well. If she continues to have active discomfort or the troponins continue to arise, I certainly would have a low threshold to add heparin, but I would wait for official report from the cardiology. I am repeating her echo, I will her cycle her troponins, and I will continue to follow. I am going to, in the interim, add a high dose statin , Lipitor 40 mg, and then again consider adding heparin should those troponin elevate, again it went from 0.12 to 0.10. So, if the third troponin does go up , I certainly will heparinize her for the time being and will continue to follow. I am placing her on a clear liquid diet as well and I am going to give her a GI cocktail to see if she responds to this. 2. Rheumatoid arthritis. Continue methotrexate. 3. Hypothyroidism. Continue on Synthroid. 4. History of hypertension. Continue meds as prescribed. 5. History of macular puckering, follow with her PCP and her associate counsel. 6. Osteopenia. Continue her current medical regimen. 7. DVT prophylaxis. She is on heparin subcu. 8. Code status: Full code. 9. Fluids, electrolytes and nutrition. She can have a clear liquid diet. TIME SPENT: Time spent on the admission was 60 minutes, greater than half the time was spent [id number] with the patient obtaining my history and physical, other half of the time was spent going over the plan of care with the patient and implementing the plan of care. I discussed the plan of care with attending, Dr. Anderson, he is in agreement. ADDENDUM TO HISTORY AND PHYSICAL: I do note that her D-dimer was 709. My suspicion for PE is low at this point in the differential. I do note that in April she had a D-dimer greater than 1050 with a negative CTA and she had a negative VQ a month ago. She has no tachycardia. Her O2 saturations are not below 90%. She is getting chest pressure, discomfort with exertion, which makes me feel this is more cardiac in nature. I am reassured that with the higher D-dimer and a negative CTA in April that this D- dimer for her age is normal. If we do not find any obvious etiology with cardiac evaluations, then certainly we can consider repeating the VQ, but I suspect this is less likely. She has a number of reasons why the D-dimer could be high such as a rheumatoid arthritis. So, I think we will monitor her and I did discuss this point with my attending, Dr. Anderson, and he was in agreement at this point. JUAN WATTS NP [id number]/CPS #: [id number]/CPS #: [id number] JOSH
--- NOTE | 2018-11-16 15:43 | ECHO ---
Patient: KRYSTYNA ROGERS [facility] Rec#: [id number] : 1945 Date: 11/16/2018 Age: 73y Height: 163 cm / 64.2 in Weight: 67 kg / 147.7 lbs Sex: F BSA: 1.72 Room#: [facility] Admit Date#: 11/16/2018 Type: Inpatient Referring: Juan Watts NP Reading: Keeley King MD Six Sigma Project Manager: Mag Bailey RDCS CC: CARY SINGH Transthoracic Echocardiogram Indication: Chest pain BP: 125/64 HR: 89 Rhythm: NSR Findings History: Rheumatoid arthritis, HTN, ETOH, hypothyroidism, HLD, murmur. Technical Comments: The study quality is good. Completed at 1500. Left Ventricle: The left ventricular chamber size is normal. Mild concentric left ventricular hypertrophy is observed. Global left ventricular wall motion and contractility are within normal limits. There is normal left ventricular systolic function. The estimated ejection fraction is 60-65%. Turbulance in the LVOT, no evidence of DERICK. Abnormal left ventricular diastolic function is observed. Abnormal left ventricular diastolic filling is observed, consistent with impaired relaxation. Left Atrium: The left atrial chamber size is normal. Right Ventricle: Moderator Band present. The right ventricular cavity size is normal. The right ventricle wall thickness is mildly increased. The right ventricular global systolic function is normal. Right Atrium: The right atrium is mildly dilated. Aortic Valve: The aortic valve is trileaflet. The aortic valve leaflets are mildly thickened. There is a trace of aortic regurgitation. There is no evidence of aortic stenosis. Mitral Valve: The mitral valve leaflets do not appear thickened. There is a trace of mitral regurgitation. There is no evidence of mitral stenosis. Tricuspid Valve: The tricuspid valve leaflets are normal. There is trace tricuspid regurgitation. The right ventricular systolic pressure is estimated at 21 mmHg. No pulmonary hypertension is noted. There is no tricuspid stenosis. Pulmonic Valve: The pulmonic valve appears normal. There is no evidence of pulmonic regurgitation. There is no pulmonic stenosis. Pericardium: There is no significant pericardial effusion. A pericardial fat pad is visualized. Aorta: There is no dilatation of the ascending aorta. There is no dilatation of the aortic arch. The aortic root is normal in size. Pulmonary Artery: The main pulmonary artery appears normal. Venous: The inferior vena cava appears normal in size. There is a greater than 50% respiratory change in the inferior vena cava dimension. Conclusions Mild concentric left ventricular hypertrophy is observed. Global left ventricular wall motion and contractility are within normal limits. Abnormal left ventricular diastolic filling is observed, consistent with impaired relaxation. The estimated ejection fraction is 60-65%. Turbulance in the LVOT, increased LVOT velocity, normal shape of LVOT envelopes, no evidence of DERICK. The right ventricle wall thickness is mildly increased. The right ventricular global systolic function is normal. The aortic valve leaflets are mildly thickened. There is a trace of aortic regurgitation. There is a trace of mitral regurgitation. There is trace tricuspid regurgitation. The right ventricular systolic pressure is estimated at 21 mmHg (normal). Compared with prior echo of 05/02/18, ventricular function is stable, trace valve leaks newly noted. Measurements Name Value Normal Range RVIDd (AP) 2D 2.5 cm (0.9 - 2.6) RVDdMajor (2D) 3.7 cm (2.2 - 4.4) RAd ISD 4CH 5.2 cm (3.4 - 4.9) RA (A4C)W 4.2 cm (2.9 - 4.6) IVSd (2D) 1.2 cm (0.6 - 1) LVPWd (2D) 1.2 cm (0.6 - 1) LVIDd (2D) 4.2 cm (3.6 - 5.4) LVIDs (2D) 2.8 cm - LV FS (2D) 33 % (25 - 45) Aortic Annulus 1.7 cm (1.4 - 2.6) Ao root diameter (2D) 3.4 cm (2.1 - 3.5) Ascending Ao 3.2 cm (2.1 - 3.4) Aortic arch 2.5 cm (1.8 - 3.4) LA dimension (AP) 2D 3.1 cm (2.3 - 3.8) LAd ISD 4CH 4.9 cm (2.9 - 5.3) LA ISD 4CH W 3.8 cm (2.5 - 4.5) Name Value Normal Range LA ESV BP (A/L) index 29 ml/m2 - Name Value Normal Range MV E-wave Vmax 0.6 m/sec - MV deceleration time 180 msec - MV A-wave Vmax 0.8 m/sec - MV E:A ratio 0.8 ratio - LV septal e' Vmax 0.06 m/sec - LV lateral e' Vmax 0.06 m/sec - LV E:e' septal ratio 10 ratio - LV E:e' lateral ratio 10 ratio - Name Value Normal Range AV Vmax 1.8 m/sec - AV VTI 32 cm - AV peak gradient 12 mmHg - AV mean gradient 7 mmHg - LVOT Vmax 1.2 m/sec - LVOT VTI 21 cm - LVOT peak gradient 6 mmHg - LVOT mean gradient 3 mmHg - FLOYD Vmax 0.9 m/sec - Name Value Normal Range TR Vmax 2.1 m/sec - TR peak gradient 18 mmHg - RAP 3 mmHg - RVSP 21 mmHg - IVC diameter 1.5 cm - Name Value Normal Range PV Vmax 1.4 m/sec - PV peak gradient 7 mmHg -
[2018-11-16 16:42] LABS: Troponin I 0.13 ng/mL (<0.04)
[2018-11-16] MEDS ORDERED: Sucralfate TAB* 1 GM PO ONE (16:47)
[2018-11-16] MEDS: Atorvastatin* 40 MG TAB PO SCH (17:19)
[2018-11-16 20:48] LABS: Troponin I 0.15 ng/mL (<0.04)
[2018-11-16] MEDS ORDERED: traZODone TAB* 50 MG TAB PO SCH (21:00)
[2018-11-16] MEDS: traZODone TAB* 50 MG TAB PO SCH (21:16)
[2018-11-16 23:28] LABS: Troponin I 0.16 ng/mL (<0.04)
[2018-11-17 02:59] LABS: Troponin I 0.18 ng/mL (<0.04)
[2018-11-17 05:30] LABS: ABS Basophils 0 10^3/ul (0-0.2); ABS Eosinophils 0.2 10^3/ul (0-0.6); ABS Lymphocytes 1.3 10^3/ul (1.0-4.8); ABS Monocytes 0.8 10^3/ul (0-0.8); ABS Neutrophils 5.4 10^3/ul (1.5-7.7); ABS Nucleated RBC 0 10^3/ul; Eosinophil % 2.2 %; Hematocrit 33 % (33-41); Hemoglobin 11.3 g/dL (12.0-16.0); Lymphocyte % 16.8 %; Mean Corpuscular HGB Conc 34 g/dL (31-36); Mean Corpuscular Hemoglobin 36 pg (27-31); Mean Corpuscular Volume 105 fL (80-97); Mean Platelet Volume 7.5 fL (7.4-10.4); Nucleated Red Blood Cells % 0; Platelet Count 234 10^3/uL (150-450); Red Blood Count 3.17 10^6 /uL (3.70-4.87); Red Cell Distribution Width 16 % (10.5-15); White Blood Count 7.6 10^3/uL (3.5-10.8)
[2018-11-17 05:45] LABS: INR 0.92 (0.77-1.02)
[2018-11-17 05:49] LABS: Anion Gap 4 mmol/L (2-11); BUN/Creatinine Ratio 18.9 (8-20); Blood Urea Nitrogen 14 mg/dL (6-24); CO2 Carbon Dioxide 26 mmol/L (22-32); Calcium 8.8 mg/dL (8.6-10.3); Chloride 105 mmol/L (101-111); Cholesterol 187 mg/dL; EGFR African American 92.8 (>60); EGFR Non-African American 76.7 (>60); Glucose 103 mg/dL (70-100); HDL Cholesterol 104.6 mg/dL; LDL Cholesterol 67 mg/dL; Potassium 4.1 mmol/L (3.5-5.0); Sodium 135 mmol/L (135-145); Triglycerides 77 mg/dL
[2018-11-17 05:53] LABS: Troponin I 0.18 ng/mL (<0.04)
[2018-11-17] MEDS: Levothyroxine TAB* 50 MCG TAB PO SCH (05:54)
[2018-11-17] MEDS: Nitro 2% OINT* (Nitroglycerin) 1 INCH/PAK PAK TOPICAL SCH ×2 (05:55→11:38)
[2018-11-17] MEDS: Heparin VIAL(*) 5000 UNITS/ML VIAL (FIVE THOUSAND) SUBCUT SCH ×3 (05:57→21:23)
[2018-11-17] MEDS ORDERED: Diltiazem CD CAP* 120 MG PO SCH (09:00)
[2018-11-17] MEDS ORDERED: Diltiazem CD CAP* 180 MG PO SCH (09:00)
[2018-11-17] MEDS ORDERED: Losartan TAB* 25 MG PO SCH (09:00)
[2018-11-17] MEDS: CMCS:Desvenlafaxine (NF) 50 MG TAB PO SCH (09:04)
[2018-11-17] MEDS: Folic Acid TAB* 1 MG PO SCH (09:04)
[2018-11-17] MEDS: Hydroxychloroquine TAB* 200 MG PO SCH (09:04)
[2018-11-17] MEDS: Aspirin 81 mg CHEW TAB* 81 MG TAB.CHEW PO SCH (09:05)
--- NOTE | 2018-11-17 10:15 | PN ---
Subjective Date of Service: 11/17/18 - CC: N/V epigastric pain Interval History: The patient feels better than yesterday, no further vomiting, but says she feels like she will never be able to eat normally again. She tried ensure last evening and had severe epigastric discomfort. Epigastric discomfort increases ambulating as well. Constipation, chronic related to cardizem (recent increase in dose). No diarrhea. No food this AM as NPO. No other CP, neck, jaw or shoulder pain, no arm pain. Medications Active Medications: Acetaminophen (Tylenol Tab*) 650 mg PO Q4H PRN PRN Reason: FEVER/PAIN Albuterol (Ventolin Hfa Inhaler*) 2 puff INH Q6H PRN PRN Reason: SHORTNESS OF BREATH Aspirin (Aspirin 81 Mg Chew Tab*) 81 mg PO DAILY [facility] Last Admin: 11/17/18 09:05 Dose: 81 mg Atorvastatin Calcium (Lipitor*) 40 mg PO 1700 [facility] Last Admin: 11/16/18 17:19 Dose: 40 mg Desvenlafaxine Succinate (Pristiq (Nf)) 50 mg PO DAILY [facility] Last Admin: 11/17/18 09:04 Dose: 50 mg Diltiazem HCl (Cardizem Cd Cap*) 360 mg PO DAILY [facility] Last Admin: 11/17/18 09:04 Dose: 360 mg Folic Acid (Folvite Tab*) 1 mg PO DAILY [facility] Last Admin: 11/17/18 09:04 Dose: 1 mg Heparin Sodium (Porcine) (Heparin Vial(*)) 5,000 units SUBCUT Q8HR [facility] Last Admin: 11/17/18 05:57 Dose: 5,000 units Hydroxychloroquine Sulfate (Plaquenil Tab*) 200 mg PO DAILY [facility] Last Admin: 11/17/18 09:04 Dose: 200 mg Sodium Chloride (Ns 0.9% 1000 Ml) 1,000 mls @ 100 mls/hr IV PER RATE [facility] Last Admin: 11/16/18 12:02 Dose: 100 mls/hr Levothyroxine Sodium (Synthroid Tab*) 50 mcg PO DAILY@0600 [facility] Last Admin: 11/17/18 05:54 Dose: 50 mcg Losartan Potassium (Cozaar Tab*) 25 mg PO DAILY [facility] Last Admin: 11/17/18 09:04 Dose: 25 mg Nitroglycerin (Nitroglycerin 2% Oint*) 0.5 inch TOPICAL 0600,1200 [facility]; Protocol Last Admin: 11/17/18 05:55 Dose: 0.5 inch Ondansetron HCl (Zofran Inj*) 4 mg IV Q6H PRN PRN Reason: NAUSEA Last Admin: 11/17/18 03:58 Dose: 4 mg Trazodone HCl (Desyrel Tab*) 150 mg PO BEDTIME [facility] Last Admin: 11/16/18 21:16 Dose: 150 mg Objective Vital Signs: Temp Pulse Resp BP Pulse Ox 98.9 F 90 18 163/91 93 11/17/18 03:48 11/17/18 07:27 11/17/18 08:00 11/17/18 07:27 11/17/18 07:27 Vital Signs - 12 hr Temp Pulse Resp BP Pulse Ox 11/17/18 08:00 18 11/17/18 07:27 90 163/91 93 11/17/18 03:48 98.9 F 91 18 138/75 93 11/16/18 23:02 99.1 F 98 16 140/74 91 Oxygen Devices in Use Now: None Appearance: wan, lying flat, appears ill. Eyes: No Scleral Icterus, PERRLA Ears/Nose/Mouth/Throat: Clear Oropharnyx, Mucous Membranes Moist Neck: Trachea Midline Respiratory: Symmetrical Chest Expansion and Respiratory Effort, Clear to Auscultation Cardiovascular: RRR - 2/6 SM USB, respiratory variation Abdominal: No Hepatosplenomegaly - soft, audible bowel sounds. Extremities: No Edema - Hands show sublexation c/w RA Skin: No Rash or Ulcers Neurological: Alert and Oriented x 3 Laboratory Results: 11/17/18 05:16 11/17/18 05:16 INR (Anticoag Therapy) 0.92 (0.77-1.02) 11/17/18 05:16 APTT 30.2 seconds (26.0-36.3) 11/16/18 12:29 Total Bilirubin 0.30 mg/dL (0.2-1.0) 11/16/18 07:39 AST 40 U/L (13-39) H 11/16/18 07:39 ALT 22 U/L (7-52) 11/16/18 07:39 Alkaline Phosphatase 60 U/L (34-104) 11/16/18 07:39 B-Natriuretic Peptide 130 pg/mL (<=100) H 11/16/18 07:39 Total Protein 6.6 g/dL (6.4-8.9) 11/16/18 07:39 Albumin 4.0 g/dL (3.2-5.2) 11/16/18 07:39 Globulin 2.6 g/dL (2-4) 11/16/18 07:39 Albumin/Globulin Ratio 1.5 (1-3) 11/16/18 07:39 Triglycerides 77 mg/dL 11/17/18 05:16 Cholesterol 187 mg/dL 11/17/18 05:16 LDL Cholesterol 67 mg/dL 11/17/18 05:16 HDL Cholesterol 104.6 mg/dL 11/17/18 05:16 11/16/18 11/16/18 11/16/18 07:39 10:03 12:29 Troponin I 0.12 H* 0.10 H* 0.12 H* 11/16/18 11/16/18 11/16/18 16:08 20:15 22:49 Troponin I 0.13 H* 0.15 H* 0.16 H* 11/17/18 11/17/18 02:02 05:16 Troponin I 0.18 H* 0.18 H* Diagnostic Imaging: ECHO 11/15/18 LVH, increased veloctiy in LVOT, normal wall motion and EF. EKG Data: 11/17/18: NSR, RBBB, subtle ST elevation inf leads, inverted T's V1-V3, non specific and not acute. Assessment/Plan 73 yo female who presented iwth acute N/V which woke her up. Associated with epigastric fullness/pain with food and with exertion. Mildly elevated troponins. Elevated Troponins: May chemical stress normal, EF 77% Echo yesterday no new wall motion abnormalities. Differential of CAD vs. LVOT obstruction and or small vessel disease and Type 2/demand ischemia. She looks to ill to walk today, if we do another stress I think it should include walking. GI I suspect enteritis, GI bug is going around. OK for supportive meds. I will try clears today. I think that we should decrease cardizem for constipation. HTN: Consider adding Norvasc or Procardia Consider Coreg (SOB with metoprolol) At this point I am not recommending cath, but can't rule out necessity in the future.
--- NOTE | 2018-11-17 15:06 | PN ---
Subjective Date of Service: 11/17/18 Interval History: Feeling better. Tolerated broth at lunch, now hungry and would like solid food. No chest pain, cough, SOB. Objective Active Medications: Acetaminophen (Tylenol Tab*) 650 mg PO Q4H PRN PRN Reason: FEVER/PAIN Albuterol (Ventolin Hfa Inhaler*) 2 puff INH Q6H PRN PRN Reason: SHORTNESS OF BREATH Aspirin (Aspirin 81 Mg Chew Tab*) 81 mg PO DAILY [facility] Last Admin: 11/17/18 09:05 Dose: 81 mg Atorvastatin Calcium (Lipitor*) 40 mg PO 1700 [facility] Last Admin: 11/16/18 17:19 Dose: 40 mg Desvenlafaxine Succinate (Pristiq (Nf)) 50 mg PO DAILY [facility] Last Admin: 11/17/18 09:04 Dose: 50 mg Diltiazem HCl (Cardizem Cd Cap*) 240 mg PO DAILY [facility] Folic Acid (Folvite Tab*) 1 mg PO DAILY [facility] Last Admin: 11/17/18 09:04 Dose: 1 mg Heparin Sodium (Porcine) (Heparin Vial(*)) 5,000 units SUBCUT Q8HR [facility] Last Admin: 11/17/18 05:57 Dose: 5,000 units Hydroxychloroquine Sulfate (Plaquenil Tab*) 200 mg PO DAILY [facility] Last Admin: 11/17/18 09:04 Dose: 200 mg Sodium Chloride (Ns 0.9% 1000 Ml) 1,000 mls @ 100 mls/hr IV PER RATE [facility] Last Admin: 11/16/18 12:02 Dose: 100 mls/hr Levothyroxine Sodium (Synthroid Tab*) 50 mcg PO DAILY@0600 [facility] Last Admin: 11/17/18 05:54 Dose: 50 mcg Losartan Potassium (Cozaar Tab*) 50 mg PO DAILY [facility] Nitroglycerin (Nitroglycerin 2% Oint*) 0.5 inch TOPICAL 0600,1200 [facility]; Protocol Last Admin: 11/17/18 11:38 Dose: 0.5 inch Ondansetron HCl (Zofran Inj*) 4 mg IV Q6H PRN PRN Reason: NAUSEA Last Admin: 11/17/18 03:58 Dose: 4 mg Trazodone HCl (Desyrel Tab*) 150 mg PO BEDTIME [facility] Last Admin: 11/16/18 21:16 Dose: 150 mg Vital Signs - 8 hr 11/17/18 11/17/18 11/17/18 07:27 08:00 11:19 Temperature 98.4 F Pulse Rate 90 87 Respiratory 18 16 Rate Blood Pressure 163/91 143/86 (mmHg) O2 Sat by Pulse 93 94 Oximetry 11/17/18 14:17 Temperature 98.4 F Pulse Rate Respiratory 16 Rate Blood Pressure 152/90 (mmHg) O2 Sat by Pulse Oximetry Oxygen Devices in Use Now: None Appearance: Alert, supine in bed. Neutral affect. Looks comfortable. Neck: NL Appearance and Movements; NL JVP, Trachea Midline Respiratory: Symmetrical Chest Expansion and Respiratory Effort, Clear to Auscultation, Clear to Percussion Cardiovascular: NL Sounds; No Murmurs; No JVD, RRR, No Edema, - Extremities: No Edema, No Clubbing, Cyanosis, - Skin: No Rash or Ulcers, No Nodules or Sclerosis, - Neurological: Alert and Oriented x 3, NL Sensation Result Diagrams: 11/17/18 05:16 11/17/18 05:16 Microbiology and Other Data: Microbiology 11/16/18 07:32 Urine Culture - Preliminary Urine Escherichia Coli Normal Shikha 11/16/18 07:32 Influenza Types A,B Antigen - Final Nasal Specimen received for Influenza A/B Molecular testing Assess/Plan/Problems-Billing Assessment: - Patient Problems (1) Elevated troponin Current Visit: No Status: Acute Code(s): R74.8 - ABNORMAL LEVELS OF OTHER SERUM ENZYMES SNOMED Code(s): 166725975 Comment: - Trops peaked at 0.18. EKG with RBBB and LAFB. - Patient denies chest pain or SOB. - Appreciate cardiology consult, plan for stress test 11/18. (2) Vomiting Current Visit: Yes Status: Acute Code(s): R11.10 - VOMITING, UNSPECIFIED SNOMED Code(s): 366959995 Comment: Improved. Advance diet 11/17 PM. (3) HTN (hypertension) Current Visit: Yes Status: Acute Code(s): I10 - ESSENTIAL (PRIMARY) HYPERTENSION SNOMED Code(s): 07590588 Comment: Diltiazem reduced to prior dose. Increase losartan to 50 mg daily . (4) Constipation Current Visit: Yes Status: Acute Code(s): K59.00 - CONSTIPATION, UNSPECIFIED SNOMED Code(s): 24468220 Comment: Likely due to diltiazem. Last BM 11/16.
[2018-11-17] MEDS ORDERED: D5W 1/2 NS KCl 20 Meq 1000 ML* 1,000 ML IV SCH (18:00)
[2018-11-17] MEDS: Atorvastatin* 40 MG TAB PO SCH (18:20)
[2018-11-17] MEDS: traZODone TAB* 50 MG TAB PO SCH (21:23)
[2018-11-18] MEDS: Heparin VIAL(*) 5000 UNITS/ML VIAL (FIVE THOUSAND) SUBCUT SCH ×2 (06:00→15:02)
[2018-11-18] MEDS: Levothyroxine TAB* 50 MCG TAB PO SCH (06:00)
[2018-11-18] MEDS: Nitro 2% OINT* (Nitroglycerin) 1 INCH/PAK PAK TOPICAL SCH ×2 (06:33→15:01)
[2018-11-18] MEDS ORDERED: Regadenoson* 0.4 MG/5 ML SYRINGE ONE (08:31)
[2018-11-18] MEDS ORDERED: Aminophylline IV* 25 MG/ML 10 ML VIAL ONE (08:31)
[2018-11-18] MEDS ORDERED: Losartan TAB* 25 MG PO SCH (09:00)
[2018-11-18] MEDS ORDERED: Diltiazem CD CAP* 240 MG PO SCH (09:00)
[2018-11-18] MEDS: CMCS:Desvenlafaxine (NF) 50 MG TAB PO SCH (10:03)
[2018-11-18] MEDS: Hydroxychloroquine TAB* 200 MG PO SCH (10:03)
[2018-11-18] MEDS: Aspirin 81 mg CHEW TAB* 81 MG TAB.CHEW PO SCH (10:03)
[2018-11-18] MEDS: Folic Acid TAB* 1 MG PO SCH (10:03)
[2018-11-18 15:16] VITALS: BP 123/67
--- NOTE | 2018-11-18 16:12 | PN ---
Progress Note - Progress Note Date of Service: 11/18/18 Note: Time spent on discharge including exam of patient, discussion with patient, , nurse, Dr. Gerry CM, review of EMR and preparation of discharge documents is 45 minutes.
[2018-11-18] MEDS ORDERED: Pantoprazole TAB * 40 MG TAB PO SCH (16:45)
--- NOTE | 2018-11-18 22:33 | DS ---
CC: Dr. Garrett; Dr. King; Dr. Garcia DISCHARGE SUMMARY: DATE OF ADMISSION: DATE OF DISCHARGE: 11/18/18 HISTORY OF PRESENT ILLNESS: This 73-year-old woman presented with a history of the night before admi ssion that while eating dinner she vomited when she ate and in the middle of the night she had epigas tric pressure and discomfort. She vomited twice in the ED. She was having some difficulty with shor tness of breath too. The rest of the history is detailed in the admission note. The patient was seen in consultation by the cardiology service. The patient has a history of dynamic outflow tract obstruction and hypertension. She also has a history of rheumatoid arthritis for whic h she takes methotrexate. The patient had a treadmill stress test which was unremarkable. She was seen in consultation by Dr. Garrett who started her on omeprazole for possible GERD, although viral gastroenteritis and other cau ses of GI symptoms are in the differential and that she has had only had GI symptoms for about 2 days . She seemed to be improving in the hospital. She was started on omeprazole on the day of discharge . She will follow up with Dr. Garrett as well as with Dr. King. FINAL DIAGNOSES: 1. Persistently elevated troponins. 2. Nausea and vomiting. 3. Hypertension. 4. Constipation due to diltiazem. 5. Left ventricular outflow tract obstruction. 6. Rheumatoid arthritis. DISCHARGE MEDICATIONS: 1. Acetaminophen 650 mg every 4 hours p.r.n. 2. Diltiazem CD 240 mg daily. 3. Omeprazole 20 mg daily. 4. Levothyroxine 50 mcg daily. 5. Trazodone 150 mg h.s. 6. Folic acid 1 mg daily. 7. Methotrexate 6 tablets every Wednesday. 8. Hydroxychloroquine 200 mg daily. 9. Aspirin 81 mg daily. 10. Irbesartan 0.5 tablets daily. 11. Triamcinolone 1 puff nasal spray daily. 12. Venlafaxine 50 mg daily. 13. Albuterol inhaler 2 puffs every 6 hours p.r.n. DISCHARGE DISPOSITION: Home. DISCHARGE CONDITION: Stable. [id number]/[facility] #: [id number]
== END 2018-11-18 17:15 | disposition home or self-care (01) | DRG 391 ==
LOC: ED 07:02 → MEDTELE 11:43 → OBSVTOIN 16:11
PROVIDERS: ADMIT Student in an Organized Health Care Education/Training Program; ATTEND Internal Medicine
PROC: 4A12XM4 Monitoring of Cardiac Stress, External Approach (ICD-10-PCS; principal; 2018-11-18)
DX: R11.2 Nausea with vomiting, unspecified (principal); Q21.3 Tetralogy of Fallot; I45.2 Bifascicular block; I50.32 Chronic diastolic (congestive) heart failure; R74.8 Abnormal levels of other serum enzymes; M06.9 Rheumatoid arthritis, unspecified; K21.9 Gastro-esophageal reflux disease without esophagitis; R00.0 Tachycardia, unspecified; E78.00 Pure hypercholesterolemia, unspecified; G43.909 Migraine, unspecified, not intractable, without status migrainosus; F32.9 Major depressive disorder, single episode, unspecified; I45.10 Unspecified right bundle-branch block; E03.9 Hypothyroidism, unspecified; I11.0 Hypertensive heart disease with heart failure; H35.379 Puckering of macula, unspecified eye; M85.80 Other specified disorders of bone density and structure, unspecified site; K59.03 Drug induced constipation; T46.1X5A Adverse effect of calcium-channel blockers, initial encounter; Y92.239 Unspecified place in hospital as the place of occurrence of the external cause; Z98.49 Cataract extraction status, unspecified eye; Z82.49 Family history of ischemic heart disease and other diseases of the circulatory system; Z80.3 Family history of malignant neoplasm of breast; Z88.5 Allergy status to narcotic agent; Z88.2 Allergy status to sulfonamides; Z91.041 Radiographic dye allergy status; Z90.710 Acquired absence of both cervix and uterus; Z72.89 Other problems related to lifestyle; Z79.82 Long term (current) use of aspirin
CPT/HCPCS: 36415; 71046; 78452; 80048; 80053; 80061; 81003; 81015; 82565; 83036; 83605; 83735; 83880; 84484; 84520; 85025; 85379; 85610; 85652; 85730; 86140; 87077; 87086; 87186; 93005; 93017; 93306; 99285; A9270-GY; A9502; G0378; J0280; J1644; J2405; J2785; J3475

== ENCOUNTER 2019-06-22 03:50 | Observation (INO) | payer MEDICARE, BC ==
[2019-06-22] MEDS ORDERED: Lactated Ringers 1000 ML Bag* 1,000 ML IV ONE (04:16)
[2019-06-22] MEDS ORDERED: Ondansetron INJ* 2 MG/ML VIAL IV ONE ×2 (04:16→06:46)
[2019-06-22 04:57] LABS: Anion Gap 14 mmol/L (2-11); BUN/Creatinine Ratio 17.2 (8-20); Blood Urea Nitrogen 16 mg/dL (6-24); CO2 Carbon Dioxide 21 mmol/L (22-32); Calcium 9.4 mg/dL (8.6-10.3); Chloride 99 mmol/L (101-111); EGFR African American 71.1 (>60); EGFR Non-African American 58.8 (>60); Glucose 113 mg/dL (70-100); Potassium 3.6 mmol/L (3.5-5.0); Sodium 134 mmol/L (135-145)
[2019-06-22 04:58] LABS: ABS Eosinophils 0.1 10^3/ul (0-0.6); ABS Lymphocytes 0.4 10^3/ul (1.0-4.8); ABS Monocytes 0.6 10^3/ul (0-0.8); ABS Neutrophils 12.9 10^3/ul (1.5-7.7); Eosinophil % 0.4 %; Hematocrit 37 % (35-47); Hemoglobin 12.4 g/dL (12.0-16.0); Lymphocyte % 2.6 %; Mean Corpuscular HGB Conc 33 g/dL (31-36); Mean Corpuscular Hemoglobin 37 pg (27-31); Mean Corpuscular Volume 111 fL (80-97); Mean Platelet Volume 7.5 fL (7.4-10.4); Platelet Count 288 10^3/uL (150-450); Red Blood Count 3.37 10^6 /uL (3.70-4.87); Red Cell Distribution Width 15 % (10-15)
[2019-06-22 05:00] LABS: Troponin I 0.09 ng/mL (<0.04)
--- NOTE | 2019-06-22 05:02 | ED ---
Adult Trauma - HPI Summary HPI Summary: Patient is a 74 y/o F presenting to [facility] via EMS with complaints of fall when she went to the bathroom. EMS was called to assist her get up. EMS had reported that they attempted to assist the patient walk but after a few steps she collapsed. She reports pain at her right ankle. Patient denies head injury and hip pain in the room. Patient had become nauseous in ED and vomited once. She attributes her N/V to her pain. On triage, pain is rated 7/10, nothing is noted to aggravate/alleviate Sx. Home medications and allergies are reviewed. - History of Current Complaint Chief Complaint: EDFall Stated Complaint: FALL PER EMS Time Seen by Provider: 06/22/19 04:14 Hx Obtained From: Patient Mechanism of Injury: Fall Restraints: None Onset/Duration: Still Present Onset of Pain: Prior to Arrival Pain Intensity: 7 Pain Scale Used: 0-10 Numeric Location: Extremities - right ankle Associated Signs & Symptoms: Positive: Other: - negative - head injury, hip pain ; positive - right ankle pain. Negative: Nausea/Vomiting - Additional Pertinent History Primary Care Physician: [id number] - Allergy/Home Medications Allergies/Adverse Reactions: Allergies Allergy/AdvReac Type Severity Reaction Status Date / Time hydrocodone Allergy Itching Verified 06/22/19 04:03 Iodinated Contrast Media Allergy Itching Verified 06/22/19 04:03 [Iodinated Contrast- Oral and IV Dye] Sulfa (Sulfonamide Allergy itch Verified 06/22/19 04:03 Antibiotics) tramadol Allergy itch Verified 06/22/19 04:03 morphine AdvReac Itching Verified 06/22/19 16:49 oxycodone AdvReac Itching Verified 06/22/19 16:49 PMH/Surg Hx/FS Hx/Imm Hx Endocrine/Hematology History: Reports: Hx Thyroid Disease Denies: Hx Diabetes Cardiovascular History: Reports: Hx Angina, Hx Hypercholesterolemia, Hx Hypertension Denies: Hx Coronary Artery Disease, Hx Myocardial Infarction, Hx Pacemaker/ ICD Respiratory History: Denies: Hx Asthma, Hx Chronic Obstructive Pulmonary Disease (COPD) GI History: Denies: Hx Ulcer History: Denies: Hx Chronic Renal Failure, Hx Renal Disease Musculoskeletal History: Reports: Hx Arthritis - RA, Hx Rheumatoid Arthritis, Hx Osteoporosis, Other Musculoskeletal History - 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 BILAT hand surgery. tonsillectomy as praneeth. shoulder repair Hx Anesthesia Reactions: No Infectious Disease History: No Infectious Disease History: Denies: Hx Hepatitis, Hx Human Immunodeficiency Virus (HIV), Traveled Outside the [place] in Last 30 Days - Family History Known Family History: Positive: Cardiac Disease, Hypertension - Social History Alcohol Use: Occasionally Alcohol Amount: qod Hx Substance Use: No Substance Use Type: Reports: None Smoking Status (MU): Never Smoked Tobacco Have You Smoked in the Last Year: No Review of Systems Positive: Vomiting, Nausea Musculoskeletal: Other - positive - fall, right ankle pain; negative - hip pain Neurological: Other - negative - head injury All Other Systems Reviewed And Are Negative: Yes Physical Exam - Summary Physical Exam Summary: Constitutional: Well-developed, Well-nourished, Alert. (-) Distressed Skin: Warm, Dry HENT: Normocephalic; Atraumatic Eyes: Conjunctiva normal Neck: Musculoskeletal ROM normal neck. (-) JVD, (-) Stridor, (-) Tracheal deviation Cardio: Rhythm regular, rate normal, Heart sounds normal; Intact distal pulses; The pedal pulses are 2+ and symmetric. Radial pulses are 2+ and symmetric. Pulmonary/Chest wall: Effort normal. (-) Respiratory distress, (-) Wheezes, (-) Rales Abd: Soft, (-) tenderness, (-) Distension, (-) Guarding, (-) Rebound Musculoskeletal: There is a 2 cm circular contusion distal to the medial malleolus along the medial aspect of the right foot. There is no active bleeding. There is tenderness to the lateral malleolus. No significant edema, good pulses, good perfusion. Neuro: Alert, Oriented x3 Psych: Mood and affect Normal Triage Information Reviewed: Yes Vital Signs On Initial Exam: Initial Vitals Temp Pulse Resp BP Pulse Ox 97.9 F 81 20 134/64 95 06/22/19 03:54 06/22/19 03:54 06/22/19 03:54 06/22/19 03:54 06/22/19 03:54 Vital Signs Reviewed: Yes Procedures - Sedation Patient Received Moderate/Deep Sedation with Procedure: No Diagnostics - Vital Signs Vital Signs Temp Pulse Resp BP Pulse Ox 06/22/19 04:00 78 96 06/22/19 03:57 80 134/64 95 06/22/19 03:54 97.9 F 81 20 134/64 95 - Laboratory Result Diagrams: 06/23/19 09:05 06/23/19 09:05 Lab Statement: Any lab studies that have been ordered have been reviewed, and results considered in the medical decision making process. - Radiology CXR Radiology Interpretation Completed By: ED Physician Summary of Radiographic Findings: Negative, pending official report. Right Ankle X-ray Radiology Interpretation Completed By: ED Physician Summary of Radiographic Findings: No fracture, no dislocation, pending official report. - CT BRAIN CT CT Interpretation Completed By: Radiologist Summary of CT Findings: BRAIN CT IMPRESSION: No acute intracranial abnormality. THIS REPORT WAS REVIEWED BY DR. ESTRADA. CERVICAL SPINE CT CT Interpretation Completed By: Radiologist Summary of CT Findings: CERVICAL SPINE CT IMPRESSION: No acute fracture. THIS REPORT WAS REVIEWED BY DR. ESTRADA. - EKG 0425 Cardiac Rate: NL - rate of 86 BPM EKG Rhythm: Sinus Rhythm EKG Comparison: No Significant Change - 11/17/18 Summary of EKG Findings: EKG showed NSR with rate of 86 BPM, incomplete LBBB, QRS of 137, old RBBB, nonspecific T waves that are old, no STEMI. This EKG was reviewed and interpreted by Dr. Estrada Re-Evaluation - Re-Evaluation First Eval Re-Evaluation Time: 05:02 Comment: Trop of 0.09 noted. Second Eval Re-Evaluation Time: 06:22 Comment: Scans are negative, repeat bloodwork to be obtained. Third Eval Re-Evaluation Time: 06:43 Change: Improved Comment: Patient vomited again. Zofran given. Fourth Eval Comment: given continued tachycardia, low grade fever and fatigue causing fall, will admit to medicine. Patient agreeable. Adult Trauma Course/Dx - Course Course Of Treatment: Patient is a 74 y/o F presenting to [facility] via EMS with complaints of fall when she went to the bathroom. EMS was called to assist her get up. EMS had reported that they attempted to assist the patient walk but after a few steps she collapsed. She reports pain at her right ankle. Patient denies head injury and hip pain in the room. Patient had become nauseous in ED and vomited once. She attributes her N/V to her pain. Musculoskeletal: There is a 2 cm circular contusion distal to the medial malleolus along the medial aspect of the right foot. There is no active bleeding. There is tenderness to the lateral malleolus. No significant edema, good pulses, good perfusion. EKG showed NSR with rate of 86 BPM, incomplete LBBB, QRS of 137, old RBBB, nonspecific T waves that are old, no STEMI. CXR and right ankle X-ray were negative. BRAIN CT IMPRESSION: No acute intracranial abnormality. CERVICAL SPINE CT IMPRESSION: No acute fracture. Labs showed WBC 14, RBC 3.37, MCV 111 , MCH 37, absolute neuts 12.9, absolute lymphs 0.4, sodium 134, chloride 99, carbon dioxide 21, anion gap 14, glucose 113, trop 0.09. Repeat bloodwork to be obtained. During ED course, patient received Zofran 4 mg IV and lactated ringers 1 L. Patient vomited again later during ED stay, additional Zofran and Pepcid to be given. Patient is signed out to Dr. King at 0700 06/22/19 shift change pending blood work results. - Diagnoses Provider Diagnoses: Ankle fracture, right, Weakness Discharge ED - Sign-Out/Discharge Documenting (check all that apply): Sign-Out Patient Signing out patient TO: Phong King - Discharge Plan Condition: Stable Disposition: ADMITTED TO [facility] - Billing Disposition and Condition Condition: STABLE Disposition: Admitted to [facility] - Attestation Statements Document Initiated by Scribe: Yes Documenting Scribe: MARY URIARTE Provider For Whom Lulu is Documenting (Include Credential): HARDEEP ESTRADA MD Scribe Attestation: MARY Pritchett, scribed for HARDEEP ESTRADA MD on 06/28/19 at 1856. Scribe Documentation Reviewed: Yes Provider Attestation: The documentation as recorded by the stephanieibMARY sanchez accurately reflects the service I personally performed and the decisions made by me, HARDEEP ESTRADA MD Status of Scribe Document: Viewed
[2019-06-22 05:27] LABS: Activated Partial Thrombo Time 30.4 seconds (26.0-38.0); INR 0.93 (0.82-1.09)
--- OUTSIDE RECORDS SUMMARY | 2019-06-22 06:03 | XMS REPORT | Continuity of Care Document ---
:1945 External Reference #:[id number] Author Name Annabel Garcia M.D. Address [address] [place] [address] Care Team Providers Name Role Phone Annabel Garcia - Family Medicine Care Team Information Regulatory Affairs Associate [facility] Physical Care Team Information Regulatory Affairs Associate Therapy - Physical Therapy [facility] - Care Team Information Regulatory Affairs Associate [phone] Gastroenterology [facility] - Diagnostic Care Team Information Regulatory Affairs Associate Radiology Benoit Preciado MD - Rheumatology Care Team Information Regulatory Affairs Associate Problems Active Problems Provider Date Rheumatoid arthritis Sharri Mcdonough M.D. Onset: 01/07/2012 Depressive disorder Sharri Mcdonough M.D. Onset: 01/07/2012 Allergic condition Sharri Mcdonough M.D. Onset: 01/07/2012 Hypothyroidism Annabel Garcia M.D. Onset: 12/27/2012 Essential hypertension Edinson Navarrete M.D. Onset: 06/17/2016 Depressive disorder Edinson Navarrete M.D. Onset: 06/17/2016 Age-related osteoporosis with current Edinson Navarrete M.D. Onset: 2015 pathological fracture, left shoulder, initial encounter for fracture Closed fracture of surgical neck of Edinson Navarrete M.D. Onset: 06/17/2016 humerus Mixed hyperlipidemia Annabel Garcia M.D. Onset: 06/01/2019 Social History Type Date Description Comments Sex Unknown Tobacco Use Start: Unknown Never Smoked Cigarettes Smoking Status Reviewed: 06/01/19 Never Smoked Cigarettes ETOH Use Some 4-5 drinks over the week Recreational Drug Use Denies Drug Use Tobacco Use Start: Unknown Patient has never smoked Allergies, Adverse Reactions, Alerts Active Allergies Reaction Severity Comments Date Sulfa Drugs Nausea and Vomiting 01/30/2011 Hydrocodone Hives/Itching 07/21/2012 IV Contrast Hives 07/21/2012 Morphine Itching 07/21/2012 Medications Active Medications SIG Qnty Indications Ordering Date Provider Trazodone HCL take 1 and 1/2 225tabs Benoit Tellez 06/29/2018 100mg tabs by mouth at MD Filomena Tablets at bedtime followed by 1 tab later on as necessary Commode Bedside Use as directed. 1units R29.6 Annabel Lanier [place]23/2018 [facility] [place] Irbesartan 1 by mouth twice 180tabs I10 Annabel Lanier 11/04/2015 150mg daily Thee Garcia Tablets Trazodone HCL take one to three 30tabs G47.00 Annabel Lanier 12/27/2012 50mg tablets by mouth Thee Garcia Tablets at bedtime Synthroid take one tablet 90tabs Annabel Lanier 08/03/2012 50mcg Tablets by mouth every Thee Garcia day Nasacort Aq 2 sprays q 3units Edinson FJulien 08/09/2003 nostril qd Thee Navarrete Methotrexate 6 tabs once Unknown 2.5mg weekly Folic Acid 1 qd Unknown 1mg Pristiq take one tablet 90tabs F32.9 Annabel Lanier 50mg Tablets ER by mouth every Thee Garcia 24HR day Icaps Areds 2 2 tabs daily Unknown 2 Capsules Cartia XT 2 by mouth every Unknown 120mg Caps ER day 24HR Alendronate Sodium take 1 tablet by Unknown 70mg mouth every week Tablets Medications Administered in Office Medication SIG Qnty Indications Ordering Provider Date Injection Subcutaneous Or JULIENNE Bucio 03/05/2018 Intramuscular Injection H1N1 MDCR vaccine any route Ofelia Nolasco, 09/23/2009 Injection MJulienDJulien Immunizations CPT Code Status Date Vaccine Lot # [id number] Given 06/01/2019 High-Dose, Influenza Virus Vacccine-fluzone 65 and [id number] older 35012 Given 03/26/2018 Zoster (Shingles) Vaccine (HZV), Recombinant, Subunit, Adjuvanted 20244 Given 04/21/2016 High-Dose, Influenza Virus Vacccine-fluzone 65 and [id number] older 46642 Given 05/14/2015 Influenza Vac, Quadrivalent, Slit Virus, Im [id number] 02107 Given 11/05/2014 Tdap Tetanus, W Pertussis [id number] 34586 Given 11/05/2014 Pneumococcal Conjugate Vacc-13 [id number] Q2038 Given 05/01/2013 Split Influenza Medicare: Fluzone [id number] 42183 Given 05/01/2013 Pneumococcal Immunization [id number] 88812 Given 05/22/2012 DO Not Use Split Influenza Virus Vaccine [id number] Given 05/13/2011 Split Influenza Medicare: Fluzone [id number] 71470 Given 12/17/2010 Zostivax [id number] 30711 Given 05/02/2009 DO Not Use Split Influenza Virus Vaccine 58736 Given 05/02/2009 DO Not Use Split Influenza Virus Vaccine [id number] 07833 Given 06/28/2007 DO Not Use Split Influenza Virus Vaccine 34749 Given 06/29/2006 DO Not Use Split Influenza Virus Vaccine 66812 Given 07/28/2004 DO Not Use Split Influenza Virus Vaccine Vital Signs Date Vital Result Comment 06/01/2019 2:36pm BP Systolic 120 mmHg BP Diastolic 72 mmHg Heart Rate 100 /min Body Temperature 98.4 F Respiratory Rate 16 /min Height 63 inches 5'3" measured Weight 138.00 lb BMI (Body Mass Index) 24.4 kg/m2 05/25/2018 4:24pm BP Systolic 122 mmHg BP Diastolic 72 mmHg Heart Rate 78 /min Body Temperature 97.3 F Height 62.5 inches 5'2.50" Results Test Date Facility Test Result H/L Range Note Comp Metabolic Panel 05/27/2019 [facility] Sodium 134 mmol/L Low 135-145 Potassium 4.5 mmol/L Normal 3.5-5.0 Chloride 99 mmol/L Low 101-111 Co2 Carbon Dioxide 28 mmol/L Normal 22-32 Anion Gap 7 mmol/L Normal 2-11 Glucose 184 mg/dL High 70-100 Blood Urea Nitrogen 18 mg/dL Normal 6-24 Creatinine 0.91 mg/dL Normal 0.51-0.95 BUN/Creatinine Ratio 19.8 Normal 8-20 Calcium 9.6 mg/dL Normal 8.6-10.3 Total Protein 6.4 g/dL Normal 6.4-8.9 Albumin 4.0 g/dL Normal 3.2-5.2 Globulin 2.4 g/dL Normal 2-4 Albumin/Globulin Ratio 1.7 Normal 1-3 Total Bilirubin 1.00 mg/dL Normal 0.2-1.0 Alkaline Phosphatase 64 U/L Normal 34-104 Alt 37 U/L Normal 7-52 Ast 66 U/L High 13-39 Egfr Non- 60.3 >60 Egfr 72.9 >60 1 Laboratory test 05/27/2019 [facility] [place] Reactive Protein 9.97 mg/L High <8.01 finding CBC Auto Diff 05/27/2019 [facility] [place] White Blood Count 4.6 10^3/uL Normal 3.5- 10.8 Red Blood Count 3.49 10^6/uL Low 3.70-4.87 Hemoglobin 13.0 g/dL Normal 12.0-16.0 Hematocrit 38 % Normal 35-47 Mean Corpuscular Volume 110 fL High 80-97 2 Mean Corpuscular Hemoglobin 37 pg High 27-31 Mean Corpuscular HGB Conc 34 g/dL Normal 31-36 Red Cell Distribution Width 15 % Normal 10-15 Platelet Count 257 10^3/uL Normal 150-450 Mean Platelet Volume 7.6 fL Normal 7.4-10.4 Abs Neutrophils 2.8 10^3/uL Normal 1.5-7.7 Abs Lymphocytes 1.0 10^3/uL Normal 1.0-4.8 Abs Monocytes 0.7 10^3/uL Normal 0-0.8 Abs Eosinophils 0.1 10^3/uL Normal 0-0.6 Abs Basophils 0.0 10^3/uL Normal 0-0.2 Abs Nucleated RBC 0.0 10^3/uL Granulocyte % 59.6 % Lymphocyte % 21.5 % Monocyte % 14.9 % Eosinophil % 3.2 % Basophil % 0.8 % Nucleated Red Blood Cells % 0.1 Laboratory test finding 05/27/2019 [facility] [place] Erythrocyte Sed Rate 12 mm/Hr Normal 0-29 1 Because ethnic data is not always [...] 2 Consistent with Previous Results Reported on 11/17/18. Procedures Date Code Description Status 12/27/2018 [id number] Bone Mineral Density Test Completed 12/19/2018 [id number] Mammogram Completed 12/14/2017 [id number] Mammogram Completed 12/11/2016 [id number] Mammogram Completed 11/13/2015 [id number] Mammogram Completed 10/29/2014 [id number] Mammogram Completed 10/27/2013 [id number] Mammogram Completed 04/21/2013 [id number] Colonoscopy Completed 07/13/2012 [id number] Mammogram Completed 06/17/2011 [id number] Mammogram Completed 05/15/2010 [id number] Mammogram Completed 03/29/2009 [id number] Mammogram Completed 03/15/2008 [id number] Mammogram Completed 03/11/2007 [id number] Mammogram Completed 02/11/2006 [id number] Mammogram Completed 04/09/2003 [id number] Colonoscopy Completed Medical Devices Description No Information Available Encounters Description No Information Available Assessments Date Code Description Provider 06/01/2019 Z23 Encounter for immunization Annabel Garcia M.D. 06/01/2019 Z00.01 Encounter for general adult medical Annabel Garcia M.D. examination with abnormal findings 06/01/2019 M05.79 Rheumatoid arthritis with rheumatoid factor Annabel Garcia M.D. of multiple sites without organ or systems involvement 06/01/2019 I10 Essential (primary) hypertension Annabel Garcia M.D. 06/01/2019 E78.2 Mixed hyperlipidemia Annabel Garcia M.D. 06/01/2019 F43.21 Adjustment disorder with depressed mood Annabel Garcia M.D. 06/01/2019 R73.01 Impaired fasting glucose Ananbel Garcia M.D. 06/01/2019 E03.9 Hypothyroidism, unspecified Annabel Garcia M.D. Plan of Treatment 06/01/2019 - Annabel Garcia M.D.Z23 Encounter for jpysudpoukfyW82.01 Encounter for general adult medical examination with abnormal findingsComments: I recommend regular physical exams with attention to good nutrition and exercise , eye exams every other year, and dental exams twice yearly. You have several medical problems that are for the most partstable and under control. Goals:2 fresh fruits daily3 helpings of fresh green and multicolored vegetablesEat from the whole color spectrum. 40-60 Oz water dailyMOVE YOUR BODY. Bodies were made to be moved. exercise 30 minutes at least 4-5 times drvqikG63.79 Rheumatoid arthritis with rheumatoid factor of multiple sites without organ or systems involvementComments:stable. continue with Dr. Preciado.I10 Essential ( primary) xhwdbtaehvpeW93.2 Mixed hyperlipidemiaNew Labs:CCC-Comp+Lipid (Fma), Ordered: 06/01/19F43.21 Adjustment disorder with depressed moodComments:Stable. Continue present meds.R73.01 Impaired fasting glucoseNew Labs:Hemoglobin A1c, Ordered: 06/01/19Comments:will check to see how well your blood pressure has been controlled over the last three months.E03.9 Hypothyroidism, unspecifiedNew Labs:TSH, Ordered: 06/01/19AllComments:Medication Management Patient Understands medications she's taking? Yes No Are there Barriers to Adherence? Yes No Has the patient been asked about herbal supplements and therapies, and OTC meds? Yes No Functional Status Description No Information Available Mental Status Description No Information Available Referrals Description No Information Available
--- OUTSIDE RECORDS SUMMARY | 2019-06-22 06:03 | XMS REPORT | Continuity of Care Document ---
:1945 External Reference #:[id number] Author Name Benoit Preciado M.D. (transmitted by agent of provider Brenda Greer) Address [address] [place] [address] Care Team Providers Name Role Phone Annabel Garcia MD - Internal Care Team Information Senior Logistics Manager [phone] Medicine Problems Active Problems Provider Date Closed fracture of shaft of humerus Benoit Preciado M.D. Onset: 05/01/2018 Rheumatoid arthritis Charlotte Luque N.Pamela Onset: 05/01/2018 Essential hypertension Charlotte Luque N.Pamela Onset: 05/01/2018 High enzyme level in serum Sky Rivera.Pamela Onset: 05/02/2018 Left bundle branch hemiblock Sky Rivera.Pamela Onset: 05/02/2018 Right bundle branch block Charlotte Luque N.P. Onset: 05/02/2018 Social History Type Date Description Comments Sex Unknown Tobacco Use Start: Unknown Never Smoked Cigarettes Smoking Status Reviewed: 05/25/19 Never Smoked Cigarettes ETOH Use Drinks 6 Alcoholic Beverages Per Week Tobacco Use Start: Unknown Patient has never smoked Recreational Drug Use Denies Drug Use Exercise Type/Frequency Exercises regularly at [employer] Allergies, Adverse Reactions, Alerts Active Allergies Reaction Severity Comments Date Oxycodone itching 12/17/2015 Morphine itching 12/17/2015 Contrast Dye Urticaria Severe 12/17/2015 Sulfa Antibiotics gi upset 12/17/2015 Medications Active Medications SIG Qnty Indications Ordering Date Provider Fluzone High-Dose please provide .500ml Benoit Preciado, 05/24/2019 0.5ml the flu vaccine M.Adele Mayuri Alendronate Sodium 1 by mouth weekly 14tabs Benoit Preciado, 01/09/2019 70mg 1 hour before M.D. Tablets breakfast with a full glass of water sitting up Cardizem CD 2 tab by mouth 180caps Keeley King, 09/20/2018 120mg Caps every day M.D. ER 24HR Methotrexate Please take 6 72tabs Z79.899 Benoit Ozzy, 06/16/2016 2.5mg tablets by mouth M.D. Tablets every week M05.79 Folic Acid 1 by mouth every day 90tabs Benoit Preciado, 1mg Tablets M.D. Pristiq 1 by mouth every Unknown 50mg Tablets ER 24HR morning Nasacort Allergy 24HR 1 spray both nares Unknown 55mcg/Act once daily Aerosol Levothyroxine Sodium 1 by mouth every day Unknown 50mcg Tablets Aspir-81 1 by mouth every day Unknown 81mg Tablets Irbesartan take 1/2 tablet by 14tabs Shonna Escobar NP 150mg Tablets mouth daily Trazodone HCL take 1 and 1/2 tablets Unknown 100mg Tablets by mouth at bedtime Followed By 1 Additional Tablet Later On as Necessary Ra Laxative daily as needed Unknown 5mg Tablets Calcium Soft Chews Unknown [id number] Chewtabs Omeprazole take 1 capsule by Unknown 20mg Capsules DR mouth once daily Immunizations CPT Code Status Date Vaccine Reaction Lot # 32123 Given 05/18/2017 Influenza Virus Vaccine, no immeidate reaction [id number] Quadrivalent, Split, noted Preservative Free 56822 Given 11/05/2014 Pneumococcal Conjugate Vaccine 13 Valent For Intramuscular Use 92973 Given 05/01/2013 Pneumonia Vaccine [id number] Given 12/17/2010 Zoster (Zostavax) Vital Signs Date Vital Result Comment 05/25/2019 1:15pm Height 64 inches 5'4" Weight 138.38 lb Heart Rate 96 /min BP Systolic Sitting 136 mmHg BP Diastolic Sitting 78 mmHg Pain Level 1 O2 % BldC Oximetry 98 % BMI (Body Mass Index) 23.7 kg/m2 01/06/2019 11:42am Height 64 inches 5'4" Weight 143.50 lb with shoes Heart Rate 96 /min BP Systolic Sitting 138 mmHg ule reg cuff BP Diastolic Sitting 80 mmHg ule reg cuff BP Systolic Standing 128 mmHg ule reg cuff BP Diastolic Standing 78 mmHg ule reg cuff BMI (Body Mass Index) 24.6 kg/m2 Ejection Fraction 60-65% Echo 11/16/18 Results Test Date Facility Test Result H/L Range Note Laboratory test 05/25/2019 [facility] [place] Standing Orders CRP C-Reactive <pending> finding Protein Esr Sedimentation Rate <pending> CMP Panel 05/25/2019 [facility] Standing Orders Albumin <pending> Alt - SGPT <pending> Calcium <pending> Carbon Dioxide <pending> Chloride <pending> Creatinine <pending> Glucose Serum <pending> Alkaline Phosphatase <pending> Potassium <pending> Total Protein <pending> Sodium <pending> Ast - Sgot <pending> BUN - Urea Nitrogen <pending> CBC W/Auto Diff 05/25/2019 [facility] Standing Orders White Blood Count <pending> RBC Red Blood Count <pending> Hemoglobin <pending> Hematocrit <pending> MCV (Corpuscular Volume) <pending> MCH (Corpuscular Hemoglobin) <pending> MCHC (Corpuscular Hemog Conc) <pending> RDW <pending> Platelet Count <pending> MPV <pending> Neutrophils <pending> Bands <pending> Lymphocytes <pending> Monocytes <pending> Eosinophils <pending> Basophils <pending> Absolute Basophil <pending> Absolute Eosinophil <pending> Absolute Lymphocyte <pending> Absolute Monocytes <pending> Absolute Neutrophils <pending> Liver Function 11/28/2018 [facility] Total Protein 6.4 g/dL Normal 6.4-8.9 Panel [address] [place] [address] [phone] Albumin 4.1 g/dL Normal 3.2-5.2 Globulin 2.3 g/dL Normal 2-4 Albumin/Globulin Ratio 1.8 Normal 1-3 Total Bilirubin 0.50 mg/dL Normal 0.2-1.0 Direct Bilirubin 0.10 mg/dL Normal 0.03-0.18 Indirect Bilirubin 0.4 mg/dL Normal 0.3-1.0 Alkaline Phosphatase 64 U/L Normal 34-104 Alt 19 U/L Normal 7-52 Ast 29 U/L Normal 13-39 Laboratory test 11/28/2018 [facility] C Reactive 5.30 mg/L Normal <8.[address] [place] [address] [phone] Please check labs this week and schedule BMD this week Procedures Date Code Description Status 01/06/2019 46092 EKG Tracing & Interpretation Completed 12/27/2018 [id number] Bone Mineral Density Test Completed 08/12/2018 [id number] Diabetic Retinal Eye Exam Completed 05/13/2018 [id number] Diabetic Retinal Eye Exam Completed 10/14/2016 [id number] Bone Mineral Density Test Completed 09/23/2016 [id number] Diabetic Retinal Eye Exam Completed 01/29/2015 [id number] Bone Mineral Density Test Completed Medical Devices Description No Information Available Encounters Type Date Location Provider Dx Diagnosis Office Visit 01/06/2019 [facility] Keeley King, I10 Essential ( primary) 11:20a Of [facility] AT [facility] M.D. hypertension I45.10 Unspecified right bundle-branch block R74.8 Abnormal levels of other serum enzymes M06.9 Rheumatoid arthritis, unspecified K21.9 Gastro-esophageal reflux disease without esophagitis Office Visit 01/03/2019 1:00p [facility] Kaleb F S42.302D Unsp fx shaft at [place] MD Melania of humerus, left arm, subs for fx w routn heal Assessments Date Code Description Provider 05/25/2019 M06.9 Rheumatoid arthritis, unspecified Benoit Preciado M.D. 05/25/2019 R74.8 Abnormal levels of other serum enzymes Benoit Preciado M.D. 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 05/25/2019 M81.0 Age-related osteoporosis without current Benoit Preciado M.D. pathological fractu 01/06/2019 I10 Essential (primary) hypertension Keeley King M.D. 01/06/2019 I45.10 Unspecified right bundle-branch block Keeley King M.D. 01/06/2019 R74.8 Abnormal levels of other serum enzymes Keeley King M.D. 01/06/2019 M06.9 Rheumatoid arthritis, unspecified Keeley King M.D. 01/06/2019 K21.9 Gastro-esophageal reflux disease without Keeley King M.D. esophagitis 01/03/2019 S42.302D Unspecified fracture of shaft of humerus, Kaleb Velázquez MD left arm, subseque Plan of Treatment Future Appointment(s):11/27/2019 1:00 pm - Benoit Preciado M.D. at [facility]05/25/2019 - Benoit Preciado M.D.M06.9 Rheumatoid arthritis, pclgswtatbmQ23.8 Abnormal levels of other serum nvyckdrC48.899 Other correction ( current) drug okschraP07.0 Age-related osteoporosis without current pathological fractuFollow up:Followup in 6 months or sooner if needed Functional Status Description No Information Available Mental Status Description No Information Available Referrals Description No Information Available
[2019-06-22] MEDS ORDERED: Famotidine IV* 10 MG/ML 2 ML (20 mg) IV SLOW PU ONE (06:47)
--- NOTE | 2019-06-22 07:07 | ED ---
Progress - Progress Note Progress Note: This pt was a sign out from Dr. Estrada awaiting labs and pending disposition. EKG at 0856 Rate is 101 bpm Rhythm is sinus tachycardia RBBB. T wave inversions in V1, V2, V3, and aVL. Compared to prior EKG on 11/17/18 there is no significant change. CT abdomen/pelvis, as read by radiologist IMPRESSION: An acute appearing L1 compression fracture results in approximately 50% vertebral body height loss and mild bony retropulsion. There is sessile appearing soft tissue attenuation along the greater curvature of the stomach. It's unclear if this is data entry representative of ingested material. Once clinically stable, recommend repeating exam with oral contrast after the patient has been NPO. Cholelithiasis. Dr. King has reviewed this report. Re-Evaluation - Re-Evaluation First Eval Re-Evaluation Time: 10:13 Comment: Pt states she has an old L1 compression fracture. Second Eval Re-Evaluation Time: 10:38 Comment: Dr. Douglas confirms compression fracture is old. Third Eval Re-Evaluation Time: 10:56 Change: Improved Comment: Pt feels better. She tolerated PO. She has no RUQ tenderness. Fourth Eval Comment: given continued tachycardia, low grade fever and fatigue causing fall, will admit to medicine. Patient agreeable. Course/Dx - Course Course Of Treatment: This pt was signed out by Dr. Estrada. - Diagnoses Provider Diagnoses: Ankle fracture, right, Weakness - Provider Notifications Discussed Care Of Patient With: Malik Douglas Time Discussed With Above Provider: 10:11 Instructed by Provider To: Other - Dr. Douglas, radiologist, reports CT shows L1 compression fracture. [10:32] Dr. Douglas, states the repeat CT can be done nonemergently. [11:15] Discussed with Dr. Meek, orthopedist. [12:25] Dr. Peralta, hospitalist, accepted the pt for admission. Discharge ED - Sign-Out/Discharge Documenting (check all that apply): Patient Departure - [place] [facility] [place]-Out Receiving patient FROM: Edis Estrada - Discharge Plan Condition: Stable Disposition: ADMITTED TO [facility] Patient Education Materials: Ankle Fracture (ED) Referrals: Flynn Meek MD [Medical Doctor] - Annabel Garcia MD [Primary Care Provider] - Additional Instructions: You were seen in the emergency department for an ankle fracture. Please keep on your boot and follow-up with orthopedics. Your CT scan showed an old fracture and your L1 spine. It also showed trace possible small mass in your stomach, they recommended you repeat this in the near future. If any studies were not completed at the time of discharge you will be called with the relevant results. Please follow up with your primary care doctor in next 2-3 days and return to emergency department for worsening pain, vomiting, fevers or concerning symptoms. It was a pleasure taking care of you today. - Billing Disposition and Condition Condition: STABLE Disposition: Admitted to [facility] - Attestation Statements Document Initiated by Lulu: Yes Documenting iFlipeibe: Kristel Estrada Provider For Whom Lulu is Documenting (Include Credential): Phong King MD Scribe Attestation: Kristel Pritchett, scribed for Phong King MD on 06/22/19 at 1342. Scribe Documentation Reviewed: Yes Provider Attestation: The documentation as recorded by the Kristel jiménez accurately reflects the service I personally performed and the decisions made by , Phong King MD Status of Scriblaura Document: Viewed
[2019-06-22 07:10] LABS: ABS Basophils 0.1 10^3/ul (0-0.2); ABS Lymphocytes 0.6 10^3/ul (1.0-4.8); ABS Monocytes 0.6 10^3/ul (0-0.8); ABS Neutrophils 13.5 10^3/ul (1.5-7.7); Eosinophil % 0.2 %; Hematocrit 37 % (35-47); Hemoglobin 12.2 g/dL (12.0-16.0); Lymphocyte % 3.9 %; Mean Corpuscular HGB Conc 33 g/dL (31-36); Mean Corpuscular Hemoglobin 37 pg (27-31); Mean Corpuscular Volume 111 fL (80-97); Mean Platelet Volume 7.8 fL (7.4-10.4); Platelet Count 274 10^3/uL (150-450); Red Cell Distribution Width 15 % (10-15); White Blood Count 14.8 10^3/uL (3.5-10.8)
[2019-06-22 07:14] LABS: ALT 20 U/L (7-52); AST 38 U/L (13-39); Albumin 3.6 g/dL (3.2-5.2); Albumin/Globulin Ratio 1.6 (1-3); Alkaline Phosphatase 45 U/L (34-104); Anion Gap 12 mmol/L (2-11); BUN/Creatinine Ratio 19.5 (8-20); Blood Urea Nitrogen 15 mg/dL (6-24); CO2 Carbon Dioxide 22 mmol/L (22-32); Calcium 9.1 mg/dL (8.6-10.3); Chloride 101 mmol/L (101-111); EGFR African American 88.4 (>60); EGFR Non-African American 73.1 (>60); Globulin 2.2 g/dL (2-4); Glucose 110 mg/dL (70-100); Indirect Bilirubin 0.4 mg/dL (0.3-1.0); Potassium 4.3 mmol/L (3.5-5.0); Sodium 135 mmol/L (135-145); Total Protein 5.8 g/dL (6.4-8.9)
[2019-06-22] MEDS ORDERED: Acetaminophen TAB* 325 MG PO ONE (07:45)
[2019-06-22 12:28] LABS: Urine Appearance Clear; Urine Bilirubin Negative (Negative); Urine Blood Negative (Negative); Urine Color Yellow; Urine Glucose Negative (Negative); Urine Ketones 1+ (Negative); Urine Nitrite Negative (Negative); Urine Protein Negative (Negative); Urine Specific Gravity 1.018 (1.010-1.030); Urine Urobilinogen Negative (Negative)
[2019-06-22] MEDS ORDERED: Acetaminophen TAB* 325 MG PO PRN (13:29)
[2019-06-22] MEDS ORDERED: Ondansetron INJ* 2 MG/ML VIAL IV PRN (13:29)
[2019-06-22] MEDS: NS 0.9% 1000 ML** 1,000 ML IV SCH ×2 (15:21→22:04)
[2019-06-22] MEDS: Enoxaparin(*) 40 MG/0.4 ML SYR SUBCUT SCH (15:26)
--- NOTE | 2019-06-22 15:50 | HP ---
CC: Dr. Annabel Garcia; Dr. eKeley King; Dr. Cook, Neurosurgery; Dr. Meek, Orthopedics * ADMISSION HISTORY AND PHYSICAL: DATE OF ADMISSION: 06/22/19 PRIMARY CARE PROVIDER: Dr. Annabel Garcia. BIRD TENDER: Dr. Keeley King. ATTENDING PHYSICIAN: Dr. Sofia Begum.* (DICTATED BY ROSE JORGENSEN, GRANT) CHIEF COMPLAINT: Fall and inability to ambulate. HISTORY OF PRESENT ILLNESS: Ms. Fink is a 74-year-old female patient with a past medical history of RA, depression, frequent falls, hypertension, osteopenia , and hypothyroidism, who presents to the emergency department with emergency medical services and her after sustaining a fall overnight. The patient states that she was getting up out of bed to ambulate to the bathroom when she states her legs gave out from under her and she was unable to get back up again. At that time, she noted some pain in her right ankle. Her was unable to lift her up off the floor. Her states that she did feel like weight and that she was so profoundly weak he was unable to get her to assist him in pushing herself up so he could assist her back to the bed. At that time, he called EMS services. She was requesting to just be placed back in the bed and did not want to come to the hospital; however, EMS did convince her that coming to the hospital to be evaluated would be in her best interest. Here in the ED, she was complaining of right ankle and leg pain. She was also noted to become tachycardic and had some nausea and vomiting as well. Her imaging in the ED noted her to have an avulsion fracture of the right medial malleolus. She also had some leukocytosis and intractable nausea and vomiting combined with her tachycardia. She also has a noted troponinemia, which is chronically elevated from her previous labs; however, given the constellation of her multiple symptoms and this injury, hospitalists were requested to evaluate the patient for admission. PAST MEDICAL HISTORY: Again is noted for severe rheumatoid arthritis, depression, frequent falls, hypertension, osteopenia, hypothyroidism, chronic troponinemia, chronic L1 compression fracture, macular puckering, and history of LVOT. PAST SURGICAL HISTORY: Left shoulder surgery, excision of cataracts, breast lumpectomy, surgeries on both of her hands, hysterectomy, tonsillectomy also as a child. HOME MEDICATIONS: Include: 1. Pristiq 50 mg p.o. daily. 2. Nasacort spray 1 spray intranasal daily. 3. Methotrexate 2.5 mg 6 tabs p.o. weekly. 4. Folic acid 1 mg p.o. daily. 5. Aspirin 81 mg daily. 6. Tylenol 650 mg p.o. q.4 hours as needed. 7. Trazodone 100 mg at bedtime. 8. Avapro 1 tab p.o. 2 times a day. 9. Synthroid 50 mcg p.o. daily. 10. Diltiazem CD 240 mg p.o. daily. ALLERGIES: The patient has allergies to HYDROCODONE, IV CONTRAST which causes itching, SULFA which causes itching, TRAMADOL which causes itching, and MORPHINE which also causes itching. FAMILY HISTORY: Mother with breast cancer. Father with history of CHF. SOCIAL HISTORY: The patient denies any tobacco. Drinks alcohol socially. She is , lives at home with her who is also her healthcare proxy. REVIEW OF SYSTEMS: The patient endorses generalized weakness and some nausea. She denies any fever or chills. She does state she has a chronic intermittent cough, but no hemoptysis and no current shortness of breath. She states her nausea has now improved, but denies any vomiting or diarrhea. No current abdominal pain. No urinary complaints. She does have pain in the right ankle and an abrasion on the right foot. On the medial aspect, there is some scabbing about 1 cm around. She denies any further constitutional complaints. PHYSICAL EXAMINATION GENERAL: Reveals a chronically ill-appearing older lady, in no acute distress. VITAL SIGNS: Blood pressure 156/86, heart rate 102, O2 saturation 91% on room air with a temperature of 100.1 and a respiratory rate of 20. HEENT: The patient is atraumatic, normocephalic. PERRLA. Nonicteric sclerae. Oral mucosa is somewhat dry. NECK: Supple, nontender. No JVD noted. No carotid bruits auscultated. LUNGS: Clear bilaterally to auscultation with no wheezing, rhonchi, or rales. CARDIOVASCULAR: S1 and S2 are present. Rate is tachycardic. Rhythm is regular. She has got a grade 2 systolic murmur noted. She has sinus tach on telemetry. ABDOMEN: Soft, nontender, nondistended. Positive bowel sounds in all 4 quadrants. : Deferred. MUSCULOSKELETAL: There is no clubbing or cyanosis. She does have some deformities and abnormalities secondary to her rheumatoid arthritis bilaterally of the hands and fingers and of the toes and some contractures noted. She has got pain to very light palpation in the right medial malleolus and again scabbing noted to an abrasion also on the right inner aspect of the arch of the foot. Otherwise, no further ulcerations noted on her skin. NEUROLOGIC: She is grossly intact. Alert and oriented x3 with no focal deficits. PSYCHIATRIC: She is somewhat flat, but otherwise cooperative and appropriate. DIAGNOSTIC STUDIES/LAB DATA: WBCs 14.8, RBCs 3.30, hemoglobin 12.2, hematocrit 37, MCV 111, MCH 37, platelets 274. Sodium 135, potassium 4.3, chloride 101, CO2 of 22, anion gap 12, BUN 15, creatinine 0.77, GFR 73.1, glucose 110, calcium 9.1. Bilirubin 0.50, AST 38, ALT 20, alk phos 45. Troponin is 0.10. Total protein 5.8, albumin 3.6, globulin 2.2, albumin/ globulin ratio 1.6. Lipase is 16. Urinalysis is negative for any acute infective process. INR is 0.93. Imaging: CT of the brain shows no acute intracranial abnormalities. CT of the cervical spine shows no acute fracture. She does have some mild-to- moderate degenerative changes, some osteophytosis. This looks like some overall degenerative changes in the cervical spine. The chest x-ray shows no acute or active cardiopulmonary disease. X-ray of the right ankle shows a small avulsion fracture fragment arising from the tip of the medial malleolus. CT of the abdomen and pelvis which is without contrast shows a sessile appearing soft tissue attenuation along the greater curvature of the stomach. The bowels are not thickened or dilated. Appendix is within normal limits. Some cholelithiasis. Noted L1 compression fracture, which according to the addendum is chronic. There is some advanced degenerative disk disease at L2- L3. Bones are osteopenic. The L1 compression fracture in particular shows approximately 50% vertebral body height loss. No further findings on the CT of the abdomen and pelvis other than her hysterectomy is noted. IMPRESSION: Ms. Fink is a 74-year-old female patient who does have a history of frequent falls, who presents today after a fall in the middle of the night, noted to have an ankle fracture and also now having some intractable nausea and vomiting with some mild leukocytosis and weakness. PLAN: The patient will be admitted for observation. 1. Frequent falls, now with medial malleolus avulsion fracture. The patient has been placed in a Cam boot. She does have allergies to some narcotic pain medications. She states Tylenol should be fine. She can have that as needed. I did have a lengthy discussion with the patient and her regarding her weakness and falls. This has been a progressive issue for the patient. She does use a quad cane at home; however, she spends most of her time holding onto furniture and has also had some progressive weakness. I think some of this may be due to her osteopenic changes, also her rheumatoid arthritis and she does appear to be grossly deconditioned. I will place consults for PT and OT. I suspect the patient will need some sort of subacute rehab. She does have a Cam boot, but I do think that the patient will have some significant difficulties ambulating now with the Cam boot and also with the deformities in her hands, I am not sure how well she will be able to use a walker now at this time. I did also reinforce to the patient that using a walker is much preferred to using a cane especially if she is that unsteady on her feet. I also reinforced this with her who is at the bedside and he is in agreement with this plan for determining her level of stability and need for ongoing physical therapy. 2. History of depression. She will be continued on her Pristiq. 3. L1 fracture. Initially, it was thought to be an acute fracture; however, the update on the radiologic reading is that the L1 fracture is old and chronic. The patient endorses that she has seen Dr. Cook in the past for the L1 fracture. She does not have any neurovascular complications. She does not have loss of sensation, bowel or bladder, so I do not think that this L1 compression fracture has contributed to her falls and general weakness. She will continue to follow up with Dr. Cook as an outpatient unless there are any acute changes during her current hospitalization. She is not endorsing any pain in her back or any radicular symptoms at this time. 4. History of rheumatoid arthritis, which is severe. She does follow up with Dr. Preciado as an outpatient. She will be continued on methotrexate and Tylenol as needed. 5. Intractable nausea and vomiting with accompanying leukocytosis and mild tachycardia. I suspect the patient does have some mild gastroenteritis. It is unclear whether this is contributing to the weakness and fall that she had on the overnight. It may be a component of her issues. She has already received a liter of fluid. We will keep her on IV normal saline at maintenance 75 mL per hour, Zofran every [address] her on a clear liquid diet. We will recheck her labs in the morning to check her white count again. Right now, she is borderline for fever with a temperature of 100.1. She can have Tylenol if the fever goes up. Currently, the CAT scan is not showing any acute changes in the abdomen. She is not obstructed. Again, I suspect this will be self-limiting and viral in nature. We will continue to keep her hydrated and advance her diet as tolerated. 6. Chronic troponinemia. She has had 2 troponins already, but she is not complaining of any chest pain or other anginal equivalents. When I evaluated her labs, it appears that her troponins have been elevated as far back as 2018. She has been as high as 0.23. I suspect the troponin has been elevated in the presence of chronic rheumatoid arthritis. I do not feel that this is district sales representative of a STEMI. We will not continue to trend her troponins at this time unless she does complain of chest pain or some other anginal component. We will, however, keep her on telemetry given her history. 7. History of hypertension. She will be continued on her Cardizem. 8. History of hypothyroidism. She will be continued on her Synthroid. 9. Diet: Clear liquid diet as tolerated. 10. DVT prophylaxis: She is high risk given her new fracture, immobilized right lower extremity, and currently debilitated state. She will be placed on Lovenox 40 mg subcu daily and ambulate with assistance as tolerated after Physical Therapy has evaluated the patient. 11. Disposition: Admitted to observation. 12. Code status: Full. The rest of the patient's course will be determined by further diagnostics, laboratories, and any other input from other providers as warranted during this admission. TIME SPENT: 65 minutes on admission planning. This plan of care has been discussed with Dr. Sofia Begum, the attending on this case, and she is in agreement with the plan. ROSE JORGENSEN, TRANSPORTATION EQUIPMENT PAINTER [id number]/CPS #: [id number] JOSH
[2019-06-22] MEDS ORDERED: NS 0.9% 500 ML* 500 ML IV ONE (16:41)
[2019-06-22] MEDS: traZODone TAB* 50 MG TAB PO SCH (20:10)
[2019-06-22] MEDS ORDERED: Losartan TAB* 25 MG PO SCH (21:00)
[2019-06-23] MEDS: Levothyroxine TAB* 50 MCG TAB PO SCH (05:06)
[2019-06-23] MEDS: Aspirin 81 mg CHEW TAB* 81 MG TAB.CHEW PO SCH (08:45)
[2019-06-23] MEDS: Losartan TAB* 25 MG PO SCH (08:45)
[2019-06-23] MEDS: Folic Acid TAB* 1 MG PO SCH (08:47)
[2019-06-23] MEDS: Diltiazem CD CAP* 240 MG PO SCH (08:47)
[2019-06-23] MEDS: Fluticasone NASAL SPRAY 50MCG* 16 gm SPRAY BTL BOTH NARES SCH (08:48)
[2019-06-23] MEDS: Desvenlafaxine (NF) 50 MG TAB PO SCH (08:49)
[2019-06-23 09:27] LABS: ABS Eosinophils 0.1 10^3/ul (0-0.6); ABS Lymphocytes 0.6 10^3/ul (1.0-4.8); ABS Monocytes 0.4 10^3/ul (0-0.8); ABS Neutrophils 2.6 10^3/ul (1.5-7.7); Eosinophil % 3.8 %; Hematocrit 31 % (35-47); Hemoglobin 10.5 g/dL (12.0-16.0); Mean Corpuscular HGB Conc 34 g/dL (31-36); Mean Corpuscular Hemoglobin 38 pg (27-31); Mean Corpuscular Volume 111 fL (80-97); Mean Platelet Volume 7.7 fL (7.4-10.4); Platelet Count 193 10^3/uL (150-450); Red Blood Count 2.79 10^6 /uL (3.70-4.87); Red Cell Distribution Width 15 % (10-15); White Blood Count 3.8 10^3/uL (3.5-10.8)
[2019-06-23 09:34] LABS: BUN/Creatinine Ratio 13.6 (8-20); EGFR African American 105.6 (>60); EGFR Non-African American 87.3 (>60); Potassium 3.7 mmol/L (3.5-5.0)
--- NOTE | 2019-06-23 10:58 | CONS ---
AMENDED REPORT NOW INCLUDES DATE OF CONSULT CONSULTATION REPORT: DATE OF ADMISSION: 06/22/19 DATE OF CONSULT: 06/23/19 SURGEON: Flynn Meek MD PRINCIPAL DIAGNOSES: Right ankle small avulsion fracture from the tip of the medial malleolus. HISTORY OF PRESENT ILLNESS: Ms. Fink is a 74-year-old female who presented to the emergency room after a fall, which happened yesterday in her home. She immediately had some pain in her right ankle. X-ray showed a fracture of the right medial malleolus. She denies any calf pain, shortness of breath. She denies any numbness or tingling. PAST MEDICAL HISTORY: RA, depression, hypertension, hypothyroidism, chronic L1 compression fracture. PAST SURGICAL HISTORY: Left shoulder surgery, cataract excision, breast lumpectomy, bilateral hand surgery, hysterectomy, and tonsillectomy. CURRENT MEDICATIONS: 1. Pristiq 50 mg a day. 2. Nasacort as needed. 3. Methotrexate 2.5 mg 6 tabs weekly. 4. Folic acid. 5. Aspirin 81 mg a day. 6. Tylenol as needed. 7. Trazodone 100 mg q.h.s. 8. Avapro 1 tab 2 times a day. 9. Synthroid 50 mcg daily. 10. Diltiazem 240 mg a day. ALLERGIES: HYDROCODONE, IV CONTRAST, SULFA, TRAMADOL, and MORPHINE. FAMILY HISTORY: Breast cancer, CHF. SOCIAL HISTORY: She denies use of tobacco or drugs or alcohol. She lives at home with her . PHYSICAL EXAMINATION: General: She is well developed, well nourished, in no acute distress. She is alert and oriented x3. Pleasant mood and appropriate affect. Musculoskeletal: Right lower extremity, the skin is intact. There is a small abrasion over the medial aspect of the right foot. There are no signs of infection. No erythema or warmth. She has intact sensation. She is able to dorsiflex and planter flex. She has 2+ dorsalis pedis pulse. She does have exquisite tenderness to palpation along the right medial malleolus with swelling. ASSESSMENT AND PLAN: Ms. Fink is a 74-year-old female status post fall at home with a small avulsion fracture for right medial malleolus. Dr. Meek has recommended a cam walker boot. She is weightbearing as tolerated. She will continue her aspirin, Lovenox for DVT prophylaxis. She can follow up with Dr. Meek in clinic in 2 weeks. MILTON VALENCIA [id number]/[facility] #: [id number] MTDD
--- NOTE | 2019-06-23 12:43 | PN ---
Subjective Date of Service: 06/23/19 Interval History: Patient seen and examined. States she feels a little better than yesterday but that she cannot place any weight on the right foot even with the CAM boot because of pain in the ankle. States her n/v has resolved, denies fever or chills. No further complaints today. Objective Active Medications: Acetaminophen (Tylenol Tab*) 650 mg PO Q4H PRN PRN Reason: MILD PAIN or TEMP > 100.4 Last Admin: 06/22/19 16:53 Dose: 650 mg Aspirin (Aspirin 81 Mg Chew Tab*) 81 mg PO DAILY [facility] Last Admin: 06/23/19 08:45 Dose: 81 mg Desvenlafaxine Succinate (Pristiq (Nf)) 50 mg PO DAILY [facility] Last Admin: 06/23/19 08:49 Dose: Not Given Diltiazem HCl (Cardizem Cd Cap*) 240 mg PO DAILY [facility] Last Admin: 06/23/19 08:47 Dose: 240 mg Enoxaparin Sodium (Lovenox(*)) 40 mg SUBCUT Q24H [facility] Last Admin: 06/22/19 15:26 Dose: 40 mg Fluticasone Propionate (Flonase Nasal [place] 50mcg*) 1 spray BOTH NARES DAILY [facility] Last Admin: 06/23/19 08:48 Dose: 1 spray Folic Acid (Folvite Tab*) 1 mg PO DAILY [facility] Last Admin: 06/23/19 08:47 Dose: 1 mg Sodium Chloride (Ns 0.9% 1000 Ml) 1,000 mls @ 75 mls/hr IV PER RATE [facility] Last Admin: 06/22/19 22:04 Dose: 75 mls/hr Levothyroxine Sodium (Synthroid Tab*) 50 mcg PO DAILY@0600 [facility] Last Admin: 06/23/19 05:06 Dose: 50 mcg Losartan Potassium (Cozaar Tab*) 25 mg PO DAILY [facility] Last Admin: 06/23/19 08:45 Dose: 25 mg Methotrexate (Methotrexate Tab*) 15 mg PO Tu@0900 [facility] Ondansetron HCl (Zofran Inj*) 4 mg IV Q4H PRN PRN Reason: NAUSEA/VOMITING Trazodone HCl (Desyrel Tab*) 100 mg PO BEDTIME [facility] Last Admin: 06/22/19 20:10 Dose: 100 mg Vital Signs - 8 hr 06/23/19 06/23/19 08:00 11:15 Temperature 98.2 F 97.8 F Pulse Rate 85 79 Respiratory 16 17 Rate Blood Pressure 118/61 132/68 (mmHg) O2 Sat by Pulse 92 79 Oximetry Oxygen Devices in Use Now: None Appearance: alert, NAD Eyes: PERRLA Ears/Nose/Mouth/Throat: NL Teeth, Lips, Gums, Mucous Membranes Moist Neck: NL Appearance and Movements; NL JVP Respiratory: Symmetrical Chest Expansion and Respiratory Effort, Clear to Auscultation Cardiovascular: NL Sounds; No Murmurs; No JVD, RRR, No Edema Abdominal: NL Sounds; No Tenderness; No Distention Extremities: - - CAM boot RLE Skin: No Nodules or Sclerosis Neurological: Alert and Oriented x 3 Nutrition: Taking PO's Result Diagrams: 06/23/19 09:05 06/23/19 09:05 Assess/Plan/Problems-Billing Assessment: This is a 74 year old female with hx of RA, frequent falls and HTN that presents with complaint of fall and inability to ambulate. - Patient Problems (1) Falls Comment: - Frequent, likely combination of severe RA and deconditioning - PT/OT evals - Will likely need rehab (2) Fracture of medial malleolus, right, closed Code(s): S82.51XA - DISP FX OF MEDIAL MALLEOLUS OF RIGHT TIBIA, INIT FOR CLOS FX SNOMED Code(s): 75793149 Comment: - Ortho consult appreciated - CAM boot, no operative intervention required at this time - Pain control - WBAT (3) Elevated troponin Code(s): R74.8 - ABNORMAL LEVELS OF OTHER SERUM ENZYMES SNOMED Code(s): 653028960 Comment: - Chronically elevated since 2018 without evidence of ischemia, had stress test earlier this year - Likely etiology is chronic inflammation 2/2 severe RA (4) Rheumatoid arthritis Code(s): M06.9 - RHEUMATOID ARTHRITIS, UNSPECIFIED SNOMED Code(s): 43061499 Comment: - Severe - Continue methotrexate with tylenol PRN (5) HTN (hypertension) Code(s): I10 - ESSENTIAL (PRIMARY) HYPERTENSION SNOMED Code(s): 67676200 Comment: - Continue diltiazem and ARB, BP stable (6) Vomiting Code(s): R11.10 - VOMITING, UNSPECIFIED SNOMED Code(s): 667792938 Comment: - No n/v today - Leukocytosis resolved as has low grade temp - Tolerating PO today (7) DVT prophylaxis Code(s): AST3466 - SNOMED Code(s): 350789651 Comment: - Heparin SQ (8) Full code status Code(s): Z78.9 - OTHER SPECIFIED HEALTH STATUS SNOMED Code(s): 776953817 Comment: Status and Disposition: Inpatient, dispo STR vs home with services.
[2019-06-23] MEDS: Enoxaparin(*) 40 MG/0.4 ML SYR SUBCUT SCH (13:22)
[2019-06-23] MEDS: NS 0.9% 1000 ML** 1,000 ML IV SCH (13:25)
[2019-06-23] MEDS: traZODone TAB* 50 MG TAB PO SCH (21:47)
[2019-06-24] MEDS: NS 0.9% 1000 ML** 1,000 ML IV SCH (03:10)
[2019-06-24 04:47] VITALS: BP 114/65
[2019-06-24] MEDS: Levothyroxine TAB* 50 MCG TAB PO SCH (06:10)
[2019-06-24] MEDS: Aspirin 81 mg CHEW TAB* 81 MG TAB.CHEW PO SCH (08:52)
[2019-06-24] MEDS: Folic Acid TAB* 1 MG PO SCH (08:52)
[2019-06-24] MEDS: Diltiazem CD CAP* 240 MG PO SCH (08:52)
[2019-06-24] MEDS: Desvenlafaxine (NF) 50 MG TAB PO SCH (08:52)
[2019-06-24] MEDS: Losartan TAB* 25 MG PO SCH (08:52)
[2019-06-24] MEDS: Fluticasone NASAL SPRAY 50MCG* 16 gm SPRAY BTL BOTH NARES SCH (08:53)
[2019-06-24] MEDS ORDERED: CMC:Desvenlafaxine (NF) 50 MG TAB PO SCH (11:00)
[2019-06-24] MEDS: Enoxaparin(*) 40 MG/0.4 ML SYR SUBCUT SCH (13:20)
--- NOTE | 2019-06-24 22:55 | DS ---
CC: Dr. Annabel Garcia; Dr. Meek, Orthopedics; Dr. Cook, Neurosurgery * DISCHARGE SUMMARY: DATE OF ADMISSION: 06/22/19 DATE OF DISCHARGE: 06/24/19 PRIMARY CARE PROVIDER: Annabel Garcia MD ATTENDING PROVIDER: Dr. Mendez * (DICTATED BY ROSE JORGENSEN NP) HOSPITAL COURSE: Please refer to admitting H and P on 06/22/19, but in short, Ms. Fink is a 74-year-old female patient who presented to the emergency department on 06/22/19 with complaints of falls and an inability to ambulate with some right ankle pain. The patient and her stated that she was unable to get back up off of the floor after sustaining a mechanical fall in the middle of night when she was trying to ambulate to the bathroom. EMS services brought the patient to the emergency department to be evaluated. After having imaging done in the ED, she was noted to have an L1 compression fracture, which is old and known, which has been evaluated by Dr. Cook as an outpatient. However, she was also noted to have a right medial malleolus fracture, which was slightly displaced, which did not require surgical intervention, but she was placed in a CAM boot. Although, these issues were not urgent. The patient was having significant amount of difficulty ambulating and she was quite weakened while she was in the emergency department. During that time, she also began to have some progressive nausea and had some vomiting and some persistent tachycardia. At that time, then she received a CAT scan, she was unable to tolerate contrast, of the abdomen and pelvis, but it did show a sessile appearing soft tissue attenuation along the greater curvature of the stomach. Also noted was the L1 compression fracture. There were no other acute findings, however, the patient did seem to be again very weak and she was admitted initially for observation for her weakness, the fall, the fracture, and the nausea and vomiting. It should also be noted that she had a bit of leukocytosis as well and did appear to be somewhat dehydrated. She received IV fluids and Tylenol. She had a low grade temperature between 99 and 100, but did not amount a febrile response greater than 100.3. She did respond well to IV fluids. She was kept on a clear liquid diet while she was nauseous. She received Zofran with good effect. Her diet was advanced to full liquids and then to regular diet this morning. Her white count came back to normal immediately. In terms of the fracture of her ankle, Dr. Meek was consulted. He recommended CAM boot and weight bearing as tolerated and outpatient follow up for the L1 fracture. This was a known fracture and did not progress or show any retropulsion and because the patient was not having any additional symptoms such as back pain or radiating pain down the legs, there was no need to seek further consultation or treatment for the chronic L1 compression fracture. She was seen by Physical Therapy and Occupational Therapy during her stay which both recommended physical therapy but did not recommend that the patient needed short term rehab. On the morning of 06/24/19, the patient was ambulating. Her pain was well controlled. Referral was made for VNS. She was given a walker to assist with her ambulation. Occupational Therapy did make recommendations for queueing and assistance but the patient does have her that lives at home with her and is available 24 hours a day that can assist with her needs and the patient did desire to be discharged to home rather than rehab and essentially was feeling much better. The patient was ready for discharge on 06/24/19. On the day of discharge, she denied any fever, fatigue, or chills. No further nausea or vomiting. No chest pain. No shortness of breath. No urinary complaints. The ankle pain was well controlled. She was ambulating with assistance of her walker and CAM boot with a relatively steady gait and had no further complaints. PHYSICAL EXAMINATION: Her physical exam today revealed a older female in no acute distress. Vital signs are blood pressure 114/65, heart rate 73, respiratory rate 16, O2 saturation 93% on room air with a temperature of 97.7. HEENT: The patient is atraumatic, normocephalic. PERRLA. Nonicteric sclerae. Oral mucosa is moist. Tongue is midline. Neck is supple, nontender. No JVD noted. No carotid bruit auscultated. Cardiovascular: S1, S2 present. No gallops or rubs noted. She does have a murmur, but rate and rhythm are regular. Lungs are clear bilaterally. The apices diminished at the bases with no wheezing, rhonchi, or rales noted. Abdomen: Soft, nontender, nondistended. Positive bowel sounds in all 4 quadrants. : Deferred. Musculoskeletal: There is no clubbing, no cyanosis, no edema. Positive pedal pulses noted on the left. The right foot is in a CAM boot. She did have an abrasion to the medial side of the arch of the right foot which is dressed with a cling. She does have tenderness to palpation over the medial ankle but otherwise no obvious deformity noted. Toes are warm. She does have deformities of the toes and of the hands secondary to rheumatoid arthritis, but she is otherwise at her baseline. Neurologic: Grossly intact with no focal deficits. Psychiatric: She has a flat affect at baseline, but she is otherwise cooperative and appropriate. LABORATORY DATA: WBC is 3.8, RBC is 2.79, hemoglobin 10.5, hematocrit 31, platelets 193. Sodium 136, potassium 3.7, chloride 105, CO2 26, BUN 9, creatinine 0.66, GFR 87.3, glucose 89, calcium 8.0. Urinalysis negative for any acute infective process. INR was 0.93. Troponins were slightly elevated 0.09 and 0.10. However, it should be noted the patient has chronically elevated troponins. IMAGING: CAT scan as noted in the body of this report above. CT of brain dated 06/22/19 shows no acute intracranial abnormality. CT of the spine with no acute fractures. X-ray of the chest shows no evidence for acute cardiopulmonary disease and x- ray of the ankle shows a small avulsion fracture fragment arising from the tip of the medial malleolus. DISCHARGE DIAGNOSES: 1. Frequent falls secondary to severe rheumatoid arthritis and deconditioning. 2. Fracture of medial malleolus, closed. 3. Elevated troponin secondary to chronic inflammation. No evidence of cardiac ischemia. 4. History of rheumatoid arthritis. 5. History of hypertension. 6. Acute vomiting and nausea, now resolved. 7. History of depression, mood stable. MEDICATIONS FOR DISCHARGE: Include: 1. Pristiq 50 mg p.o. daily. 2. Nasacort 1 puff nasal daily. 3. Methotrexate 6 tabs p.o. weekly. 4. Folic acid 1 mg p.o. daily. 5. Aspirin 81 mg daily. 6. Acetaminophen 650 mg p.o. q.4 hours as needed. 7. Trazodone 100 mg at bedtime. 8. Avapro 1 tab p.o. b.i.d. 9. Synthroid 50 mcg p.o. daily. 10. Diltiazem CD 240 mg p.o. daily. DISPOSITION: The patient was discharged to home in the care of her in stable condition. FOLLOWUP: The patient was instructed to follow up with [facility], Dr. Flynn Meek in 1 to 2 weeks, and Dr. Annabel Garcia in the next 1 to 2 weeks. She can also follow up with Dr. Cook of Neurosurgery on an as needed basis for her chronic compression fracture. Again, the patient was discharged in stable condition. All questions were answered. The patient is in understanding of discharge instructions and follow ups. I also instructed the patient to follow up with Dr. Garcia regarding the CAT scan of her stomach because she could not have contrast because of her nausea and vomiting, we did recommend that she have a follow up CAT scan with contrast to further elucidate the findings on the lining of the stomach to ensure resolution. It could have been retained food contents per the radiologist report, so we did instruct the patient to follow up and would appreciate this happening in Dr. Garcia's office. TIME SPENT: Time spent on discharge planning 35 minutes. She was not having any further issues at discharge. ROSE JORGENSEN, [employer] MACHINE [id number]/[facility] #: [id number] MTDD
[2019-06-27] MEDS ORDERED: Methotrexate TAB* 2.5 MG PO SCH (09:00)
== END 2019-06-24 15:45 | disposition home or self-care (01) ==
LOC: ED 03:50 → MEDTELE 13:29
PROVIDERS: ADMIT Internal Medicine; ATTEND Internal Medicine
DX: S82.51XA Displaced fracture of medial malleolus of right tibia, initial encounter for closed fracture (principal); R53.1 Weakness; E03.9 Hypothyroidism, unspecified; M06.80 Other specified rheumatoid arthritis, unspecified site; I45.10 Unspecified right bundle-branch block; E78.00 Pure hypercholesterolemia, unspecified; R74.8 Abnormal levels of other serum enzymes; I10 Essential (primary) hypertension; F32.9 Major depressive disorder, single episode, unspecified; R11.2 Nausea with vomiting, unspecified; W19.XXXA Unspecified fall, initial encounter; Y92.9 Unspecified place or not applicable; Z79.82 Long term (current) use of aspirin; Z79.899 Other long term (current) drug therapy
CPT/HCPCS: 36415; 70450; 71046; 72125; 74176; 80048; 80076; 81003; 83690; 84484; 85025; 85610; 85730; 93005; 96372; 96374; 96375; 96376; 99283; A9270-GY; G0378; G8978-GP-CJ; G8979-GP-CI; J1650; J2405

== ENCOUNTER 2023-01-09 17:52 | Observation (INO) ==
[2023-01-09] MEDS ORDERED: Lactated Ringers 1000 ml BAG 1,000 ML IV ONE (18:08)
[2023-01-09] MEDS ORDERED: fentaNYL 100 mcg/2 ml 50 MCG/ML VIAL IV SLOW PU ONE (18:08)
[2023-01-09] MEDS ORDERED: Ondansetron 4 mg VIAL 2 MG/ML 2 ml VIAL IV ONE (18:08)
[2023-01-09 18:49] LABS: ABS Eosinophils 0.1 10^3/uL (0.0-0.5); ABS Lymphocytes 0.8 10^3/uL (1.0-4.8); ABS Monocytes 0.9 10^3/uL (0.0-0.9); ABS Neutrophils 6.4 10^3/uL (1.5-7.6); Eosinophil % 1.2 %; Hematocrit 41.6 % (35-45); Hemoglobin 14.1 g/dL (11.5-14.3); Mean Corpuscular Hemoglobin 36.1 pg (27-33); Mean Corpuscular Hgb Conc 33.8 g/dL (31-36); Mean Corpuscular Volume 106.9 fL (80-97); Mean Platelet Volume 7.4 fL (7.5-11.2); Platelet Count 218 10^3/uL (150-450); Red Blood Count 3.89 10^6/uL (3.63-4.92); Red Cell Distribution Width 17.5 % (12-17); White Blood Count 8.2 10^3/uL (3.8-11.8)
[2023-01-09] MEDS ORDERED: Iohexol 350 (CONTRAST) 500 ML MDV IV ONE (18:54)
[2023-01-09] MEDS ORDERED: methylPREDNISolone SOD SUCC 125 mg 2 ML VIAL IV ONE (19:10)
[2023-01-09 19:17] LABS: ALT 13 U/L (7-52); AST 24 U/L (13-39); Albumin 4.1 g/dL (3.2-5.2); Albumin/Globulin Ratio 1.7 (1-3); Alkaline Phosphatase 71 U/L (35-149); Anion Gap 12 mmol/L (2-16); Blood Urea Nitrogen 13 mg/dL (6-24); CO2 Carbon Dioxide 21 mmol/L (22-32); Calcium 8.3 mg/dL (8.6-10.3); Chloride 102 mmol/L (101-111); Globulin 2.4 g/dL (2-4); Glucose 109 mg/dL (70-100); Potassium 4.1 mmol/L (3.5-5.0); Sodium 135 mmol/L (135-145); Total Protein 6.5 g/dL (6.4-8.9); eGFR CKD-EPI 88.5 (>60)
[2023-01-09 19:35] LABS: Lipase 790 U/L (11.0-82.0)
[2023-01-09] MEDS: Lactated Ringers 1000 ml BAG 1,000 ML IV SCH (23:01)
[2023-01-09] MEDS ORDERED: Ondansetron 4 mg VIAL 2 MG/ML 2 ml VIAL IV PRN (23:07)
[2023-01-09] MEDS ORDERED: Thiamine 100 MG/ML 2 ml VIAL (200 mg) IM ONE (23:08)
[2023-01-09] MEDS ORDERED: Lorazepam PYXIS KEY PRN (23:11)
[2023-01-09] MEDS ORDERED: Thiamine 100 MG/ML 2 ml VIAL (200 mg) IV ONE (23:28)
[2023-01-09 23:32] LABS: Alcohol, S < 13 mg/dL (<13)
[2023-01-09] MEDS ORDERED: Thiamine IV 100 MG in NS 0.9% 50 ML Q24H IV ONE (23:45)
[2023-01-09] MEDS ORDERED: LORazepam 2 mg VIAL 1 ml IV PUSH SCH (23:45)
[2023-01-09] MEDS ORDERED: Enoxaparin 40 MG/0.4 ML SYR SUBCUT SCH (23:45)
[2023-01-10 00:55] LABS: Urine Appearance Clear; Urine Bilirubin Negative (Negative); Urine Blood Negative (Negative); Urine Color Yellow; Urine Glucose Negative (Negative); Urine Ketones 2+ (Negative); Urine Nitrite Negative (Negative); Urine Protein Negative (Negative); Urine Urobilinogen Negative (Negative)
[2023-01-10] MEDS: Acetaminophen IV 1 GM/100ML 1,000 MG/100 ML BAG IV PRN ×2 (05:04→10:51)
[2023-01-10] MEDS: Lactated Ringers 1000 ml BAG 1,000 ML IV SCH (05:04)
[2023-01-10 05:23] LABS: ABS Lymphocytes 0.4 10^3/uL (1.0-4.8); ABS Monocytes 0.2 10^3/uL (0.0-0.9); ABS Neutrophils 5.9 10^3/uL (1.5-7.6); Hematocrit 38.4 % (35-45); Lymphocyte % 5.8 %; Mean Corpuscular Hemoglobin 36.1 pg (27-33); Mean Corpuscular Hgb Conc 33.9 g/dL (31-36); Mean Corpuscular Volume 106.3 fL (80-97); Mean Platelet Volume 7.8 fL (7.5-11.2); Nucleated Red Blood Cells % 0.1 /100 WBC (0.0-0.4); Platelet Count 180 10^3/uL (150-450); Red Blood Count 3.61 10^6/uL (3.63-4.92); Red Cell Distribution Width 17.9 % (12-17); White Blood Count 6.4 10^3/uL (3.8-11.8)
[2023-01-10 05:56] LABS: Albumin 3.4 g/dL (3.2-5.2); Albumin/Globulin Ratio 1.7 (1-3); Calcium 7.5 mg/dL (8.6-10.3); Creatinine, Serum 0.54 mg/dL (0.51-0.95); Magnesium 1.7 mg/dL (1.9-2.7); Potassium 4.4 mmol/L (3.5-5.0); Total Bilirubin 0.6 mg/dL (0.2-1.0); Total Protein 5.4 g/dL (6.4-8.9); eGFR CKD-EPI 94.2 (>60)
[2023-01-10] MEDS ORDERED: Magnesium Sulfate 2 gm BAG 2 GM/50 ML BAG IVPB ONE (07:36)
[2023-01-10 08:19] LABS: TSH Ultra Thyroid Stim Horm 1.25 mcIU/mL (0.34-5.60)
[2023-01-10 08:30] LABS: Folate > 20.00 ng/mL (5.90-24.80)
[2023-01-10 08:31] LABS: Vitamin B12 267 pg/mL (180-914)
[2023-01-10 13:23] LABS: Cholesterol 168 mg/dL; HDL Cholesterol 61.1 mg/dL; LDL Cholesterol Direct 95 mg/dL; Triglycerides 73 mg/dL
[2023-01-10] MEDS ORDERED: Magnesium Hydroxide LIQ 30 ML UDC PO ONE (14:01)
[2023-01-10 16:16] VITALS: BP 127/87
== END 2023-01-10 16:30 | disposition home or self-care (01) ==
LOC: ED 17:52 → EDHOLD 17:52 → SUATTDRO 21:33 → EDHOLD 01-10 16:14
PROVIDERS: ADMIT Internal Medicine; ATTEND Internal Medicine

== ENCOUNTER 2023-09-25 20:38 | Inpatient (IN) ==
[2023-09-25] MEDS ORDERED: Ondansetron 4 mg VIAL 2 MG/ML 2 ml VIAL IV ONE ×2 (20:50→23:30)
[2023-09-25] MEDS ORDERED: Lactated Ringers 1000 ml BAG 1,000 ML IV ONE (20:51)
[2023-09-25] MEDS ORDERED: fentaNYL 100 mcg/2 ml 50 MCG/ML VIAL IV SLOW PU ONE ×2 (20:52→23:30)
[2023-09-25 21:21] LABS: INR 1.01 (0.83-1.13)
[2023-09-25 21:23] LABS: ABS Eosinophils 0.1 10^3/uL (0.0-0.5); ABS Lymphocytes 0.8 10^3/uL (1.0-4.8); ABS Monocytes 0.7 10^3/uL (0.0-0.9); ABS Neutrophils 5.8 10^3/uL (1.5-7.6); Hematocrit 40.3 % (35-45); Hemoglobin 13.7 g/dL (11.5-14.3); Lymphocyte % 10.9 %; Mean Corpuscular Hemoglobin 37.9 pg (27-33); Mean Corpuscular Volume 111.5 fL (80-97); Mean Platelet Volume 7.9 fL (7.5-11.2); Platelet Count 223 10^3/uL (150-450); Red Blood Count 3.61 10^6/uL (3.63-4.92); White Blood Count 7.4 10^3/uL (3.8-11.8)
[2023-09-25 21:38] LABS: Anion Gap 13 mmol/L (2-16); Blood Urea Nitrogen 9 mg/dL (6-24); C Reactive Protein 15.93 mg/L (<8.01); CO2 Carbon Dioxide 25 mmol/L (22-32); Chloride 99 mmol/L (101-111); Creatinine, Serum 0.76 mg/dL (0.51-0.95); Glucose 124 mg/dL (70-100); Potassium 3.6 mmol/L (3.5-5.0); Sodium 137 mmol/L (135-145); eGFR CKD-EPI 79.7 (>60)
[2023-09-25 21:44] LABS: High Sens Troponin Baseline 65 pg/mL (<15)
[2023-09-25 21:48] LABS: Alcohol, S < 13 mg/dL (<13)
[2023-09-25 22:04] LABS: ALT 22 U/L (7-52); AST 32 U/L (13-39); Albumin 4.1 g/dL (3.2-5.2); Albumin/Globulin Ratio 1.5 (1-3); Alkaline Phosphatase 80 U/L (35-149); Amylase 181 U/L (29-103); Globulin 2.8 g/dL (2-4); Lipase 1218 U/L (11.0-82.0); Total Bilirubin 1.1 mg/dL (0.2-1.0); Total Protein 6.9 g/dL (6.4-8.9)
[2023-09-25 22:41] LABS: Urine Appearance Clear; Urine Bilirubin Negative (Negative); Urine Blood Negative (Negative); Urine Color Yellow; Urine Glucose Negative (Negative); Urine Ketones 1+ (Negative); Urine Nitrite Negative (Negative); Urine Protein 1+(30 mg/dL) (Negative); Urine Urobilinogen Negative (Negative)
[2023-09-25 22:43] LABS: Urine Bacteria Absent (Absent); Urine Red Blood Cell Trace(0-2/hpf) (Absent); Urine White Blood Cell Trace(0-5/hpf) (Absent)
[2023-09-25 23:04] LABS: High Sensitivity Troponin 1 Hr 68 pg/mL (<15)
[2023-09-25] MEDS ORDERED: methylPREDNISolone SOD SUCC 125 mg 2 ML VIAL IV ONE (23:29)
[2023-09-25] MEDS ORDERED: Lactated Ringers 1000 ml BAG 1,000 ML IV SCH (23:45)
[2023-09-26] MEDS ORDERED: Thiamine 100 MG/ML 2 ml VIAL (200 mg) IM ONE (00:07)
[2023-09-26] MEDS ORDERED: Prochlorperazine 5 mg/ml 2 ml VIAL (10 mg) IV ONE ×2 (01:50→11:45)
[2023-09-26] MEDS: fentaNYL 100 mcg/2 ml 50 MCG/ML VIAL IV SLOW PU PRN ×2 (03:16→13:45)
[2023-09-26] MEDS ORDERED: Iohexol 300 (CONTRAST) 10 ML SDV IV ONE (03:19)
[2023-09-26] MEDS ORDERED: Prochlorperazine 5 mg/ml 2 ml VIAL (10 mg) IV PRN (04:51)
[2023-09-26] MEDS ORDERED: LORazepam 2 mg VIAL 1 ml IV PUSH PRN (04:52)
[2023-09-26] MEDS ORDERED: Lorazepam PYXIS KEY PRN (04:52)
[2023-09-26] MEDS: LORazepam 2 mg VIAL 1 ml IV PUSH SCH ×4 (05:05→14:18)
[2023-09-26 05:26] LABS: ABS Lymphocytes 0.6 10^3/uL (1.0-4.8); ABS Monocytes 0.2 10^3/uL (0.0-0.9); ABS Neutrophils 7.7 10^3/uL (1.5-7.6); Eosinophil % 0.1 %; Hematocrit 41.6 % (35-45); Hemoglobin 14.2 g/dL (11.5-14.3); Lymphocyte % 6.6 %; Mean Corpuscular Hemoglobin 37.6 pg (27-33); Mean Corpuscular Hgb Conc 34.1 g/dL (31-36); Mean Corpuscular Volume 110.4 fL (80-97); Mean Platelet Volume 8.3 fL (7.5-11.2); Platelet Count 200 10^3/uL (150-450); Red Blood Count 3.77 10^6/uL (3.63-4.92); Red Cell Distribution Width 15.4 % (12-17); White Blood Count 8.5 10^3/uL (3.8-11.8)
[2023-09-26 05:34] LABS: Albumin 4.1 g/dL (3.2-5.2); Albumin/Globulin Ratio 1.6 (1-3); Creatinine, Serum 0.7 mg/dL (0.51-0.95); Globulin 2.6 g/dL (2-4); Potassium 3.8 mmol/L (3.5-5.0); Total Bilirubin 4.4 mg/dL (0.2-1.0); Total Protein 6.7 g/dL (6.4-8.9); eGFR CKD-EPI 87.9 (>60)
[2023-09-26] MEDS ORDERED: Enoxaparin 40 MG/0.4 ML SYR SUBCUT SCH (06:00)
[2023-09-26] MEDS ORDERED: Ondansetron 4 mg VIAL 2 MG/ML 2 ml VIAL IV PRN ×2 (08:10→13:37)
[2023-09-26] MEDS ORDERED: Multivitamins/Minerals TAB PO SCH (09:00)
[2023-09-26 09:45] LABS: Direct Bilirubin 2.7 mg/dL (0.03-0.18)
[2023-09-26] MEDS ORDERED: Lactated Ringers 1000 ml BAG 1,000 ML IV ONE (10:30)
[2023-09-26] MEDS ORDERED: Ondansetron 4 mg VIAL 2 MG/ML 2 ml VIAL ONE (13:42)
[2023-09-26 14:23] VITALS: BP 178/119
== END 2023-09-26 14:25 | disposition short-term general hospital (02) | DRG 440 ==
LOC: ED 20:38 → EDHOLD 23:57 → SUATTDRO 23:57 → EDHOLD 09-26 14:23
PROVIDERS: ADMIT Internal Medicine; ATTEND Internal Medicine